=== PATIENT | female | born 1950 | race Caucasian/White ===

== ENCOUNTER 2018-10-27 05:45 | Inpatient (IN) | payer MEDICARE, MEDICAID ==
[~2018-10-27 05:45] MED LIST: Buffered Lidocaine 1% SYRIN* 1 ML/SYRINGE INTRADERM ONE
[2018-10-27] MEDS ORDERED: Lactated Ringers 1000 ML Bag* 1,000 ML IV SCH ×2 (06:00→19:00)
[2018-10-27] MEDS ORDERED: Famotidine IV* 10 MG/ML 2 ML (20 mg) IV ONE (06:00)
[2018-10-27] MEDS ORDERED: Famotidine IV* 10 MG/ML 2 ML (20 mg) ONE (06:31)
[2018-10-27] MEDS ORDERED: ceFAZolin 2 GM PREMIX in ORs 2 GM/50 ML BAG IVPB ONE ×2 (06:32→12:26)
[2018-10-27] MEDS ORDERED: Lidocain 1% EPI 1:100,000 * 30 ML MDV ONE (06:45)
[2018-10-27] MEDS ORDERED: Bacitracin IV* 50,000 UNITS INJ ONE ×2 (06:45→13:31)
[2018-10-27] MEDS ORDERED: Thrombin 5,000 UNITS* 1 APPLIC KIT - topical use - TOPICAL ONE (06:45)
[2018-10-27] MEDS ORDERED: fentaNYL* 50 MCG/ML 2 ML VIAL (100 MCG VIAL) ONE ×5 (07:32→18:15)
[2018-10-27] MEDS ORDERED: Midazolam* 1 MG/ML 5 ML VIAL (5 MG) ONE (07:32)
[2018-10-27] MEDS ORDERED: Rocuronium* 10 MG/ML VIAL ONE ×3 (07:35→14:10)
[2018-10-27] MEDS ORDERED: DiMENhydriNATE IV* 50 MG/ML VIAL ONE ×2 (09:11→20:45)
[2018-10-27] MEDS ORDERED: Propofol* 500 MG/50 ML BTL ONE (09:11)
[2018-10-27] MEDS ORDERED: Phenylephrine INJ* 10 MG/ML 1 ML VIAL (10 MG) ONE (09:11)
[2018-10-27] MEDS ORDERED: Succinylcholine* 20 MG/ML 10 ML VIAL ONE (09:11)
[2018-10-27] MEDS ORDERED: Lidocaine 2% PF * 5 ML VIAL ONE (09:11)
[2018-10-27] MEDS ORDERED: Ondansetron INJ* 2 MG/ML VIAL ONE ×2 (09:11→18:16)
[2018-10-27] MEDS ORDERED: Dexamethasone IV* 4 MG/ML 1 ML (4 MG) ONE (09:11)
[2018-10-27] MEDS ORDERED: EPHEDrine (Pressors)* 50 MG/ML VIAL ONE ×2 (10:33→15:18)
[2018-10-27] MEDS ORDERED: KETAMINE HCL* 50 MG/ML 10 ML VIAL ONE (13:48)
[2018-10-27 14:58] LABS: Hematocrit 35 % (35-47)
[2018-10-27 15:00] LABS: Hemoglobin 11.2 g/dl (12.0-16.0)
[2018-10-27] MEDS ORDERED: Dexmedetomidine* 200 MCG/2 ML 2 ML VIAL ONE (15:00)
[2018-10-27] MEDS ORDERED: Insulin REGULAR(*) 1 UNITS UNIT ONE ×2 (16:40→16:45)
[2018-10-27] MEDS ORDERED: Naloxone* 0.4 MG/ML 1 ML VIAL IV PRN (17:37)
[2018-10-27] MEDS ORDERED: Acetaminophen IV 1GM/100ML * 1,000 MG/100 ML VIAL IVPB ONE (17:37)
[2018-10-27] MEDS ORDERED: DiMENhydriNATE IV* 50 MG/ML VIAL IV PUSH PRN (17:37)
[2018-10-27] MEDS ORDERED: Zolpidem TAB* 10 MG PO PRN (18:43)
[2018-10-27] MEDS ORDERED: Morphine VIAL* 10 MG/ML 1 ML VIAL IV PRN (18:51)
[2018-10-27] MEDS ORDERED: HYDROmorphone INJ1* 1 MG/ML SYRINGE ONE (19:16)
[2018-10-27] MEDS ORDERED: Acetaminophen IV 1GM/100ML * 100 ML ONE (19:16)
[2018-10-27] MEDS: HYDROmorphone INJ1* 1 MG/ML SYRINGE IV PRN ×4 (19:24→19:56)
[2018-10-27 20:50] LABS: ABS Basophils 0 10^3/ul (0-0.2); ABS Eosinophils 0 10^3/ul (0-0.6); ABS Lymphocytes 0.6 10^3/ul (1.0-4.8); ABS Monocytes 1.1 10^3/ul (0-0.8); ABS Nucleated RBC 0 10^3/ul; Eosinophil % 0 %; Hematocrit 27 % (35-47); Hemoglobin 8.9 g/dl (12.0-16.0); Lymphocyte % 3.3 %; Mean Corpuscular HGB Conc 33 g/dl (31-36); Mean Corpuscular Hemoglobin 27 pg (27-31); Mean Corpuscular Volume 84 fL (80-97); Mean Platelet Volume 8.4 fL (7.4-10.4); Nucleated Red Blood Cells % 0; Platelet Count 187 10^3/ul (150-450); Red Blood Count 3.26 10^6/ul (4.00-5.40); Red Cell Distribution Width 14 % (10.5-15); White Blood Count 17.7 10^3/ul (3.5-10.8)
[2018-10-27 21:04] LABS: BUN/Creatinine Ratio 22.4 (8-20); Calcium 7.7 mg/dL (8.6-10.3); EGFR African American 91.8 (>60); EGFR Non-African American 75.9 (>60); Potassium 4.6 mmol/L (3.5-5.0)
[2018-10-27] MEDS ORDERED: Simethicone TAB* 80 MG TAB.CHEW PO PRN (21:29)
[2018-10-27] MEDS ORDERED: Dextrose 50% Syringe 50 ML* 25 GM/50 ML SYRINGE IV PUSH PRN (21:36)
[2018-10-27] MEDS ORDERED: Insulin GLARGINE(*) 1 UNITS UNIT SUBCUT ONE (21:37)
--- NOTE | 2018-10-27 21:38 | CONSULT ---
Subjective Date of Service: 10/27/18 Interval History: This is a 68 year old Female with history of diabetes, hypertension, back issues , who was admitted to the hospital after having back surgery- lumbar decompression. Medical consultation was requested for medical management. Nurse was also concerned because the patient developed hypotension and felt as if the abdomen was distended. Patient does not have any fever, no chills. Does not have any abdominal pain, no nausea, no vomiting, no chest pain, no burning with urination, no shortness of breath, no cough. Family History: Findings - Mother: Coronary artery disease, diabetes, Father: lung cancer, siblings with diabetes Social History: Findings - Lives at home, does not smoke, no alcohol use Past Medical History: Findings - Diabetes, Hypertension, Back issues. surgeries include tubal ligation, and back surgeries. Review of Systems - Measurements Intake and Output: Intake and Output Last 24 Hours 10/25/18 10/26/18 10/27/18 10/28/18 06:59 06:59 06:59 06:59 Intake Total 5900 Output Total 1400 Balance 4500 Weight 171 lb 9.6 oz Intake: IV Fluids 5900 LR 5800 NS 50ML, Cefazolin 2G 100 Output: Parnell 1000 Estimated Blood Loss 400 - Review of Systems Constitutional Symptoms: Negative: Weight Loss, Weakness, Fever Dermatology: Positive: Normal HEENT: Negative: Change in Hearing, Sinus Problem Eyes: Negative: Change in Vision, Double Vision Thyroid: Negative: Constipation, Palpitations, Change in Skin/Hair Pulmonary: Negative: Cough, Shortness of Breath, Home Oxygen Cardiology: Negative: Chest Pain, Shortness of Breath, Palpitations Gastroenterology: Negative: Abdominal Pain, Nausea, Vomiting Genital - Urinary: Negative: Dysuria, Hematuria Musculoskeletal: Positive: Low Back Pain Endocrinology: Positive: Diabetes Mellitus Neurology: Negative: Headache, Migraines, Change in Vision, Diplopia Psychiatry: Negative: Depression, Anxiety Objective Active Medications: Acetaminophen (Tylenol Tab*) 650 mg PO Q4H PRN PRN Reason: PAIN Dimenhydrinate (Dramamine Iv*) 12.5 mg IV PUSH ONCE PRN PRN Reason: NAUSEA/VOMITING Last Admin: 10/27/18 20:48 Dose: 12.5 mg Famotidine (Pepcid Iv*) 20 mg IV ONCE ONE Stop: 10/27/18 06:01 Last Admin: 10/27/18 06:48 Dose: 20 mg Hydromorphone HCl (Dilaudid Inj1s*) 0.2 mg IV Q5M PRN PRN Reason: PAIN - SEVERE Last Admin: 10/27/18 19:56 Dose: 0.2 mg Acetaminophen (Ofirmev*) 1,000 mg in 100 mls @ 400 mls/hr IVPB ONCE ONE Stop: 10/27/18 17:51 Last Admin: 10/27/18 19:21 Dose: 400 mls/hr Sodium Chloride (Ns 0.9% 1000 Ml*) 1,000 mls @ 75 mls/hr IV PER RATE STALIN Lidocaine/Sodium Bicarbonate (Buffered Lidocaine 1% Syrin*) 0.2 ml INTRADERM ONCE ONE Stop: 10/26/18 15:16 Last Admin: 10/27/18 06:48 Dose: Not Given Liraglutide (Victoza (Nf)) 1.6 mg SUBCUT QPM [facility] Magnesium Hydroxide (Milk Of Magnesia Liq*) 30 ml PO DAILY PRN PRN Reason: CONSTIPATION Morphine Sulfate (Morphine Inj (Syringe)*) 5 mg IV Q6H PRN PRN Reason: PAIN - BREAKTHROUGH Naloxone HCl (Narcan*) 0.08 mg IV Q2M PRN PRN Reason: severe induced resp depression Non-Formulary Medication (Atorvastatin*) 10 mg PO QPM [facility] Non-Formulary Medication (Calcium Carbonate/Vitamin D3 [Calcium 600-Vit D3 800 Tablet]) 1 tab PO DAILY [facility] Non-Formulary Medication (Levemir Flextouch) 38 units SUBCUT QPM [facility] Non-Formulary Medication (Multivitamin) 1 tab PO QAM [facility] Non-Formulary Medication (Vitamin B12) 1,000 mg PO QAM [facility] Non-Formulary Medication (Vitamin D3) 2,000 units PO DAILY [facility] Ondansetron HCl (Zofran Inj*) 4 mg IV Q6H PRN PRN Reason: NAUSEA/VOMITING Oxycodone HCl (Roxycodone Tab*) 10 mg PO Q4H PRN PRN Reason: marked pain Simethicone (Mylicon Tab*) 80 mg PO Q12H PRN PRN Reason: bloating Zolpidem Tartrate (Ambien Tab*) 10 mg PO BEDTIME PRN PRN Reason: INSOMNIA Vital Signs - 8 hr 10/27/18 10/27/18 10/27/18 19:06 19:07 19:12 Temperature 97.7 F Pulse Rate 86 86 Respiratory 12 17 Rate Blood Pressure 93/55 (mmHg) O2 Sat by Pulse 100 99 Oximetry 10/27/18 10/27/18 10/27/18 19:15 19:20 19:24 Temperature Pulse Rate 80 83 Respiratory 20 14 13 Rate Blood Pressure 94/61 111/70 (mmHg) O2 Sat by Pulse 98 99 Oximetry 10/27/18 10/27/18 10/27/18 19:25 19:30 19:32 Temperature Pulse Rate 84 81 Respiratory 15 20 12 Rate Blood Pressure 120/73 110/61 (mmHg) O2 Sat by Pulse 100 97 Oximetry 10/27/18 10/27/18 10/27/18 19:42 19:46 19:56 Temperature Pulse Rate Respiratory 18 18 15 Rate Blood Pressure 111/62 (mmHg) O2 Sat by Pulse Oximetry 10/27/18 10/27/18 10/27/18 20:00 20:15 20:30 Temperature Pulse Rate 84 84 82 Respiratory 18 18 16 Rate Blood Pressure 94/60 97/60 94/62 (mmHg) O2 Sat by Pulse 95 98 93 Oximetry 10/27/18 10/27/18 10/27/18 20:45 20:49 21:05 Temperature Pulse Rate 79 81 82 Respiratory 14 16 16 Rate Blood Pressure 89/58 93/57 91/57 (mmHg) O2 Sat by Pulse 94 99 96 Oximetry 10/27/18 21:11 Temperature Pulse Rate 80 Respiratory 14 Rate Blood Pressure 91/54 (mmHg) O2 Sat by Pulse 95 Oximetry Oxygen Devices in Use Now: Nasal Cannula Appearance: Elderly female lying in bed in the PACU, not in distress. Non-toxic appearing. Eyes: PERRLA, - - no nystagmus Ears/Nose/Mouth/Throat: - - oral mucosa is dry. Neck: Trachea Midline, No Thyroid Enlargement, Masses Respiratory: Symmetrical Chest Expansion and Respiratory Effort, Clear to Auscultation, - - No tachypnea. no wheezing/rales/rhonchi Cardiovascular: NL Sounds; No Murmurs; No JVD, RRR, No Edema Abdominal: No Hepatosplenomegaly, - - Bowel sounds are normoactive all four quadrants, soft, mildly distended, non-tender, no rigidity or guarding. Extremities: No Edema Skin: No Rash or Ulcers Neurological: Alert and Oriented x 3, NL Muscle Strength and Tone Result Diagrams: 10/27/18 20:38 10/27/18 20:38 Assessment/Plan - Billing Plan By Medical Problem: 68 year old Female with history of diabetes, hypertension here in the hospital for back surgery- lumbar decompression. 1. Hypotension: likley due to anesthesia, will monitor in ICU overnight. Gentle IV hydration, hold home dose lisinopril 2. Leukocytosis: could be post reactive from surgery, however due to low blood pressure, obtain blood culture, urinalysis, chest xray. She did receive antibiotics intra-op. Currenlty is non-toxic appearing, no fever, so will monitor off antibiotics. 3. Type II Diabetes: resume home regimen from tomorrow (10/28/18) Insulin sliding scale will be ordered as well. One dose of 10 units of lantus to carry through the night. 4. Additional care (including pain control DVT PPX) per the primary team: neurosurgery. Thank you for involving us in the care of Ms. Nora Ta. Medications/Allergies Medications: Home Medications Medication Instructions Recorded Confirmed Type Lisinopril TAB* 10 mg PO QAM 11/03/14 10/27/18 History Calcium Carbonate/Vitamin D3 1 tab PO DAILY 01/10/15 10/27/18 History [Calcium 600-Vit D3 800 Tablet] Magnesium 1 tab PO QAM 01/10/15 10/27/18 History Multivitamin 1 tab PO QAM 01/10/15 10/27/18 History Niacin 1 tab PO QAM 01/10/15 10/27/18 History Potassium 1 tab PO DAILY 01/10/15 10/27/18 History Hemeopathy Meds 1 PO SEE INSTRUCTIONS 12/14/15 History Herbal Tinctures 1 tab PO QAM 12/14/15 10/27/18 History Co Q-10 1 tab PO QAM 10/21/18 10/27/18 History Levemir Flextouch 38 INJ QPM 10/21/18 History Liraglutide (NF) [Victoza (NF)] 1.6 mg SUBCUT QPM 10/21/18 10/27/18 History Vitamin B12 1 tab PO QAM 10/21/18 10/27/18 History metFORMIN* [Glucophage 500 MG TAB 1,000 mg PO BID 10/21/18 10/27/18 History *] Atorvastatin* 1 tab PO QPM 10/27/18 10/27/18 History Digestive Aids Mixture 3 cap PO DAILY 10/27/18 10/27/18 History Vitamin D3 2,000 units PO DAILY 10/27/18 10/27/18 History Allergies/Adverse Reactions: Allergies Allergy/AdvReac Type Severity Reaction Status Date / Time No Known Allergies Allergy Verified 10/27/18 06:36
[2018-10-27] MEDS: Ondansetron INJ* 2 MG/ML VIAL IV PRN (23:00)
[2018-10-27] MEDS: Insulin LISPRO* 1 UNITS UNIT SUBCUT SCH (23:00)
[2018-10-28] MEDS ORDERED: NS 0.9% 500 ML* 500 ML IV ONE (03:37)
[2018-10-28 03:42] LABS: Urine Appearance Cloudy; Urine Bacteria Absent (Absent); Urine Bilirubin Negative (Negative); Urine Blood Negative (Negative); Urine Color Yellow; Urine Glucose 2+(150 mg/dL) (Negative); Urine Ketones Negative (Negative); Urine Nitrite Negative (Negative); Urine Protein Negative (Negative); Urine Red Blood Cell Absent (Absent); Urine Specific Gravity 1.024 (1.010-1.030); Urine Squamous Epithelial Cell Present (Absent); Urine Urobilinogen Negative (Negative); Urine White Blood Cell 2+(11-20/hpf) (Absent)
[2018-10-28] MEDS: Acetaminophen TAB* 325 MG PO PRN (03:44)
[2018-10-28] MEDS: oxyCODONE TAB* 5 MG TAB PO PRN ×3 (06:21→18:31)
[2018-10-28] MEDS: Ondansetron INJ* 2 MG/ML VIAL IV PRN (06:53)
[2018-10-28] MEDS: NS 0.9% 1000 ML** 1,000 ML IV SCH ×2 (07:30→23:07)
[2018-10-28 07:47] LABS: ABS Basophils 0.1 10^3/ul (0-0.2); ABS Eosinophils 0 10^3/ul (0-0.6); ABS Lymphocytes 1.3 10^3/ul (1.0-4.8); ABS Monocytes 1.2 10^3/ul (0-0.8); ABS Neutrophils 13.1 10^3/ul (1.5-7.7); ABS Nucleated RBC 0 10^3/ul; Eosinophil % 0 %; Hematocrit 24 % (35-47); Lymphocyte % 8.6 %; Mean Corpuscular HGB Conc 33 g/dl (31-36); Mean Corpuscular Hemoglobin 27 pg (27-31); Mean Corpuscular Volume 83 fL (80-97); Mean Platelet Volume 8.5 fL (7.4-10.4); Nucleated Red Blood Cells % 0; Platelet Count 165 10^3/ul (150-450); Red Blood Count 2.93 10^6/ul (4.00-5.40); Red Cell Distribution Width 14 % (10.5-15); White Blood Count 15.7 10^3/ul (3.5-10.8)
[2018-10-28 07:57] LABS: BUN/Creatinine Ratio 20.7 (8-20); Calcium 7.9 mg/dL (8.6-10.3); EGFR African American 59.3 (>60); Potassium 4.4 mmol/L (3.5-5.0)
[2018-10-28] MEDS: Calcium/Vitamin D TAB 250/125* TAB PO SCH (08:26)
[2018-10-28] MEDS: Insulin LISPRO* 1 UNITS UNIT SUBCUT SCH ×4 (08:26→22:45)
[2018-10-28] MEDS: Cyanocobalamin TAB* 500 MCG PO SCH (08:27)
[2018-10-28] MEDS: Cholecalciferol TAB* 1000 UNITS PO SCH (08:27)
[2018-10-28] MEDS: Multivitamins/Minerals TAB PO SCH (08:27)
[2018-10-28] MEDS ORDERED: Albumin Human 5%* 12.5 GM/250 ML BTL IV ONE (09:03)
[2018-10-28] MEDS ORDERED: Morphine VIAL* 10 MG/ML 1 ML VIAL ONE (13:42)
[2018-10-28] MEDS: Morphine VIAL* 10 MG/ML 1 ML VIAL IV PRN ×2 (13:47→22:45)
[2018-10-28 15:39] LABS: Hematocrit 25 % (35-47); Hemoglobin 8.1 g/dl (12.0-16.0)
--- NOTE | 2018-10-28 16:14 | PN ---
Progress Note - Progress Note Date of Service: 10/28/18 SOAP: Subjective: []POD # 1 Patient c/o severe incisional pain Feels she can hardly move secondary to pain Went to ICU secondary to length of case,hypotension and low urine output Denies any numbness or tingling in legs Catheter in place Objective: []Moderate drain output HCT 24 this AM Moves ext well with some pain Assessment: []Satis post op course Plan: []Would transfuse given her BP,urine output Discussed transfusion with Dr. Langley
--- NOTE | 2018-10-28 17:41 | PN ---
Date of Service: 10/28/18 Critical Care Services: Seems comfortable - somnolent but easily arousable - Hemoglobin at 8 this AM - after one unit PRBC. repeat Hb was 8.1 - currently receiving the second unit PRBC - no obvious active bleeding. Vital Signs: Temp Pulse Resp BP SpO2 FiO2 97.5 F 109 21 120/51 93 Physical Exam: Gen:Comfortable and easily arousable HEENT: Swelling right side of face Lungs: Clear Cardiac: Reg rhythm Abdomen: Not disended Extremities:No cyanosis or edema. Fluid Balance (Past 24 Hours): 10/28/18 06:59 Intake Total 7827 Output Total 1860 Balance 5967 Weight 184 lb Intake: IV Fluids 6867 Albumin 5% LR 5800 NS (0.9%) 967 NS 50ML, Cefazolin 2G 100 Oral 960 Packed Cells Output: ROSITA #1 90 Urine Parnell 1370 Estimated Blood Loss 400 Labs: Laboratory Results - last 24 hr 10/27/18 10/27/18 10/28/18 20:38 22:45 03:00 WBC 17.7 H RBC 3.26 L Hgb 8.9 L Hct 27 L MCV 84 MCH 27 MCHC 33 RDW 14 Plt Count 187 MPV 8.4 Neut % (Auto) 90.1 Lymph % (Auto) 3.3 Brooks % (Auto) 6.5 Eos % (Auto) 0 Baso % (Auto) 0.1 Absolute Neuts (auto) 16.0 H Absolute Lymphs (auto) 0.6 L Absolute Monos (auto) 1.1 H Absolute Eos (auto) 0 Absolute Basos (auto) 0 Absolute Nucleated RBC 0 Nucleated RBC % 0 Sodium Potassium Chloride Carbon Dioxide Anion Gap BUN Creatinine Est GFR ( Amer) Est GFR (Non-Af Amer) BUN/Creatinine Ratio Glucose POC Glucose (mg/dL) 330 H Calcium Urine Color Yellow Urine Appearance Cloudy Urine pH 5.0 Ur Specific [place] 1.024 Urine Protein Negative Urine Ketones Negative Urine Blood Negative Urine Nitrate Negative Urine Bilirubin Negative Urine Urobilinogen Negative Ur Leukocyte Esterase Trace A Urine WBC (Auto) 2+(11-20/hpf) A Urine RBC (Auto) Absent Ur Squamous Epith Cells Present A Urine Bacteria Absent Hyaline Casts Present A Urine Glucose 2+(150 mg/dl) A Blood Type Antibody Screen Crossmatch 10/28/18 10/28/18 10/28/18 07:32 07:32 08:18 WBC 15.7 H RBC 2.93 L Hgb 8.0 L Hct 24 L MCV 83 MCH 27 MCHC 33 RDW 14 Plt Count 165 MPV 8.5 Neut % (Auto) 83.7 Lymph % (Auto) 8.6 Brooks % (Auto) 7.4 Eos % (Auto) 0 Baso % (Auto) 0.3 Absolute Neuts (auto) 13.1 H Absolute Lymphs (auto) 1.3 Absolute Monos (auto) 1.2 H Absolute Eos (auto) 0 Absolute Basos (auto) 0.1 Absolute Nucleated RBC 0 Nucleated RBC % 0 Sodium 132 L Potassium 4.4 Chloride 100 L Carbon Dioxide 27 Anion Gap 5 BUN 23 Creatinine 1.11 H Glucose 247 H POC Glucose (mg/dL) 240 H Calcium 7.9 L Urine Color Urine Appearance Urine pH Ur Specific [place] Urine Protein Urine Ketones Urine Blood Urine Nitrate Urine Bilirubin Urine Urobilinogen Ur Leukocyte Esterase Urine WBC (Auto) Urine RBC (Auto) Ur Squamous Epith Cells Urine Bacteria Hyaline Casts Urine Glucose Blood Type Antibody Screen Crossmatch 10/28/18 10/28/18 13:26 15:25 WBC RBC Hgb 8.1 L Hct 25 L MCV MCH MCHC RDW Plt Count MPV Neut % (Auto) Lymph % (Auto) Brooks % (Auto) Eos % (Auto) Baso % (Auto) Absolute Neuts (auto) Absolute Lymphs (auto) Absolute Monos (auto) Absolute Eos (auto) Absolute Basos (auto) Absolute Nucleated RBC Nucleated RBC % Sodium Potassium Chloride Carbon Dioxide Anion Gap BUN Creatinine Est GFR ( Amer) Est GFR (Non-Af Amer) BUN/Creatinine Ratio Glucose POC Glucose (mg/dL) 220 H Calcium Urine Color Urine Appearance Urine pH Ur Specific [place] Urine Protein Urine Ketones Urine Blood Urine Nitrate Urine Bilirubin Urine Urobilinogen Ur Leukocyte Esterase Urine WBC (Auto) Urine RBC (Auto) Ur Squamous Epith Cells Urine Bacteria Hyaline Casts Urine Glucose Blood Type Antibody Screen Crossmatch Studies: None today Nutrition: Clear liquids - intake poor Impression: Doing resonably well - there has been a low urine output this afternoon, but it is not concerning at this point, as we are replacing blood and fluid losses. Hyperglycemia not a problem. Plan: Erythrocyte transfusions and fluids as needed. Will keep blood sugar around 200 mg/dL. Critical Care Time: 45 minutes
[2018-10-28] MEDS ORDERED: INSULIN DETEMIR SUBCUT SCH (18:00)
[2018-10-28] MEDS: Atorvastatin* 10 MG TAB PO SCH (18:15)
[2018-10-28] MEDS: LIRAGLUTIDE 18 MG/3 ML SUBCUT SCH (19:01)
[2018-10-28 19:20] LABS: EGFR African American 58.7 (>60); EGFR Non-African American 48.5 (>60)
[2018-10-28] MEDS: Insulin GLARGINE(*) 1 UNITS UNIT SUBCUT SCH (22:46)
[2018-10-29 00:25] LABS: Hematocrit 31 % (35-47); Hemoglobin 10.1 g/dl (12.0-16.0)
[2018-10-29] MEDS: oxyCODONE TAB* 5 MG TAB PO PRN ×4 (01:08→20:15)
[2018-10-29] MEDS: Morphine VIAL* 10 MG/ML 1 ML VIAL IV PRN ×2 (03:04→08:42)
[2018-10-29 06:51] LABS: Hematocrit 30 % (35-47); Hemoglobin 9.9 g/dl (12.0-16.0); Mean Corpuscular HGB Conc 33 g/dl (31-36); Mean Corpuscular Hemoglobin 28 pg (27-31); Mean Corpuscular Volume 83 fL (80-97); Mean Platelet Volume 8.5 fL (7.4-10.4); Platelet Count 133 10^3/ul (150-450); Red Blood Count 3.59 10^6/ul (4.00-5.40); Red Cell Distribution Width 14 % (10.5-15); White Blood Count 15.5 10^3/ul (3.5-10.8)
[2018-10-29 07:09] LABS: BUN/Creatinine Ratio 23.1 (8-20); Calcium 8.3 mg/dL (8.6-10.3); EGFR African American 89.1 (>60); EGFR Non-African American 73.7 (>60); Potassium 4.2 mmol/L (3.5-5.0)
[2018-10-29] MEDS: Multivitamins/Minerals TAB PO SCH (08:40)
[2018-10-29] MEDS: Calcium/Vitamin D TAB 250/125* TAB PO SCH (08:40)
[2018-10-29] MEDS: Cyanocobalamin TAB* 500 MCG PO SCH (08:40)
[2018-10-29] MEDS: Cholecalciferol TAB* 1000 UNITS PO SCH (08:40)
--- NOTE | 2018-10-29 09:12 | PN ---
Progress Note - Progress Note Date of Service: 10/29/18 SOAP: Subjective: [S/p T11-S1 fusion, POD #2. States that she feels terrible today, complains of incisional pain Drinking well although states she feels parched Urine output increased, BP improved 3 units PRBC transfused yesterday Has not been up out of bed yet. Tingling in lower extremities distally from knees. Parnell in place ] Objective: [ Vital Signs: Temp Pulse Resp BP Pulse Ox 97.0 F 98 30 134/76 94 10/29/18 04:00 10/29/18 07:00 10/29/18 08:42 10/29/18 07:00 10/29/18 07:00 General: Laying in bed, NAD Neuro: Motor and sensory intact Incision: Intact, dressing in place. Drain functioning well. Wound drain output 10/27/18 10/28/18 10/28/18 23:00 02:00 04:00 Output, ROSITA #1 30 30 30 10/28/18 10/28/18 10/28/18 08:00 11:00 16:00 Output, ROSITA #1 50 50 35 10/28/18 10/29/18 10/29/18 19:50 00:00 04:00 Output, ROSITA #1 30 70 60 10/29/18 08:54 Output, ROSITA #1 30 Laboratory Tests 10/29/18 06:35 Hgb 9.9 L Hct 30 L ] Assessment: [Stable post-op.] Plan: [1. Add cyclobenzaprine and fentanyl patch 2. PT, OT 3. Transfer to short stay today]
[2018-10-29] MEDS: Insulin LISPRO* 1 UNITS UNIT SUBCUT SCH ×4 (09:29→20:31)
--- NOTE | 2018-10-29 09:30 | PN ---
Date of Service: 10/29/18 Critical Care Services: Less confused today, but complaining of increasing back pain. Received 3 units packed RBCs yesterday, with hemoglobin up to 9.9. Vital Signs: Temp Pulse Resp BP SpO2 FiO2 97.0 F 98 30 134/76 94 10/29/18 04:00 10/29/18 07:00 10/29/18 08:42 10/29/18 07:00 10/29/18 07:00 Physical Exam: Gen:Awake and oriented to person and place Lungs:Clear Cardiac: Reg rhythm Abdomen:Not distended Extremities:No cyanosis or edema Fluid Balance (Past 24 Hours): 10/28/18 10/29/18 06:59 06:59 Intake Total 7827 3411 Output Total 1860 1350 Balance 5967 2061 Weight 184 lb 189 lb Intake: IV Fluids 6867 1931 Albumin 5% 250 LR 5800 NS (0.9%) 967 1681 NS 50ML, Cefazolin 2G 100 Oral 960 640 Packed Cells 840 Output: ROSITA #1 90 295 Urine 40 Parnell 1370 1015 Estimated Blood Loss 400 Labs: 10/28/18 10/28/18 10/28/18 15:25 18:14 18:22 WBC RBC Hgb 8.1 L Hct 25 L MCV MCH MCHC RDW Plt Count MPV Sodium Potassium Chloride Carbon Dioxide Anion Gap BUN 25 H Creatinine 1.12 H Est GFR ( Amer) 58.7 Est GFR (Non-Af Amer) 48.5 BUN/Creatinine Ratio Glucose POC Glucose (mg/dL) 229 H Calcium Blood Type Antibody Screen Crossmatch 10/28/18 10/29/18 10/29/18 22:24 00:10 06:35 WBC RBC Hgb 10.1 L Hct 31 L MCV MCH MCHC RDW Plt Count MPV Sodium 134 L Potassium 4.2 Chloride 104 Carbon Dioxide 26 Anion Gap 4 BUN 18 Creatinine 0.78 Est GFR ( Amer) 89.1 Est GFR (Non-Af Amer) 73.7 BUN/Creatinine Ratio 23.1 H Glucose 199 H POC Glucose (mg/dL) 221 H Calcium 8.3 L Blood Type Antibody Screen Crossmatch 10/29/18 10/29/18 06:35 08:59 WBC 15.5 H RBC 3.59 L Hgb 9.9 L Hct 30 L MCV 83 MCH 28 MCHC 33 RDW 14 Plt Count 133 L MPV 8.5 Sodium Potassium Chloride Carbon Dioxide Anion Gap BUN Creatinine Est GFR ( Amer) Est GFR (Non-Af Amer) BUN/Creatinine Ratio Glucose POC Glucose (mg/dL) 213 H Calcium Blood Type Antibody Screen Crossmatch Studies: All cultures negative Nutrition: Oral diet Impression: Satisfactory postop course. Plan: 1. Start fentanyl patches for pain control 2. Start physical therapy 3. Transfer out of ICU today
[2018-10-29] MEDS: fentaNYL PATCH 25 MCG/HR TRANSDERM SCH (10:22)
[2018-10-29] MEDS: Cyclobenzaprine TAB* 10 MG PO PRN (12:57)
[2018-10-29] MEDS: fentaNYL Patch Check Q Shift 1 NOTE SCH ×2 (15:29→19:06)
[2018-10-29] MEDS: LIRAGLUTIDE 18 MG/3 ML SUBCUT SCH (18:34)
[2018-10-29] MEDS: Acetaminophen TAB* 325 MG PO PRN (18:46)
[2018-10-29] MEDS: Atorvastatin* 10 MG TAB PO SCH (18:46)
[2018-10-29] MEDS: Insulin GLARGINE(*) 1 UNITS UNIT SUBCUT SCH (20:31)
[2018-10-30] MEDS: oxyCODONE TAB* 5 MG TAB PO PRN ×5 (00:07→20:39)
[2018-10-30] MEDS: NS 0.9% 1000 ML** 1,000 ML IV SCH ×2 (04:02→16:38)
[2018-10-30] MEDS: fentaNYL Patch Check Q Shift 1 NOTE SCH ×2 (07:01→19:13)
--- NOTE | 2018-10-30 07:54 | PN ---
Progress Note - Progress Note Date of Service: 10/30/18 SOAP: Subjective: [Pt continues to complain of severe back pain. Numbness in lower extremities is improving. Has not been up out of bed Pain increases with movement in bed. Parnell in place. PO pain meds and patch. ] Objective: [ Vital Signs: Temp Pulse Resp BP Pulse Ox 98.6 F 85 18 148/61 96 10/30/18 07:39 10/30/18 07:39 10/30/18 07:39 10/30/18 07:39 10/30/18 07:50 Neuro: Motor and sensory intact Incision: Intact, drain in place and functioning ] Assessment: [Slow progress post-op. Will likely require rehab] Plan: [1. PT today 2. Encourage out of bed 3. Continue pain management]
[2018-10-30] MEDS: Multivitamins/Minerals TAB PO SCH (08:02)
[2018-10-30] MEDS: Cholecalciferol TAB* 1000 UNITS PO SCH (08:02)
[2018-10-30] MEDS: Cyanocobalamin TAB* 500 MCG PO SCH (08:02)
[2018-10-30] MEDS: Calcium/Vitamin D TAB 250/125* TAB PO SCH (08:02)
[2018-10-30] MEDS: Magnesium Hydroxide LIQ* 30 ML UDC PO PRN (08:12)
[2018-10-30] MEDS: Insulin LISPRO* 1 UNITS UNIT SUBCUT SCH ×4 (09:01→20:54)
[2018-10-30] MEDS: Cyclobenzaprine TAB* 10 MG PO PRN (11:37)
[2018-10-30] MEDS: Morphine INJ* 2 MG/ML 1 ML SYRINGE (TWO MG - NEW SYRINGE VERSION) IV PRN (12:23)
[2018-10-30] MEDS: Atorvastatin* 10 MG TAB PO SCH (17:48)
[2018-10-30] MEDS: LIRAGLUTIDE 18 MG/3 ML SUBCUT SCH (17:49)
--- NOTE | 2018-10-30 18:36 | PN ---
Subjective Date of Service: 10/30/18 Interval History: Patient seen and examined. Per RN, patient had some confusion earlier in the day. Appears alert and appropriate now. States her surgical pain is better controlled now, tolerating PO. Denies fevers or chills, no SOB, no chest pain, no further complaints. Family History: Findings - Mother: Coronary artery disease, diabetes, Father: lung cancer, siblings with diabetes Social History: Findings - Lives at home, does not smoke, no alcohol use Past Medical History: Findings - Diabetes, Hypertension, Back issues. surgeries include tubal ligation, and back surgeries. Objective Active Medications: Acetaminophen (Tylenol Tab*) 650 mg PO Q4H PRN PRN Reason: PAIN Last Admin: 10/29/18 18:46 Dose: 650 mg Atorvastatin Calcium (Lipitor*) 10 mg PO QPM [facility] Last Admin: 10/30/18 17:48 Dose: 10 mg Calcium/Vitamin D (Oscal D Tab 250/125*) 1 tab PO DAILY [facility] Last Admin: 10/30/18 08:02 Dose: 1 tab Cholecalciferol (Vitamin D Tab*) 2,000 units PO DAILY [facility] Last Admin: 10/30/18 08:02 Dose: 2,000 units Cyanocobalamin (Vitamin B12 Tab*) 1,000 mcg PO QAM [facility] Last Admin: 10/30/18 08:02 Dose: 1,000 mcg Cyclobenzaprine HCl (Flexeril Tab*) 10 mg PO TID PRN PRN Reason: muscle spasm Last Admin: 10/30/18 11:37 Dose: 10 mg Dextrose (D50w Syringe 50 Ml*) 12.5 gm IV PUSH .FOR FS < 60 - SS PRN PRN Reason: FS < 60 Fentanyl (Duragesic Patch 25 Mcg/Hr*) 25 mcg TRANSDERM Q72H [facility] Last Admin: 10/29/18 10:22 Dose: 25 mcg Sodium Chloride (Ns 0.9% 1000 Ml*) 1,000 mls @ 75 mls/hr IV PER RATE [facility] Last Admin: 10/30/18 16:38 Dose: 75 mls/hr Insulin Glargine (Lantus(*)) 38 units SUBCUT BEDTIME [facility] Last Admin: 10/29/18 20:31 Dose: 38 units Insulin Human Lispro (Humalog*) 0 units SUBCUT ACHS [facility]; Protocol Last Admin: 10/30/18 17:48 Dose: 4 units Liraglutide (Victoza (Nf)) 1.8 mg SUBCUT QPM [facility] Last Admin: 10/30/18 17:49 Dose: Not Given Magnesium Hydroxide (Milk Of Magnesia Liq*) 30 ml PO DAILY PRN PRN Reason: CONSTIPATION Last Admin: 10/30/18 08:12 Dose: 30 ml Morphine Sulfate (Morphine Vial*) 5 mg IV Q4H PRN PRN Reason: PAIN - BREAKTHROUGH Last Admin: 10/29/18 08:42 Dose: 5 mg Morphine Sulfate (Morphine Inj ((Syringe))*) 1 mg IV Q2H PRN PRN Reason: PAIN Last Admin: 10/30/18 12:23 Dose: 1 mg Multivitamins/Minerals (Theragran/Minerals Tab*) 1 tab PO QAM [facility] Last Admin: 10/30/18 08:02 Dose: 1 tab Ondansetron HCl (Zofran Inj*) 4 mg IV Q6H PRN PRN Reason: NAUSEA/VOMITING Last Admin: 10/28/18 06:53 Dose: 4 mg Oxycodone HCl (Roxycodone Tab*) 10 mg PO Q4H PRN PRN Reason: marked pain Last Admin: 10/30/18 16:25 Dose: 10 mg Pharmacy Profile Note (Fentanyl Patch Check Q Shift) 1 note N/A 0700,1900 [facility] Last Admin: 10/30/18 07:01 Dose: 1 note Simethicone (Mylicon Tab*) 80 mg PO Q12H PRN PRN Reason: bloating Zolpidem Tartrate (Ambien Tab*) 10 mg PO BEDTIME PRN PRN Reason: INSOMNIA Last Admin: 10/30/18 00:16 Dose: 10 mg Vital Signs - 8 hr 10/30/18 10/30/18 10/30/18 11:37 12:23 12:51 Temperature 97.8 F Pulse Rate 90 Respiratory 18 18 16 Rate Blood Pressure 163/77 (mmHg) O2 Sat by Pulse 97 Oximetry 10/30/18 10/30/18 16:17 16:25 Temperature 98.3 F Pulse Rate 89 Respiratory 20 18 Rate Blood Pressure 154/64 (mmHg) O2 Sat by Pulse 97 Oximetry Oxygen Devices in Use Now: None Appearance: alert, NAD Eyes: No Scleral Icterus, PERRLA Ears/Nose/Mouth/Throat: NL Teeth, Lips, Gums Neck: NL Appearance and Movements; NL JVP, Trachea Midline Respiratory: Symmetrical Chest Expansion and Respiratory Effort, Clear to Auscultation Cardiovascular: NL Sounds; No Murmurs; No JVD, RRR, No Edema Abdominal: NL Sounds; No Tenderness; No Distention Skin: No Rash or Ulcers, - - ROSITA drain with serosanguinous drainage, dressing CDI Neurological: Alert and Oriented x 3, NL Muscle Strength and Tone, - Nutrition: Taking PO's Result Diagrams: 10/29/18 06:35 10/29/18 06:35 Microbiology and Other Data: Microbiology 10/28/18 00:00 Aerobic Blood Culture - Preliminary Blood Venous No Growth Day 2 Anaerobic Blood Culture - Preliminary No Growth Day 2 10/28/18 00:00 Aerobic Blood Culture - Preliminary Blood Venous No Growth Day 2 Anaerobic Blood Culture - Preliminary No Growth Day 2 10/28/18 03:00 Urine Culture - Final Urine No Growth (<1,000 CFU/mL) 10/27/18 22:30 Nasal Screen MRSA (PCR) - Final Nasal Mrsa Not Detected Assess/Plan/Problems-Billing Plan By Medical Problem: 68 year old Female with history of diabetes, hypertension presented to [facility] for T11-S1 lumbar decompression and fusion. - Patient Problems (1) Lumbar spinal stenosis Code(s): M48.06 - SPINAL STENOSIS, LUMBAR REGION * DO NOT USE * SNOMED Code(s) : 36699191 Comment: - s/p T11-S1 fusion - POC as per neurosurgery - PT/OT - Pain control with fentanyl patch and oxycodone - DVT prophy with SCDs (2) Hypertension Code(s): I10 - ESSENTIAL (PRIMARY) HYPERTENSION SNOMED Code(s): 64458549 Comment: - With post-op hypotension and anemia, and reactive leukocytosis improving - S/p 3 units PRBCs transfused - renal function returned to baseline - Downgraded from ICU 10/29 (3) Diabetes Code(s): E11.9 - TYPE 2 DIABETES MELLITUS WITHOUT COMPLICATIONS SNOMED Code(s) : 69967545 Comment: - Accuchecks ACHS with lispro SS, 38 units lantus QHS and victoza Status and Disposition: Inpatient, dispo per neurosurgery.
[2018-10-30] MEDS: Acetaminophen TAB* 325 MG PO PRN (20:39)
[2018-10-30] MEDS: Insulin GLARGINE(*) 1 UNITS UNIT SUBCUT SCH (20:53)
--- NOTE | 2018-10-30 21:37 | PN ---
Progress Note - Progress Note Date of Service: 10/30/18 SOAP: Subjective: [] No events ON. On regular floor. Not OOB yet. Tolerates Po well. 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 Appreciate IM care. Mauricio Blanco MD
[2018-10-31] MEDS: Acetaminophen TAB* 325 MG PO PRN (02:13)
[2018-10-31] MEDS: oxyCODONE TAB* 5 MG TAB PO PRN ×3 (04:21→12:48)
[2018-10-31] MEDS: NS 0.9% 1000 ML** 1,000 ML IV SCH (05:55)
[2018-10-31] MEDS: fentaNYL Patch Check Q Shift 1 NOTE SCH ×2 (06:32→19:17)
[2018-10-31] MEDS: Insulin LISPRO* 1 UNITS UNIT SUBCUT SCH ×4 (07:55→21:00)
[2018-10-31] MEDS: Magnesium Hydroxide LIQ* 30 ML UDC PO PRN (08:06)
[2018-10-31] MEDS: Cyanocobalamin TAB* 500 MCG PO SCH (08:07)
[2018-10-31] MEDS: Cholecalciferol TAB* 1000 UNITS PO SCH (08:07)
[2018-10-31] MEDS: Multivitamins/Minerals TAB PO SCH (08:07)
[2018-10-31] MEDS: Calcium/Vitamin D TAB 250/125* TAB PO SCH (08:07)
[2018-10-31] MEDS: Polyethylene Glycol 3350* 17 GM PACKET PO SCH (12:48)
--- NOTE | 2018-10-31 14:49 | PN ---
Subjective Date of Service: 10/31/18 Interval History: Patient seen and examined. PT and RN getting patient OOB to chair for first time. Patient is mildly tachypneic during transfer 2/2 pain. Ultimately tolerated the move ok. Denies acute SOB, no chest pain, surgical pain 5/10. Family History: Findings - Mother: Coronary artery disease, diabetes, Father: lung cancer, siblings with diabetes Social History: Findings - Lives at home, does not smoke, no alcohol use Past Medical History: Findings - Diabetes, Hypertension, Back issues. surgeries include tubal ligation, and back surgeries. Objective Active Medications: Acetaminophen (Tylenol Tab*) 650 mg PO Q4H PRN PRN Reason: PAIN Last Admin: 10/31/18 02:13 Dose: 650 mg Atorvastatin Calcium (Lipitor*) 10 mg PO QPM [facility] Last Admin: 10/30/18 17:48 Dose: 10 mg Calcium/Vitamin D (Oscal D Tab 250/125*) 1 tab PO DAILY [facility] Last Admin: 10/31/18 08:07 Dose: 1 tab Cholecalciferol (Vitamin D Tab*) 2,000 units PO DAILY [facility] Last Admin: 10/31/18 08:07 Dose: 2,000 units Cyanocobalamin (Vitamin B12 Tab*) 1,000 mcg PO QAM [facility] Last Admin: 10/31/18 08:07 Dose: 1,000 mcg Cyclobenzaprine HCl (Flexeril Tab*) 10 mg PO TID PRN PRN Reason: muscle spasm Last Admin: 10/30/18 11:37 Dose: 10 mg Dextrose (D50w Syringe 50 Ml*) 12.5 gm IV PUSH .FOR FS < 60 - SS PRN PRN Reason: FS < 60 Fentanyl (Duragesic Patch 25 Mcg/Hr*) 25 mcg TRANSDERM Q72H [facility] Last Admin: 10/29/18 10:22 Dose: 25 mcg Sodium Chloride (Ns 0.9% 1000 Ml*) 1,000 mls @ 75 mls/hr IV PER RATE [facility] Last Admin: 10/31/18 05:55 Dose: 75 mls/hr Insulin Glargine (Lantus(*)) 38 units SUBCUT BEDTIME [facility] Last Admin: 10/30/18 20:53 Dose: 38 units Insulin Human Lispro (Humalog*) 0 units SUBCUT ACHS [facility]; Protocol Last Admin: 10/31/18 12:46 Dose: 1 units Lactulose (Lactulose*) 30 ml PO BID PRN PRN Reason: CONSTIPATION Liraglutide (Victoza (Nf)) 1.8 mg SUBCUT QPM [facility] Last Admin: 10/30/18 17:49 Dose: Not Given Magnesium Hydroxide (Milk Of Magnesia Liq*) 30 ml PO DAILY PRN PRN Reason: CONSTIPATION Last Admin: 10/31/18 08:06 Dose: 30 ml Morphine Sulfate (Morphine Vial*) 5 mg IV Q4H PRN PRN Reason: PAIN - BREAKTHROUGH Last Admin: 10/29/18 08:42 Dose: 5 mg Morphine Sulfate (Morphine Inj ((Syringe))*) 1 mg IV Q2H PRN PRN Reason: PAIN Last Admin: 10/30/18 12:23 Dose: 1 mg Multivitamins/Minerals (Theragran/Minerals Tab*) 1 tab PO QAM [facility] Last Admin: 10/31/18 08:07 Dose: 1 tab Ondansetron HCl (Zofran Inj*) 4 mg IV Q6H PRN PRN Reason: NAUSEA/VOMITING Last Admin: 10/28/18 06:53 Dose: 4 mg Oxycodone HCl (Roxycodone Tab*) 10 mg PO Q4H PRN PRN Reason: marked pain Last Admin: 10/31/18 12:48 Dose: 10 mg Pharmacy Profile Note (Fentanyl Patch Check Q Shift) 1 note N/A 0700,1900 [facility] Last Admin: 10/31/18 06:32 Dose: 1 note Polyethylene Glycol/Electrolytes (Miralax*) 17 gm PO DAILY [facility] Last Admin: 10/31/18 12:48 Dose: 17 gm Simethicone (Mylicon Tab*) 80 mg PO Q12H PRN PRN Reason: bloating Zolpidem Tartrate (Ambien Tab*) 10 mg PO BEDTIME PRN PRN Reason: INSOMNIA Last Admin: 10/30/18 00:16 Dose: 10 mg Vital Signs - 8 hr 10/31/18 10/31/18 10/31/18 07:23 08:07 10:00 Temperature 98.4 F Pulse Rate 71 Respiratory 16 20 20 Rate Blood Pressure 131/66 (mmHg) O2 Sat by Pulse 98 Oximetry 10/31/18 12:48 Temperature Pulse Rate Respiratory 18 Rate Blood Pressure (mmHg) O2 Sat by Pulse Oximetry Oxygen Devices in Use Now: Nasal Cannula Appearance: alert, mild distress Eyes: No Scleral Icterus, PERRLA Ears/Nose/Mouth/Throat: NL Teeth, Lips, Gums, Mucous Membranes Moist Neck: NL Appearance and Movements; NL JVP, Trachea Midline Respiratory: Clear to Auscultation, - - mild tachypnea Cardiovascular: NL Sounds; No Murmurs; No JVD, RRR, No Edema Abdominal: NL Sounds; No Tenderness; No Distention Extremities: No Edema, No Clubbing, Cyanosis Skin: No Rash or Ulcers Neurological: Alert and Oriented x 3, - - weak lower extremities Nutrition: Taking PO's Result Diagrams: 10/29/18 06:35 10/29/18 06:35 Microbiology and Other Data: Microbiology 10/28/18 00:00 Aerobic Blood Culture - Preliminary Blood Venous No Growth Day 2 Anaerobic Blood Culture - Preliminary No Growth Day 2 10/28/18 00:00 Aerobic Blood Culture - Preliminary Blood Venous No Growth Day 2 Anaerobic Blood Culture - Preliminary No Growth Day 2 10/28/18 03:00 Urine Culture - Final Urine No Growth (<1,000 CFU/mL) 10/27/18 22:30 Nasal Screen MRSA (PCR) - Final Nasal Mrsa Not Detected Assess/Plan/Problems-Billing Plan By Medical Problem: 68 year old Female with history of diabetes, hypertension presented to [facility] [place] for T11-S1 lumbar decompression and fusion. - Patient Problems (1) Lumbar spinal stenosis Code(s): M48.06 - SPINAL STENOSIS, LUMBAR REGION * DO NOT USE * SNOMED Code(s) : 20029341 Comment: - s/p T11-S1 fusion - POC as per neurosurgery - PT/OT - Pain control with fentanyl patch and oxycodone - DVT prophy with SCDs - Add bowel regimen today (2) Hypertension Code(s): I10 - ESSENTIAL (PRIMARY) HYPERTENSION SNOMED Code(s): 83368272 Comment: - With post-op hypotension and anemia, and reactive leukocytosis improving - S/p 3 units PRBCs transfused - renal function returned to baseline - Downgraded from ICU 10/29 (3) Diabetes Code(s): E11.9 - TYPE 2 DIABETES MELLITUS WITHOUT COMPLICATIONS SNOMED Code(s) : 79576981 Comment: - Accuchecks ACHS with lispro SS, 38 units lantus QHS and kenn Status and Disposition: Inpatient, dispo per neurosurgery.
[2018-10-31] MEDS: Atorvastatin* 10 MG TAB PO SCH (17:42)
[2018-10-31] MEDS: LIRAGLUTIDE 18 MG/3 ML SUBCUT SCH (17:44)
[2018-10-31] MEDS: Insulin GLARGINE(*) 1 UNITS UNIT SUBCUT SCH (20:59)
--- NOTE | 2018-10-31 23:13 | PN ---
Progress Note - Progress Note Date of Service: 10/31/18 SOAP: Subjective: [] No events ON. On regular floor. Not OOB yet. Tolerates PO well. Parnell. Flatus present. Limited motivation to participate to PT. Objective: []VSS Drain output noted Wound s,c,d AAOx3 ROSA CN II-XII grossly intact Motor 5/5 all extremities Sensory grossly intact to light touch Assessment: []68 yof POD#4 T11- pelvis PL arthrodesis Left L3-4 TLIF and multilevel osteotomies for adult deformity Plan: [] Monitor VS, neurochecks Monitor Drain output PT/OT Encourage ambulation Pain control DC planning, Discussed with sales promotion manager, awaiting for rehab bed. Consider nutrition consult. Appreciate IM care. Mauricio Blanco MD
[2018-11-01] MEDS: oxyCODONE TAB* 5 MG TAB PO PRN ×5 (02:04→18:01)
[2018-11-01] MEDS: Morphine INJ* 2 MG/ML 1 ML SYRINGE (TWO MG - NEW SYRINGE VERSION) IV PRN (04:14)
[2018-11-01] MEDS: fentaNYL Patch Check Q Shift 1 NOTE SCH (07:14)
[2018-11-01] MEDS: Insulin LISPRO* 1 UNITS UNIT SUBCUT SCH ×4 (07:44→21:41)
[2018-11-01 09:20] LABS: ABS Basophils 0 10^3/ul (0-0.2); ABS Eosinophils 0.1 10^3/ul (0-0.6); ABS Monocytes 0.8 10^3/ul (0-0.8); ABS Neutrophils 6.9 10^3/ul (1.5-7.7); ABS Nucleated RBC 0 10^3/ul; Eosinophil % 1.6 %; Hematocrit 30 % (35-47); Hemoglobin 10.1 g/dl (12.0-16.0); Lymphocyte % 11.2 %; Mean Corpuscular HGB Conc 33 g/dl (31-36); Mean Corpuscular Hemoglobin 28 pg (27-31); Mean Corpuscular Volume 85 fL (80-97); Mean Platelet Volume 7.7 fL (7.4-10.4); Nucleated Red Blood Cells % 0; Platelet Count 223 10^3/ul (150-450); Red Cell Distribution Width 14 % (10.5-15); White Blood Count 8.9 10^3/ul (3.5-10.8)
[2018-11-01 09:37] LABS: Albumin 2.8 g/dL (3.2-5.2); Albumin/Globulin Ratio 0.9 (1-3); BUN/Creatinine Ratio 11.5 (8-20); Calcium 8.7 mg/dL (8.6-10.3); EGFR African American 142.3 (>60); EGFR Non-African American 117.6 (>60); Potassium 3.5 mmol/L (3.5-5.0); Total Bilirubin 0.4 mg/dL (0.2-1.0); Total Protein 5.8 g/dL (6.4-8.9)
--- NOTE | 2018-11-01 09:41 | PN ---
Subjective Date of Service: 11/01/18 Interval History: Patient seen and examined. States she has been feeling lower abdominal pain since last evening, concerning her for UTI-like symptoms. States she feels her preston output has been copious. Denies SOB, no chest pain, no fever or chills. Still having difficulty with ambulation and lower extremities "giving out" on her when working with PT. Family History: Findings - Mother: Coronary artery disease, diabetes, Father: lung cancer, siblings with diabetes Social History: Findings - Lives at home, does not smoke, no alcohol use Past Medical History: Findings - Diabetes, Hypertension, Back issues. surgeries include tubal ligation, and back surgeries. Objective Active Medications: Acetaminophen (Tylenol Tab*) 650 mg PO Q4H PRN PRN Reason: PAIN Last Admin: 10/31/18 02:13 Dose: 650 mg Atorvastatin Calcium (Lipitor*) 10 mg PO QPM [facility] Last Admin: 10/31/18 17:42 Dose: 10 mg Calcium/Vitamin D (Oscal D Tab 250/125*) 1 tab PO DAILY [facility] Last Admin: 10/31/18 08:07 Dose: 1 tab Cholecalciferol (Vitamin D Tab*) 2,000 units PO DAILY [facility] Last Admin: 10/31/18 08:07 Dose: 2,000 units Cyanocobalamin (Vitamin B12 Tab*) 1,000 mcg PO QAM [facility] Last Admin: 10/31/18 08:07 Dose: 1,000 mcg Cyclobenzaprine HCl (Flexeril Tab*) 10 mg PO TID PRN PRN Reason: muscle spasm Last Admin: 10/30/18 11:37 Dose: 10 mg Dextrose (D50w Syringe 50 Ml*) 12.5 gm IV PUSH .FOR FS < 60 - SS PRN PRN Reason: FS < 60 Fentanyl (Duragesic Patch 25 Mcg/Hr*) 25 mcg TRANSDERM Q72H [facility] Last Admin: 10/29/18 10:22 Dose: 25 mcg Sodium Chloride (Ns 0.9% 1000 Ml*) 1,000 mls @ 75 mls/hr IV PER RATE [facility] Last Admin: 10/31/18 05:55 Dose: 75 mls/hr Insulin Glargine (Lantus(*)) 38 units SUBCUT BEDTIME [facility] Last Admin: 10/31/18 20:59 Dose: 38 units Insulin Human Lispro (Humalog*) 0 units SUBCUT ACHS [facility]; Protocol Last Admin: 11/01/18 07:44 Dose: Not Given Lactulose (Lactulose*) 30 ml PO BID PRN PRN Reason: CONSTIPATION Liraglutide (Victoza (Nf)) 1.8 mg SUBCUT QPM [facility] Last Admin: 10/31/18 17:44 Dose: Not Given Magnesium Hydroxide (Milk Of Magnesia Liq*) 30 ml PO DAILY PRN PRN Reason: CONSTIPATION Last Admin: 10/31/18 08:06 Dose: 30 ml Morphine Sulfate (Morphine Vial*) 5 mg IV Q4H PRN PRN Reason: PAIN - BREAKTHROUGH Last Admin: 10/29/18 08:42 Dose: 5 mg Morphine Sulfate (Morphine Inj ((Syringe))*) 1 mg IV Q2H PRN PRN Reason: PAIN Last Admin: 11/01/18 04:14 Dose: 1 mg Multivitamins/Minerals (Theragran/Minerals Tab*) 1 tab PO QAM [facility] Last Admin: 10/31/18 08:07 Dose: 1 tab Ondansetron HCl (Zofran Inj*) 4 mg IV Q6H PRN PRN Reason: NAUSEA/VOMITING Last Admin: 10/28/18 06:53 Dose: 4 mg Oxycodone HCl (Roxycodone Tab*) 10 mg PO Q4H PRN PRN Reason: marked pain Last Admin: 11/01/18 07:39 Dose: 10 mg Pharmacy Profile Note (Fentanyl Patch Check Q Shift) 1 note N/A 0700,1900 [facility] Last Admin: 11/01/18 07:14 Dose: 1 note Polyethylene Glycol/Electrolytes (Miralax*) 17 gm PO DAILY [facility] Last Admin: 10/31/18 12:48 Dose: 17 gm Simethicone (Mylicon Tab*) 80 mg PO Q12H PRN PRN Reason: bloating Zolpidem Tartrate (Ambien Tab*) 10 mg PO BEDTIME PRN PRN Reason: INSOMNIA Last Admin: 10/30/18 00:16 Dose: 10 mg Vital Signs - 8 hr 11/01/18 11/01/18 11/01/18 02:04 04:11 04:14 Temperature 98.8 F Pulse Rate 82 Respiratory 18 18 18 Rate Blood Pressure 158/74 (mmHg) O2 Sat by Pulse 93 Oximetry 11/01/18 11/01/18 11/01/18 07:39 07:45 07:47 Temperature 98.0 F Pulse Rate 84 Respiratory 18 17 17 Rate Blood Pressure 168/90 (mmHg) O2 Sat by Pulse 96 Oximetry Oxygen Devices in Use Now: None Appearance: alert, NAD Eyes: No Scleral Icterus, PERRLA Ears/Nose/Mouth/Throat: NL Teeth, Lips, Gums, Mucous Membranes Moist Neck: NL Appearance and Movements; NL JVP, Trachea Midline Respiratory: Symmetrical Chest Expansion and Respiratory Effort, Clear to Auscultation Cardiovascular: NL Sounds; No Murmurs; No JVD, RRR, No Edema Abdominal: NL Sounds; No Tenderness; No Distention Extremities: - - bilateral LE weakness Skin: - - posterior spine dressing CDI, ROSITA drain with serous drainage Neurological: Alert and Oriented x 3 Nutrition: Taking PO's Result Diagrams: 11/01/18 09:13 10/29/18 06:35 Microbiology and Other Data: Microbiology 10/28/18 00:00 Aerobic Blood Culture - Preliminary Blood Venous No Growth Day 2 Anaerobic Blood Culture - Preliminary No Growth Day 2 10/28/18 00:00 Aerobic Blood Culture - Preliminary Blood Venous No Growth Day 2 Anaerobic Blood Culture - Preliminary No Growth Day 2 10/28/18 03:00 Urine Culture - Final Urine No Growth (<1,000 CFU/mL) 10/27/18 22:30 Nasal Screen MRSA (PCR) - Final Nasal Mrsa Not Detected Assess/Plan/Problems-Billing Plan By Medical Problem: 68 year old Female with history of diabetes, hypertension presented to [facility] [place] for T11-S1 lumbar decompression and fusion. - Patient Problems (1) Lumbar spinal stenosis Code(s): M48.06 - SPINAL STENOSIS, LUMBAR REGION * DO NOT USE * SNOMED Code(s) : 58727867 Comment: - s/p T11-S1 fusion - POC as per neurosurgery - PT/OT - Pain control with fentanyl patch and oxycodone - DVT prophy with SCDs, will start heaprin subq after drain removed today - Continue bowel regimen - DC preston catheter - Encourage ambulation and IS 10x/hr while awake (2) Hypertension Code(s): I10 - ESSENTIAL (PRIMARY) HYPERTENSION SNOMED Code(s): 85428610 Comment: - With post-op hypotension and anemia, and reactive leukocytosis improving - S/p 3 units PRBCs transfused - renal function returned to baseline - Downgraded from ICU 10/29 (3) Diabetes Code(s): E11.9 - TYPE 2 DIABETES MELLITUS WITHOUT COMPLICATIONS SNOMED Code(s) : 22964084 Comment: - Accuchecks ACHS with lispro SS, 38 units lantus QHS and victoza, BG stable (4) Bilateral lower abdominal discomfort Code(s): R10.31 - RIGHT LOWER QUADRANT PAIN; R10.32 - LEFT LOWER QUADRANT PAIN SNOMED Code(s): 63386123 Comment: - DC preston, send urine for UA, continue bowel regimen Status and Disposition: Inpatient, dispo per neurosurgery. Encourage ambulation and pulmonary toilet.
[2018-11-01] MEDS: fentaNYL PATCH 25 MCG/HR TRANSDERM SCH (09:44)
[2018-11-01] MEDS: Polyethylene Glycol 3350* 17 GM PACKET PO SCH (09:47)
[2018-11-01] MEDS: Cyanocobalamin TAB* 500 MCG PO SCH (09:47)
[2018-11-01] MEDS: Calcium/Vitamin D TAB 250/125* TAB PO SCH (09:47)
[2018-11-01] MEDS: Cholecalciferol TAB* 1000 UNITS PO SCH (09:47)
[2018-11-01] MEDS: Multivitamins/Minerals TAB PO SCH (09:48)
[2018-11-01 10:31] LABS: Urine Appearance Clear; Urine Bacteria Absent (Absent); Urine Bilirubin Negative (Negative); Urine Blood 1+ (Negative); Urine Color Straw; Urine Glucose 1+(50 mg/dL) (Negative); Urine Ketones Negative (Negative); Urine Nitrite Negative (Negative); Urine Protein Negative (Negative); Urine Red Blood Cell Trace(0-2/hpf) (Absent); Urine Specific Gravity 1.004 (1.010-1.030); Urine Squamous Epithelial Cell Present (Absent); Urine Urobilinogen Negative (Negative); Urine White Blood Cell Trace(0-5/hpf) (Absent)
--- NOTE | 2018-11-01 11:44 | PN ---
Progress Note - Progress Note Date of Service: 11/01/18 SOAP: Subjective: [] No events ON. On regular floor. Feels better today. Was able to take a few steps yesterday with walker. Tolerates PO well. Parnell. Flatus present. Feels that fentanyl sedates her and would like to have it discontinued. Objective: []VSS Drain output noted Drain was removed. Catheter appeared to be intact. Patient tolerated procedure well. Wound s,c,d AAOx3 ROSA CN II-XII grossly intact Motor 5/5 all extremities Sensory grossly intact to light touch Assessment: []68 yof POD#5 T11- pelvis PL arthrodesis Left L3-4 TLIF and multilevel osteotomies for adult deformity Plan: [] Monitor VS, neurochecks PT/OT Encourage ambulation Pain control. DC fentanyl. DVT prophylaxis, will start SQ heparin. IS. DC planning, awaiting for rehab bed. Consider nutrition consult. Appreciate IM care. Mauricio Blanco MD
[2018-11-01] MEDS: Heparin VIAL(*) 5000 UNITS/ML VIAL (FIVE THOUSAND) SUBCUT SCH ×2 (13:41→21:42)
[2018-11-01] MEDS: Atorvastatin* 10 MG TAB PO SCH (17:29)
[2018-11-01] MEDS: LIRAGLUTIDE 18 MG/3 ML SUBCUT SCH (17:32)
[2018-11-01] MEDS: Insulin GLARGINE(*) 1 UNITS UNIT SUBCUT SCH (21:42)
[2018-11-02] MEDS: oxyCODONE TAB* 5 MG TAB PO PRN ×6 (01:39→23:08)
[2018-11-02] MEDS: Heparin VIAL(*) 5000 UNITS/ML VIAL (FIVE THOUSAND) SUBCUT SCH ×3 (05:41→21:40)
--- NOTE | 2018-11-02 07:41 | PN ---
Progress Note - Progress Note Date of Service: 11/02/18 SOAP: Subjective: []POD # 6 Progressing very slowly C/O significant back pain when trying to ambulate Hct 30 Dressing dry Objective: []Able to ambulate slowly Motor intact Assessment: []Satis but slow post op course Plan: []Will likely need SNF before rehab
[2018-11-02] MEDS: Multivitamins/Minerals TAB PO SCH (08:45)
[2018-11-02] MEDS: Calcium/Vitamin D TAB 250/125* TAB PO SCH (08:45)
[2018-11-02] MEDS: Cholecalciferol TAB* 1000 UNITS PO SCH (08:46)
[2018-11-02] MEDS: Cyanocobalamin TAB* 500 MCG PO SCH (08:46)
[2018-11-02] MEDS: Insulin LISPRO* 1 UNITS UNIT SUBCUT SCH ×4 (08:48→21:38)
[2018-11-02] MEDS: Polyethylene Glycol 3350* 17 GM PACKET PO SCH (08:49)
[2018-11-02] MEDS: Lisinopril TAB* 10 MG PO SCH (08:50)
[2018-11-02] MEDS: Magnesium Hydroxide LIQ* 30 ML UDC PO PRN (10:24)
--- NOTE | 2018-11-02 11:36 | PN ---
Subjective Date of Service: 11/02/18 Interval History: Patient seen and examined, OOB to chair and tolerating better. States pain is well controlled, still feels weak, had incontinence of urine after preston removal. No further events or complaints noted. Family History: Findings - Mother: Coronary artery disease, diabetes, Father: lung cancer, siblings with diabetes Social History: Findings - Lives at home, does not smoke, no alcohol use Past Medical History: Findings - Diabetes, Hypertension, Back issues. surgeries include tubal ligation, and back surgeries. Objective Active Medications: Acetaminophen (Tylenol Tab*) 650 mg PO Q4H PRN PRN Reason: PAIN Last Admin: 10/31/18 02:13 Dose: 650 mg Atorvastatin Calcium (Lipitor*) 10 mg PO QPM [facility] Last Admin: 11/01/18 17:29 Dose: 10 mg Calcium/Vitamin D (Oscal D Tab 250/125*) 1 tab PO DAILY [facility] Last Admin: 11/02/18 08:45 Dose: 1 tab Cholecalciferol (Vitamin D Tab*) 2,000 units PO DAILY [facility] Last Admin: 11/02/18 08:46 Dose: 2,000 units Cyanocobalamin (Vitamin B12 Tab*) 1,000 mcg PO QAM [facility] Last Admin: 11/02/18 08:46 Dose: 1,000 mcg Cyclobenzaprine HCl (Flexeril Tab*) 10 mg PO TID PRN PRN Reason: muscle spasm Last Admin: 10/30/18 11:37 Dose: 10 mg Dextrose (D50w Syringe 50 Ml*) 12.5 gm IV PUSH .FOR FS < 60 - SS PRN PRN Reason: FS < 60 Heparin Sodium (Porcine) (Heparin Vial(*)) 5,000 units SUBCUT Q8HR [facility] Last Admin: 11/02/18 05:41 Dose: 5,000 units Sodium Chloride (Ns 0.9% 1000 Ml*) 1,000 mls @ 75 mls/hr IV PER RATE [facility] Last Admin: 10/31/18 05:55 Dose: 75 mls/hr Insulin Glargine (Lantus(*)) 38 units SUBCUT BEDTIME [facility] Last Admin: 11/01/18 21:42 Dose: 38 units Insulin Human Lispro (Humalog*) 0 units SUBCUT ACHS [facility]; Protocol Last Admin: 11/02/18 08:48 Dose: Not Given Lactulose (Lactulose*) 30 ml PO BID PRN PRN Reason: CONSTIPATION Liraglutide (Victoza (Nf)) 1.8 mg SUBCUT QPM [facility] Last Admin: 11/01/18 17:32 Dose: Not Given Lisinopril (Prinivil Tab*) 10 mg PO DAILY [facility] Last Admin: 11/02/18 08:50 Dose: 10 mg Magnesium Hydroxide (Milk Of Magnesia Liq*) 30 ml PO DAILY PRN PRN Reason: CONSTIPATION Last Admin: 11/02/18 10:24 Dose: 30 ml Morphine Sulfate (Morphine Vial*) 5 mg IV Q4H PRN PRN Reason: PAIN - BREAKTHROUGH Last Admin: 10/29/18 08:42 Dose: 5 mg Morphine Sulfate (Morphine Inj ((Syringe))*) 1 mg IV Q2H PRN PRN Reason: PAIN Last Admin: 11/01/18 04:14 Dose: 1 mg Multivitamins/Minerals (Theragran/Minerals Tab*) 1 tab PO QAM [facility] Last Admin: 11/02/18 08:45 Dose: 1 tab Ondansetron HCl (Zofran Inj*) 4 mg IV Q6H PRN PRN Reason: NAUSEA/VOMITING Last Admin: 10/28/18 06:53 Dose: 4 mg Oxycodone HCl (Roxycodone Tab*) 10 mg PO Q4H PRN PRN Reason: marked pain Last Admin: 11/02/18 10:20 Dose: 10 mg Polyethylene Glycol/Electrolytes (Miralax*) 17 gm PO DAILY [facility] Last Admin: 11/02/18 08:49 Dose: 17 gm Simethicone (Mylicon Tab*) 80 mg PO Q12H PRN PRN Reason: bloating Zolpidem Tartrate (Ambien Tab*) 10 mg PO BEDTIME PRN PRN Reason: INSOMNIA Last Admin: 10/30/18 00:16 Dose: 10 mg Vital Signs - 8 hr 11/02/18 11/02/18 11/02/18 03:51 04:29 05:44 Temperature 98.5 F Pulse Rate Respiratory 17 18 18 Rate Blood Pressure 147/92 (mmHg) O2 Sat by Pulse 97 Oximetry 11/02/18 11/02/18 11/02/18 07:43 08:00 08:46 Temperature 98.3 F Pulse Rate 100 Respiratory 16 16 16 Rate Blood Pressure 176/90 (mmHg) O2 Sat by Pulse 93 Oximetry 11/02/18 10:20 Temperature Pulse Rate Respiratory 16 Rate Blood Pressure (mmHg) O2 Sat by Pulse Oximetry Oxygen Devices in Use Now: None Appearance: alert, NAD Eyes: No Scleral Icterus, PERRLA Ears/Nose/Mouth/Throat: NL Teeth, Lips, Gums, Mucous Membranes Moist Neck: NL Appearance and Movements; NL JVP, Trachea Midline Respiratory: Symmetrical Chest Expansion and Respiratory Effort Cardiovascular: NL Sounds; No Murmurs; No JVD, RRR, No Edema Abdominal: NL Sounds; No Tenderness; No Distention Extremities: No Edema, No Clubbing, Cyanosis Skin: - - large dressing to spine, CDI Neurological: Alert and Oriented x 3, - - general lower ext weakness Nutrition: Taking PO's Result Diagrams: 11/01/18 09:13 11/01/18 09:13 Microbiology and Other Data: Microbiology 10/28/18 00:00 Aerobic Blood Culture - Preliminary Blood Venous No Growth Day 2 Anaerobic Blood Culture - Preliminary No Growth Day 2 10/28/18 00:00 Aerobic Blood Culture - Preliminary Blood Venous No Growth Day 2 Anaerobic Blood Culture - Preliminary No Growth Day 2 10/28/18 03:00 Urine Culture - Final Urine No Growth (<1,000 CFU/mL) 10/27/18 22:30 Nasal Screen MRSA (PCR) - Final Nasal Mrsa Not Detected Assess/Plan/Problems-Billing Plan By Medical Problem: 68 year old Female with history of diabetes, hypertension presented to [facility] [place] for T11-S1 lumbar decompression and fusion. - Patient Problems (1) Lumbar spinal stenosis Code(s): M48.06 - SPINAL STENOSIS, LUMBAR REGION * DO NOT USE * SNOMED Code(s) : 77335392 Comment: - s/p T11-S1 fusion - POC as per neurosurgery - PT/OT - Pain control with fentanyl patch and oxycodone - DVT prophy with SCDs, will start heaprin subq after drain removed today - Continue bowel regimen - Encourage ambulation and IS 10x/hr while awake (2) Hypertension Code(s): I10 - ESSENTIAL (PRIMARY) HYPERTENSION SNOMED Code(s): 99813228 Comment: - With post-op hypotension and anemia, and reactive leukocytosis resolved - Restart lisinopril today, BP stable (3) Diabetes Code(s): E11.9 - TYPE 2 DIABETES MELLITUS WITHOUT COMPLICATIONS SNOMED Code(s) : 13221539 Comment: - Accuchecks ACHS with lispro SS, 38 units lantus QHS and victoza, BG stable (4) Bilateral lower abdominal discomfort Code(s): R10.31 - RIGHT LOWER QUADRANT PAIN; R10.32 - LEFT LOWER QUADRANT PAIN SNOMED Code(s): 57436826 Comment: - Resolved after preston removal - UA looks clean - Voiding freely, passing flatus Status and Disposition: Inpatient, dispo per neurosurgery. Medically optimized, will sign off. Please reconsult as needed.
[2018-11-02] MEDS: Atorvastatin* 10 MG TAB PO SCH (18:29)
[2018-11-02] MEDS: LIRAGLUTIDE 18 MG/3 ML SUBCUT SCH (18:29)
[2018-11-02] MEDS: Morphine INJ* 2 MG/ML 1 ML SYRINGE (TWO MG - NEW SYRINGE VERSION) IV PRN (20:49)
[2018-11-02] MEDS: Acetaminophen TAB* 325 MG PO PRN (20:54)
[2018-11-02] MEDS: Insulin GLARGINE(*) 1 UNITS UNIT SUBCUT SCH (21:39)
[2018-11-03] MEDS: Morphine INJ* 2 MG/ML 1 ML SYRINGE (TWO MG - NEW SYRINGE VERSION) IV PRN ×2 (00:24→10:45)
[2018-11-03] MEDS: oxyCODONE TAB* 5 MG TAB PO PRN ×3 (03:23→11:57)
[2018-11-03] MEDS: Acetaminophen TAB* 325 MG PO PRN ×3 (03:24→11:58)
[2018-11-03] MEDS: Heparin VIAL(*) 5000 UNITS/ML VIAL (FIVE THOUSAND) SUBCUT SCH ×2 (05:57→13:48)
[2018-11-03] MEDS: Insulin LISPRO* 1 UNITS UNIT SUBCUT SCH ×2 (07:55→13:48)
--- NOTE | 2018-11-03 08:45 | PN ---
Hospitalist Progress Note Date of Service: 11/03/18 Patient chart evaluated. Patient is medically optimized. Will signoff. Please reconsult if needed. Thank you.
[2018-11-03] MEDS: Polyethylene Glycol 3350* 17 GM PACKET PO SCH (09:18)
[2018-11-03] MEDS: Lisinopril TAB* 10 MG PO SCH (09:20)
[2018-11-03] MEDS: Multivitamins/Minerals TAB PO SCH (09:21)
[2018-11-03] MEDS: Cyanocobalamin TAB* 500 MCG PO SCH (09:21)
[2018-11-03] MEDS: Calcium/Vitamin D TAB 250/125* TAB PO SCH (09:22)
[2018-11-03] MEDS: Cholecalciferol TAB* 1000 UNITS PO SCH (09:22)
[2018-11-03 11:52] VITALS: BP 145/56
--- NOTE | 2018-11-03 13:05 | DS ---
DISCHARGE SUMMARY: DATE OF ADMISSION: 10/27/18 DATE OF DISCHARGE: 11/03/18 ATTENDING PHYSICIAN: Dr. Marie * (dictated by JIMENA Moreno). DISCHARGE DIAGNOSES: 1. Lumbar stenosis. 2. Spondylolisthesis. 3. Hypertension. 4. Diabetes. 5. Degenerative disk disease, lumbar. SPECIAL PROCEDURES: T11 to sacrum fusion and left L3-4 TLIF. HOSPITAL COURSE: This 68-year-old female was seen in the office with symptomatic lumbar stenosis resulting from worsening of spondylolisthesis after previous lumbar fusion and decompression. She decided to proceed with proposed surgical intervention of extending the fusion. On the day of admission, she was taken to surgery where under general anesthesia, a T11 to sacrum fusion and left L3-4 TLIF operation was carried out. Postoperatively, she was admitted to the short-stay surgical unit. She was then noted to have hypotension and low urine output, which prompted transfer to the ICU. Hospitalist and water control supervisor were consulted for medical co-management of the hypotension and her diabetes. On postop day 1, hemoglobin 8.0, hematocrit 24. She was transfused 3 units of packed red blood cells. Parnell remained in place and she did not ambulate or get out of bed on that day. She was eating without difficulty. She did complain of severe low back pain and numbness and tingling in the lower extremities. On postop day 2, hemoglobin was 10.1, hematocrit 31. She continued to complain of severe low back pain, though the numbness and tingling had improved. She was transferred to short-stay surgical unit. Physical therapy and occupational therapy were ordered and a fentanyl patch was prescribed for better pain management. On postop day 3, the pain had slightly improved, although she felt very tired. She was seen by Physical Therapy and Occupational Therapy. On postop day 5, the Parnell and wound drain were discontinued as well as the fentanyl patch. She felt that the patch made her even more tired and less motivated to participate in physical therapy or get out of bed. On postop day 6, she was making progress with ambulation, working with physical therapy, and using a walker. She eating, drinking, and voiding without difficulty. Pain was better controlled with oral pain medications. She is discharged on postop day 6 to [facility] for subacute rehab. DISCHARGE INSTRUCTIONS: Discussed with the patient. DISCHARGE MEDICATIONS: Recommend continuing home medications. 1. Recommend cyclobenzaprine 10 mg p.o. t.i.d. as needed for muscle spasms. 2. Recommend oxycodone 10 mg p.o. q.4 hours as needed for pain. DISCHARGE FOLLOWUP: She will be seen in office with Dr. Marie in approximately 10 to 14 days for followup. JIMENA MCCANN [id number]/[facility] #: [id number] KYLEE
--- NOTE | 2018-11-04 00:20 | OP ---
DATE OF OPERATION: 10/27/18 - ROOM #334 DATE OF : 52 SURGEON: Cristobal Marie MD [employer] MERCHANDISER: Manisha Blanco MD ANESTHESIA: General. PRE-OP DIAGNOSIS: Lumbar spondylolisthesis L3-4, L4-5 with spinal instability. POST-OP DIAGNOSIS: Lumbar spondylolisthesis L3-4, L4-5 with spinal instability. OPERATIVE PROCEDURE: Revision of lumbar fusion L4-5, posterior lumbar interbody fusion L3-4, posterior thoraco-lumbar pelvic fusion T11 to the pelvis , placement of bilateral iliac screws, posterior lateral fusion T11 to the pelvis, use of stereotactic navigation. DESCRIPTION OF PROCEDURE: This patient had previously undergone an instrumented L4- 5 fusion for a lumbar spondylolisthesis with spinal stenosis. She had done well for approximately a year and a half before development of recurrent pain. 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 The preoperative plan was to attempt to get her in better alignment, which necessitated a long fusion construct. After satisfactory general anesthesia was obtained, the patient was placed on the Marcos table in the prone position. The thoracolumbar region was clipped, prepped, and draped. A skin incision was outlined from T11 down to the sacrum. This incision was infiltrated with 1% Xylocaine with epinephrine, after which it was turned down sharply to the level of the thoracolumbar fascia. The fascia was divided along the spinous processes from T11 down to the sacrum and the paraspinal musculature stripped away from these posterior elements utilizing the periosteal elevator and monopolar cautery. The previous constructed L4-5 was identified and skeletonized. Additional lateral exposure was obtained on both sides until the transverse processes of L1, L2, L3, L4, and L5 were identified. The sacral ala was also dissected free as was the posterior superior iliac spine. After soft tissue dissection was complete, the O-arm intraoperative CT scan was brought into the field. The reference frame for the O-arm was attached to the sacrum. Two spans were obtained, the initial span being of the mid lumbar to sacral and the iliac region with the second span being higher up to enable stereotactic placement of pedicle screws. After obtaining the spans, pedicle screws were placed from T11 down to S1. The T11 screws were 5.5 mm in diameter and 40 mm in length. The T12 screws were 5.5 mm in diameter and 40 mm in length. The L1 screws were 5.5 mm in diameter and 45 mm in length. The L2 screws were 5.5 mm in diameter and 45 mm in length. The L3 screws were 6.5 mm in diameter and 50 mm in length. The L4 screws were not changed from her prior fusion. The left L5 screw was replaced with a 6.5 x 50 mm screw. The right L5 screw was unchanged from her previous surgery. S1 screws were placed utilizing 7.5 mm in diameter about 40 mm long screws. After these screws were placed, screws were placed into the iliac crest utilizing stereotactic guidance and these screws were 8.5 mm in diameter and 70 mm in length. Following screw placement, an O-arm span was obtained verifying good placement of all hardware. Attention was then directed to the L3-4 level where a decompression was carried out to enable a posterior lumbar interbody graft to be placed at this level. The disk space was entered and cleared of disk material using pituitary forceps and curettes. A RaftOut elevate cage was selected to fit into this defect and was filled with both allograft and autograft. This cage was 9 x 28 mm in dimension. The facet complexes at each level beginning from L1 to down to the sacrum were then drilled down to enable placement of bone putty as well as autograft and allograft later in the procedure for fusion. Rods were then fashioned to run from T11 down to include the iliac screws via a small jt with a lateral connector to the primary jt. Bending the jt took several attempts but ultimately this was successful. After the jt was locked into position, lateral fusion was performed from T11 down to the sacrum utilizing allograft, harvested autograft as well as DBX bone putty. This was laid at along the decorticated transverse processes as well as into the drilled facets at each level. Compression was applied at each level as the jt was being tightened. A post construct x-ray showed that a significant degree of lordosis had been returned with an approximate 10 degree increase and a more favorable sagittal balance. The patient had somewhat diffuse bleeding throughout the case and the blood loss was 500 cc. Following satisfactory hemostasis, a Clay drain was placed in the incision and tunneled toward the left side. The fascia was then reapproximated with 0 Vicryl suture. The subcutaneous tissues closed with 3-0 Vicryl suture and the skin closed with interrupted Prolene suture. As noted above the estimated blood loss was 500 cc and the final sponge, padding, and needle counts were correct. The patient was taken to the recovery room, extubated, and in stable condition. [id number]/[facility] #: [id number] [facility]
== END 2018-11-03 14:25 | DRG 454 ==
LOC: OR 05:45 → ICU 22:07 → SSU 10-29 19:59
PROVIDERS: ADMIT Neurological Surgery; ATTEND Neurological Surgery
PROC: 0RGA071 Fusion of Thoracolumbar Vertebral Joint with Autologous Tissue Substitute, Posterior Approach, Posterior Column, Open Approach (ICD-10-PCS; 2018-10-27)
PROC: 0SG1071 Fusion of 2 or more Lumbar Vertebral Joints with Autologous Tissue Substitute, Posterior Approach, Posterior Column, Open Approach (ICD-10-PCS; 2018-10-27)
PROC: 0SG3071 Fusion of Lumbosacral Joint with Autologous Tissue Substitute, Posterior Approach, Posterior Column, Open Approach (ICD-10-PCS; 2018-10-27)
PROC: 0SB20ZZ Excision of Lumbar Vertebral Disc, Open Approach (ICD-10-PCS; 2018-10-27)
PROC: 0QH304Z Insertion of Internal Fixation Device into Left Pelvic Bone, Open Approach (ICD-10-PCS; 2018-10-27)
PROC: 0QH204Z Insertion of Internal Fixation Device into Right Pelvic Bone, Open Approach (ICD-10-PCS; 2018-10-27)
PROC: 0SG00AJ Fusion of Lumbar Vertebral Joint with Interbody Fusion Device, Posterior Approach, Anterior Column, Open Approach (ICD-10-PCS; principal; 2018-10-27 07:30)
PROC: 0RG6071 Fusion of Thoracic Vertebral Joint with Autologous Tissue Substitute, Posterior Approach, Posterior Column, Open Approach (ICD-10-PCS; 2018-10-27 07:30)
DX: M48.062 Spinal stenosis, lumbar region with neurogenic claudication (principal); D62 Acute posthemorrhagic anemia; M43.16 Spondylolisthesis, lumbar region; M51.36 Other intervertebral disc degeneration, lumbar region; I10 Essential (primary) hypertension; E11.9 Type 2 diabetes mellitus without complications; I95.81 Postprocedural hypotension; R10.31 Right lower quadrant pain; D72.829 Elevated white blood cell count, unspecified; Z82.49 Family history of ischemic heart disease and other diseases of the circulatory system; Z83.3 Family history of diabetes mellitus; Z80.1 Family history of malignant neoplasm of trachea, bronchus and lung; Z79.84 Long term (current) use of oral hypoglycemic drugs; Z79.899 Other long term (current) drug therapy; Z79.1 Long term (current) use of non-steroidal anti-inflammatories (NSAID); Z79.891 Long term (current) use of opiate analgesic
CPT/HCPCS: 36415; 71045; 72081; 72100; 76000; 80048; 80053; 81003; 81015; 82565; 84520; 85014; 85018; 85025; 85027; 86850; 86900; 86901; 86922; 87040; 87086; 87641; 88300; A9270-GY; C1713; C1776; C9359; G8978-GP-CM; G8979-GP-CK; G8987-GO-CN; G8988-GO-CI; J0330; J0690; J1100; J1170; J1240; J1644; J2250; J2270; J2405; J2704; J3010; P9040; P9045

== ENCOUNTER 2018-11-30 15:15 | Inpatient (IN) | payer MEDICARE, MEDICAID ==
[2018-11-30] MEDS ORDERED: Vancomycin(*) 1,250 MG in NS 0.9% 250 ML* 250 ML IVPB ONE (15:37)
[2018-11-30] MEDS ORDERED: ED Piperacillin/Tazobac 3.375 3.375 GM/100 ML PREMIX.SET IVPB ONE (15:37)
[2018-11-30] MEDS ORDERED: Piperacillin/Tazobac (*) 3.375 GM BAG ONE (15:58)
[2018-11-30 16:13] LABS: ABS Basophils 0.1 10^3/ul (0-0.2); ABS Eosinophils 0.1 10^3/ul (0-0.6); ABS Lymphocytes 1.8 10^3/ul (1.0-4.8); ABS Neutrophils 10.6 10^3/ul (1.5-7.7); ABS Nucleated RBC 0 10^3/ul; Eosinophil % 0.8 %; Hematocrit 30 % (35-47); Hemoglobin 9.6 g/dl (12.0-16.0); Lymphocyte % 13.1 %; Mean Corpuscular HGB Conc 32 g/dl (31-36); Mean Corpuscular Hemoglobin 26 pg (27-31); Mean Corpuscular Volume 80 fL (80-97); Mean Platelet Volume 7.1 fL (7.4-10.4); Nucleated Red Blood Cells % 0; Platelet Count 562 10^3/ul (150-450); Red Blood Count 3.77 10^6/ul (4.00-5.40); Red Cell Distribution Width 16 % (10.5-15); White Blood Count 13.5 10^3/ul (3.5-10.8)
[2018-11-30 16:21] LABS: Activated Partial Thrombo Time 27.5 seconds (26.0-36.3); INR 1.12 (0.77-1.02)
[2018-11-30 16:29] LABS: ALT < 3 U/L (7-52); AST 14 U/L (13-39); Albumin 2.8 g/dL (3.2-5.2); Albumin/Globulin Ratio 0.8 (1-3); Alkaline Phosphatase 151 U/L (34-104); Anion Gap 6 mmol/L (2-11); BUN/Creatinine Ratio 17.2 (8-20); Blood Urea Nitrogen 10 mg/dL (6-24); CO2 Carbon Dioxide 32 mmol/L (22-32); Calcium 8.1 mg/dL (8.6-10.3); Chloride 98 mmol/L (101-111); EGFR African American 125.5 (>60); EGFR Non-African American 103.7 (>60); Globulin 3.5 g/dL (2-4); Glucose 127 mg/dL (70-100); Potassium 3.5 mmol/L (3.5-5.0); Sodium 136 mmol/L (135-145); Total Protein 6.3 g/dL (6.4-8.9)
[2018-11-30 16:34] LABS: Troponin I 0.09 ng/mL (<0.04)
[2018-11-30] MEDS ORDERED: Ondansetron INJ* 2 MG/ML VIAL ONE (16:45)
[2018-11-30] MEDS ORDERED: Ondansetron INJ* 2 MG/ML VIAL IV ONE (16:47)
[2018-11-30 17:25] LABS: Urine Appearance Turbid; Urine Bacteria Absent (Absent); Urine Bilirubin Negative (Negative); Urine Blood 2+ (Negative); Urine Color Yellow; Urine Glucose Negative (Negative); Urine Ketones Negative (Negative); Urine Nitrite Positive (Negative); Urine Protein 2+(100 mg/dL) (Negative); Urine Red Blood Cell 3+(>10/hpf) (Absent); Urine Specific Gravity 1.012 (1.010-1.030); Urine Urobilinogen Negative (Negative); Urine White Blood Cell 3+(>20/hpf) (Absent)
--- NOTE | 2018-11-30 17:33 | ED ---
Back Pain - HPI Summary HPI Summary: Patient is a 68 y/o F presenting to ED with complaints of back pain, fever, drainage from post op site. Patient had a T11 to sacrum fusion and Left L3-L4 Lumbar interbody fusion on 10/27. Patient came to ED on 11/13, was admitted with epidural abscess and septic shock. She was discharged from ICU to [facility] where she has been receiving ABX TID for spinal infection. Patient states that she has been experiencing 3 days of back pain, 2 days of fever, and purulent discharge from incision site today. Chills, erythema of eyes, sore throat, chest pain, SOB, cough, abdominal pain, vomiting, nausea, dysuria, hematuria, myalgia, edema, rash and dizziness are not reported. On triage, pain is rated 7/10, nothing is noted to aggravate/ alleviate Sx. Home medications and allergies are reviewed. - History of Current Complaint Chief Complaint: EDGeneral Stated Complaint: WOUND CARE Time Seen by Provider: 11/30/18 15:24 Hx Obtained From: Patient Onset/Duration: Lasting Days - 3 days of back pain, 2 days of fever, and purulent discharge from incision site today., Still Present Onset/Duration: Started Days Ago - 3 days of back pain, 2 days of fever, and purulent discharge from incision site today., Still Present Timing: Constant, Lasting Days - 3 days of back pain, 2 days of fever, and purulent discharge from incision site today. Back Pain Location: Is Discrete @ - back Severity Currently: Severe - 7/10 Pain Intensity: 7 Pain Scale Used: 0-10 Numeric - 7/10 Aggravating Symptom(s): Nothing Alleviating Symptom(s): Nothing Associated Signs And Symptoms: Positive: Fever, Other - drainage is endorsed, Chills, erythema of eyes, sore throat, chest pain, SOB, cough, abdominal pain, vomiting, nausea, dysuria, hematuria, myalgia, edema, rash and dizziness are not reported. Negative: Abdominal Pain - Allergies/Home Medications Allergies/Adverse Reactions: Allergies Allergy/AdvReac Type Severity Reaction Status Date / Time No Known Allergies Allergy Verified 11/30/18 15:32 PMH/Surg Hx/FS Hx/Imm Hx Endocrine/Hematology History: Reports: Hx Diabetes - TYPE II Cardiovascular History: Reports: Hx Hypertension Denies: Hx Pacemaker/ICD, Other Cardiovascular Problems/Disorders Respiratory History: Denies: Other Respiratory Problems/Disorders GI History: Denies: Other GI Disorders History: Denies: Hx Renal Disease Musculoskeletal History: Reports: Hx Arthritis - RIHT KNEE Denies: Other Musculoskeletal History Sensory History: Reports: Hx Cataracts Denies: Hx Contacts or Glasses, Hx Hearing Aid Opthamlomology History: Reports: Hx Cataracts Denies: Hx Contacts or Glasses Neurological History: Reports: 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 PRINCESS CATARACTS, 2014, [facility] [place]. LSP FUSION 2016 [facility] [place]. SPINAL STENOSIS-FUSION 2019 Hx Anesthesia Reactions: No Infectious Disease History: No Infectious Disease History: Denies: Hx Clostridium Difficile, Hx Hepatitis, Hx Human Immunodeficiency Virus (HIV), Hx of Known/Suspected MRSA, Hx Shingles, Hx Tuberculosis, Hx Known/ Suspected VRE, Hx Known/Suspected VRSA, History Other Infectious Disease, Traveled Outside the [place] in Last 30 Days - Family History Known Family History: Negative: Seizure Disorder - Social History Alcohol Use: None Alcohol Amount: 2 PER WEEK Substance Use Type: Reports: None Substance Use Comment - Amount & Last Used: rare Smoking Status (MU): Never Smoked Tobacco Have You Smoked in the Last Year: No Review of Systems Positive: Fever - reported, on vitals, temp is 97.1 F . Negative: Chills Negative: Erythema Negative: Sore Throat Negative: Chest Pain Negative: Shortness Of Breath, Cough Negative: Abdominal Pain, Vomiting, Nausea Negative: dysuria, hematuria Musculoskeletal: Other - POSITIVE - BACK PAIN Negative: Edema Skin: Other - POSITIVE - DRAINAGE FROM SPINAL POST OP SITE Neurological: Other - NEGATIVE - DIZZINESS All Other Systems Reviewed And Are Negative: Yes Physical Exam - Summary Physical Exam Summary: Constitutional: Well-developed, Well-nourished, Alert. (-) Distressed Skin: Warm, Dry; Around post-op sutures there is a small amount of dehiscence, copious amounts of drainage, purulent and serous fluid. HENT: Normocephalic; Atraumatic Eyes: Conjunctiva normal Neck: Musculoskeletal ROM normal neck. (-) JVD, (-) Stridor, (-) Tracheal deviation Cardio: Rhythm regular, rate normal, Heart sounds normal; Intact distal pulses; The pedal pulses are 2+ and symmetric. Radial pulses are 2+ and symmetric. (-) Murmur Pulmonary/Chest wall: Effort normal. (-) Respiratory distress, (-) Wheezes, (-) Rales Abd: Soft, (-) epigastric tenderness, (-) Distension, (-) Guarding, (-) Rebound Musculoskeletal: (-) Edema Lymph: (-) Cervical adenopathy Neuro: Alert, Oriented x3 Psych: Mood and affect Normal Triage Information Reviewed: Yes Vital Signs On Initial Exam: Initial Vitals Temp Pulse Resp BP Pulse Ox 97.1 F 96 16 160/100 93 11/30/18 15:20 11/30/18 15:20 11/30/18 15:20 11/30/18 15:20 11/30/18 15:20 Vital Signs Reviewed: Yes Diagnostics - Vital Signs Vital Signs Temp Pulse Resp BP Pulse Ox 11/30/18 17:00 95 25 98 11/30/18 16:54 90 24 182/91 97 11/30/18 16:24 84 20 161/89 92 11/30/18 16:00 19 11/30/18 15:54 19 168/91 11/30/18 15:42 92 26 183/109 92 11/30/18 15:33 98 21 92 11/30/18 15:24 93 22 160/110 93 11/30/18 15:20 97.1 F 96 16 160/100 93 - Laboratory Lab Results: Lab Results 11/30/18 11/30/18 11/30/18 Range/Units 16:03 16:03 16:03 WBC 13.5 H (3.5-10.8) 10^3/ul RBC 3.77 L (4.00-5.40) 10^6/ul Hgb 9.6 L (12.0-16.0) g/dl Hct 30 L (35-47) % MCV 80 (80-97) fL MCH 26 L (27-31) pg MCHC 32 (31-36) g/dl RDW 16 H (10.5-15) % Plt Count 562 H D (150-450) 10^3/ul MPV 7.1 L (7.4-10.4) fL Neut % (Auto) 78.1 % Lymph % (Auto) 13.1 % Kleberg % (Auto) 7.1 % Eos % (Auto) 0.8 % Baso % (Auto) 0.9 % Absolute Neuts (auto) 10.6 H (1.5-7.7) 10^3/ul Absolute Lymphs (auto) 1.8 (1.0-4.8) 10^3/ul Absolute Monos (auto) 1.0 H (0-0.8) 10^3/ul Absolute Eos (auto) 0.1 (0-0.6) 10^3/ul Absolute Basos (auto) 0.1 (0-0.2) 10^3/ul Absolute Nucleated RBC 0 10^3/ul Nucleated RBC % 0 INR (Anticoag Therapy) 1.12 H (0.77-1.02) APTT 27.5 (26.0-36.3) seconds Sodium 136 (135-145) mmol/L Potassium 3.5 (3.5-5.0) mmol/L Chloride 98 L (101-111) mmol/L Carbon Dioxide 32 (22-32) mmol/L Anion Gap 6 (2-11) mmol/L BUN 10 (6-24) mg/dL Creatinine 0.58 (0.51-0.95) mg/dL Est GFR ( Amer) 125.5 (>60) Est GFR (Non-Af Amer) 103.7 (>60) BUN/Creatinine Ratio 17.2 (8-20) Glucose 127 H (70-100) mg/dL Lactic Acid (0.5-2.0) mmol/L Calcium 8.1 L (8.6-10.3) mg/dL Total Bilirubin 0.40 (0.2-1.0) mg/dL AST 14 (13-39) U/L ALT < 3 L (7-52) U/L Alkaline Phosphatase 151 H (34-104) U/L Troponin I 0.09 H* (<0.04) ng/mL Total Protein 6.3 L (6.4-8.9) g/dL Albumin 2.8 L (3.2-5.2) g/dL Globulin 3.5 (2-4) g/dL Albumin/Globulin Ratio 0.8 L (1-3) Urine Color Urine Appearance Urine pH (5-9) Ur Specific Phoenix (1.010-1.030) Urine Protein (Negative) Urine Ketones (Negative) Urine Blood (Negative) Urine Nitrate (Negative) Urine Bilirubin (Negative) Urine Urobilinogen (Negative) Ur Leukocyte Esterase (Negative) Urine WBC (Auto) (Absent) Urine RBC (Auto) (Absent) Urine Bacteria (Absent) Urine Glucose (Negative) 11/30/18 11/30/18 Range/Units 16:03 17:04 WBC (3.5-10.8) 10^3/ul RBC (4.00-5.40) 10^6/ul Hgb (12.0-16.0) g/dl Hct (35-47) % MCV (80-97) fL MCH (27-31) pg MCHC (31-36) g/dl RDW (10.5-15) % Plt Count (150-450) 10^3/ul MPV (7.4-10.4) fL Neut % (Auto) % Lymph % (Auto) % Kleberg % (Auto) % Eos % (Auto) % Baso % (Auto) % Absolute Neuts (auto) (1.5-7.7) 10^3/ul Absolute Lymphs (auto) (1.0-4.8) 10^3/ul Absolute Monos (auto) (0-0.8) 10^3/ul Absolute Eos (auto) (0-0.6) 10^3/ul Absolute Basos (auto) (0-0.2) 10^3/ul Absolute Nucleated RBC 10^3/ul Nucleated RBC % INR (Anticoag Therapy) (0.77-1.02) APTT (26.0-36.3) seconds Sodium (135-145) mmol/L Potassium (3.5-5.0) mmol/L Chloride (101-111) mmol/L Carbon Dioxide (22-32) mmol/L Anion Gap (2-11) mmol/L BUN (6-24) mg/dL Creatinine (0.51-0.95) mg/dL Est GFR ( Amer) (>60) Est GFR (Non-Af Amer) (>60) BUN/Creatinine Ratio (8-20) Glucose (70-100) mg/dL Lactic Acid 0.7 (0.5-2.0) mmol/L Calcium (8.6-10.3) mg/dL Total Bilirubin (0.2-1.0) mg/dL AST (13-39) U/L ALT (7-52) U/L Alkaline Phosphatase (34-104) U/L Troponin I (<0.04) ng/mL Total Protein (6.4-8.9) g/dL Albumin (3.2-5.2) g/dL Globulin (2-4) g/dL Albumin/Globulin Ratio (1-3) Urine Color Yellow Urine Appearance Turbid Urine pH 7.0 (5-9) Ur Specific [place] 1.012 (1.010-1.030) Urine Protein 2+(100 mg/dl) A (Negative) Urine Ketones Negative (Negative) Urine Blood 2+ A (Negative) Urine Nitrate Positive A (Negative) Urine Bilirubin Negative (Negative) Urine Urobilinogen Negative (Negative) Ur Leukocyte Esterase 3+ A (Negative) Urine WBC (Auto) 3+(>20/hpf) A (Absent) Urine RBC (Auto) 3+(>10/hpf) A (Absent) Urine Bacteria Absent (Absent) Urine Glucose Negative (Negative) Result Diagrams: 11/30/18 16:03 11/30/18 16:03 Lab Statement: Any lab studies that have been ordered have been reviewed, and results considered in the medical decision making process. Back Pain Course/Dx - Course Course Of Treatment: Patient is a 68 y/o F presenting to ED with complaints of back pain, fever, drainage from post op site. Patient had a T11 to sacrum fusion and Left L3-L4 Lumbar interbody fusion on 10/27. Patient came to ED on , was admitted with epidural abscess and septic shock. She was discharged from ICU to [facility] 11/23 where she has been receiving ABX TID for spinal infection. Patient states that she has been experiencing 3 days of back pain, 2 days of fever, and purulent discharge from incision site today. On physical exam, Around post-op sutures there is a small amount of dehiscence, copious amounts of drainage, purulent and serous fluid. Labs showed WBC 13.5, RBC 3.77 , Hgb 9.6, Hct 30, MCH 26, RDW 16, Plt count 562, MPV 7.1, Absolute neuts 10.6, absolute monos 1, INR 1.12, chloride 98, glucose 127, lactic acid 0.7, ALT < 3, alk phos 151, trop 0.09, total protein 6.3, albumin 2.8, albumin/globulin ratio 0.8. UA showed 2+ protein, 2+ blood, positive nitrate, 3+ leukocyte esterase, 3 + WBC, 3+ RBC. Skin and Soft Tissue was positive for S.aureus. 1708 - Patient' s case was discussed with Dr. Cervantes, Dr. Cervantes accepts for admission. - Diagnoses Provider Diagnoses: Postoperative abscess - Provider Notifications Discussed Care Of Patient With: Katia Cervantes Time Discussed With Above Provider: 17:09 Instructed by Provider To: Other - 1708 - Patient's case was discussed with Dr. Cervantes, Dr. Cervantes accepts for admission. Discharge - Sign-Out/Discharge Documenting (check all that apply): Patient Departure - admit - Discharge Plan Condition: Good Disposition: ADMITTED TO [facility] Referrals: Renay Mcallister MD [Primary Care Provider] - - Attestation Statements Document Initiated by Scribe: Yes Documenting Scribe: DAI MICHELE Provider For Whom Scribe is Documenting (Include Credential): JUAN LEGGETT MD Scribe Attestation: DAI Greco , scribed for JUAN LEGGETT MD on 11/30/18 at 1808. Status of Scribe Document: Ready
[2018-11-30] MEDS ORDERED: ceFAZolin 1 GM ADVAN(*) 1 GM in NS 0.9% 50 ML* 50 ML IVPB SCH (18:00)
[2018-11-30] MEDS ORDERED: Dextrose 50% Syringe 50 ML* 25 GM/50 ML SYRINGE IV PUSH PRN (18:57)
[2018-11-30] MEDS ORDERED: HYDROmorphone INJ1* 1 MG/ML SYRINGE IV SLOW PU PRN (19:07)
[2018-11-30] MEDS ORDERED: Insulin GLARGINE(*) 1 UNITS UNIT SUBCUT SCH (20:00)
[2018-11-30] MEDS: cefTRIAXone(*) 1 GM in NS 0.9% 50 ML* 50 ML IVPB SCH (20:55)
[2018-11-30] MEDS: Lactated Ringers 1000 ML Bag* 1,000 ML IV SCH (20:59)
--- NOTE | 2018-11-30 21:23 | CONS ---
CONSULTATION NOTE: DATE OF CONSULT: 11/30/18 REASON FOR CONSULTATION: Multiple medical problems in the setting of serosanguineous fluid from patient's postoperative back. HISTORY OF PRESENT ILLNESS: The patient is a 68-year-old lady with a history of hypertension, hyperlipidemia, who was recently discharged from our facility on 11/23/18, with a diagnosis of septic shock due to MSSA bacteremia and paraspinal abscess. Briefly, the patient had a T11 to sacrum fusion and left L3-L4 lumbar interbody fusion on 10/27, and the patient came to the ED on 11/13, and was admitted with epidural abscess and septic shock. She was then discharged from ICU to [facility] on 11/23/18, where she has been receiving antibiotics t.i.d. for spinal infection, and she was getting Ancef t.i.d. per Dr. Kessler's recommendations. She mentioned that Friday night she felt some chills and had some undocumented fever. The following day, she was observed by her daughter in [facility] to have sero-sanguinous fluid dripping from her back and was evaluated by Mica at [facility] and was sent to the ED for further evaluation where she was seen and admitted by Dr. Marie. Other than this, she denied any headache, dizziness, nausea, vomiting, abdominal pain, diarrhea, constipation, pain and/or increased frequency on urination, myalgias, arthralgias, throat pain or new skin lesions other than what was described above in her back. PAST MEDICAL AND SURGICAL HISTORY: Diabetes; hyperlipidemia; hypertension; lumbar stenoses, status post lumbar fusion; lumbar revision with T11 to sacrum fusion and left L3-L4 lumbar interbody fusion on 10/27 with a history of tubal ligation. MEDICATIONS: Her home medications at [facility] are as follows: 1. Ancef t.i.d. 2. Multivitamins 1 tab. 3. Victoza. 4. Metformin. 5. Levemir. 6. Atorvastatin. 7. Vitamin D3. 8. Calcium carbonate. 9. Magnesium supplementations. 10. Oxycodone. 11. Senna. 12. Lisinopril. 13. Docusate. 14. Carvedilol. 15. Calcium carbonate. 16. Tylenol p.r.n. ALLERGIES: NKDA. FAMILY HISTORY: Her mother in the 60s due to heart problems and her father supposedly had cancer of unknown primary. SOCIAL HISTORY: She denies any history of alcohol abuse, smoking as well as illicit drug use. REVIEW OF SYSTEMS: The rest of the 14-point review of systems are otherwise unremarkable. PHYSICAL EXAMINATION: Reveals most recent vital signs of records with blood pressure of 162/99, 112 per minute heart rate, 24 per minute respiratory rate, saturating at 95% on 2L nasal cannula, temperature of 98.4 degrees Fahrenheit. General Appearance: The patient is awake, alert, and oriented x3, not in acute distress, but mentions that she has significant back pain, but it improves with movement. HEENT: Normocephalic, atraumatic. PERRLA. Extraocular muscles intact. Negative for icterus. Moist oral mucosa. Negative throat erythema. Neck is soft, supple, with no cervical lymphadenopathy, no JVD. Heart: S1, S2 , slightly tachycardic. No murmurs, rubs, and gallops. Chest: Clear to auscultation anterolaterally. No wheezes, rales, or rhonchi appreciated. Abdomen is soft, nondistended, nontender. Normoactive bowel sounds x4 quadrants. Extremities: No cyanosis, clubbing or edema. Psychiatric: No active psychosis, depression, suicidal or homicidal ideation. Skin is warm to touch. DIAGNOSTIC STUDIES/LAB DATA: Most recent and pertinent laboratories drawn show CBC with a WBC of 13.5, H and H of 9.6 and 30 respectively, and platelets of 562. INR of 1.12. Sodium and potassium are found to be normal. BUN and creatinine were normal. GFR was 103.7. Lactic acid is 0.7, glucose of 127, calcium of 8.1, alkaline phosphatase of 151, troponin of 0.09. Urinalysis reveals pyuria with wbc of 3+ and an otherwise clean catch urine. Leukocyte esterase is 3+, negative for bacteria. ASSESSMENT AND PLAN: The patient is a 68-year-old lady with a history of hyperlipidemia and hypertension, and recent diagnosis of spinal abscess, status post recent T11 to sacrum fusion and left L3-4 transforaminal lumbar interbody fusion on 10/27/18, being admitted for serosanguineous fluid of the postoperative back just described. 1. Serosanguineous fluid. I agree with Zosyn and vancomycin that was given in the ED; however, currently she was placed back on cefazolin and I have consulted Dr. Kessler to review any further changes in her antibiotic regimen; certainly, although she does have leukocytosis at this time, it is mild at 13.5 , I believe that she probably is on early sepsis despite her lactic acid being normal possibly due to UTI. She does meet SIRS criteria with possible focus of infection being her back. At this point, she had been covered with Zosyn and vancomycin overnight, and I will defer with Dr. Kessler to further broaden coverage. We will await culture data and we will defer with Dr. Marie for further input as far as Neurosurgery perspective is concerned. 2. Pain. We will place the patient is on Dilaudid p.r.n. with appropriate holding orders. 3. History of coronary artery disease with recent non-ST elevation myocardial infarction. On review of her previous discharge, she was not placed on aspirin likely secondary to recent back surgery as described above and paraspinal abscess and now with some serosanguineous fluid. I will hold off on further aspirin at this time, and we will however continue on atorvastatin, carvedilol, and lisinopril. 4. Urinary tract infection. The patient is currently on cefazolin and has received Zosyn and vancomycin. At this point, I will most likely discontinue the cefazolin and place her at least on Rocephin to cover for urinary tract infection as well as a possible infection brewing in her back even serosanguineous fluid. 5. Sepsis: Likely due to UTI and possibly due to surgical wound infection described above. D/W Dr. Kessler to further review antibiotic regimen in AM and will await further guidance. She is covered by broad-spectrum for tonight and will defer any further changes. 6. Hyperlipidemia. Continue atorvastatin. 7. Diabetes mellitus. We will place the patient on heart healthy diet, and we will discontinue regular diet along with consistent carb diet, and we will place the patient on Lantus and insulin sliding scale as ordered. We will check fingersticks a.c. and at bedtime as ordered. 7. DVT prophylaxis. I agree with continuing heparin subcu q.12. 8. Disposition. We will defer with Dr. Marie. We will await further input from Dr. Kessler. [id number]/[facility] #: [id number] [facility]
[2018-11-30] MEDS: Melatonin 3 MG TAB PO SCH (22:45)
[2018-11-30] MEDS: Atorvastatin* 40 MG TAB PO SCH (22:45)
[2018-11-30] MEDS: Heparin VIAL(*) 5000 UNITS/ML VIAL (FIVE THOUSAND) SUBCUT SCH (22:46)
[2018-11-30] MEDS: Insulin LISPRO* 1 UNITS UNIT SUBCUT SCH (22:46)
[2018-11-30] MEDS: oxyCODONE/Acetamin 5/325 MG* TAB PO PRN (23:50)
[2018-12-01] MEDS: oxyCODONE/Acetamin 5/325 MG* TAB PO PRN ×4 (04:55→22:52)
[2018-12-01] MEDS: Magnesium Oxide TAB* 400 MG PO SCH (09:55)
[2018-12-01] MEDS: Carvedilol TAB* 6.25 MG PO SCH (09:55)
[2018-12-01] MEDS: Lisinopril TAB* 10 MG PO SCH (09:55)
[2018-12-01] MEDS: Heparin VIAL(*) 5000 UNITS/ML VIAL (FIVE THOUSAND) SUBCUT SCH ×2 (09:56→20:38)
[2018-12-01] MEDS: Insulin LISPRO* 1 UNITS UNIT SUBCUT SCH ×5 (09:56→20:51)
[2018-12-01 10:19] LABS: ABS Basophils 0.3 10^3/ul (0-0.2); ABS Eosinophils 0.2 10^3/ul (0-0.6); ABS Lymphocytes 1.5 10^3/ul (1.0-4.8); ABS Monocytes 0.5 10^3/ul (0-0.8); ABS Neutrophils 8.9 10^3/ul (1.5-7.7); ABS Nucleated RBC 0 10^3/ul; Eosinophil % 1.5 %; Hematocrit 29 % (35-47); Hemoglobin 9.1 g/dl (12.0-16.0); Lymphocyte % 13.5 %; Mean Corpuscular HGB Conc 31 g/dl (31-36); Mean Corpuscular Hemoglobin 25 pg (27-31); Mean Corpuscular Volume 81 fL (80-97); Mean Platelet Volume 6.7 fL (7.4-10.4); Nucleated Red Blood Cells % 0.2; Platelet Count 421 10^3/ul (150-450); Red Blood Count 3.61 10^6/ul (4.00-5.40); Red Cell Distribution Width 16 % (10.5-15); White Blood Count 11.3 10^3/ul (3.5-10.8)
[2018-12-01 10:52] LABS: ALT < 3 U/L (7-52); AST 12 U/L (13-39); Albumin 2.5 g/dL (3.2-5.2); Albumin/Globulin Ratio 0.7 (1-3); Alkaline Phosphatase 144 U/L (34-104); Anion Gap 5 mmol/L (2-11); BUN/Creatinine Ratio 18.2 (8-20); Blood Urea Nitrogen 10 mg/dL (6-24); CO2 Carbon Dioxide 32 mmol/L (22-32); Calcium 8.2 mg/dL (8.6-10.3); Chloride 98 mmol/L (101-111); EGFR African American 133.4 (>60); EGFR Non-African American 110.2 (>60); Globulin 3.4 g/dL (2-4); Glucose 260 mg/dL (70-100); Magnesium 1.4 mg/dL (1.9-2.7); Potassium 3.9 mmol/L (3.5-5.0); Sodium 135 mmol/L (135-145); Total Protein 5.9 g/dL (6.4-8.9)
[2018-12-01] MEDS: Lactated Ringers 1000 ML Bag* 1,000 ML IV SCH (10:52)
[2018-12-01] MEDS: Docusate CAP* 100 MG PO SCH (13:19)
[2018-12-01] MEDS: Senna TAB PO SCH (13:20)
[2018-12-01] MEDS ORDERED: Fluconazole 150 MG TAB PO ONE (13:55)
[2018-12-01] MEDS ORDERED: Magnesium Sulf 4 GM/100 ML IV* 4,000 MG/100 ML BAG IVPB ONE (15:05)
[2018-12-01] MEDS ORDERED: Dextrose 50% Syringe 50 ML* 25 GM/50 ML SYRINGE IV PUSH PRN (15:13)
--- NOTE | 2018-12-01 15:20 | PN ---
Subjective Date of Service: 12/01/18 Interval History: Pt seen and examined. Meds and labs reviewed. CC: N/A ROS: Denied STEARNS/dizziness, F/C, N/V, CP, SOB, increased cough, sputum production , abd pain, diarrhea, constipation, dysuria, myalgias, arthralgias, throat pain , and new skin lesions. The rest of the 14 point ROS are unremarkable. PHYSICAL EXAM: GEN APPEARANCE: Awake, not in acute distress HEENT: NC/AT, PERRLA, moist oral mucosa, (-) throat erythema NECK: Soft, supple, (-) cervical LAD, (-)JVD HEART: S1S2 WNL, RRR, No MRG CHEST: CTA, BL, GAE, No W/R/R ABD: Soft, ND/NT, NABS 4x Q EXT: No C/C/E SKIN: Warm to touch PSYCH: No active psychosis, hallucinations, depression, SI/HI Objective Active Medications: Atorvastatin Calcium (Lipitor*) 40 mg PO 2100 [facility] Last Admin: 11/30/18 22:45 Dose: 40 mg Carvedilol (Coreg Tab*) 6.25 mg PO DAILY [facility] Last Admin: 12/01/18 09:55 Dose: 6.25 mg Dextrose (D50w Syringe 50 Ml*) 12.5 gm IV PUSH .FOR FS < 60 - SS PRN PRN Reason: FS < 60 Dextrose (D50w Syringe 50 Ml*) 12.5 gm IV PUSH .FOR FS < 60 - SS PRN PRN Reason: FS < 60 Docusate Sodium (Colace Cap*) 100 mg PO DAILY [facility] Last Admin: 12/01/18 13:19 Dose: Not Given Heparin Sodium (Porcine) (Heparin Vial(*)) 5,000 units SUBCUT Q12HR [facility] Last Admin: 12/01/18 09:56 Dose: 5,000 units Hydralazine HCl (Apresoline Iv*) 5 mg IV SLOW PU Q6H PRN PRN Reason: Hypertension Hydromorphone HCl (Dilaudid Inj1s*) 0.5 mg IV SLOW PU Q6H PRN PRN Reason: PAIN Lactated Ringer's (Lactated Ringers 1000 Ml Bag*) 1,000 mls @ 75 mls/hr IV PER RATE [facility] Last Admin: 12/01/18 10:52 Dose: 75 mls/hr Ceftriaxone Sodium 1 gm/ (Sodium Chloride) 50 mls @ 200 mls/hr IVPB Q24H [facility] Last Admin: 11/30/18 20:55 Dose: 200 mls/hr Magnesium Sulfate (Magnesium Sulf 4 Gm/100 Ml Iv*) 4,000 mg in 100 mls @ 33.333 mls/hr IVPB ONCE ONE Stop: 12/01/18 18:04 Insulin Glargine (Lantus(*)) 22 units SUBCUT Q24H [facility] Insulin Human Lispro (Humalog*) 0 units SUBCUT ACHS [facility]; Protocol Last Admin: 12/01/18 13:22 Dose: 6 unit Insulin Human Lispro (Humalog*) 4 units SUBCUT AC [facility] Lisinopril (Prinivil Tab*) 20 mg PO DAILY [facility] Last Admin: 12/01/18 09:55 Dose: 20 mg Magnesium Oxide (Magox 400 Tab*) 400 mg PO DAILY [facility] Last Admin: 12/01/18 09:55 Dose: 400 mg Melatonin (Melatonin) 3 mg PO BEDTIME [facility] Last Admin: 11/30/18 22:45 Dose: 3 mg Oxycodone/Acetaminophen (Percocet 5/325 Tab*) 1 tab PO Q4H PRN PRN Reason: PAIN Last Admin: 12/01/18 11:39 Dose: 1 tab Senna (Senokot Tab*) 2 tab PO DAILY [facility] Last Admin: 12/01/18 13:20 Dose: Not Given Vital Signs - 8 hr 12/01/18 12/01/18 12/01/18 07:36 07:53 08:00 Temperature 98.4 F Pulse Rate 72 Respiratory 14 16 16 Rate Blood Pressure 150/79 (mmHg) O2 Sat by Pulse 99 99 Oximetry 12/01/18 12/01/18 12/01/18 11:32 11:39 14:19 Temperature 98.5 F Pulse Rate 84 Respiratory 14 16 16 Rate Blood Pressure 154/88 (mmHg) O2 Sat by Pulse 93 Oximetry Oxygen Devices in Use Now: Nasal Cannula Result Diagrams: 12/01/18 10:13 12/01/18 10:13 Additional Lab and Data: Lab Results 11/30/18 11/30/18 11/30/18 Range/Units 16:03 16:03 16:03 WBC 13.5 H (3.5-10.8) 10^3/ul RBC 3.77 L (4.00-5.40) 10^6/ul Hgb 9.6 L (12.0-16.0) g/dl Hct 30 L (35-47) % MCV 80 (80-97) fL MCH 26 L (27-31) pg MCHC 32 (31-36) g/dl RDW 16 H (10.5-15) % Plt Count 562 H D (150-450) 10^3/ul MPV 7.1 L (7.4-10.4) fL Neut % (Auto) 78.1 % Lymph % (Auto) 13.1 % [place] % (Auto) 7.1 % Eos % (Auto) 0.8 % Baso % (Auto) 0.9 % Absolute Neuts (auto) 10.6 H (1.5-7.7) 10^3/ul Absolute Lymphs (auto) 1.8 (1.0-4.8) 10^3/ul Absolute Monos (auto) 1.0 H (0-0.8) 10^3/ul Absolute Eos (auto) 0.1 (0-0.6) 10^3/ul Absolute Basos (auto) 0.1 (0-0.2) 10^3/ul Absolute Nucleated RBC 0 10^3/ul Nucleated RBC % 0 INR (Anticoag Therapy) 1.12 H (0.77-1.02) APTT 27.5 (26.0-36.3) seconds Sodium 136 (135-145) mmol/L Potassium 3.5 (3.5-5.0) mmol/L Chloride 98 L (101-111) mmol/L Carbon Dioxide 32 (22-32) mmol/L Anion Gap 6 (2-11) mmol/L BUN 10 (6-24) mg/dL Creatinine 0.58 (0.51-0.95) mg/dL Est GFR ( Amer) 125.5 (>60) Est GFR (Non-Af Amer) 103.7 (>60) BUN/Creatinine Ratio 17.2 (8-20) Glucose 127 H (70-100) mg/dL Lactic Acid (0.5-2.0) mmol/L Calcium 8.1 L (8.6-10.3) mg/dL Total Bilirubin 0.40 (0.2-1.0) mg/dL AST 14 (13-39) U/L ALT < 3 L (7-52) U/L Alkaline Phosphatase 151 H (34-104) U/L Troponin I 0.09 H* (<0.04) ng/mL Total Protein 6.3 L (6.4-8.9) g/dL Albumin 2.8 L (3.2-5.2) g/dL Globulin 3.5 (2-4) g/dL Albumin/Globulin Ratio 0.8 L (1-3) Urine Color Urine Appearance Urine pH (5-9) Ur Specific [place] (1.010-1.030) Urine Protein (Negative) Urine Ketones (Negative) Urine Blood (Negative) Urine Nitrate (Negative) Urine Bilirubin (Negative) Urine Urobilinogen (Negative) Ur Leukocyte Esterase (Negative) Urine WBC (Auto) (Absent) Urine RBC (Auto) (Absent) Urine Bacteria (Absent) Urine Glucose (Negative) 11/30/18 11/30/18 Range/Units 16:03 17:04 WBC (3.5-10.8) 10^3/ul RBC (4.00-5.40) 10^6/ul Hgb (12.0-16.0) g/dl Hct (35-47) % MCV (80-97) fL MCH (27-31) pg MCHC (31-36) g/dl RDW (10.5-15) % Plt Count (150-450) 10^3/ul MPV (7.4-10.4) fL Neut % (Auto) % Lymph % (Auto) % [place] % (Auto) % Eos % (Auto) % Baso % (Auto) % Absolute Neuts (auto) (1.5-7.7) 10^3/ul Absolute Lymphs (auto) (1.0-4.8) 10^3/ul Absolute Monos (auto) (0-0.8) 10^3/ul Absolute Eos (auto) (0-0.6) 10^3/ul Absolute Basos (auto) (0-0.2) 10^3/ul Absolute Nucleated RBC 10^3/ul Nucleated RBC % INR (Anticoag Therapy) (0.77-1.02) APTT (26.0-36.3) seconds Sodium (135-145) mmol/L Potassium (3.5-5.0) mmol/L Chloride (101-111) mmol/L Carbon Dioxide (22-32) mmol/L Anion Gap (2-11) mmol/L BUN (6-24) mg/dL Creatinine (0.51-0.95) mg/dL Est GFR ( Amer) (>60) Est GFR (Non-Af Amer) (>60) BUN/Creatinine Ratio (8-20) Glucose (70-100) mg/dL Lactic Acid 0.7 (0.5-2.0) mmol/L Calcium (8.6-10.3) mg/dL Total Bilirubin (0.2-1.0) mg/dL AST (13-39) U/L ALT (7-52) U/L Alkaline Phosphatase (34-104) U/L Troponin I (<0.04) ng/mL Total Protein (6.4-8.9) g/dL Albumin (3.2-5.2) g/dL Globulin (2-4) g/dL Albumin/Globulin Ratio (1-3) Urine Color Yellow Urine Appearance Turbid Urine pH 7.0 (5-9) Ur Specific [place] 1.012 (1.010-1.030) Urine Protein 2+(100 mg/dl) A (Negative) Urine Ketones Negative (Negative) Urine Blood 2+ A (Negative) Urine Nitrate Positive A (Negative) Urine Bilirubin Negative (Negative) Urine Urobilinogen Negative (Negative) Ur Leukocyte Esterase 3+ A (Negative) Urine WBC (Auto) 3+(>20/hpf) A (Absent) Urine RBC (Auto) 3+(>10/hpf) A (Absent) Urine Bacteria Absent (Absent) Urine Glucose Negative (Negative) Microbiology and Other Data: Microbiology 11/30/18 17:04 Urine Culture - Preliminary Urine Pseudomonas Aeruginosa 11/30/18 15:48 Skin and Soft Tissue MRSA/MSSA (PCR - Final Wound Mrsa Negative S.aureus Positive Gram Stain - Final Assess/Plan/Problems-Billing Assessment: - Patient Problems (1) Abnormal surgical wound Current Visit: Yes Status: Acute Code(s): T81.9XXA - UNSPECIFIED COMPLICATION OF PROCEDURE, INITIAL ENCOUNTER SNOMED Code(s): 838702069 Comment: #Serosanguinous fluid from her back: -MSSA (+) wound culture; sensitivity data pending -Urine Cx (+) for P. aeruginosa; since leukocytosis improving, will continue Rocephin for now despite the fact that most P. euruginsa is usually resistant to 3rd Gen except for Ceftazidime; either this particular strain is sensitive to it or this may not be the cause of sepsis but her back which was the cause of sepsis from her previous admission; will await sensitivity data -D/W Dr. Kessler earlier in AM and will await any further input (2) Pain Current Visit: Yes Status: Acute Code(s): R52 - PAIN, UNSPECIFIED SNOMED Code(s): 53017088 Comment: -Well-controlled -Continue current regimen (3) CAD (coronary artery disease) Current Visit: Yes Status: Acute Code(s): I25.10 - ATHSCL HEART DISEASE OF [place] CORONARY ARTERY W/O ANG PCTRS SNOMED Code(s): 41257283 Comment: -Continue Atorvastatin, Carvedilol, and Lisinopril (4) UTI (urinary tract infection) Current Visit: Yes Status: Acute Comment: -Please see discussion above -Continue Rocephin for now and continue to follow C&S (5) Sepsis Current Visit: Yes Status: Acute Comment: -Mild -Resolved -Either due to recurrence of paraspinal abscess due to MSSA or P. aeuriginosa UTI or both (6) Hyperlipidemia Current Visit: Yes Status: Acute Code(s): E78.5 - HYPERLIPIDEMIA, UNSPECIFIED SNOMED Code(s): 96371469 Comment: -Continue Atorvastatin (7) Diabetes 1.5, managed as type 2 Current Visit: Yes Status: Acute Code(s): E13.9 - OTHER SPECIFIED DIABETES MELLITUS WITHOUT COMPLICATIONS SNOMED Code(s): 398433087 Comment: -Uncontrolled -Adjusted Lantus and added Insulin lispro 4 units qAC -Will continue watchful waiting (8) DVT prophylaxis Current Visit: Yes Status: Acute Code(s): SFV6235 - SNOMED Code(s): 013908617 Comment: -Continue Heparin SQ Status and Disposition: -Will await further input from Drs. Marie and Checo
[2018-12-01] MEDS: cefTRIAXone(*) 1 GM in NS 0.9% 50 ML* 50 ML IVPB SCH (19:24)
[2018-12-01] MEDS: Atorvastatin* 40 MG TAB PO SCH (19:27)
[2018-12-01] MEDS: Melatonin 3 MG TAB PO SCH (20:37)
[2018-12-01] MEDS ORDERED: Insulin GLARGINE(*) 1 UNITS UNIT SUBCUT SCH (22:00)
[2018-12-02] MEDS: Lactated Ringers 1000 ML Bag* 1,000 ML IV SCH ×2 (00:40→14:24)
[2018-12-02] MEDS: hydrALAZINE IV* 20 MG/ML VIAL IV SLOW PU PRN ×4 (03:23→22:17)
[2018-12-02] MEDS: oxyCODONE/Acetamin 5/325 MG* TAB PO PRN ×4 (05:26→19:52)
[2018-12-02 05:49] LABS: ABS Basophils 0.1 10^3/ul (0-0.2); ABS Eosinophils 0.2 10^3/ul (0-0.6); ABS Lymphocytes 1.9 10^3/ul (1.0-4.8); ABS Monocytes 0.6 10^3/ul (0-0.8); ABS Neutrophils 7.1 10^3/ul (1.5-7.7); ABS Nucleated RBC 0 10^3/ul; Eosinophil % 2.3 %; Hematocrit 26 % (35-47); Hemoglobin 8.2 g/dl (12.0-16.0); Mean Corpuscular HGB Conc 32 g/dl (31-36); Mean Corpuscular Hemoglobin 26 pg (27-31); Mean Corpuscular Volume 81 fL (80-97); Mean Platelet Volume 6.9 fL (7.4-10.4); Nucleated Red Blood Cells % 0; Platelet Count 425 10^3/ul (150-450); Red Blood Count 3.17 10^6/ul (4.00-5.40); Red Cell Distribution Width 16 % (10.5-15)
[2018-12-02 06:11] LABS: ALT < 3 U/L (7-52); AST 11 U/L (13-39); Albumin 2.5 g/dL (3.2-5.2); Albumin/Globulin Ratio 0.8 (1-3); Alkaline Phosphatase 132 U/L (34-104); Anion Gap 4 mmol/L (2-11); BUN/Creatinine Ratio 21.7 (8-20); Blood Urea Nitrogen 10 mg/dL (6-24); CO2 Carbon Dioxide 32 mmol/L (22-32); Calcium 8.1 mg/dL (8.6-10.3); Chloride 101 mmol/L (101-111); EGFR Non-African American 135.5 (>60); Globulin 3.1 g/dL (2-4); Glucose 194 mg/dL (70-100); Potassium 4.1 mmol/L (3.5-5.0); Sodium 137 mmol/L (135-145); Total Protein 5.6 g/dL (6.4-8.9)
[2018-12-02] MEDS: Magnesium Oxide TAB* 400 MG PO SCH (09:21)
[2018-12-02] MEDS: Lisinopril TAB* 10 MG PO SCH (09:21)
[2018-12-02] MEDS: Senna TAB PO SCH (09:21)
[2018-12-02] MEDS: Docusate CAP* 100 MG PO SCH (09:21)
[2018-12-02] MEDS: Insulin LISPRO* 1 UNITS UNIT SUBCUT SCH ×7 (09:22→20:38)
[2018-12-02] MEDS: Heparin VIAL(*) 5000 UNITS/ML VIAL (FIVE THOUSAND) SUBCUT SCH ×2 (09:22→20:39)
[2018-12-02] MEDS: Carvedilol TAB* 6.25 MG PO SCH ×2 (09:22→22:18)
[2018-12-02] MEDS: ceFAZolin 2 GM PREMIX 2 GM/50 ML BAG IVPB SCH ×2 (15:32→22:18)
[2018-12-02] MEDS: Atorvastatin* 40 MG TAB PO SCH (20:37)
[2018-12-02] MEDS: Melatonin 3 MG TAB PO SCH (20:37)
--- NOTE | 2018-12-02 21:42 | PN ---
Subjective Date of Service: 12/02/18 Interval History: Patient seen today, still complaining of increase back pain. BG elevated .BP elevated Past Medical History: Unchanged from Admission Objective Active Medications: Atorvastatin Calcium (Lipitor*) 40 mg PO 2100 [facility] Last Admin: 12/02/18 20:37 Dose: 40 mg Carvedilol (Coreg Tab*) 6.25 mg PO BID [facility] Dextrose (D50w Syringe 50 Ml*) 12.5 gm IV PUSH .FOR FS < 60 - SS PRN PRN Reason: FS < 60 Docusate Sodium (Colace Cap*) 100 mg PO DAILY [facility] Last Admin: 12/02/18 09:21 Dose: 100 mg Heparin Sodium (Porcine) (Heparin Vial(*)) 5,000 units SUBCUT Q12HR [facility] Last Admin: 12/02/18 20:39 Dose: 5,000 units Hydralazine HCl (Apresoline Iv*) 5 mg IV SLOW PU Q6H PRN PRN Reason: Hypertension Last Admin: 12/02/18 15:33 Dose: 5 mg Hydromorphone HCl (Dilaudid Inj1s*) 0.5 mg IV SLOW PU Q6H PRN PRN Reason: PAIN Cefazolin Sodium/Dextrose (Kefzol 2 Gm Premix In Ors(*)) 2 gm in 50 mls @ 100 mls/hr IVPB Q8H [facility] Last Admin: 12/02/18 15:32 Dose: 100 mls/hr Insulin Glargine (Lantus(*)) 28 units SUBCUT Q24H [facility] Insulin Human Lispro (Humalog*) 0 units SUBCUT ACHS [facility]; Protocol Last Admin: 12/02/18 20:38 Dose: 8 unit Insulin Human Lispro (Humalog*) 4 units SUBCUT AC [facility] Last Admin: 12/02/18 17:45 Dose: 4 unit Lisinopril (Prinivil Tab*) 20 mg PO DAILY [facility] Last Admin: 12/02/18 09:21 Dose: 20 mg Magnesium Oxide (Magox 400 Tab*) 400 mg PO DAILY [facility] Last Admin: 12/02/18 09:21 Dose: 400 mg Melatonin (Melatonin) 3 mg PO BEDTIME [facility] Last Admin: 12/02/18 20:37 Dose: 3 mg Oxycodone/Acetaminophen (Percocet 5/325 Tab*) 1 tab PO Q4H PRN PRN Reason: PAIN Last Admin: 12/02/18 19:52 Dose: 1 tab Senna (Senokot Tab*) 2 tab PO DAILY [facility] Last Admin: 12/02/18 09:21 Dose: 2 tab Vital Signs - 8 hr 12/02/18 12/02/18 12/02/18 15:13 15:32 17:47 Temperature 98.0 F Pulse Rate 88 Respiratory 20 18 18 Rate Blood Pressure 191/95 (mmHg) O2 Sat by Pulse 93 Oximetry 12/02/18 12/02/18 12/02/18 19:52 20:00 20:27 Temperature 98.0 F Pulse Rate 99 Respiratory 18 18 18 Rate Blood Pressure 184/86 (mmHg) O2 Sat by Pulse 91 Oximetry Oxygen Devices in Use Now: None Appearance: awake, in no distress. laying on her right side. Eyes: No Scleral Icterus Neck: NL Appearance and Movements; NL JVP, Trachea Midline Respiratory: Symmetrical Chest Expansion and Respiratory Effort, Clear to Auscultation Cardiovascular: NL Sounds; No Murmurs; No JVD Abdominal: NL Sounds; No Tenderness; No Distention Skin: - Neurological: Alert and Oriented x 3 Result Diagrams: 12/02/18 05:32 12/02/18 05:32 Additional Lab and Data: Lab Results 11/30/18 11/30/18 11/30/18 Range/Units 16:03 16:03 16:03 WBC 13.5 H (3.5-10.8) 10^3/ul RBC 3.77 L (4.00-5.40) 10^6/ul Hgb 9.6 L (12.0-16.0) g/dl Hct 30 L (35-47) % MCV 80 (80-97) fL MCH 26 L (27-31) pg MCHC 32 (31-36) g/dl RDW 16 H (10.5-15) % Plt Count 562 H D (150-450) 10^3/ul MPV 7.1 L (7.4-10.4) fL Neut % (Auto) 78.1 % Lymph % (Auto) 13.1 % [place] % (Auto) 7.1 % Eos % (Auto) 0.8 % Baso % (Auto) 0.9 % Absolute Neuts (auto) 10.6 H (1.5-7.7) 10^3/ul Absolute Lymphs (auto) 1.8 (1.0-4.8) 10^3/ul Absolute Monos (auto) 1.0 H (0-0.8) 10^3/ul Absolute Eos (auto) 0.1 (0-0.6) 10^3/ul Absolute Basos (auto) 0.1 (0-0.2) 10^3/ul Absolute Nucleated RBC 0 10^3/ul Nucleated RBC % 0 INR (Anticoag Therapy) 1.12 H (0.77-1.02) APTT 27.5 (26.0-36.3) seconds Sodium 136 (135-145) mmol/L Potassium 3.5 (3.5-5.0) mmol/L Chloride 98 L (101-111) mmol/L Carbon Dioxide 32 (22-32) mmol/L Anion Gap 6 (2-11) mmol/L BUN 10 (6-24) mg/dL Creatinine 0.58 (0.51-0.95) mg/dL Est GFR ( Amer) 125.5 (>60) Est GFR (Non-Af Amer) 103.7 (>60) BUN/Creatinine Ratio 17.2 (8-20) Glucose 127 H (70-100) mg/dL Lactic Acid (0.5-2.0) mmol/L Calcium 8.1 L (8.6-10.3) mg/dL Total Bilirubin 0.40 (0.2-1.0) mg/dL AST 14 (13-39) U/L ALT < 3 L (7-52) U/L Alkaline Phosphatase 151 H (34-104) U/L Troponin I 0.09 H* (<0.04) ng/mL Total Protein 6.3 L (6.4-8.9) g/dL Albumin 2.8 L (3.2-5.2) g/dL Globulin 3.5 (2-4) g/dL Albumin/Globulin Ratio 0.8 L (1-3) Urine Color Urine Appearance Urine pH (5-9) Ur Specific [place] (1.010-1.030) Urine Protein (Negative) Urine Ketones (Negative) Urine Blood (Negative) Urine Nitrate (Negative) Urine Bilirubin (Negative) Urine Urobilinogen (Negative) Ur Leukocyte Esterase (Negative) Urine WBC (Auto) (Absent) Urine RBC (Auto) (Absent) Urine Bacteria (Absent) Urine Glucose (Negative) 11/30/18 11/30/18 Range/Units 16:03 17:04 WBC (3.5-10.8) 10^3/ul RBC (4.00-5.40) 10^6/ul Hgb (12.0-16.0) g/dl Hct (35-47) % MCV (80-97) fL MCH (27-31) pg MCHC (31-36) g/dl RDW (10.5-15) % Plt Count (150-450) 10^3/ul MPV (7.4-10.4) fL Neut % (Auto) % Lymph % (Auto) % [place] % (Auto) % Eos % (Auto) % Baso % (Auto) % Absolute Neuts (auto) (1.5-7.7) 10^3/ul Absolute Lymphs (auto) (1.0-4.8) 10^3/ul Absolute Monos (auto) (0-0.8) 10^3/ul Absolute Eos (auto) (0-0.6) 10^3/ul Absolute Basos (auto) (0-0.2) 10^3/ul Absolute Nucleated RBC 10^3/ul Nucleated RBC % INR (Anticoag Therapy) (0.77-1.02) APTT (26.0-36.3) seconds Sodium (135-145) mmol/L Potassium (3.5-5.0) mmol/L Chloride (101-111) mmol/L Carbon Dioxide (22-32) mmol/L Anion Gap (2-11) mmol/L BUN (6-24) mg/dL Creatinine (0.51-0.95) mg/dL Est GFR ( Amer) (>60) Est GFR (Non-Af Amer) (>60) BUN/Creatinine Ratio (8-20) Glucose (70-100) mg/dL Lactic Acid 0.7 (0.5-2.0) mmol/L Calcium (8.6-10.3) mg/dL Total Bilirubin (0.2-1.0) mg/dL AST (13-39) U/L ALT (7-52) U/L Alkaline Phosphatase (34-104) U/L Troponin I (<0.04) ng/mL Total Protein (6.4-8.9) g/dL Albumin (3.2-5.2) g/dL Globulin (2-4) g/dL Albumin/Globulin Ratio (1-3) Urine Color Yellow Urine Appearance Turbid Urine pH 7.0 (5-9) Ur Specific [place] 1.012 (1.010-1.030) Urine Protein 2+(100 mg/dl) A (Negative) Urine Ketones Negative (Negative) Urine Blood 2+ A (Negative) Urine Nitrate Positive A (Negative) Urine Bilirubin Negative (Negative) Urine Urobilinogen Negative (Negative) Ur Leukocyte Esterase 3+ A (Negative) Urine WBC (Auto) 3+(>20/hpf) A (Absent) Urine RBC (Auto) 3+(>10/hpf) A (Absent) Urine Bacteria Absent (Absent) Urine Glucose Negative (Negative) Microbiology and Other Data: Microbiology 11/30/18 17:04 Urine Culture - Preliminary Urine Pseudomonas Aeruginosa 11/30/18 15:48 Skin and Soft Tissue MRSA/MSSA (PCR - Final Wound Mrsa Negative S.aureus Positive Gram Stain - Final Assess/Plan/Problems-Billing Assessment: 68 y/o female admitted for back pain and surgical wound drainage. Medicine was asked to co-manage patient given her multiple co-morbid conditions - Patient Problems (1) Diabetes Current Visit: No Status: Acute Code(s): E11.9 - TYPE 2 DIABETES MELLITUS WITHOUT COMPLICATIONS SNOMED Code(s): 34725357 Comment: - Sugars remain elevated intermittently - Will increase Lantus to 28 units and continue lispro sliding scale plus 4 units before meals (2) Hypertension Current Visit: No Status: Acute Code(s): I10 - ESSENTIAL (PRIMARY) HYPERTENSION SNOMED Code(s): 62617921 Comment: - BP elevated. continue Lisinopril 20 mg daily, Increase coreg to 6.25 mg bid from daily. - continue PRN hydralazine. - control pain as per neurosurgery (3) Abnormal surgical wound Current Visit: Yes Status: Acute Code(s): T81.9XXA - UNSPECIFIED COMPLICATION OF PROCEDURE, INITIAL ENCOUNTER SNOMED Code(s): 639270167 Comment: - Serosanguinous fluid from her back: - MSSA (+) wound culture; sensitivity data pending. MRSA negative Staph positive. for now on ceftriaxone will continue. - Dr. Kessler aware pending formal consultations. (4) CAD (coronary artery disease) Current Visit: Yes Status: Acute Code(s): I25.10 - ATHSCL HEART DISEASE OF [place] CORONARY ARTERY W/O ANG PCTRS SNOMED Code(s): 53610629 Comment: -Continue Atorvastatin, Carvedilol, and Lisinopril (5) UTI (urinary tract infection) Current Visit: Yes Status: Acute Comment: - Urine Cx (+) for P. aeruginosa; since leukocytosis improving, will continue Rocephin for now despite the fact that most P. aeruginosa is usually resistant to 3rd Gen except for Ceftazidime; (6) DVT prophylaxis Current Visit: Yes Status: Acute Code(s): OTS3190 - SNOMED Code(s): 978807001 Comment: -Continue Heparin SQ Status and Disposition: -Will await further input from Drs. Marie and Checo
[2018-12-02] MEDS: Insulin GLARGINE(*) 1 UNITS UNIT SUBCUT SCH (22:18)
[2018-12-03] MEDS: oxyCODONE/Acetamin 5/325 MG* TAB PO PRN ×3 (05:02→15:49)
[2018-12-03 05:13] LABS: ABS Basophils 0.1 10^3/ul (0-0.2); ABS Eosinophils 0.2 10^3/ul (0-0.6); ABS Lymphocytes 2.2 10^3/ul (1.0-4.8); ABS Monocytes 0.8 10^3/ul (0-0.8); ABS Neutrophils 8.5 10^3/ul (1.5-7.7); ABS Nucleated RBC 0 10^3/ul; Eosinophil % 1.4 %; Hematocrit 27 % (35-47); Hemoglobin 8.6 g/dl (12.0-16.0); Lymphocyte % 18.4 %; Mean Corpuscular HGB Conc 32 g/dl (31-36); Mean Corpuscular Hemoglobin 26 pg (27-31); Mean Corpuscular Volume 81 fL (80-97); Mean Platelet Volume 6.8 fL (7.4-10.4); Nucleated Red Blood Cells % 0; Platelet Count 445 10^3/ul (150-450); Red Blood Count 3.34 10^6/ul (4.00-5.40); Red Cell Distribution Width 16 % (10.5-15); White Blood Count 11.8 10^3/ul (3.5-10.8)
[2018-12-03 05:27] LABS: Calcium 8.1 mg/dL (8.6-10.3); EGFR African American 159.9 (>60); EGFR Non-African American 132.2 (>60); Magnesium 1.6 mg/dL (1.9-2.7); Potassium 3.6 mmol/L (3.5-5.0)
[2018-12-03] MEDS: ceFAZolin 2 GM PREMIX 2 GM/50 ML BAG IVPB SCH ×3 (05:34→22:37)
[2018-12-03] MEDS: Insulin LISPRO* 1 UNITS UNIT SUBCUT SCH ×7 (08:13→20:35)
[2018-12-03] MEDS ORDERED: Magnesium Sulfate 1 GM IV* 1 GM/100 ML BAG IV ONE (09:08)
[2018-12-03] MEDS: Lisinopril TAB* 10 MG PO SCH (09:14)
[2018-12-03] MEDS: Docusate CAP* 100 MG PO SCH (09:14)
[2018-12-03] MEDS: Heparin VIAL(*) 5000 UNITS/ML VIAL (FIVE THOUSAND) SUBCUT SCH ×2 (09:14→20:24)
[2018-12-03] MEDS: Carvedilol TAB* 6.25 MG PO SCH ×2 (09:14→20:24)
[2018-12-03] MEDS: Magnesium Oxide TAB* 400 MG PO SCH (09:14)
[2018-12-03] MEDS: Senna TAB PO SCH (09:14)
[2018-12-03] MEDS: Levofloxacin TAB* 500 MG PO SCH (10:31)
[2018-12-03] MEDS: hydrALAZINE IV* 20 MG/ML VIAL IV SLOW PU PRN (13:06)
--- NOTE | 2018-12-03 15:54 | PN ---
Progress Note - Progress Note Date of Service: 12/03/18 SOAP: Subjective: [Pt admitted for wound dehiscence and drainage, s/p T11-S1 fusion Complains of low back pain today although improved since date of admission States she requires PO pain medication still Reports poor participation with PT secondary to weakness in LEs Denies pain, numbness, tingling in lower extremities. Denies headache, nausea ] Objective: [ Vital Signs: Temp Pulse Resp BP Pulse Ox 98.1 F 89 20 179/95 94 12/03/18 12:05 12/03/18 12:05 12/03/18 14:26 12/03/18 12:05 12/03/18 12:05 General: Alert, laying comfortably in bed Neuro: Motor and sensory intact. Incision: 3 small, < 1cm, areas of dehiscence continuing to drain ] Assessment: [68 yo female with wound dehiscence and drainage s/p T11-S1 fusion. Will return to [facility] for rehab.] Plan: [1. Possible d/c to [facility] tomorrow if able to accept pt 2. Continue PT, encourage OOB 3. Dressing change as needed 4. Continue pain management]
[2018-12-03] MEDS ORDERED: Polyethylene Glycol 3350* 17 GM PACKET PO PRN (16:03)
--- NOTE | 2018-12-03 19:23 | PN ---
Subjective Date of Service: 12/03/18 Interval History: Patient seen today, Still complaining about her pain. complaining about returning [facility]. No acute issue. Discussed with Neurosurgery and she will be cleared by am from neurosurgery point of view pending bed availability Past Medical History: Unchanged from Admission Objective Active Medications: Acetaminophen (Tylenol Tab*) 650 mg PO Q4H PRN PRN Reason: PAIN Atorvastatin Calcium (Lipitor*) 40 mg PO 2100 [facility] Last Admin: 12/02/18 20:37 Dose: 40 mg Carvedilol (Coreg Tab*) 6.25 mg PO BID [facility] Last Admin: 12/03/18 09:14 Dose: 6.25 mg Dextrose (D50w Syringe 50 Ml*) 12.5 gm IV PUSH .FOR FS < 60 - SS PRN PRN Reason: FS < 60 Docusate Sodium (Colace Cap*) 100 mg PO DAILY [facility] Last Admin: 12/03/18 09:14 Dose: 100 mg Heparin Sodium (Porcine) (Heparin Vial(*)) 5,000 units SUBCUT Q12HR [facility] Last Admin: 12/03/18 09:14 Dose: 5,000 units Heparin Sodium (Porcine) (Heparin Flush Picc/Ml/Cvc(*)) 1 ml FLUSH 0600,1800 [facility]; Protocol Last Admin: 12/03/18 17:39 Dose: Not Given Hydralazine HCl (Apresoline Iv*) 5 mg IV SLOW PU Q6H PRN PRN Reason: Hypertension Last Admin: 12/03/18 13:06 Dose: 5 mg Hydromorphone HCl (Dilaudid Inj1s*) 0.5 mg IV SLOW PU Q6H PRN PRN Reason: PAIN Last Admin: 12/02/18 23:13 Dose: 0.5 mg Cefazolin Sodium/Dextrose (Kefzol 2 Gm Premix In Ors(*)) 2 gm in 50 mls @ 100 mls/hr IVPB Q8H [facility] Last Admin: 12/03/18 14:30 Dose: 100 mls/hr Insulin Glargine (Lantus(*)) 28 units SUBCUT Q24H [facility] Last Admin: 12/02/18 22:18 Dose: 28 units Insulin Human Lispro (Humalog*) 0 units SUBCUT ACHS [facility]; Protocol Last Admin: 12/03/18 18:06 Dose: 2 unit Insulin Human Lispro (Humalog*) 4 units SUBCUT AC [facility] Last Admin: 12/03/18 18:07 Dose: 4 unit Levofloxacin (Levaquin Tab*) 500 mg PO Q24H [facility] Stop: 12/08/18 09:59 Last Admin: 12/03/18 10:31 Dose: 500 mg Lisinopril (Prinivil Tab*) 20 mg PO DAILY [facility] Last Admin: 12/03/18 09:14 Dose: 20 mg Magnesium Oxide (Magox 400 Tab*) 400 mg PO DAILY [facility] Last Admin: 12/03/18 09:14 Dose: 400 mg Melatonin (Melatonin) 3 mg PO BEDTIME [facility] Last Admin: 12/02/18 20:37 Dose: 3 mg Oxycodone HCl (Roxycodone Tab*) 2.5 mg PO Q4H PRN PRN Reason: PAIN Polyethylene Glycol/Electrolytes (Miralax*) 17 gm PO DAILY PRN PRN Reason: CONSTIPATION Senna (Senokot Tab*) 2 tab PO DAILY [facility] Last Admin: 12/03/18 09:14 Dose: 2 tab Vital Signs - 8 hr 12/03/18 12/03/18 12/03/18 12:05 14:26 15:42 Temperature 98.1 F 98.5 F Pulse Rate 89 83 Respiratory 14 20 18 Rate Blood Pressure 179/95 168/91 (mmHg) O2 Sat by Pulse 94 93 Oximetry 12/03/18 12/03/18 15:49 18:19 Temperature Pulse Rate Respiratory 18 20 Rate Blood Pressure (mmHg) O2 Sat by Pulse Oximetry Oxygen Devices in Use Now: None Appearance: Awake, alert. no distress Eyes: No Scleral Icterus, - Ears/Nose/Mouth/Throat: NL Teeth, Lips, Gums, Mucous Membranes Moist Neck: NL Appearance and Movements; NL JVP, Trachea Midline Result Diagrams: 12/03/18 04:45 12/03/18 04:45 Additional Lab and Data: Lab Results 11/30/18 11/30/18 11/30/18 Range/Units 16:03 16:03 16:03 WBC 13.5 H (3.5-10.8) 10^3/ul RBC 3.77 L (4.00-5.40) 10^6/ul Hgb 9.6 L (12.0-16.0) g/dl Hct 30 L (35-47) % MCV 80 (80-97) fL MCH 26 L (27-31) pg MCHC 32 (31-36) g/dl RDW 16 H (10.5-15) % Plt Count 562 H D (150-450) 10^3/ul MPV 7.1 L (7.4-10.4) fL Neut % (Auto) 78.1 % Lymph % (Auto) 13.1 % [place] % (Auto) 7.1 % Eos % (Auto) 0.8 % Baso % (Auto) 0.9 % Absolute Neuts (auto) 10.6 H (1.5-7.7) 10^3/ul Absolute Lymphs (auto) 1.8 (1.0-4.8) 10^3/ul Absolute Monos (auto) 1.0 H (0-0.8) 10^3/ul Absolute Eos (auto) 0.1 (0-0.6) 10^3/ul Absolute Basos (auto) 0.1 (0-0.2) 10^3/ul Absolute Nucleated RBC 0 10^3/ul Nucleated RBC % 0 INR (Anticoag Therapy) 1.12 H (0.77-1.02) APTT 27.5 (26.0-36.3) seconds Sodium 136 (135-145) mmol/L Potassium 3.5 (3.5-5.0) mmol/L Chloride 98 L (101-111) mmol/L Carbon Dioxide 32 (22-32) mmol/L Anion Gap 6 (2-11) mmol/L BUN 10 (6-24) mg/dL Creatinine 0.58 (0.51-0.95) mg/dL Est GFR ( Amer) 125.5 (>60) Est GFR (Non-Af Amer) 103.7 (>60) BUN/Creatinine Ratio 17.2 (8-20) Glucose 127 H (70-100) mg/dL Lactic Acid (0.5-2.0) mmol/L Calcium 8.1 L (8.6-10.3) mg/dL Total Bilirubin 0.40 (0.2-1.0) mg/dL AST 14 (13-39) U/L ALT < 3 L (7-52) U/L Alkaline Phosphatase 151 H (34-104) U/L Troponin I 0.09 H* (<0.04) ng/mL Total Protein 6.3 L (6.4-8.9) g/dL Albumin 2.8 L (3.2-5.2) g/dL Globulin 3.5 (2-4) g/dL Albumin/Globulin Ratio 0.8 L (1-3) Urine Color Urine Appearance Urine pH (5-9) Ur Specific [place] (1.010-1.030) Urine Protein (Negative) Urine Ketones (Negative) Urine Blood (Negative) Urine Nitrate (Negative) Urine Bilirubin (Negative) Urine Urobilinogen (Negative) Ur Leukocyte Esterase (Negative) Urine WBC (Auto) (Absent) Urine RBC (Auto) (Absent) Urine Bacteria (Absent) Urine Glucose (Negative) 11/30/18 11/30/18 Range/Units 16:03 17:04 WBC (3.5-10.8) 10^3/ul RBC (4.00-5.40) 10^6/ul Hgb (12.0-16.0) g/dl Hct (35-47) % MCV (80-97) fL MCH (27-31) pg MCHC (31-36) g/dl RDW (10.5-15) % Plt Count (150-450) 10^3/ul MPV (7.4-10.4) fL Neut % (Auto) % Lymph % (Auto) % [place] % (Auto) % Eos % (Auto) % Baso % (Auto) % Absolute Neuts (auto) (1.5-7.7) 10^3/ul Absolute Lymphs (auto) (1.0-4.8) 10^3/ul Absolute Monos (auto) (0-0.8) 10^3/ul Absolute Eos (auto) (0-0.6) 10^3/ul Absolute Basos (auto) (0-0.2) 10^3/ul Absolute Nucleated RBC 10^3/ul Nucleated RBC % INR (Anticoag Therapy) (0.77-1.02) APTT (26.0-36.3) seconds Sodium (135-145) mmol/L Potassium (3.5-5.0) mmol/L Chloride (101-111) mmol/L Carbon Dioxide (22-32) mmol/L Anion Gap (2-11) mmol/L BUN (6-24) mg/dL Creatinine (0.51-0.95) mg/dL Est GFR ( Amer) (>60) Est GFR (Non-Af Amer) (>60) BUN/Creatinine Ratio (8-20) Glucose (70-100) mg/dL Lactic Acid 0.7 (0.5-2.0) mmol/L Calcium (8.6-10.3) mg/dL Total Bilirubin (0.2-1.0) mg/dL AST (13-39) U/L ALT (7-52) U/L Alkaline Phosphatase (34-104) U/L Troponin I (<0.04) ng/mL Total Protein (6.4-8.9) g/dL Albumin (3.2-5.2) g/dL Globulin (2-4) g/dL Albumin/Globulin Ratio (1-3) Urine Color Yellow Urine Appearance Turbid Urine pH 7.0 (5-9) Ur Specific [place] 1.012 (1.010-1.030) Urine Protein 2+(100 mg/dl) A (Negative) Urine Ketones Negative (Negative) Urine Blood 2+ A (Negative) Urine Nitrate Positive A (Negative) Urine Bilirubin Negative (Negative) Urine Urobilinogen Negative (Negative) Ur Leukocyte Esterase 3+ A (Negative) Urine WBC (Auto) 3+(>20/hpf) A (Absent) Urine RBC (Auto) 3+(>10/hpf) A (Absent) Urine Bacteria Absent (Absent) Urine Glucose Negative (Negative) Microbiology and Other Data: Microbiology 11/30/18 17:04 Urine Culture - Preliminary Urine Pseudomonas Aeruginosa 11/30/18 15:48 Skin and Soft Tissue MRSA/MSSA (PCR - Final Wound Mrsa Negative S.aureus Positive Gram Stain - Final Assess/Plan/Problems-Billing Assessment: 68 y/o female admitted for back pain and surgical wound drainage. Medicine was asked to co-manage patient given her multiple co-morbid conditions - Patient Problems (1) Diabetes Current Visit: No Status: Acute Code(s): E11.9 - TYPE 2 DIABETES MELLITUS WITHOUT COMPLICATIONS SNOMED Code(s): 57756004 Comment: - Sugars remain elevated intermittently - I increased Lantus to 28 units and continue lispro sliding scale plus 4 units before meals. BG improved. (2) Hypertension Current Visit: No Status: Acute Code(s): I10 - ESSENTIAL (PRIMARY) HYPERTENSION SNOMED Code(s): 87436528 Comment: - BP improved on coreg 6.25 mg bid but remain elevated. I will continue Lisinopril 20 mg daily, I will increase coreg to 12.5 mg bid. Need to monitor as her BP may improve as her pain improves. continue PRN hydralazine. - control pain as per neurosurgery (3) Abnormal surgical wound Current Visit: Yes Status: Acute Code(s): T81.9XXA - UNSPECIFIED COMPLICATION OF PROCEDURE, INITIAL ENCOUNTER SNOMED Code(s): 137527393 Comment: - Serosanguinous fluid from her back: - MSSA (+) wound culture; sensitivity data pending. MRSA negative Staph positive. for now on cefazolin 2 gm IV Q8hrs will continue. Discussed with neurosurgery and will continue current regimen as recommended on her previous discharge total day based on her last discharge from 12/03/18 (4) CAD (coronary artery disease) Current Visit: Yes Status: Acute Code(s): I25.10 - ATHSCL HEART DISEASE OF [place] CORONARY ARTERY W/O ANG PCTRS SNOMED Code(s): 95655465 Comment: -Continue Atorvastatin, Carvedilol, and Lisinopril (5) UTI (urinary tract infection) Current Visit: Yes Status: Acute Comment: - Urine Cx (+) for P. aeruginosa; not responding to cefazolin. Given her Sensitivity I did change to oral levaquin day # 1/5 po. (6) DVT prophylaxis Current Visit: Yes Status: Acute Code(s): TVD8471 - SNOMED Code(s): 926639607 Comment: -Continue Heparin SQ Status and Disposition: -Will await further input from Drs. Marie and [place]
[2018-12-03] MEDS: oxyCODONE TAB* 5 MG TAB PO PRN (20:23)
[2018-12-03] MEDS: Melatonin 3 MG TAB PO SCH (20:24)
[2018-12-03] MEDS: Atorvastatin* 40 MG TAB PO SCH (20:24)
[2018-12-03] MEDS: Insulin GLARGINE(*) 1 UNITS UNIT SUBCUT SCH (20:35)
[2018-12-03] MEDS: Acetaminophen TAB* 325 MG PO PRN (22:43)
[2018-12-04] MEDS: oxyCODONE TAB* 5 MG TAB PO PRN ×4 (00:20→13:09)
[2018-12-04] MEDS: Acetaminophen TAB* 325 MG PO PRN ×3 (02:37→13:08)
[2018-12-04] MEDS: hydrALAZINE IV* 20 MG/ML VIAL IV SLOW PU PRN ×2 (02:43→08:37)
[2018-12-04] MEDS: ceFAZolin 2 GM PREMIX 2 GM/50 ML BAG IVPB SCH (05:25)
--- NOTE | 2018-12-04 08:12 | PN ---
Progress Note - Progress Note Date of Service: 12/04/18 SOAP: Subjective: [Complains of back pain, concerned with pain management Back pain improved since admission Denies nausea, headache Has been able to participate with PT Discussed with pt going to [facility] to continue with rehab Objective: [ Vital Signs: Temp Pulse Resp BP Pulse Ox 97.7 F 85 19 149/93 94 12/04/18 04:26 12/04/18 04:26 12/04/18 04:27 12/04/18 04:26 12/04/18 04:26 General: Alert, able to answer questions appropriately Neuro: Motor and sensory intact, generalized lower extremity weakness Incision: Continues to drain fluid. Swelling, erythema improved. Mild tenderness ] Assessment: [S/p T11-S1 fusion complicated by wound infection, readmitted for wound drainage. Stable] Plan: [1. Discharge to [facility] Rehab today 2 Continue antibiotics, cefazolin]
[2018-12-04] MEDS: Senna TAB PO SCH (08:37)
[2018-12-04] MEDS: Carvedilol TAB* 6.25 MG PO SCH (08:37)
[2018-12-04] MEDS: Docusate CAP* 100 MG PO SCH (08:37)
[2018-12-04] MEDS: Lisinopril TAB* 10 MG PO SCH (08:37)
[2018-12-04] MEDS: Magnesium Oxide TAB* 400 MG PO SCH (08:37)
[2018-12-04] MEDS: Heparin VIAL(*) 5000 UNITS/ML VIAL (FIVE THOUSAND) SUBCUT SCH (08:41)
[2018-12-04] MEDS: Levofloxacin TAB* 500 MG PO SCH (09:28)
[2018-12-04] MEDS: Insulin LISPRO* 1 UNITS UNIT SUBCUT SCH ×4 (09:30→13:18)
[2018-12-04 12:10] VITALS: BP 138/67
--- NOTE | 2018-12-04 14:54 | DS ---
DISCHARGE SUMMARY: DATE OF ADMISSION: 11/30/18 DATE OF DISCHARGE: 12/04/18 ATTENDING SURGEON: Dr. Marie * (DICTATED BY JIMENA MCCANN) DISCHARGE DIAGNOSES: 1. Lumbar surgical wound infection. 2. Status post T11 through sacrum fusion. 3. Diabetes. 4. Hypertension. 5. Hyperlipidemia. HOSPITAL COURSE: This 68-year-old female underwent a T11 through sacrum fusion and a left L3-4 TLIF on 10/27/18. She was discharged on 11/03/18 to [facility] for rehab. She returned on 11/13/18 in septic shock with a lumbar wound infection. She was treated with antibiotics and supportive care. She was eventually discharged on 11/23/18 to [facility] for rehab. On 11/30/18, she returned to the [facility] ED with complaint of severe back pain and wound drainage. The patient was admitted for further evaluation and treatment of this. The wound was noted to have 3 small areas of dehiscence, which allowed for purulent drainage to be evacuated. Dr. Marie admitted the patient and the wound was explored at bedside, expressive a large volume of purulent fluid. The suture was also removed at this time. Again, the next day , a similar procedure at bedside took place and the patient tolerated this well both times. By the second day of admission, the back pain had significantly improved. She was being seen by physical therapy, although she remained very weak in general. The hospitalist medicine team was consulted for management of her other medical conditions. On 12/03/18, she was complaining of low back pain , but had been improved since admission. She requested that Tylenol be increased and the oxycodone be decreased, and her medications were adjusted as requested. She confirmed poor participation in physical therapy and believes that she is very weak; however, today she states that she was participating well and able to do some exercises with her lower extremities. She denies headache, nausea, and fever. The wound has continued to drain, although the dressings have been less saturated than on the day of admission. She is cleared at this point for discharge from neurosurgical and from medicine standpoints. She will return to [facility] to continue rehab and her treatments there. Recommend oxycodone 2.5 mg p.o. q.4 hours as needed for pain in addition to 650 mg acetaminophen p.o. q.4 hours as needed for pain. She will continue all her other medications. Levaquin 500 mg p.o. q.24 hours x5 days was also added for treatment of urinary tract infection. FOLLOWUP: She will be seen by Dr. Marie in office in 2 weeks. She should follow up with her primary care doctor for evaluation. She will also follow up with Dr. Kessler and continue with the treatment with the [facility]. JIMENA MCCANN [id number]/[facility] #: [id number] MTDD
--- NOTE | 2018-12-23 11:33 | HP ---
HISTORY AND PHYSICAL: DATE OF ADMISSION: 11/30/18 CHIEF COMPLAINT: Wound drainage. HISTORY OF PRESENT ILLNESS: This 68-year-old lady underwent a complicated thoraco-pelvic fusion back on 10/27/18. She initially did well but returned with fever and sepsis and was hospitalized for treatment of septic shock from 11/13/18 to 11/23/18. She was discharged to [facility] for rehab, doing fairly well after being treated for an MSSA bacteremia under the direction of Dr. Kessler. Apparently, 2 days prior to this presentation, she developed significant increase in her back pain and wound drainage. She was seen at [facility] by the hospitalist service and the wound drainage reported and the patient referred to the emergency center for further evaluation. On arrival there, she was noted to be complaining of back pain with copious amounts of wound drainage. She was seen in the emergency room by me with plans made to admit her for further evaluation. PAST MEDICAL HISTORY: Significant for: 1. Diabetes. 2. Hyperlipidemia. 3. Hypertension. MEDICATIONS: At the time of admission included: 1. Ancef 1 g 3 times daily. 2. Multivitamins. 3. Victoza. 4. Metformin. 5. Levemir. 6. Atorvastatin. 7. Vitamin D3. 8. Calcium carbonate. 9. Magnesium supplementation. 10. Oxycodone for pain. 11. Senna. 12. Lisinopril. 13. Docusate. 14. Carvedilol. 15. Calcium carbonate. ALLERGIES: She has no medication allergies. FAMILY HISTORY: Family history was taken and noncontributory to this illness. SOCIAL HISTORY: Revealed her to not smoke or drink and she has a supportive family structure. REVIEW OF SYSTEMS: Her system review was significant in the general review for fever and chills as well as wound drainage. The remainder of her system review was taken and was noncontributory. PHYSICAL EXAMINATION VITAL SIGNS: Blood pressure is 162/99 with a pulse of 72, temperature of 98.4 and respirations of 14. HEENT: HEENT exam was normal. NECK: Supple. LUNGS: Clear to auscultation. CARDIOVASCULAR: Exam revealed a regular rate and rhythm. ABDOMEN: Soft with normal bowel sounds. No tenderness. EXTREMITIES: Revealed full range of active motion. BACK EXAM: Revealed copious drainage from multiple areas of her wound. There were some retained sutures from her original surgery. IMPRESSION: She is being admitted for further treatment of her wound drainage and infection. She likely has urinary tract infection as well. She has been seen by the hospitalist who will assist in her care. [id number]/[facility] #: [id number] MTDD
== END 2018-12-04 13:45 | DRG 920 ==
LOC: ED 15:15 → SSU 17:51
PROVIDERS: ADMIT Neurological Surgery; ATTEND Neurological Surgery
DX: T81.32XA Disruption of internal operation (surgical) wound, not elsewhere classified, initial encounter (principal); T81.40XA Infection following a procedure, unspecified, initial encounter; N39.0 Urinary tract infection, site not specified; I10 Essential (primary) hypertension; M17.11 Unilateral primary osteoarthritis, right knee; E78.5 Hyperlipidemia, unspecified; Y79.2 Prosthetic and other implants, materials and accessory orthopedic devices associated with adverse incidents; B95.61 Methicillin susceptible Staphylococcus aureus infection as the cause of diseases classified elsewhere; I25.10 Atherosclerotic heart disease of native coronary artery without angina pectoris; B96.5 Pseudomonas (aeruginosa) (mallei) (pseudomallei) as the cause of diseases classified elsewhere; E11.42 Type 2 diabetes mellitus with diabetic polyneuropathy; Z98.42 Cataract extraction status, left eye; Z98.41 Cataract extraction status, right eye; Z98.51 Tubal ligation status; I25.2 Old myocardial infarction; Y92.9 Unspecified place or not applicable
CPT/HCPCS: 36415; 80048; 80053; 81003; 81015; 83605; 83735; 84100; 84484; 85025; 85610; 85730; 86140; 87040; 87070; 87077; 87086; 87186; 87205; 87640; 87641; 99285; A9270-GY; G8978-GP-CM; G8979-GP-CK; J0360; J0690; J0696; J1170; J1644; J2405; J2543; J3370; J3475

== ENCOUNTER 2019-02-07 09:50 | Inpatient (IN) | payer MEDICARE, MEDICAID ==
--- OUTSIDE RECORDS SUMMARY | 2019-02-07 10:03 | XMS REPORT | Continuity of Care Document ---
:1950 External Reference #:[id number] Author Name Johanny Betancourt Care Team Providers Name Role Phone Renay Valdovinos MD Primary Care Physician Unavailable Payers Date Identification Numbers Payment Provider Subscriber Policy Number: [id number] Medicare Gill Chapa PayID: [id number] [address] [place] [address] Expires: 2018 Policy Number: [id number] Medicare Gill Chpaa PayID: [id number] [address] [place] [address] Policy Number: [id number] Medicaid Gill h[employer]a Group Name: 1 1 [address] PayID: [id number] [place] [address] Advance Directives Description No Information Available Problems Date Description Provider Status Onset: 10/20/2015 Spinal stenosis of lumbar region Mayur Brooke M.D. Active Onset: 10/20/2015 Type 2 diabetes mellitus with Mayur Brooke M.D. Active diabetic neuropathy, unspecified Onset: 12/04/2015 Lumbar spondylolisthesis Cristobal Marie M.D. Active Onset: 01/01/2016 Convalescence after surgery Cristobal Marie M.D. Active Onset: 06/10/2018 Localized, primary osteoarthritis Sri Williamson M.D. Active Onset: 06/10/2018 Localized, primary osteoarthritis of Sri Williamson M.D. Active the pelvic region and thigh Onset: 06/10/2018 Sciatica Sri Williamson M.D. Active Onset: 08/05/2018 Lumbar radiculopathy Cristobal Marie M.D. Active Onset: 08/24/2018 Lumbar spondylolisthesis Cristobal Marie M.D. Active Onset: 09/25/2018 Neurogenic claudication Cristobal Marie M.D. Active Family History Date Family Member(s) Observation Comments General Heart Disease General Diabetes General Cancer Father due to Gastric Cancer () Mother due to Heart Disease () Mother due to GA () Social History Type Date Description Comments Sex Unknown Lives With Alone Occupation Retired ETOH Use Occasionally consumes alcohol Tobacco Use Start: Unknown Patient has never smoked Recreational Drug Use Denies Drug Use Smoking Status Reviewed: 01/08/19 Patient has never smoked Exercise Type/Frequency Exercises regularly bike 4 times per week, yoga 5 times weekly, garden 4 times per week Allergies, Adverse Reactions, Alerts Description No Known Drug Allergies Medications Medication Date Status Form Strength Qnty SIG Indications Ordering Provider Summer 09/24 Active Solution 100-3.6Un 15ml start 32 E11.40 Lawson Pen-Inject it-mg/ML units once MD Nohemi daily in the morning. increase by 2 units every 4 days until morning BG is less than 140 Oxycodone-Acetami 06/10 Active Tablets 5-325mg 60tab 1-2 tabs M25.561 Sri nop s by mouth Clay, every day M.D. as needed for pain Metformin HCL Active Tablets 1000mg 1 tablet Unknown /0000 by mouth Am, and 1.5 tablets by mouth PM Lisinopril-Hydroc Active Tablets 20-12.5mg 1 by mouth Unknown hlorothiazide /0000 every day Ferrous Gluconate Active Tablets 239(27Fe) 30tab 1 by mouth Unknown /0000 mg s every day Magnesium Oxide Active Capsules 400mg 30cap 1 by mouth Unknown /0000 s every day Vitamin D Active Capsules 2000Unit 1 by mouth Unknown (Ergocalciferol) /0000 every day Freestyle Lite Active Device test blood Unknown Blood Glucose /0000 sugar 3 Monitoring System times daily and as needed Freestyle Lite Active Strips test up to Unknown Test /0000 1-2 times a day dx code: e11.9 Vitamin B12 Active Tablets ER 1000mcg 1 by mouth Unknown /0000 every day Calcium Citrate Active Tablets 250-100mg Unknown Malate/Vitamin D /0000 -Unit Niacin Active Tablets 500mg 1 tabs by Unknown /0000 mouth every day Multivitamin Active Tablets 1 by mouth Unknown Adult / every day Coenzyme Q-10 Active Capsules 100mg 1 by mouth Unknown /0000 once daily Lisinopril Active Tablets 10mg 1 by mouth Unknown / every day Atorvastatin Active Tablets 40mg 1 by mouth Unknown Calcium / every day Bisacodyl Active Suppository 10mg insert 1 suppositor y rectally every 24 hours as needed for constipati on, insert ideally after breakfast Carvedilol Active Tablets 6.25mg 1 by mouth Unknown / once a day Cefazolin Sodium Active Solution 1gm 1 gm IV Rec tid Levemir Flextouch 09/24 Hx Solution 100Unit/M 30ml 38 units Pen-Inject L once daily MD Nohemi - pm 09/24 Victoza 06/18 Hx Solution 18mg/3ML 6ml 1.2 mg E11.40 Lawson Pen-Inject dose MD Nohemi - 09/24 Oxycodone HCL 12/31 Hx Tablets 10mg 90tab 1 by mouth Z48.89 Cristobal /2015 s every 6 [place], - hours as M.D. 06/09 needed pain Cyclobenzaprine 12/31 Hx Tablets 10mg 60tab 1 by mouth Z48.89 Cristobal HCL /2015 s twice a [place], - day as .D. 06/09 spasm Gabapentin 10/20 Hx Capsules 100mg 90cap 1 po qhs E11.40 Mayur Quiñones. /2015 s to start [place], - and february.D. 06/09 increase as tolerated to 2 po qhs then 1 po qam and 2 po hs, gradually up to 3 tid prn pain Glipizide Hx Tablets 10mg 1 by mouth Unknown twice a - day 06/09 Hydrochlorothiazi Hx Tablets 25mg 1 by mouth Unknown de every day - as needed 09/21 swelling Estrace Hx Cream 0.1mg/GM 0.5grams per vagina - 2x/week 09/21 Pravastatin 0000 Hx Tablets 10mg take one Unknown Sodium /0000 tablet by - mouth at 06/15 bedtime /2017 CK,P 00 Hx Solution 100Unit/M 38 units Unknown /0000 Pen-Inject L daily - 09/21 Glucosamine 1500 00/00 Hx Capsules 1500Com 1 by mouth Unknown Complex /0000 every day - 06/15 Medications Administered in Office Medication Date Status Form Strength Qnty SIG Indications Ordering Provider Depomedrol Administered Injection Sri 40MG 018 Lester Williamson Depomedrol Administered Injection Dirk Niya, 80MG 015 MAmitaDAmita Immunizations Description No Information Available Vital Signs Date Vital Result Comment 01/08/2019 9:39am Height 63 inches 5'3" Weight 146.00 lb Heart Rate 88 /min BP Systolic Sitting 146 mmHg BP Diastolic Sitting 78 mmHg Respiratory Rate 14 /min Body Temperature 98.6 F Pain Level 9 back BMI (Body Mass Index) 25.9 kg/m2 12/23/2018 1:59pm Height 63 inches 5'3" Weight 174.00 lb wheelchair BP Systolic Sitting 104 mmHg BP Diastolic Sitting 70 mmHg Body Temperature 98.0 F Pain Level 10 BMI (Body Mass Index) 30.8 kg/m2 09/25/2018 10:26am Height 63 inches 5'3" Weight 174.00 lb BP Systolic Sitting 150 mmHg BP Diastolic Sitting 70 mmHg Pain Level 6 BMI (Body Mass Index) 30.8 kg/m2 09/24/2018 12:59pm Height 63 inches 5'3" Weight 174.00 lb w/ shoes Heart Rate 81 /min BP Systolic Sitting 169 mmHg BP Diastolic Sitting 90 mmHg Pain Level 8 BMI (Body Mass Index) 30.8 kg/m2 08/24/2018 10:01am Height 63 inches 5'3" Weight 179.00 lb BP Systolic Sitting 140 mmHg BP Diastolic Sitting 80 mmHg Pain Level 6 BMI (Body Mass Index) 31.7 kg/m2 08/21/2018 9:28am Height 63 inches 5'3" Heart Rate 78 /min BP Systolic 128 mmHg BP Diastolic 88 mmHg Respiratory Rate 18 /min Body Temperature 98.0 F Pain Level 6 08/05/2018 1:55pm Height 63 inches 5'3" Heart Rate 72 /min BP Systolic Sitting 128 mmHg BP Diastolic Sitting 82 mmHg Respiratory Rate 20 /min Body Temperature 97.5 F 06/18/2018 10:29am Height 63 inches 5'3" Weight 179.00 lb w/ shoes Heart Rate 64 /min BP Systolic Sitting 159 mmHg BP Diastolic Sitting 83 mmHg BMI (Body Mass Index) 31.7 kg/m2 06/10/2018 11:02am Height 63 inches 5'3" Weight 177.50 lb Heart Rate 88 /min BP Systolic Sitting 158 mmHg BP Diastolic Sitting 74 mmHg Respiratory Rate 20 /min Body Temperature 97.5 F Pain Level 6 BMI (Body Mass Index) 31.4 kg/m2 02/19/2016 9:07am Height 63 inches 5'3" Weight 181.00 lb Heart Rate 62 /min BP Systolic Sitting 136 mmHg BP Diastolic Sitting 80 mmHg Pain Level 0 BMI (Body Mass Index) 32.1 kg/m2 01/22/2016 8:51am Height 63 inches 5'3" Weight 181.00 lb Heart Rate 80 /min BP Systolic Sitting 160 mmHg BP Diastolic Sitting 80 mmHg Pain Level 3 BMI (Body Mass Index) 32.1 kg/m2 01/01/2016 9:26am Height 63 inches 5'3" Weight 181.00 lb BP Systolic Sitting 150 mmHg BP Diastolic Sitting 80 mmHg Body Temperature 98.0 F Pain Level 6 BMI (Body Mass Index) 32.1 kg/m2 12/04/2015 1:18pm Height 63 inches 5'3" Weight 181.00 lb Heart Rate 70 /min BP Systolic Sitting 118 mmHg BP Diastolic Sitting 78 mmHg Pain Level 3 BMI (Body Mass Index) 32.1 kg/m2 12/01/2015 9:31am Height 63 inches 5'3" Weight 181.00 lb Heart Rate 76 /min BP Systolic Sitting 130 mmHg BP Diastolic Sitting 78 mmHg Pain Level 2 BMI (Body Mass Index) 32.1 kg/m2 10/20/2015 9:40am Height 63 inches 5'3" Weight 182.00 lb Heart Rate 66 /min BP Systolic Sitting 140 mmHg BP Diastolic Sitting 80 mmHg Pain Level 5 BMI (Body Mass Index) 32.2 kg/m2 01/23/2015 2:15pm Height 63 inches 5'3" Weight 165.00 lb Pain Level 7 BMI (Body Mass Index) 29.2 kg/m2 01/02/2015 1:20pm Height 63 inches 5'3" Weight 165.00 lb Heart Rate 65 /min BP Systolic 140 mmHg BP Diastolic 90 mmHg Pain Level 7 BMI (Body Mass Index) 29.2 kg/m2 04/09/2011 1:54pm Height 66 inches 5'6" Weight 180.00 lb Heart Rate 92 /min BP Systolic 139 mmHg BP Diastolic 86 mmHg BMI (Body Mass Index) 29.0 kg/m2 Results Test Date Facility Test Result H/L Range Note Comp Metabolic Panel 01/06/2019 [facility] Sodium 137 mmol/L N 135-[address] [place] [address] [phone] Potassium 3.9 mmol/L N 3.5-5.0 Chloride 100 mmol/L Low 101-111 Co2 Carbon Dioxide 29 mmol/L N 22-32 Anion Gap 8 mmol/L N 2-11 Glucose 219 mg/dL High 70-100 Blood Urea Nitrogen 17 mg/dL N 6-24 Creatinine 0.66 mg/dL N 0.51-0.95 BUN/Creatinine Ratio 25.8 High 8-20 Calcium 8.9 mg/dL N 8.6-10.3 Total Protein 5.7 g/dL Low 6.4-8.9 Albumin 2.9 g/dL Low 3.2-5.2 Globulin 2.8 g/dL N 2-4 Albumin/Globulin Ratio 1.0 N 1-3 Total Bilirubin 0.20 mg/dL N 0.2-1.0 Alkaline Phosphatase 94 U/L N 34-104 Alt < 3 U/L Low 7-52 Ast 9 U/L Low 13-39 Egfr Non- 89.3 >60 Egfr 108.1 >60 1 Laboratory test 01/06/2019 [facility] C Reactive 17.50 mg/L High <8.[address] [place] [address] [phone] CBC Auto Diff 01/06/2019 [facility] White Blood 11.4 High 3.5- 10.[address] Count 10^3/[place] [address] [phone] Red Blood Count 4.26 10^6/uL N 3.70-4.87 Hemoglobin 9.9 g/dL Low 12.0-16.0 Hematocrit 33 % N 33-41 Mean Corpuscular Volume 78 fL Low 80-97 Mean Corpuscular Hemoglobin 23 pg Low 27-31 Mean Corpuscular HGB Conc 30 g/dL Low 31-36 Red Cell Distribution Width 17 % High 10.5-15 Platelet Count 330 10^3/uL N 150-450 Mean Platelet Volume 8.1 fL N 7.4-10.4 Abs Neutrophils 8.9 10^3/uL High 1.5-7.7 Abs Lymphocytes 1.6 10^3/uL N 1.0-4.8 Abs Monocytes 0.7 10^3/uL N 0-0.8 Abs Eosinophils 0.1 10^3/uL N 0-0.6 Abs Basophils 0.1 10^3/uL N 0-0.2 Abs Nucleated RBC 0.1 10^3/uL Granulocyte % 78.1 % Lymphocyte % 13.7 % Monocyte % 6.6 % Eosinophil % 0.9 % Basophil % 0.7 % Nucleated Red Blood Cells % 0.4 Laboratory test 01/05/2019 [facility] C Difficile PCR SEE RESULT 2, [address] [place] [address] [phone] Urinalysis 01/02/2019 [facility] Urine Color Yellow Profile [address] [place] [address] [phone] Urine Appearance Cloudy Urine Specific [place] 1.018 N 1.010-1.030 Urine pH 6.0 N 5-9 Urine Urobilinogen Negative Negative Urine Ketones Negative Negative Urine Protein 1+(30 mg/dL) Abnormal Negative Urine Leukocytes 3+ Abnormal Negative Urine Blood 1+ Abnormal Negative Urine Nitrite Negative Negative Urine Bilirubin Negative Negative Urine Glucose Negative Negative Urine White Blood Cell 3+(>20/hpf) Abnormal Absent Urine Red Blood Cell 1+(3-5/hpf) Abnormal Absent Urine Bacteria Absent Absent Urine Yeast Present Abnormal Absent Urine Culture And 01/02/2019 [facility] Urine SEE RESULT [address] [place] [address] [phone] Laboratory test 10/27/2018 [facility] Point of 127 mg/dL High 70-1 [address] [place] [address] Glucose [phone] Laboratory test 10/27/2018 [facility] Packed SEE RESULTS 6 , [address] Cells [place]O <[place] [address] NOTE> [phone] Type & Screen 10/27/2018 [facility] Patient B Positive [address] [place] [address] [phone] Antibody Screen NEGATIVE Type & Screen 10/27/2018 [facility] Patient Blood Type B Positive [address] [place], [place] [id number] [phone] Antibody Screen NEGATIVE Laboratory 10/27/2018 [facility] Point of Care 157 mg/dL High 70-100 8 test finding [address] Glucose [place], [place] [address] [phone] Laboratory 10/27/2018 [facility] Point of Care 213 mg/dL High 70-100 9 test finding [address] [place] [address] [phone] Hemoglobin/Hem 10/27/2018 [facility] Hemoglobin 11.2 g/dL Low 12.0-16.0 10, atocrit [address] [place] [address] [phone] Hematocrit 35 % N 35-47 Laboratory test 10/27/2018 [facility] Point of 339 mg/dL High 70-100 [address] [place] [place] [address] [phone] Basic Metabolic 10/27/2018 [facility] Sodium 134 mmol/L Low 135-[address] [place] [address] [phone] Potassium 4.6 mmol/L N 3.5-5.0 Chloride 102 mmol/L N 101-111 Co2 Carbon Dioxide 24 mmol/L N 22-32 Anion Gap 8 mmol/L N 2-11 Glucose 328 mg/dL High 70-100 Blood Urea Nitrogen 17 mg/dL N 6-24 Creatinine 0.76 mg/dL N 0.51-0.95 BUN/Creatinine Ratio 22.4 High 8-20 Calcium 7.7 mg/dL Low 8.6-10.3 Egfr Non- 75.9 >60 Egfr 91.8 >60 13 CBC Auto 10/27/2018 [facility] White Blood 17.7 10^3/uL High 3.5-10.[address] [place] [address] [phone] Red Blood Count 3.26 10^6/uL Low 4.00-5.40 Hemoglobin 8.9 g/dL Low 12.0-16.0 Hematocrit 27 % Low 35-47 Mean Corpuscular Volume 84 fL N 80-97 Mean Corpuscular Hemoglobin 27 pg N 27-31 Mean Corpuscular HGB Conc 33 g/dL N 31-36 Red Cell Distribution Width 14 % N 10.5-15 Platelet Count 187 10^3/uL N 150-450 Mean Platelet Volume 8.4 fL N 7.4-10.4 Abs Neutrophils 16.0 10^3/uL High 1.5-7.7 Abs Lymphocytes 0.6 10^3/uL Low 1.0-4.8 Abs Monocytes 1.1 10^3/uL High 0-0.8 Abs Eosinophils 0 10^3/uL N 0-0.6 Abs Basophils 0 10^3/uL N 0-0.2 Abs Nucleated RBC 0 10^3/uL Granulocyte % 90.1 % Lymphocyte % 3.3 % Monocyte % 6.5 % Eosinophil % 0 % Basophil % 0.1 % Nucleated Red Blood Cells % 0 Type & Screen 10/21/2018 [facility] Patient Blood Type B Positive [address] [place] [address] [phone] Antibody Screen NEGATIVE Basic Metabolic Panel 10/21/2018 [facility] Sodium 137 mmol/L N 135-145 [address] [place] [address] [phone] Potassium 3.9 mmol/L N 3.5-5.0 Chloride 95 mmol/L Low 101-111 Co2 Carbon Dioxide 32 mmol/L N 22-32 Anion Gap 10 mmol/L N 2-11 Glucose 236 mg/dL High 70-100 Blood Urea Nitrogen 22 mg/dL N 6-24 Creatinine 0.81 mg/dL N 0.51-0.95 BUN/Creatinine Ratio 27.2 High 8-20 Calcium 9.9 mg/dL N 8.6-10.3 Egfr Non- 70.5 >60 Egfr 85.3 >60 14 CBC No Diff 10/21/2018 [facility] White Blood 13.0 10^3/uL High 3.5-10.[address] [place] [address] [phone] Red Blood Count 5.13 10^6/uL N 4.00-5.40 Hemoglobin 13.9 g/dL N 12.0-16.0 Hematocrit 43 % N 35-47 Mean Corpuscular Volume 84 fL N 80-97 Mean Corpuscular Hemoglobin 27 pg N 27-31 Mean Corpuscular HGB Conc 32 g/dL N 31-36 Red Cell Distribution Width 14 % N 10.5-15 Platelet Count 271 10^3/uL N 150-450 Mean Platelet Volume 8.9 fL N 7.4-10.4 Laboratory test 09/24/2018 [facility] Glucose Random 157 finding Laboratory test 09/21/2018 [facility] Hemoglobin A1c 8.0 % High 4.0-5.[address] (Glyco HGB) [place] [address] [phone] Comp Metabolic 09/21/2018 [facility] Sodium 138 mmol/L N 135- [address] [place] [address] [phone] Potassium 4.0 mmol/L N 3.5-5.0 Chloride 101 mmol/L N 101-111 Co2 Carbon Dioxide 28 mmol/L N 22-32 Anion Gap 9 mmol/L N 2-11 Glucose 89 mg/dL N 70-100 Blood Urea Nitrogen 19 mg/dL N 6-24 Creatinine 0.75 mg/dL N 0.51-0.95 BUN/Creatinine Ratio 25.3 High 8-20 Calcium 9.6 mg/dL N 8.6-10.3 Total Protein 6.1 g/dL Low 6.4-8.9 Albumin 4.0 g/dL N 3.2-5.2 Globulin 2.1 g/dL N 2-4 Albumin/Globulin Ratio 1.9 N 1-3 Total Bilirubin 0.60 mg/dL N 0.2-1.0 Alkaline Phosphatase 51 U/L N 34-104 Alt 23 U/L N 7-52 Ast 19 U/L N 13-39 Egfr Non- 77.1 >60 Egfr 93.3 >60 16 Lipid Profile 09/21/2018 [facility] Triglycerides 152 mg/dL 17 (Trig/Chol/HDL) [address] [place] [address] [phone] Cholesterol 157 mg/dL 18 HDL Cholesterol 46.9 mg/dL 19 LDL Cholesterol 80 mg/dL 20 Laboratory test 06/18/2018 [facility] Glucose Random 176 finding CBC No Diff 12/13/2015 [facility] White Blood 13.1 High 3.5- 10.[address] Count 10^3/[place] [address] [phone] Red Blood Count 5.14 10^6/uL N 4.0-5.4 Hemoglobin 13.6 g/dL N 12.0-16.0 Hematocrit 44 % N 35-47 Mean Corpuscular Volume 86 fL N 80-97 Mean Corpuscular Hemoglobin 27 pg N 27-31 Mean Corpuscular HGB Conc 31 g/dL N 31-36 Red Cell Distribution Width 14 % N 10.5-15 Platelet Count 268 10^3/uL N 150-450 Mean Platelet Volume 9 um3 N 7.4-10.4 Basic Metabolic Panel 12/13/2015 [facility] Sodium 137 mmol/L N 133-[address] [place] [address] [phone] Potassium 4.0 mmol/L N 3.5-5.0 Chloride 102 mmol/L N 101-111 Co2 Carbon Dioxide 26 mmol/L N 22-32 Anion Gap 9 mmol/L N 2-11 Glucose 98 mg/dL N 70-100 Blood Urea Nitrogen 18 mg/dL N 6-24 Creatinine 0.84 mg/dL N 0.51-0.95 BUN/Creatinine Ratio 21.4 High 8-20 Calcium 9.6 mg/dL N 8.6-10.3 Egfr Non- 68.3 N >60 Egfr 87.8 N >60 21 Type & Screen 12/13/2015 [facility] Patient Blood Type B Positive N [address] [place] [address] [phone] Antibody Screen NEGATIVE N 1 Because ethnic data is not always readily available, this report includes an eGFR for both -Americans and non- Americans. The National Kidney Disease Education Program (NKDEP) does not endorse the use of the MDRD equation for patients that are not between the ages of 18 and 70, are , have extremes of body size, muscle mass, or nutritional status, or are non- or non-. According to the National Kidney Foundation, irrespective of diagnosis, the stage of the disease is based on the level of kidney function: Stage Description GFR(mL/min/1.73 m(2)) 1 Kidney damage with normal or decreased GFR 90 2 Kidney damage with mild decrease in GFR 60-89 3 Moderate decrease in GFR 30-59 4 Severe decrease in GFR 15-29 5 Kidney failure <15 (or dialysis) 2 [id number] 3 SEE RESULT BELOW Name: GILL CHAPA : [address]: Hilda Lopes DO Acct: [id number] Unit: [id number] AGE: 68 Location: [facility] Re01/05/19 SEX: F Status: REG REF SPEC: [id number] CLAIR: 01/05/19-[address] [facility] [address]: Hilda Lopes DO REQ: [id number] RECD: 01/05/19 STATUS: COMP _ SOURCE: STOOL SPDESC: ORDERED: C. diff PCR, Stool Culture COMMENTS: [id number] Procedure Result Reported Site Stool Culture Final 01/07/19- 1149 ML Organism 1 VRE ENTEROCOCCUS FAECIUM Result No enteric pathogens isolated VRE-Reported for epidemiological purpose only. Testing for Salmonella, Shigella, Aeromonas, Plesiomonas, Yersinia and Campylobacter are included in a Stool Culture. Vibrio spp not routinely tested for in a stool culture. If testing is desired, please request specifically when placing test order. Sensitivities not routinely performed on stool isolates, as antibiotics may prolong the carriage rate of bacteria. Please contact the microbiology lab if sensitivities are required. 1. VRE ENTEROCOCCUS FAECIUM M.I.C. RX --------- ------ Ampicillin >=32 R Penicillin >=64 R Ciprofloxacin >=8 R Erythromycin >=8 R Gentamicin High Level S Levofloxacin >=8 R Linezolid 2 S * Quinupristin/Dalfopristin 0.5 S CONTINUED ON NEXT PAGE DEPARTMENT OF PATHOLOGY, [address] [place] [address] Teodoro Montalvo M.D. Director SHWET[facility] # [id number] Patient: GILL CHAPA [id number] (Continued) Specimen: [id number] Collected: 01/05/19-1199 Received: 01/05/19 (Continued) Procedure Result Reported Site Stool Culture Final (continued) 01/07/19- 114 1. VRE ENTEROCOCCUS FAECIUM (continued) M.I.C. RX --------- ------ * Streptomycin High Level S Tetracycline >=16 R Tigecycline <=0.12 S Vancomycin >=32 R * Ampicillin/Sulbactam-Deduced R * These antibiotics are not available in the [facility] Formulary Contact the Microbiology Department for any additional antibiotic reporting. Stool Specimen Description Final 01/05/19- 1457 ML Stool Color Brown Stool Form Semi-formed Stool Consistency Soft Shiga Toxin 1 2 Final 01/06/19- 1140 ML Organism 1 Negative Shiga Toxin 1 2 Immunochromatographic Assay C. difficile PCR Final 01/05/19- 1544 ML Organism 1 027 Presumptive NEGATIVE Organism 2 Toxigenic C.diff NEGATIVE * - [facility] . END OF REPORT DEPARTMENT OF PATHOLOGY, [address] [place] [address] Teodoro Montalvo M.D. Director SHWETA # [id number] 4 SEE RESULT BELOW Name: GILL CHAPA : [address]: Hilda Lopes DO Acct: [id number] Unit: [id number] AGE: 68 Location: [facility] Re01/02/19 SEX: F Status: REG REF SPEC: [id number] CLAIR: 01/02/19-[address]: Hilda Lopes DO REQ: [id number] RECD: 01/02/19114 STATUS: COMP _ SOURCE: URINE SPDESC: ORDERED: Urine Culture Procedure Result Reported Site Urine Culture Final 01/03/19- 1228 ML No Growth (<1,000 CFU/mL) * ML - Main Lab . END OF REPORT DEPARTMENT OF PATHOLOGY, [address] [place] [address] Teodoro Montalvo M.D. Director [facility] # [id number] 5 [place]: [id number] SPINAL STENOSIS, LUMBAR REGION WITH NEUROGENIC CLA 7 SEE RESULTS BELOW [id number] ON PC TRANSFUSED 10/28/18 1108 8 [place]: [id number] [place]: [id number] 10 CALL RESULTS TO [id number] 11 Verbal to [id number] by [id number] at 1500 on 10/27/18. Results read back accurately. 12 [place]: [id number] 13 Because ethnic data is not always readily available, this report includes an eGFR for both -Americans and non- Americans. The National Kidney Disease Education Program (NKDEP) does not endorse the use of the MDRD equation for patients that are not between the ages of 18 and 70, are , have extremes of body size, muscle mass, or nutritional status, or are non- or non-. According to the National Kidney Foundation, irrespective of diagnosis, the stage of the disease is based on the level of kidney function: Stage Description GFR(mL/min/1.73 m(2)) 1 Kidney damage with normal or decreased GFR 90 2 Kidney damage with mild decrease in GFR 60-89 3 Moderate decrease in GFR 30-59 4 Severe decrease in GFR 15-29 5 Kidney failure <15 (or dialysis) 14 Because ethnic data is not always readily available, this report includes an eGFR for both -Americans and non- Americans. The National Kidney Disease Education Program (NKDEP) does not endorse the use of the MDRD equation for patients that are not between the ages of 18 and 70, are , have extremes of body size, muscle mass, or nutritional status, or are non- or non-. According to the National Kidney Foundation, irrespective of diagnosis, the stage of the disease is based on the level of kidney function: Stage Description GFR(mL/min/1.73 m(2)) 1 Kidney damage with normal or decreased GFR 90 2 Kidney damage with mild decrease in GFR 60-89 3 Moderate decrease in GFR 30-59 4 Severe decrease in GFR 15-29 5 Kidney failure <15 (or dialysis) 15 Therapeutic target for the treatment of diabetes mellitus patients is <7% HBA1C, and in selective patients <6.0%. Please refer to [place] [employer] diabetic care guidelines for further information. 16 Because ethnic data is not always readily available, this report includes an eGFR for both -Americans and non- Americans. The National Kidney Disease Education Program (NKDEP) does not endorse the use of the MDRD equation for patients that are not between the ages of 18 and 70, are , have extremes of body size, muscle mass, or nutritional status, or are non- or non-. According to the National Kidney Foundation, irrespective of diagnosis, the stage of the disease is based on the level of kidney function: Stage Description GFR(mL/min/1.73 m(2)) 1 Kidney damage with normal or decreased GFR 90 2 Kidney damage with mild decrease in GFR 60-89 3 Moderate decrease in GFR 30-59 4 Severe decrease in GFR 15-29 5 Kidney failure <15 (or dialysis) 17 Desirable: <150 Borderline High: 150-199 High: 200-499 Very High: >500 18 Desirable: <200 Borderline High: 200-239 High: >239 19 Low: <40 Desirable: 40-60 High: >60 20 Desirable: <100 Near Optimal: 100-129 Borderline High: 130-159 High: 160-189 Very High: >189 21 Because ethnic data is not always readily available, this report includes an eGFR for both -Americans and non- Americans. The National Kidney Disease Education Program (NKDEP) does not endorse the use of the MDRD equation for patients that are not between the ages of 18 and 70, are , have extremes of body size, muscle mass, or nutritional status, or are non- or non-. According to the National Kidney Foundation, irrespective of diagnosis, the stage of the disease is based on the level of kidney function: Stage Description GFR(mL/min/1.73 m(2)) 1 Kidney damage with normal or decreased GFR 90 2 Kidney damage with mild decrease in GFR 60-89 3 Moderate decrease in GFR 30-59 4 Severe decrease in GFR 15-29 5 Kidney failure <15 (or dialysis) Procedures Date Code Description Status 11/16/2018 62240 EKG, Interpretation Only Completed 11/15/2018 23852 EKG, Interpretation Only Completed 11/14/2018 02171 EKG, Interpretation Only Completed 11/13/2018 13371 ECHO Transthorasic Realtime 2D W Doppler & Color Flow Hosp Completed 11/13/2018 27751 Arterial Line Completed 11/13/2018 86272 Arterial Line Completed 11/13/2018 94140 Insert Non-Tunneled Venous Catether Completed 10/27/201854314 Allograft For Spine Surgery,Structural (Bone Bank) Completed 10/27/2018 Autograft For Spine Surgery (Incls Harvesting The Graft) Completed 10/27/201870800 Arthrodsis, Post, Addl Segment Completed 10/27/2018 88861 Arthrodsis, Post, Addl Segment Completed 10/27/2018 47366 Arthrodesis,Combined Posterior Or Posterolateral Tech Completed 10/27/2018 34396 Arthrodesis,Combined Posterior Or Posterolateral Tech Completed 10/27/2018 91983 Posterior Segmental Instrumentation 7 To 12 Vertebral Completed Segments 10/27/2018 47711 Posterior Segmental Instrumentation 7 To 12 Vertebral Completed Segments 10/27/2018 87968 Insertion Interbody Biomechanical Device; Each Interspace Completed 10/27/2018 30285 Insertion Interbody Biomechanical Device; Each Interspace Completed 10/27/2018 03809 Stereotactic Computer-Assisted, Spinal Completed 08/21/2018 35375 Inject/Drain Joint/Bursa Major W/O US Completed 04/24/2016 18943 ECHO Transthoracic, Real-Time 2D With Doppler And Color Completed Flow 12/19/2015 79028 Laminectomy W/REM Abn Facets &/Or Pars Inter-Articularis Completed W/Decomp 12/19/2015 75355 Stereotactic Computer-Assisted, Spinal Completed 12/19/2015 26616 Non-Segmental Instrumentation Posterior 1 Interspace Completed 12/19/2015 06786 Arhtrodesis Post Lateral W/Lami-Lumbar Completed 01/23/2015 06885 Inject/Drain Joint/Bursa Major W/O US Completed 05/01/2011 79378 Rad Exam; Forearm Completed 05/01/2011 86331 Short Arm Cast Application Completed 04/09/2011 56400 Closed Treatment Ulnar Shaft Fracture Completed Encounters Type Date Location Provider Dx Diagnosis Office Visit 01/07/2019 [facility] Thelma Stephens, R19.7 Diarrhea, 8:00a MAIL ROOM CLERK unspecified Office Visit 01/05/2019 [facility] Hilda Moses, R53.83 Other fatigue 8:15a D.O. R19.7 Diarrhea, unspecified Office Visit 01/01/2019 9:45a [facility] Jolene E11.9 Type 2 diabetes MD Darrion mellitus without complications I11.0 Hypertensive heart disease with heart failure I50.21 Acute systolic (congestive) heart failure N32.81 Overactive bladder M54.5 Low back pain E78.5 Hyperlipidemia, unspecified Z48.89 Encounter for other specified surgical aftercare T81.40xD Infection following a procedure, unspecified, subs Office Visit 12/14/2018 8:15a [facility] Jolene K59.00 Constipation, MD Darrion unspecified T81.40xD Infection following a procedure, unspecified, subs E11.9 Type 2 diabetes mellitus without complications I10 Essential (primary) hypertension Z48.89 Encounter for other specified surgical aftercare Office Visit 12/03/2018 [facility] Petar E11.9 Type 2 diabetes 9:45a yo Duarte M.D. mellitus without Hospitalists complications I10 Essential (primary) hypertension T81.40xD Infection following a procedure, unspecified, subs I25.10 Athscl heart disease of [place] coronary artery w/o ang pctrs N39.0 Urinary tract infection, site not specified [facility] Type 2 diabetes 9:45a yo Duarte M.D. mellitus without Hospitalists complications I10 Essential (primary) hypertension T81.40xD Infection following a procedure, unspecified, subs I25.10 Athscl heart disease of [place] coronary artery w/o ang pctrs N39.0 Urinary tract infection, site not specified Office Visit 12/01/2018 [facility] Kvng Ryan T81.40xD Infection 9:45a yo Duarte MD following a Hospitalists procedure, unspecified, subs R52 Pain, unspecified I25.10 Athscl heart disease of [place] coronary artery w/o ang pctrs N39.0 Urinary tract infection, site not specified E78.5 Hyperlipidemia, unspecified E13.9 Other specified diabetes mellitus without complications Office Visit 11/30/2018 8:00a [facility] Mica T81.40xD Infection YESSENIA Magallon following a procedure, unspecified, subs G06.1 Intraspinal abscess and granuloma R78.81 Bacteremia [facility]89[facility] Oth complications 9:44a yo Duarte MD of procedures, Hospitalists NEC, init R52 Pain, unspecified Z86.79 Personal history of other diseases of the circulatory system N39.0 Urinary tract infection, site not specified A41.9 Sepsis, unspecified organism E78.5 Hyperlipidemia, unspecified E11.40 Type 2 diabetes mellitus with diabetic neuropathy, unsp Office Visit 11/30/2018 Neurosurgery Cristobal T81.30xA Disruption of 3:56p Services Of Samantha Marie M.D. wound, unspecified, initial encounter Z48.89 Encounter for other specified surgical aftercare T81.40xA Infection following a procedure, unspecified, init Office Visit 11/27/2018 10:15a [facility] Jolene R41.0 Disorientation, MD Darrion unspecified T81.40xD Infection following a procedure, unspecified, subs I50.21 Acute systolic (congestive) heart failure E11.40 Type 2 diabetes mellitus with diabetic neuropathy, unsp Z79.891 [facility] (current) use of opiate analgesic Office Visit 11/25/2018 [facility] Annette Mckoy R41.0 Disorientation , 8:30a Mary, MAIL ROOM CLERK unspecified I42.9 Cardiomyopathy, unspecified R19.7 Diarrhea, unspecified Z78.9 Other specified health status Office Visit 11/23/2018 10:52a [facility] Altagracia Hayes, R65.21 Severe sepsis Assoc,pc N.P. with septic Hospitalists shock N17.9 Acute kidney failure, unspecified I50.21 Acute systolic (congestive) heart failure I21.4 Non-St elevation (Nstemi) myocardial infarction E11.9 Type 2 diabetes mellitus without complications Office Visit 11/22/2018 10:52a [facility] Tanya J96.91 Respiratory Assoc,pc [facility], DO failure, Hospitalists unspecified with hypoxia N17.9 Acute kidney failure, unspecified I21.4 Non-St elevation (Nstemi) myocardial infarction R78.81 Bacteremia E11.9 Type 2 diabetes mellitus without complications I10 Essential (primary) hypertension Office Visit 11/21/2018 [facility] J96.91 Respiratory 10:52a Assoc,pc Kalyani Doto, failure, Hospitalists MAIL ROOM CLERK unspecified with hypoxia I21.4 Non-St elevation (Nstemi) myocardial infarction N17.9 Acute kidney failure, unspecified R78.81 Bacteremia E11.9 Type 2 diabetes mellitus without complications Office Visit 11/20/2018 [facility] J96.91 Respiratory 10:51a Assoc,[facility] Doto, failure, Hospitalists MAIL ROOM CLERK unspecified with hypoxia I21.4 Non-St elevation (Nstemi) myocardial infarction N17.9 Acute kidney failure, unspecified R57.0 Cardiogenic shock R78.81 Bacteremia Office Visit 11/19/2018 [facility] J96.91 Respiratory 10:51a Assoc,pc [facility] Doto, failure, Hospitalists MAIL ROOM CLERK unspecified with hypoxia N17.9 Acute kidney failure, unspecified I21.4 Non-St elevation (Nstemi) myocardial infarction E11.9 Type 2 diabetes mellitus without complications R78.81 Bacteremia Office Visit 11/19/2018 [facility] Arpit Coronado T81.40xD Infection 7:01a For Jerry Rosales M.D. following a Diseases procedure, unspecified, subs G06.1 Intraspinal abscess and granuloma B95.61 Methicillin suscep staph infct causing dis classd elswhr Office Visit 11/18/2018 10:51a [facility] Abdiaziz R65.21 Severe sepsis Assoc,yo Ocasio M.D. with septic Hospitalists shock N17.9 Acute kidney failure, unspecified E11.9 Type 2 diabetes mellitus without complications Office Visit 11/17/2018 [facility] Arpit Coronado T81.43xA Infct fol a 6:45a For Infectious Lester Rosales procedure, organ Diseases and space surgical site, init G06.1 Intraspinal abscess and granuloma R78.81 Bacteremia B95.61 Methicillin suscep staph infct causing dis classd elswhr E11.9 Type 2 diabetes mellitus without complications I10 Essential (primary) hypertension Office Visit 11/17/2018 10:50a Intensivists Anna Haines, N17.9 Acute kidney MD failure, unspecified I50.41 Acute combined systolic and diastolic (congestive) hrt fail I21.4 Non-St elevation (Nstemi) myocardial infarction Office Visit 11/16/2018 10:50a Intensivists Anna Haines N17.9 Acute kidney MD failure, unspecified I50.41 Acute combined systolic and diastolic (congestive) hrt fail I21.4 Non-St elevation (Nstemi) myocardial infarction Office Visit 11/15/2018 10:50a Intensivists Evert Mccormick, A41.01 Sepsis due to Methicillin susceptible Staphylococcus aureus R65.21 Severe sepsis with septic shock N17.9 Acute kidney failure, unspecified J96.01 Acute respiratory failure with hypoxia G93.41 Metabolic encephalopathy I21.4 Non-St elevation (Nstemi) myocardial infarction R57.0 Cardiogenic shock K72.00 Acute and subacute hepatic failure without coma Office Visit 11/15/2018 11:48a Chencho Robbins I42.9 Cardiomyopathy, Cardiology Of Lester Muniz, unspecified [facility] FACC, FASNC A41.01 Sepsis due to Methicillin susceptible Staphylococcus aureus Office Visit 11/14/2018 10:50a Intensivists Evert Mccormick A41.01 Sepsis due to Methicillin susceptible Staphylococcus aureus G93.41 Metabolic encephalopathy J96.01 Acute respiratory failure with hypoxia N17.9 Acute kidney failure, unspecified R65.21 Severe sepsis with septic shock I42.9 Cardiomyopathy, unspecified K72.00 Acute and subacute hepatic failure without coma Office Visit 11/13/2018 10:49a Intensivists Evert Mccormick, A41.9 Sepsis, unspecified MD organism N17.9 Acute kidney failure, unspecified G93.41 Metabolic encephalopathy R65.21 Severe sepsis with septic shock E11.9 Type 2 diabetes mellitus without complications Office Visit 11/02/2018 9:40a [facility] Z48.89 Encounter for Assoc,pc Kalyani Doto, other specified Hospitalists MAIL ROOM CLERK surgical aftercare I10 Essential (primary) hypertension E11.9 Type 2 diabetes mellitus without complications R10.32 Left lower quadrant pain Office Visit 11/01/2018 9:39a [facility] Z48.89 Encounter for Assoc,pc Kalyani Doto, other specified Hospitalists MAIL ROOM CLERK surgical aftercare I10 Essential (primary) hypertension E11.9 Type 2 diabetes mellitus without complications R10.32 Left lower quadrant pain Office Visit 10/31/2018 9:39a [facility] Z48.89 Encounter for Assoc,pc Kalyani Doto, other specified Hospitalists MAIL ROOM CLERK surgical aftercare I10 Essential (primary) hypertension E11.9 Type 2 diabetes mellitus without complications Office Visit 10/30/2018 [facility] M48.062 Spinal stenosis, 9:38a Assoc,pc Kalyani Doto, lumbar region Hospitalists MAIL ROOM CLERK with neurogenic claudication I10 Essential (primary) hypertension E11.9 Type 2 diabetes mellitus without complications Office Visit 09/25/2018 Neurosurgery Cristobal Marie M48.062 Spinal stenosis, 10:50a Services Of Samantha Batista lumbar region with neurogenic claudication M43.16 Spondylolisthesis, lumbar region Office Visit 09/24/2018 1:20p [facility] Renny Song, Z79.4 [facility] Endocrinology of Samantha VICK (current) use of insulin E11.40 Type 2 diabetes mellitus with diabetic neuropathy, unsp E78.5 Hyperlipidemia, unspecified Office Visit 08/24/2018 Neurosurgery Cristobal Marie M48.062 Spinal stenosis, 10:10a Services Of Samantha Batista lumbar region with neurogenic claudication M43.16 Spondylolisthesis, lumbar region Office Visit 08/21/2018 Orthopedic Sri M17.11 Unilateral primary 8:45a Services Of Lester Williamson osteoarthritis, right C.M.A. knee M25.461 Effusion, right knee M25.561 Pain in right knee Office Visit 08/05/2018 Neurosurgery Cristobal M54.16 Radiculopathy, 1:40p Services Of Samantha Marie M.D. lumbar region Office Visit 06/18/2018 [facility] Lawson Coch, E11.40 Type 2 diabetes 11:20a and Endocrinology MD mellitus with of [facility] diabetic neuropathy, unsp E78.5 Hyperlipidemia, unspecified Office Visit 06/10/2018 10:30a Orthopedic Services Sri Williamson, M25.561 Pain in right Of C.M.A. 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 stenosis, lumbar region M47.816 Spondylosis w/o myelopathy or radiculopathy, lumbar region M54.40 Lumbago with sciatica, unspecified side Office Visit 10/20/2015 10:00a Neurosurgery Mayur Arauz M48.06 Spinal Services Of Samantha Brooke M.D. stenosis, lumbar region E11.40 Type 2 diabetes mellitus with diabetic neuropathy, unsp M47.816 Spondylosis w/o myelopathy or radiculopathy, lumbar region M54.41 Lumbago with sciatica, right side M54.42 Lumbago with sciatica, left side Office Visit 01/23/2015 2:15p Orthopedic Blake Núñez, 716.96 Arthropathy Unspec Services Of Lester Lower Leg C.M.A. 715.36 Osteoarthrosis Localzd Not Spec Prime Or 2Ndy Lower Leg Office Visit 01/02/2015 1:30p Orthopedic Blake Núñez, 716.96 Arthropathy Unspec Services Of Lester Lower Leg C.M.A. 844.1 Sprains & Strains Knee Medial Collateral Ligament 727.51 Cyst Synovial Popliteal Space Plan of Treatment Future Appointment(s):02/10/2019 1:00 pm - Annette Mary MAIL ROOM CLERK at [facility] For Infectious Lrbkthbe80/17/2019 1:10 pm - Cristobal Marie M.D. at [facility]01/08/2019 - Annette Mary, NPG06.1 Intraspinal abscess and hhpgjobpdG14.43xA Infct fol a procedure, organ and space surgical site, initB95.61 Methicillin suscep staph infct causing dis classd elswhr
--- NOTE | 2019-02-07 10:27 | ED ---
Lower Extremity - HPI Summary HPI Summary: The patient is a 68 y/o F presenting to [facility] arriving by ambulance from [facility] with a chief complaint of pain the right hip and low back pain starting this morning. She is concerned for sepsis infection due to hx of right septic joint arthritis. The aching pain is currently rated 4/10 in severity. She is able to ambulate on the right leg. She additionally c/o nausea without vomiting. She denies SOB, CP, abd pain, and hematuria. Hx of DM and HTN. No previous surgery on hip or hx of fall. - History of Current Complaint Chief Complaint: EDAltMentalStatus Stated Complaint: BACK PAIN PER EMS Time Seen by Provider: 02/07/19 09:55 Hx Obtained From: Patient Mechanism Of Injury: Unknown Onset of Pain: Hours Onset/Duration: Still Present Severity Initially: Moderate Severity Currently: Moderate Pain Intensity: 4 Pain Scale Used: 0-10 Numeric Timing: Lasting Hours Location: Is Discrete @ - right hip Associated Signs And Symptoms: Positive: Other - POSITIVE: nausea; NEGATIVE: vomiting, SOB, CP, abd pain, hematuria Aggravating Factor(s): Nothing Alleviating Factor(s): Nothing Able to Bear Weight: Yes - Allergies/Home Medications Allergies/Adverse Reactions: Allergies Allergy/AdvReac Type Severity Reaction Status Date / Time No Known Allergies Allergy Verified 11/30/18 15:32 Home Medications: Home Medications Acetaminophen TAB* [Tylenol TAB*] 650 mg PO Q6H PRN 02/07/19 [History Confirmed 02/07/19] Cephalexin CAP* [Keflex 500 CAP*] 500 mg PO TID 02/07/19 [History Confirmed 02/21] Cyclobenzaprine HCl 10 mg PO BID 02/07/19 [History Confirmed 02/07/19] Liraglutide (NF) [Victoza (NF)] 1.2 mg SUBCUT DAILY 02/07/19 [History Confirmed 02/07/19] Lisinopril TAB* [Prinivil TAB 10 MG*] 10 mg PO DAILY 02/07/19 [History Confirmed 02/07/19] Mirtazapine TAB* [Remeron TAB*] 15 mg PO BEDTIME 02/07/19 [History Confirmed 02/21] Ondansetron HCl [Zofran 4 MG TAB] 4 mg PO Q6H 02/07/19 [History Confirmed ] Polyethylene Glycol 3350* [Miralax*] 17 gm PO DAILY 02/07/19 [History Confirmed 02/07/19] RiFAMPin CAP* 300 mg PO BID 02/07/19 [History Confirmed 02/07/19] Tramadol HCl 50 mg PO BID 02/07/19 [History Confirmed 02/07/19] Tramadol HCl 50 mg PO Q6H 02/07/19 [History Confirmed 02/07/19] PMH/Surg Hx/FS Hx/Imm Hx Endocrine/Hematology History: Reports: Hx Diabetes - TYPE II Cardiovascular History: Reports: Hx Hypertension Denies: Hx Pacemaker/ICD, Other Cardiovascular Problems/Disorders Respiratory History: Denies: Other Respiratory Problems/Disorders GI History: Denies: Other GI Disorders History: Denies: Hx Renal Disease Musculoskeletal History: Reports: Hx Arthritis - RIHT KNEE Denies: Other Musculoskeletal History Sensory History: Reports: Hx Cataracts Denies: Hx Contacts or Glasses, Hx Hearing Aid Opthamlomology History: Reports: Hx Cataracts Denies: Hx Contacts or Glasses Neurological History: Reports: Hx Nerve Disease - NEUROPATHY IN FEET, Other Neuro Impairments/Disorders - lumbar stenosis Denies: Hx Dementia, Hx Headaches, Hx Migraine Psychiatric History: Denies: Hx Anxiety, Hx Depression, Hx Panic Disorder, Other Psychiatric Issues/Disorders - Cancer History Hx Chemotherapy: No Hx Radiation Therapy: No - Surgical History Surgery Procedure, Year, and Place: [place] 1985, [place] , [place] [facility] PRINCESS CATARACTS[place] [facility]SP F[place] [facility] SPINAL STENOSIS-FUSION 2019 Hx Anesthesia Reactions: No Infectious Disease History: No Infectious Disease History: Denies: Hx Clostridium Difficile, Hx Hepatitis, Hx Human Immunodeficiency Virus (HIV), Hx of Known/Suspected MRSA, Hx Shingles, Hx Tuberculosis, Hx Known/ Suspected VRE, Hx Known/Suspected VRSA, History Other Infectious Disease, Traveled Outside the [place] in Last 30 Days - Family History Known Family History: Positive: Diabetes Negative: Seizure Disorder - Social History Alcohol Use: Rare Alcohol Amount: 2 PER WEEK Substance Use Type: Reports: None Substance Use Comment - Amount & Last Used: rare Hx Tobacco Use: No Smoking Status (MU): Never Smoked Tobacco Do You Chew or Dip Tobacco: No Have You Smoked in the Last Year: No Review of Systems Negative: Chest Pain Negative: Shortness Of Breath Positive: Nausea. Negative: Abdominal Pain, Vomiting Negative: hematuria Positive: Other - pain in right hip, low back pain All Other Systems Reviewed And Are Negative: Yes Physical Exam - Summary Physical Exam Summary: GENERAL: Patient is a well-developed and nourished female who is lying comfortable in the stretcher. Patient is not in any acute respiratory distress. HEAD AND FACE: Normocephalic EYES: PERRLA, EOMI x 2. EARS: Hearing grossly intact. MOUTH: Mucous membranes are dry but oropharynx is otherwise within normal limits. NECK: Supple, trachea is midline, no adenopathy, no JVD, no carotid bruit. CHEST: Symmetric, no tenderness at palpation LUNGS: Clear to auscultation bilaterally. No wheezing or crackles. CVS: Regular rate and rhythm, S1 and S2 present, no murmurs or gallops appreciated. ABDOMEN: Soft, non-tender. Bowel sounds are normal. No abdominal abnormal pulsations. EXTREMITIES: Full ROM in all major joints, no edema, no cyanosis or clubbing. Pain over right hip. NEURO: Alert and oriented x 3. No acute neurological deficits. Speech is normal and follows commands. GCS: 14. SKIN: Dry and warm Triage Information Reviewed: Yes Vital Signs On Initial Exam: Initial Vitals Temp Pulse Resp BP Pulse Ox 97.0 F 90 16 130/91 99 02/07/19 09:54 02/07/19 09:54 02/07/19 09:54 02/07/19 09:54 02/07/19 09:54 Vital Signs Reviewed: Yes - Ayanna Coma Scale Best Eye Response: 4 - Spontaneous Best Motor Response: 6 - Obeys Commands Best Verbal Response: 4 - Confused Coma Scale Total: 14 Diagnostics - Vital Signs Vital Signs Temp Pulse Resp BP Pulse Ox 02/07/19 09:54 97.0 F 90 16 130/91 99 - Laboratory Result Diagrams: 02/08/19 06:31 02/08/19 06:31 Lab Statement: Any lab studies that have been ordered have been reviewed, and results considered in the medical decision making process. - Radiology CXR Radiology Interpretation Completed By: Radiologist Summary of Radiographic Findings: No radiographic evidence for acute cardiopulmonary abnormality on this. portable chest x-ray. ED physician has reviewed this report. Hip/Pelvis XR Radiology Interpretation Completed By: Radiologist Summary of Radiographic Findings: Degenerative and postsurgical changes as described above without radiographically apparent fracture or dislocation. If the patient's symptoms persist follow-up imaging is recommended. ED physician has reviewed this report. - CT Brain CT CT Interpretation Completed By: Radiologist Summary of CT Findings: Stable chronic findings described above are most consistent with chronic microvascular disease similar in appearance to the November 14, 2018 CT of the brain. ED physician has reviewed this report. Lower Extremity Course/Dx - Course Course Of Treatment: The patient is a 68 y/o F presenting to [facility] arriving by ambulance from [facility] with a chief complaint of pain the right hip and low back pain starting this morning with concern for sepsis infection due to hx of right septic joint arthritis. Upon physical exam, the patient exhibits pain over the right hip and dry mucous membranes; GCS: 14. In the ED course, the patient was administered Ns and Ceftriaxone. Patient refused IV initially. Blood work reveals WBC of 13, Hgb of 10.9, MCV of 73, MCH of 23, RDW of 17, abs neuts of 10, abs monos of 1, INR of 1.15, glucose of 190, AST of 11, CRP of 23.68, and BNP of 192. UA is positive for ketones, leukocyte esterase, WBCs, RBCs, squamous epithelial cells, yeast, and ascorbic acid. CXR reveals no acute process. Brain CT shows no new changes. Hip/Pelvis XR is negative for fracture or dislocation. At 1420, the patient is tachycardiac and having episodes of confusion. Case discussed with hospitalist Dr. Kowalski, at 1425 concerning possible admission of the patient; she will come see the patient in the ED since the patient may just need abx for UTI treatment. The patient is accepted for admission at 1500. I discussed results with patient. The patient agrees with this plan. She is diagnosed with UTI and AMS. - Diagnoses Provider Diagnoses: Altered mental status, UTI (urinary tract infection) - Physician Notifications Discussed Care Of Patient With: Meenakshi Kowalski - hospitalist Time Discussed With Above Provider: 14:25 Instructed by Provider To: Other - I consulted Dr. Kowalski who will come see the patient in the ED concerning possible admission. She states that the patient may just need abx for treatment. Discharge - Sign-Out/Discharge Documenting (check all that apply): Patient Departure - Patient will be admitted to [facility] [place]. Patient Received Moderate/Deep Sedation with Procedure: No - Discharge Plan Condition: Improved Disposition: ADMITTED TO [facility] - Billing Disposition and Condition Condition: IMPROVED Disposition: Admitted to [facility] - Attestation Statements Document Initiated by Beatrice: Yes Documenting Scribe: Shayna Kelly Provider For Whom Beatrice is Documenting (Include Credential): Dr. Jennifer Cohen MD Scribe Attestation: Shayna Greco scribed for Dr. Jennifer Cohen MD on 02/08/19 at 1250. Scribe Documentation Reviewed: Yes Provider Attestation: The documentation as recorded by the Shayna oliveira accurately reflects the service I personally performed and the decisions made by me, Dr. Jennifer Cohen MD Status of Scribe Document: Viewed
[2019-02-07] MEDS: NS 0.9% 1000 ML** 1,000 ML IV ONE ×2 (10:30→13:59)
[2019-02-07 11:48] LABS: ABS Basophils 0.1 10^3/ul (0-0.2); ABS Eosinophils 0.2 10^3/ul (0-0.6); ABS Lymphocytes 1.7 10^3/ul (1.0-4.8); Eosinophil % 1.5 %; Hematocrit 35 % (35-47); Hemoglobin 10.9 g/dL (12.0-16.0); Lymphocyte % 12.9 %; Mean Corpuscular HGB Conc 31 g/dL (31-36); Mean Corpuscular Hemoglobin 23 pg (27-31); Mean Corpuscular Volume 73 fL (80-97); Mean Platelet Volume 7.7 fL (7.4-10.4); Nucleated Red Blood Cells % 0.1; Platelet Count 417 10^3/uL (150-450); Red Blood Count 4.77 10^6 /uL (3.70-4.87); Red Cell Distribution Width 17 % (10.5-15)
[2019-02-07 11:55] LABS: Activated Partial Thrombo Time 30.7 seconds (26.0-36.3); INR 1.15 (0.82-1.09)
[2019-02-07 12:03] LABS: ALT 7 U/L (7-52); AST 11 U/L (13-39); Albumin 3.3 g/dL (3.2-5.2); Alkaline Phosphatase 92 U/L (34-104); Anion Gap 8 mmol/L (2-11); BUN/Creatinine Ratio 15.2 (8-20); Blood Urea Nitrogen 10 mg/dL (6-24); C Reactive Protein 23.68 mg/L (<8.01); CO2 Carbon Dioxide 29 mmol/L (22-32); Calcium 9.7 mg/dL (8.6-10.3); Chloride 103 mmol/L (101-111); EGFR African American 108.1 (>60); EGFR Non-African American 89.3 (>60); Globulin 3.4 g/dL (2-4); Glucose 190 mg/dL (70-100); Potassium 3.7 mmol/L (3.5-5.0); Sodium 140 mmol/L (135-145); Total Protein 6.7 g/dL (6.4-8.9)
[2019-02-07 12:05] LABS: Troponin I 0.01 ng/mL (<0.04)
[2019-02-07 12:09] LABS: BNP 192 pg/mL (<=100)
[2019-02-07 14:18] LABS: Urine Appearance Turbid; Urine Bacteria Absent (Absent); Urine Bilirubin Negative (Negative); Urine Blood Negative (Negative); Urine Color Yellow; Urine Glucose Negative (Negative); Urine Ketones Trace (Negative); Urine Nitrite Negative (Negative); Urine Protein Negative (Negative); Urine Red Blood Cell Absent (Absent); Urine Specific Gravity 1.011 (1.010-1.030); Urine Squamous Epithelial Cell Present (Absent); Urine Urobilinogen Negative (Negative); Urine White Blood Cell 3+(>20/hpf) (Absent)
[2019-02-07] MEDS ORDERED: cefTRIAXone(*) 1 GM in NS 0.9% 50 ML* 50 ML IVPB ONE (14:23)
[2019-02-07] MEDS ORDERED: Acetaminophen TAB* 325 MG PO PRN (15:56)
[2019-02-07] MEDS ORDERED: Ondansetron INJ* 2 MG/ML VIAL IV PRN (15:56)
[2019-02-07] MEDS ORDERED: Iodixanol* (CONTRAST) 320 MG/ML 100 ML SDV IV ONE (16:51)
[2019-02-07] MEDS ORDERED: Dextrose 50% Syringe 50 ML* 25 GM/50 ML SYRINGE IV PUSH PRN (16:52)
[2019-02-07 17:00] LABS: % Iron Saturation 7 % (15-55); Iron 20 ug/dL (50-212); Total Iron Binding Capacity 283 mcg/dL (250-450); Transferrin 202 mg/dL (203-362)
[2019-02-07] MEDS ORDERED: NS 0.9% 1000 ML** 1,000 ML IV ONE (17:10)
[2019-02-07 17:20] LABS: Ferritin 63.3 ng/mL (11-307)
[2019-02-07] MEDS: Enoxaparin(*) 40 MG/0.4 ML SYR SUBCUT SCH (17:55)
[2019-02-07] MEDS: FLUoxetine CAP* 20 MG PO SCH (17:55)
[2019-02-07] MEDS: NS 0.9% 1000 ML** 1,000 ML IV SCH (19:00)
[2019-02-07] MEDS: Ibuprofen TAB* 600 MG PO PRN (19:00)
[2019-02-07] MEDS ORDERED: Melatonin (NF) ** ENTER STRENGTH IN LABEL DIRECTIONS PO SCH (21:00)
[2019-02-07] MEDS ORDERED: Cephalexin CAP* 500 MG PO SCH (21:00)
[2019-02-07] MEDS: Atorvastatin* 40 MG TAB PO SCH (21:03)
[2019-02-07] MEDS: Mirtazapine TAB* 15 MG PO SCH (21:03)
[2019-02-07] MEDS: Melatonin 3 MG TAB PO SCH (21:03)
[2019-02-07] MEDS: RiFAMPin CAP* 300 MG CAP PO SCH (21:03)
[2019-02-07] MEDS: Insulin LISPRO* 1 UNITS UNIT SUBCUT SCH (21:05)
[2019-02-07] MEDS: Insulin GLARGINE(*) 1 UNITS UNIT SUBCUT SCH (21:06)
--- NOTE | 2019-02-07 21:24 | HP ---
CC: Dr. Renay Mcallister; Dr. Hilda Lopes, [facility] * ADMISSION HISTORY AND PHYSICAL: DATE OF ADMISSION: 02/07/19 PRIMARY CARE PROVIDER: Dr. Renay Mcallister. MY ATTENDING WHILE IN THE HOSPITAL: Dr. Meenakshi Kowalski.* (DICTATED BY JIMENA SIDDIQI) HISTORY OF PRESENT ILLNESS: Ms. Ta is a 68-year-old female with a past medical history significant for diabetes mellitus type 2, lumbar stenosis, status post lumbar and sacral fusion with subsequent lumbar wound infection x2, one with septic shock, currently on long-term antibiotics. The patient at [facility] has been doing poorly with numerous falls, altered mental status, poor participation in physical therapy, lack of motivation. Per family who sees her approximately everyday, she has been deteriorating slowly over the past several weeks, particularly with worsening in her mental state and lack of appetite, poor oral intake. The patient was recently started on mirtazapine for appetite stimulation and depression and the family notes no improvement with this. The patient was treated for urinary tract infection when she was admitted in November. The patient was tested for infection twice since then and has had no growth at that time, but the patient has been on chronic antibiotics. The patient denies any symptoms consistent with urinary tract infection including dysuria, urinary frequency. The patient denies fevers or chills. The patient does endorse abdominal pain in her right lower quadrant which she describes as aching and moderate in severity, not alleviated or exacerbated by anything she can identify, but she is a very poor historian. The patient has had no diarrhea, no blood in her stool, has had some issues with constipation while she was on chronic opioids. The patient is on tramadol both scheduled and p.r.n. as well as cyclobenzaprine for her pain. The patient' s family said she has not complained of significant amount of pain generally and does not know if she needs these medications. The patient in the emergency room was found to be tachycardic, having elevated white blood cell count. The patient, on exam, is very confused sometimes, does not know where she is, does not know what day it is, sometimes inserts the wrong word for a different word that she means, does not exhibit any slurring of speech. The patient has not noticed any focal weakness; however, her left side is weak compared to her right. The patient in the emergency department had an urinalysis consistent with urinary tract infection with 3+ leukocyte esterase. The patient had a negative brain CT, negative hip and pelvis x-ray, negative chest x-ray. Due to the concern for altered mental status and sepsis and possible UTI, we were asked to evaluate the patient for admission to the hospital. PAST MEDICAL HISTORY: 1. Diabetes mellitus type 2. 2. Hypertension. 3. Hyperlipidemia. 4. Lumbar stenosis. 5. Infected surgical wound with recurrence, on current antibiotics. PAST SURGICAL HISTORY: 1. Lumbar fusion. 2. Tubal ligation. 3. Sacral fusion. MEDICATIONS: Per records from [facility]: 1. Antifungal cream 1% one application topical daily. 2. Mirtazapine 50 mg p.o. at bedtime. 3. Levemir 15 units subcutaneous at bedtime. 4. Zofran 4 mg p.o. q.6 hours as needed for nausea. 5. Rifampin 300 mg p.o. q.12 hours. 6. Cephalexin 500 mg p.o. t.i.d. 7. MiraLAX 17 g p.o. daily as needed for constipation. 8. Tramadol 50 mg p.o. b.i.d. 9. Tramadol 50 mg p.o. q.6 hours as needed for pain. 10. Cyclobenzaprine 10 mg p.o. daily. 11. Bisacodyl 10 mg p.o. daily as needed for constipation. 12. Lisinopril 10 mg p.o. daily. 13. Melatonin 3 mg p.o. nightly. 14. Protonix 40 mg p.o. daily. 15. Hydrocortisone 1% for vulvar dermatitis. 16. Tylenol 1000 mg p.o. q.6 hours for pain. 17. Atorvastatin 40 mg p.o. daily. 18. Victoza 1.2 mg subcutaneous in the afternoon. 19. Carvedilol 6.25 mg p.o. daily. 20. Magnesium oxide 400 mg p.o. daily. 21. Calcium carbonate 1250 mg p.o. daily. 22. Multivitamins 1 tab p.o. daily. ALLERGIES: No known drug allergies. FAMILY HISTORY: The patient's father of cancer. The patient's mother in her sleep at age 50. The patient has a brother who has back pain and diabetes mellitus. SOCIAL HISTORY: The patient never smoked. Does not drink. Does not use illicit drugs. The patient worked in the [employer] industry. The patient is and has 1 child. The patient's surrogate decision maker is her daughter, Theresa Ohara. REVIEW OF SYSTEMS: A 14-point review of systems was reviewed as possible with the patient and is negative, except as noted in the HPI. PHYSICAL EXAMINATION GENERAL: The patient is a 68-year-old female who appears stated age, sitting comfortably in bed, in no acute distress. VITAL SIGNS: Temperature 97.0, pulse rate 109, respiratory rate 20, oxygen saturation 96% on room air, blood pressure 162/106. HEENT: Head normocephalic, atraumatic. Sclerae anicteric. No conjunctival injection. Nasal mucosa moist. Oral mucosa is dry. Lips are chapped. No pharyngeal erythema, discharge, or exudate. NECK: Supple. No lymphadenopathy. No carotid bruits auscultated. No JVD. RESPIRATORY: Clear to auscultation bilaterally. No wheezes, rales, or rhonchi. Good air exchange bilaterally. CARDIAC: Tachycardic. No clicks, murmurs, gallops, or rubs. Pulses are 2+ in the bilateral dorsalis pedis, posterior tibialis and radial areas. No bilateral lower extremity edema. ABDOMEN: Soft, nontender, nondistended. Bowel sounds present and normoactive in all 4 quadrants. No hepatosplenomegaly. No abdominal bruits auscultated. No hepatojugular reflux. GENITOURINARY: No suprapubic or CVA tenderness. NEUROLOGIC: Cranial nerves II through XII intact. 4/5 strength in the left upper extremity, 5/5 strength in the right upper extremity distally and proximally, 4-/5 strength in left lower extremity, 5/5 strength in the right lower extremity. Sensation intact throughout. Normal reflexes. PSYCHIATRIC: Pleasant, cooperative, and confused. SKIN: Clear and intact. No rashes. DIAGNOSTIC STUDIES/LAB DATA: Laboratory Data: White blood cell count 13.3, hemoglobin 10.9, MCV 73, platelet count 417. INR 1.15, aPTT 38.7. Sodium 140, potassium 3.7, chloride 103, carbon dioxide 29, anion gap 8, BUN 10, creatinine 0.66, glucose 190, lactic acid 1.4, calcium 9.7. Bilirubin 0.2, AST 11, ALT 7, alkaline phosphatase 92. Ammonia 50, troponin 0.01, CRP 23.68, BNP 192. Total protein 6.7, albumin 3.3, globulin 3.4. Urine: Yellow, turbid, trace ketones, 3+ white blood cells, absent red blood cells, positive squamous epithelial cells , absent bacteria, positive yeast, negative glucose, positive ascorbic acid. Studies: Chest x-ray read as no radiographic evidence for acute cardiopulmonary disease. Hip x-ray read as degenerative and postsurgical changes with lumbosacral and iliac fixation visualized, bones well corticated and properly aligned, mild degenerative changes, marginal osteophyte formation. No evidence for acute fracture or dislocation. Brain CT read as stable chronic findings as described above, most consistent with chronic small vessel ischemic disease similar in appearance to 11/14/18 CT of the brain. ASSESSMENT AND PLAN: Impression: Ms. Ta is a 68-year-old female with past medical history significant for diabetes mellitus, hypertension, hyperlipidemia, and recent lumbar surgery with wound infection requiring 2 hospitalizations, who currently presented to the emergency department with tachycardia and worsening altered mental status, nausea, vomiting, abdominal pain, and concern for urinary tract infection. The patient has had a significant history of failure to thrive at the correction with lack of motivation and appetite. The patient admitted to the hospital due to sepsis, concern for acute infection and evaluation for causes of the patient's failure to thrive. 1. Sepsis. The cause of the patient's sepsis is unclear. The patient does have leukocyte esterase in her urine. The patient will be treated initially with ceftriaxone. The patient will be continued on cephalexin and rifampin for her back. The patient will have blood cultures. The patient will have a CT of her abdomen and pelvis. If this shows any acute intraabdominal pathology, antibiotics should be broadened to include coverage for anaerobes and pseudomonas. The patient does not have any rash. The patient's back incision looks non-infected, has no drainage, and was recently evaluated by Infectious Disease without concern. 2. Altered mental status. The patient's altered mental status is of unclear origin as well. This may be related to her urinary tract infection and sepsis. We will assess the patient on an ongoing basis as this is treated. The patient has significant left-side weakness. There are reports of previous weakness in her left lower extremity which is marked and to lesser so in her left upper extremity. The patient will have an MRI of her brain when available. The patient is not in any tPA window. The patient will have risk stratification with hemoglobin A1c and lipid profile. The patient will also have her tramadol discontinued at this time and replaced with Tylenol and ibuprofen. Opiates can be reintroduced as indicated for pain. It is possible the patient's altered mental status is also due to pseudodementia from depression as the patient is exhibiting significant vegetative symptoms. The patient has been on mirtazapine for 5 weeks, and per family, he has not had any change. We will continue this and add on fluoxetine. The patient has no signs of other metabolic abnormality associated with her altered mental status. The patient had negative CT of brain. The patient had negative ammonia level. 3. Diabetes mellitus type 2. We will check an hemoglobin A1c, continue the patient on her Lantus, hold her Victoza due to being non-formulary and treat with sliding scale insulin while in the hospital. 4. Hyperlipidemia. Continue the patient's statin. 5. Hypertension. Continue the patient's carvedilol and lisinopril. 6. Spinal infection. Continue the patient's rifampin and cephalexin. 7. DVT prophylaxis. Lovenox subcutaneous. 8. FEN. The patient will have a regular unrestricted diet and will be given 1 L in the emergency department, have fluids ongoing 100 mL/h as she still appears to be hypovolemic. 9. Disposition. The patient will be admitted to observation in the hospital. TIME SPENT: Approximately 75 minutes was spent on the admission of this patient , 30 of which were spent [id number] with the patient obtaining history and physical and discussing treatment plan. The plan has been discussed with my attending, Dr. Meenakshi Kowalski, and she is in agreement. JIMENA SIDDIQI [id number]/CPS #: [id number]
[2019-02-07] MEDS: Carvedilol TAB* 6.25 MG PO SCH (22:17)
[2019-02-07] MEDS ORDERED: Piperacillin/Tazobac ADVAN(*) 3.375 GM in NS 0.9% 100 ML* 100 ML IVPB ONE (23:29)
--- NOTE | 2019-02-07 23:31 | PN ---
Hospitalist Progress Note Date of Service: 02/07/19 HOSPITALIST ADDENDUM Called by RN due to abnormal CT result. Mrs Ta is a 68yo F with PMH of type 2 DM, HTN, HLD, s/p thoraco-lumbar fusion c/b wound infection, who presented to ED with progressive decline at [facility] with altered MS, frequent falls. CT abd/pelvis revealed "extensive erosive changes around the pedicle screws for T11 and T12 multiple areas of bone loss in the vertebral bodies and infiltrative change in the surrounding anterior paraspinous tissues suggesting osteomyelitis and probable surrounding abscess possibly related to discitis. Detail is not sufficient here to determine if there is any epidural extension." Evaluated at bedside. Sleeping but easily arousable. C/o back, but better than before. Denies LE weakness, urinary/bowel incontinence, LE sensory loss. Strength is 4/5 LLE and 5/5 RLE, unchanged from admission. Case was d/w Neurosurgery (Dr Marie) who will see her in consultation. Blood cultures already sent from the ED. Check MRI thoracic/lumbar spine with contrast. Neuro checks. Will broaden antibiotic coverage to Vanco/Zosyn for now.
[2019-02-07] MEDS ORDERED: Vancomycin(*) 1,000 MG in NS 0.9% 250 ML* 250 ML IVPB ONE (23:45)
[2019-02-07] MEDS ORDERED: Vancomycin per Pharmacy* NOTE FOLLOW UP SCH (23:45)
[2019-02-07] MEDS ORDERED: Zosyn per Pharmacy* NOTE FOLLOW UP SCH (23:45)
[2019-02-08] MEDS: Ibuprofen TAB* 600 MG PO PRN ×2 (01:01→10:24)
[2019-02-08] MEDS: ZOSYN 3.375 GM Q8H per EXTENDED INFUSION IVPB SCH ×6 (03:50→20:39)
[2019-02-08 07:32] LABS: ABS Basophils 0.1 10^3/ul (0-0.2); ABS Eosinophils 0.2 10^3/ul (0-0.6); ABS Lymphocytes 1.7 10^3/ul (1.0-4.8); ABS Monocytes 0.8 10^3/ul (0-0.8); ABS Neutrophils 6.3 10^3/ul (1.5-7.7); Eosinophil % 2.5 %; Hematocrit 29 % (35-47); Hemoglobin 8.9 g/dL (12.0-16.0); Lymphocyte % 18.6 %; Mean Corpuscular HGB Conc 31 g/dL (31-36); Mean Corpuscular Hemoglobin 23 pg (27-31); Mean Corpuscular Volume 74 fL (80-97); Mean Platelet Volume 8.2 fL (7.4-10.4); Nucleated Red Blood Cells % 0.1; Platelet Count 292 10^3/uL (150-450); Red Blood Count 3.87 10^6 /uL (3.70-4.87); Red Cell Distribution Width 17 % (10.5-15); White Blood Count 9.1 10^3/uL (3.5-10.8)
[2019-02-08 07:43] LABS: BUN/Creatinine Ratio 16.7 (8-20); C Reactive Protein 26.67 mg/L (<8.01); Calcium 8.7 mg/dL (8.6-10.3); EGFR African American 97.8 (>60); EGFR Non-African American 80.8 (>60); HDL Cholesterol 26.4 mg/dL; Magnesium 1.6 mg/dL (1.9-2.7); Potassium 3.5 mmol/L (3.5-5.0)
[2019-02-08] MEDS ORDERED: Magnesium Sulfate 2 GM IV* 2 GM/50 ML BAG IVPB ONE (09:10)
[2019-02-08] MEDS: Insulin LISPRO* 1 UNITS UNIT SUBCUT SCH ×4 (10:21→20:30)
[2019-02-08] MEDS: Polyethylene Glycol 3350* 17 GM PACKET PO SCH (10:23)
[2019-02-08] MEDS: Carvedilol TAB* 6.25 MG PO SCH ×2 (10:24→21:43)
[2019-02-08] MEDS: Magnesium Oxide TAB* 400 MG PO SCH (10:24)
[2019-02-08] MEDS: Calcium Carbonate TAB* 1250 MG (CALCIUM 500 MG) PO SCH (10:24)
[2019-02-08] MEDS: Multivitamins/Minerals TAB PO SCH (10:24)
[2019-02-08] MEDS: FLUoxetine CAP* 20 MG PO SCH (10:24)
[2019-02-08] MEDS: Aspirin EC TAB* 81 MG TAB.EC PO SCH (10:24)
[2019-02-08] MEDS: Lisinopril TAB* 10 MG PO SCH (10:24)
[2019-02-08] MEDS: RiFAMPin CAP* 300 MG CAP PO SCH ×2 (10:30→21:43)
[2019-02-08] MEDS: Acetaminophen TAB* 325 MG PO PRN (12:31)
[2019-02-08] MEDS: NS 0.9% 1000 ML** 1,000 ML IV SCH (12:32)
[2019-02-08] MEDS: Vancomycin(*) 1,000 MG in NS 0.9% 250 ML* 250 ML IVPB SCH (13:33)
[2019-02-08] MEDS ORDERED: cefTRIAXone(*) 1 GM in NS 0.9% 50 ML* 50 ML IVPB SCH (15:00)
--- NOTE | 2019-02-08 15:01 | PN ---
Progress Note - Progress Note Date of Service: 02/08/19 SOAP: Subjective: []Patient well known to me from prior surgeries and admissions. Has been essentially failing to thrive at [facility]. Admitted yesterday with fever, sepsis, altered mental status.Patient has minimal back pain. Has not been participating in therapy secondary to severe depression. Objective: []Awake,alert EOMs full Neck supple Motor-diffuse weakness both legs Wound OK Assessment: []Possible discitis/osteo at T11-T12 Plan: []Awaiting MRI of T spine, L/S spine Suspect prolonged antibiotic therapy as before Will follow with you
[2019-02-08] MEDS ORDERED: Gadoteridol* (CONTRAST) 279.3 MG/ML 10 ML IV ONE (15:25)
[2019-02-08] MEDS ORDERED: Atorvastatin* 40 MG TAB PO SCH (15:56)
[2019-02-08] MEDS: Enoxaparin(*) 40 MG/0.4 ML SYR SUBCUT SCH (16:01)
--- NOTE | 2019-02-08 17:20 | PN ---
Subjective Date of Service: 02/08/19 Interval History: Discussed patient with ROLAND Fernández who reports patient has improved today as she is more lucid. Patient assessed in bed. She is alert. She is oriented to self and place. Patient has difficulty recalling events leading up to admission and why she is here. Denies cp, sob, nausea, vomiting, fever, chills, weakness Objective Active Medications: Acetaminophen (Tylenol Tab*) 650 mg PO Q6H PRN PRN Reason: PAIN Last Admin: 02/08/19 12:31 Dose: 650 mg Aspirin (Aspirin Ec Tab*) 81 mg PO DAILY [facility] Last Admin: 02/08/19 10:24 Dose: 81 mg Atorvastatin Calcium (Lipitor*) 40 mg PO 2100 [facility] Last Admin: 02/07/19 21:03 Dose: 40 mg Calcium Carbonate (Calcium Carbonate Tab*) 1,250 mg PO DAILY [facility] Last Admin: 02/08/19 10:24 Dose: 1,250 mg Carvedilol (Coreg Tab*) 6.25 mg PO BID [facility] Last Admin: 02/08/19 10:24 Dose: 6.25 mg Dextrose (D50w Syringe 50 Ml*) 12.5 gm IV PUSH .FOR FS < 60 - SS PRN PRN Reason: FS < 60 Enoxaparin Sodium (Lovenox(*)) 40 mg SUBCUT Q24H [facility] Last Admin: 02/08/19 16:01 Dose: 40 mg Fluoxetine HCl (Prozac Cap*) 20 mg PO DAILY [facility] Last Admin: 02/08/19 10:24 Dose: 20 mg Sodium Chloride (Ns 0.9% 1000 Ml) 1,000 mls @ 100 mls/hr IV PER RATE [facility] Last Admin: 02/08/19 12:32 Dose: 100 mls/hr Piperacillin Sod/Tazobactam (Sod 3.375 gm/ Sodium Chloride) 100 mls @ 25 mls/ hr IVPB Q8H [facility] Last Admin: 02/08/19 12:31 Dose: 25 mls/hr Vancomycin HCl 1,000 mg/ (Sodium Chloride) 250 mls @ 166.667 mls/hr IVPB Q12H [facility] Last Admin: 02/08/19 13:33 Dose: 166.667 mls/hr Ibuprofen (Motrin Tab*) 600 mg PO Q6H PRN PRN Reason: PAIN Last Admin: 02/08/19 10:24 Dose: 600 mg Insulin Glargine (Lantus(*)) 12 units SUBCUT BEDTIME [facility] Last Admin: 02/07/19 21:06 Dose: 12 unit Insulin Human Lispro (Humalog*) 0 units SUBCUT ACHS [facility]; Protocol Last Admin: 02/08/19 12:32 Dose: 1 unit Lisinopril (Prinivil Tab*) 10 mg PO DAILY [facility] Last Admin: 02/08/19 10:24 Dose: 10 mg Magnesium Oxide (Magox 400 Tab*) 400 mg PO DAILY [facility] Last Admin: 02/08/19 10:24 Dose: 400 mg Melatonin (Melatonin) 3 mg PO BEDTIME [facility] Last Admin: 02/07/19 21:03 Dose: 3 mg Mirtazapine (Remeron Tab*) 15 mg PO BEDTIME [facility] Last Admin: 02/07/19 21:03 Dose: 15 mg Multivitamins/Minerals (Theragran/Minerals Tab*) 1 tab PO DAILY [facility] Last Admin: 02/08/19 10:24 Dose: 1 tab Ondansetron HCl (Zofran Inj*) 4 mg IV Q6H PRN PRN Reason: NAUSEA Pharmacy Consult (Vancomycin Per Pharmacy*) 1 note FOLLOW UP .VANC PER PHARMACY [facility] Pharmacy Consult (Zosyn Per Pharmacy*) 1 note FOLLOW UP .ZOSYN PER PHARMACY [facility] Pharmacy Profile Note (Vancomycin Trough Check) 1 note FOLLOW UP 1230 ONE Stop: 02/09/19 12:31 Polyethylene Glycol/Electrolytes (Miralax*) 17 gm PO DAILY [facility] Last Admin: 02/08/19 10:23 Dose: 17 gm Rifampin (Rifampin Cap*) 300 mg PO BID [facility] Last Admin: 02/08/19 10:30 Dose: 300 mg Vital Signs - 8 hr 02/08/19 02/08/19 11:27 15:06 Temperature 98.6 F 98.0 F Pulse Rate 67 69 Respiratory 18 16 Rate Blood Pressure 117/59 120/60 (mmHg) O2 Sat by Pulse 97 96 Oximetry Oxygen Devices in Use Now: None Appearance: Comfortable, NAD Eyes: No Scleral Icterus Ears/Nose/Mouth/Throat: Clear Oropharnyx, Mucous Membranes Moist Neck: NL Appearance and Movements; NL JVP Respiratory: Symmetrical Chest Expansion and Respiratory Effort, Clear to Auscultation Cardiovascular: NL Sounds; No Murmurs; No JVD, RRR, No Edema Abdominal: NL Sounds; No Tenderness; No Distention Lymphatic: No Cervical Adenopathy Extremities: No Edema Skin: No Rash or Ulcers Neurological: NL Muscle Strength and Tone, - - Alert. Oriented to self and place. Nutrition: Taking PO's Result Diagrams: 02/08/19 06:31 02/08/19 06:31 Additional Lab and Data: Laboratory Results - last 24 hr 02/07/19 02/07/19 02/08/19 11:03 20:23 06:31 WBC 9.1 RBC 3.87 Hgb 8.9 L Hct 29 L MCV 74 L MCH 23 L MCHC 31 RDW 17 H Plt Count 292 MPV 8.2 Neut % (Auto) 69.4 Lymph % (Auto) 18.6 Jones % (Auto) 8.4 Eos % (Auto) 2.5 Baso % (Auto) 1.1 Absolute Neuts (auto) 6.3 Absolute Lymphs (auto) 1.7 Absolute Monos (auto) 0.8 Absolute Eos (auto) 0.2 Absolute Basos (auto) 0.1 Absolute Nucleated RBC 0.0 Nucleated RBC % 0.1 Sodium Potassium Chloride Carbon Dioxide Anion Gap BUN Creatinine Est GFR ( Amer) Est GFR (Non-Af Amer) BUN/Creatinine Ratio Glucose POC Glucose (mg/dL) 161 H Hemoglobin A1c Calcium Magnesium Ferritin 63.3 C-Reactive Protein Triglycerides Cholesterol LDL Cholesterol HDL Cholesterol Vitamin B12 332 02/08/19 02/08/19 02/08/19 06:31 06:31 08:01 WBC RBC Hgb Hct MCV MCH MCHC RDW Plt Count MPV Neut % (Auto) Lymph % (Auto) Jones % (Auto) Eos % (Auto) Baso % (Auto) Absolute Neuts (auto) Absolute Lymphs (auto) Absolute Monos (auto) Absolute Eos (auto) Absolute Basos (auto) Absolute Nucleated RBC Nucleated RBC % Sodium 141 Potassium 3.5 Chloride 108 Carbon Dioxide 26 Anion Gap 7 BUN 12 Creatinine 0.72 Est GFR ( Amer) 97.8 Est GFR (Non-Af Amer) 80.8 BUN/Creatinine Ratio 16.7 Glucose 88 POC Glucose (mg/dL) 88 Hemoglobin A1c 7.2 H Calcium 8.7 Magnesium 1.6 L Ferritin C-Reactive Protein 26.67 H Triglycerides 138 Cholesterol 102 LDL Cholesterol 48 HDL Cholesterol 26.4 Vitamin B12 02/08/19 11:21 WBC RBC Hgb Hct MCV MCH MCHC RDW Plt Count MPV Neut % (Auto) Lymph % (Auto) Jones % (Auto) Eos % (Auto) Baso % (Auto) Absolute Neuts (auto) Absolute Lymphs (auto) Absolute Monos (auto) Absolute Eos (auto) Absolute Basos (auto) Absolute Nucleated RBC Nucleated RBC % Sodium Potassium Chloride Carbon Dioxide Anion Gap BUN Creatinine Est GFR ( Amer) Est GFR (Non-Af Amer) BUN/Creatinine Ratio Glucose POC Glucose (mg/dL) 163 H Hemoglobin A1c Calcium Magnesium Ferritin C-Reactive Protein Triglycerides Cholesterol LDL Cholesterol HDL Cholesterol Vitamin B12 Microbiology and Other Data: Microbiology 02/07/19 13:57 Blood Venous Aerobic Blood Culture - Preliminary No Growth Day 1 02/07/19 13:57 Blood Venous Anaerobic Blood Culture - Preliminary No Growth Day 1 02/07/19 13:40 Urine Urine Culture - Final Kathy Albicans 02/07/19 11:03 Blood Venous Aerobic Blood Culture - Preliminary No Growth Day 1 02/07/19 11:03 Blood Venous Anaerobic Blood Culture - Preliminary No Growth Day 1 02/07/19 17:50 Nasal Nasal Screen MRSA (PCR) - Final Mrsa Not Detected Assess/Plan/Problems-Billing Assessment: 68 yr old female with pmh dm2, htn, hld, lumbar stenosis, infected surgical wound; admitted due to failure to thrive and sepsis - Patient Problems (1) Sepsis Comment: - Tachycardiac and leukocytosis on admission; both have resolved - Suspected secondary to UTI and possible osteomyolitis - For osteo patient has been started on Vanco and Zosym which will be continued - For UTI, cutlure grew kathy >100,000, therefore, started on Diflucan 150 mg PO daily. - ID consult requested (2) UTI (urinary tract infection) Comment: - Urine culture revealed Kathy > 100,000; cont antifungal - ID consult requested (3) Osteomyelitis Comment: - CT concerning for osteomyolitis at T11 and T12, therefore, abx broadened on 02/07/19. - Awaiting MRI results. - Neurosurg consulting and we appreciate their assistance - Consult requested from ID (4) Diabetes Comment: - Hemoglobin A1c 7.5 - Cont Lantus and sliding scale while hospitalized - Hold Victoza (5) Hyperlipidemia Comment: -Continue Statin (6) Hypertension Comment: - Normotensive - Cont Coreg and Lisinopril (7) Weakness Comment: - Left sided weakness noted on admission. - No weakness noted today on assessment. - Awaiting MRI of brain (8) Pain Comment: - Cont to hold Tramadol - Pain controlled currently with Tylenol and Ibuprofen (9) Depression Comment: - Recently placed on Remoron for depression and to increase appetite. - Cont for now. (10) DVT prophylaxis Comment: - Continue Lovenox SQ (11) DNR (do not resuscitate) Comment: Attending: Maddy Santana
[2019-02-08] MEDS: Melatonin 3 MG TAB PO SCH (21:43)
[2019-02-08] MEDS: Insulin GLARGINE(*) 1 UNITS UNIT SUBCUT SCH (21:43)
[2019-02-08] MEDS: Atorvastatin* 40 MG TAB PO SCH (21:43)
[2019-02-08] MEDS: Mirtazapine TAB* 15 MG PO SCH (21:43)
[2019-02-09] MEDS: Vancomycin(*) 1,000 MG in NS 0.9% 250 ML* 250 ML IVPB SCH ×2 (00:28→15:11)
[2019-02-09] MEDS: Acetaminophen TAB* 325 MG PO PRN ×2 (00:28→08:54)
[2019-02-09] MEDS: NS 0.9% 1000 ML** 1,000 ML IV SCH ×2 (00:33→12:24)
[2019-02-09] MEDS: ZOSYN 3.375 GM Q8H per EXTENDED INFUSION IVPB SCH ×4 (03:39→12:23)
[2019-02-09 06:06] LABS: ABS Basophils 0.1 10^3/ul (0-0.2); ABS Eosinophils 0.2 10^3/ul (0-0.6); ABS Lymphocytes 1.3 10^3/ul (1.0-4.8); ABS Monocytes 0.5 10^3/ul (0-0.8); ABS Neutrophils 4.6 10^3/ul (1.5-7.7); Eosinophil % 3.7 %; Hematocrit 28 % (35-47); Hemoglobin 8.8 g/dL (12.0-16.0); Lymphocyte % 18.6 %; Mean Corpuscular HGB Conc 31 g/dL (31-36); Mean Corpuscular Hemoglobin 23 pg (27-31); Mean Corpuscular Volume 74 fL (80-97); Mean Platelet Volume 8.3 fL (7.4-10.4); Platelet Count 296 10^3/uL (150-450); Red Blood Count 3.85 10^6 /uL (3.70-4.87); Red Cell Distribution Width 17 % (10.5-15); White Blood Count 6.8 10^3/uL (3.5-10.8)
[2019-02-09 06:22] LABS: BUN/Creatinine Ratio 13.8 (8-20); Calcium 8.3 mg/dL (8.6-10.3); EGFR Non-African American 90.9 (>60); Magnesium 1.8 mg/dL (1.9-2.7); Potassium 3.3 mmol/L (3.5-5.0)
[2019-02-09] MEDS: Insulin LISPRO* 1 UNITS UNIT SUBCUT SCH ×4 (08:20→21:46)
[2019-02-09] MEDS ORDERED: Potassium Chlor TAB* 20 MEQ TAB.ER PO ONE (08:46)
[2019-02-09] MEDS ORDERED: Magnesium Sulfate 2 GM IV* 2 GM/50 ML BAG IVPB ONE (08:46)
[2019-02-09] MEDS: Polyethylene Glycol 3350* 17 GM PACKET PO SCH (08:53)
[2019-02-09] MEDS: Calcium Carbonate TAB* 1250 MG (CALCIUM 500 MG) PO SCH (08:54)
[2019-02-09] MEDS: Magnesium Oxide TAB* 400 MG PO SCH (08:54)
[2019-02-09] MEDS: Aspirin EC TAB* 81 MG TAB.EC PO SCH (08:54)
[2019-02-09] MEDS: FLUoxetine CAP* 20 MG PO SCH (08:54)
[2019-02-09] MEDS: Carvedilol TAB* 6.25 MG PO SCH ×2 (08:54→21:45)
[2019-02-09] MEDS: Multivitamins/Minerals TAB PO SCH (08:54)
[2019-02-09] MEDS: Lisinopril TAB* 10 MG PO SCH (08:54)
[2019-02-09] MEDS: RiFAMPin CAP* 300 MG CAP PO SCH ×2 (08:55→21:46)
[2019-02-09] MEDS ORDERED: Vancomycin Trough Check NOTE FOLLOW UP ONE (12:30)
--- NOTE | 2019-02-09 13:03 | PN ---
Progress Note - Progress Note Date of Service: 02/09/19 SOAP: Subjective: []Sitting up in chair this aft Minimal pain Had f/u MRI yest evening available for review Objective: []Diffuse weakness in legs with marginal effort Can move all muscle groups when isolated MRI shows circumferential infection but no drainable collection in epidural space Assessment: []Osteo/discitis T11-T12 Plan: [] Continue detention antibiotics No plan for surgical intervention at present.
[2019-02-09] MEDS: ceFAZolin 1 GM ADVAN(*) 1 GM in NS 0.9% 50 ML* 50 ML IVPB SCH ×2 (15:14→22:48)
[2019-02-09] MEDS: Enoxaparin(*) 40 MG/0.4 ML SYR SUBCUT SCH (15:22)
--- NOTE | 2019-02-09 18:27 | PN ---
Subjective Date of Service: 02/09/19 Interval History: Lying in bed on assessment. Daughter at baseline. Patient alert to self only. Daughter reports this is baseline for several months. Patient denies pain. She also denies cp, sob, palpitations, n/v/d, fever, chills, weakness, tingling. Objective Active Medications: Acetaminophen (Tylenol Tab*) 650 mg PO Q6H PRN PRN Reason: PAIN Last Admin: 02/09/19 08:54 Dose: 650 mg Aspirin (Aspirin Ec Tab*) 81 mg PO DAILY [facility] Last Admin: 02/09/19 08:54 Dose: 81 mg Atorvastatin Calcium (Lipitor*) 40 mg PO 2100 [facility] Last Admin: 02/08/19 21:43 Dose: 40 mg Calcium Carbonate (Calcium Carbonate Tab*) 1,250 mg PO DAILY [facility] Last Admin: 02/09/19 08:54 Dose: 1,250 mg Carvedilol (Coreg Tab*) 6.25 mg PO BID [facility] Last Admin: 02/09/19 08:54 Dose: 6.25 mg Dextrose (D50w Syringe 50 Ml*) 12.5 gm IV PUSH .FOR FS < 60 - SS PRN PRN Reason: FS < 60 Enoxaparin Sodium (Lovenox(*)) 40 mg SUBCUT Q24H [facility] Last Admin: 02/09/19 15:22 Dose: 40 mg Fluoxetine HCl (Prozac Cap*) 20 mg PO DAILY [facility] Last Admin: 02/09/19 08:54 Dose: 20 mg Cefazolin Sodium 1 gm/ Sodium (Chloride) 50 mls @ 200 mls/hr IVPB Q8H [facility] Last Admin: 02/09/19 15:14 Dose: 200 mls/hr Ibuprofen (Motrin Tab*) 600 mg PO Q6H PRN PRN Reason: PAIN Last Admin: 02/08/19 10:24 Dose: 600 mg Insulin Glargine (Lantus(*)) 12 units SUBCUT BEDTIME [facility] Last Admin: 02/08/19 21:43 Dose: 12 unit Insulin Human Lispro (Humalog*) 0 units SUBCUT ACHS [facility]; Protocol Last Admin: 02/09/19 18:02 Dose: Not Given Lisinopril (Prinivil Tab*) 10 mg PO DAILY [facility] Last Admin: 02/09/19 08:54 Dose: 10 mg Magnesium Oxide (Magox 400 Tab*) 400 mg PO DAILY [facility] Last Admin: 02/09/19 08:54 Dose: 400 mg Melatonin (Melatonin) 3 mg PO BEDTIME [facility] Last Admin: 02/08/19 21:43 Dose: 3 mg Mirtazapine (Remeron Tab*) 15 mg PO BEDTIME [facility] Last Admin: 02/08/19 21:43 Dose: 15 mg Multivitamins/Minerals (Theragran/Minerals Tab*) 1 tab PO DAILY [facility] Last Admin: 02/09/19 08:54 Dose: 1 tab Ondansetron HCl (Zofran Inj*) 4 mg IV Q6H PRN PRN Reason: NAUSEA Polyethylene Glycol/Electrolytes (Miralax*) 17 gm PO DAILY [facility] Last Admin: 02/09/19 08:53 Dose: 17 gm Rifampin (Rifampin Cap*) 300 mg PO BID [facility] Last Admin: 02/09/19 08:55 Dose: 300 mg Vital Signs - 8 hr 02/09/19 11:04 Temperature 98.1 F Pulse Rate 67 Respiratory 18 Rate Blood Pressure 180/74 (mmHg) O2 Sat by Pulse 95 Oximetry Oxygen Devices in Use Now: None Appearance: Comfortable, NAD Eyes: No Scleral Icterus Ears/Nose/Mouth/Throat: Clear Oropharnyx, Mucous Membranes Moist Neck: NL Appearance and Movements; NL JVP Respiratory: Symmetrical Chest Expansion and Respiratory Effort, Clear to Auscultation Cardiovascular: NL Sounds; No Murmurs; No JVD, RRR, No Edema Abdominal: NL Sounds; No Tenderness; No Distention Lymphatic: No Cervical Adenopathy Extremities: No Edema, No Clubbing, Cyanosis Skin: No Rash or Ulcers Neurological: NL Muscle Strength and Tone, - - Alert to self only. Nutrition: Taking PO's Result Diagrams: 02/09/19 05:16 02/09/19 05:16 Additional Lab and Data: Laboratory Results - last 24 hr 02/08/19 02/08/19 02/09/19 19:02 19:55 05:16 WBC 6.8 RBC 3.85 Hgb 8.8 L Hct 28 L MCV 74 L MCH 23 L MCHC 31 RDW 17 H Plt Count 296 MPV 8.3 Neut % (Auto) 68.5 Lymph % (Auto) 18.6 [place] % (Auto) 7.9 Eos % (Auto) 3.7 Baso % (Auto) 1.3 Absolute Neuts (auto) 4.6 Absolute Lymphs (auto) 1.3 Absolute Monos (auto) 0.5 Absolute Eos (auto) 0.2 Absolute Basos (auto) 0.1 Absolute Nucleated RBC 0.0 Nucleated RBC % 0.0 Sodium Potassium Chloride Carbon Dioxide Anion Gap BUN Creatinine Est GFR ( Amer) Est GFR (Non-Af Amer) BUN/Creatinine Ratio Glucose POC Glucose (mg/dL) 154 H 150 H Calcium Magnesium Vancomycin Trough 02/09/19 02/09/19 02/09/19 05:16 07:30 11:38 WBC RBC Hgb Hct MCV MCH MCHC RDW Plt Count MPV Neut % (Auto) Lymph % (Auto) [place] % (Auto) Eos % (Auto) Baso % (Auto) Absolute Neuts (auto) Absolute Lymphs (auto) Absolute Monos (auto) Absolute Eos (auto) Absolute Basos (auto) Absolute Nucleated RBC Nucleated RBC % Sodium 144 Potassium 3.3 L Chloride 112 H Carbon Dioxide 25 Anion Gap 7 BUN 9 Creatinine 0.65 Est GFR ( Amer) 110.0 Est GFR (Non-Af Amer) 90.9 BUN/Creatinine Ratio 13.8 Glucose 89 POC Glucose (mg/dL) 73 113 H Calcium 8.3 L Magnesium 1.8 L Vancomycin Trough 02/09/19 02/09/19 12:50 17:21 WBC RBC Hgb Hct MCV MCH MCHC RDW Plt Count MPV Neut % (Auto) Lymph % (Auto) [place] % (Auto) Eos % (Auto) Baso % (Auto) Absolute Neuts (auto) Absolute Lymphs (auto) Absolute Monos (auto) Absolute Eos (auto) Absolute Basos (auto) Absolute Nucleated RBC Nucleated RBC % Sodium Potassium Chloride Carbon Dioxide Anion Gap BUN Creatinine Est GFR ( Amer) Est GFR (Non-Af Amer) BUN/Creatinine Ratio Glucose POC Glucose (mg/dL) 99 Calcium Magnesium Vancomycin Trough 15.5 Microbiology and Other Data: Microbiology 02/07/19 13:57 Blood Venous Aerobic Blood Culture - Preliminary No Growth Day 2 02/07/19 13:57 Blood Venous Anaerobic Blood Culture - Preliminary No Growth Day 2 02/07/19 11:03 Blood Venous Aerobic Blood Culture - Preliminary No Growth Day 2 02/07/19 11:03 Blood Venous Anaerobic Blood Culture - Preliminary No Growth Day 2 02/07/19 13:40 Urine Urine Culture - Final Kathy Albicans 02/07/19 17:50 Nasal Nasal Screen MRSA (PCR) - Final Mrsa Not Detected Assess/Plan/Problems-Billing Assessment: 68 yr old female with pmh dm2, htn, hld, lumbar stenosis, infected surgical wound; admitted due to failure to thrive and sepsis - Patient Problems (1) Sepsis Comment: - Tachycardiac and leukocytosis on admission; both have resolved - Blood cultures negative so far - Urine culture revealed kathy (2) UTI (urinary tract infection) Comment: - Urine culture revealed Kathy > 100,000; cont antifungal for a few days as it does not require 2 weeks treatment per ID - ID consulting (3) Osteomyelitis Comment: - MRI consistent for osteomyolitis at T11 and T12 and possible epidural abscess - No surgerical intervention per Dr Marie - ID consulting and has stopped Vanco and Ancef started. Rifampin continued. (4) Diabetes Comment: - Hemoglobin A1c 7.5 - Cont Lantus and sliding scale while hospitalized - Hold Victoza (5) Hyperlipidemia Comment: -Continue Statin (6) Hypertension Comment: - Normotensive - Cont Coreg and Lisinopril (7) Weakness Comment: - Left sided weakness noted on admission. - No focal weakness noted today on assessment. - MRI revealed chronic small vessel disease (8) Pain Comment: - Cont to hold Tramadol - Pain controlled currently with Tylenol and Ibuprofen (9) Depression Comment: - Recently placed on Remoron for depression and to increase appetite. - Cont for now. (10) DVT prophylaxis Comment: - Continue Lovenox SQ (11) DNR (do not resuscitate) Comment: Attending: Maddy Santana
--- NOTE | 2019-02-09 21:04 | CONS ---
CONSULTATION REPORT: DATE OF ADMISSION: 02/07/19 DATE OF CONSULT: 02/09/19 PRIMARY CARE PROVIDER: Dr. Renay Mcallister, currently Dr. Hilda Lopes at [facility]. PROVIDER REQUESTING CONSULTATION: Rosa M Atkins NP CONSULTING SERVICE: Infectious Disease. PROVIDER: Dr. Arpit Kessler * (dictated by Annette Mary NP). REASON FOR CONSULTATION: Osteodiskitis with possible epidural abscess. IMPRESSION: 1. Osteodiskitis. The patient is currently being treated outpatient for a paraspinal infection. She completed a 56-day course of cefazolin on 01/07/19 and was placed on Keflex t.i.d. and rifampin b.i.d. with plans for an 8-week course, which she has been receiving. The abnormal findings on MRI are often seen for a while after treatment of osteomyelitis and the imaging often lags behind the infection. The MRI findings do not necessarily indicate worsening infection. When compared to her previous CRPs, her CRP is similar. Her leukocytosis has resolved. She has been afebrile. 2. Abnormal urine culture. The patient's urine culture with Kathy albicans. I suspect this represent kathy vaginal yeast infection as kathy is typically a contaminant. The patient does endorse some itching and dysuria. 3. Diabetes mellitus, type 2. 4. Hypertension. 5. Hyperlipidemia. 6. Depression. PLAN/RECOMMENDATIONS: Recommend discontinuing vancomycin and Zosyn. Will start cefazolin and continue her oral rifampin. She can receive fluconazole for a few days and then this should be discontinued, she does not require a 2- week course of treatment as I do not feel that this represents a urinary tract infection. HISTORY OF PRESENT ILLNESS: Ms. Ta is a 68-year-old female with a past medical history significant for diabetes mellitus type 2, hypertension, hyperlipidemia, lumbar stenosis, who underwent a T11 to sacral fusion and an L3- 4 lumbar interbody fusion on 11/03/18. Near the completion of her rehab at a local alf, she developed increased back pain and presented to [facility] on 11/13/18 with complaints of back pain. At that time, she was found to have MSSA bacteremia and found to have a paraspinal abscess. She received 56 days of cefazolin IV, she completed on 01/07/19. She was started on Keflex 500 mg 3 times daily, rifampin 300 mg twice daily with plans for 8- week treatment. She is followed by Infectious Disease outpatient for her spinal infection. According to the documentation, the patient has been doing poorly at [facility] with numerous falls, altered mental status, poor participation in physical therapy, and lack of motivation. Her daughter who sees her daily feels that she is slowly deteriorating over the last several weeks. She was recently started on Remeron for appetite stimulation and depression with no improvement. The patient is a poor historian, but reports that she is feeling depressed and has not been wanting to participate in her rehabilitation. She also reports periods of constipation and she was given laxatives and bowel medications and then developed diarrhea. She was brought to the emergency room for evaluation. While in the emergency room, she was noted to have an elevated white blood cell count. She was noted to be intermittently confused. She was not noted to have any focal weakness, but did have some left-sided weakness compared to her right. She had a urinalysis showing 3+ leukocyte esterase, trace ketones, white blood cell count 3+, squamous epithelial cells present, yeast present. She had a negative brain CT, negative hip and pelvis x-ray, negative chest x- ray. Due to her altered mental status and possible UTI, she was referred to the hospitalist service for admission. While in the hospital the urine culture revealed kathy. Blood cultures negative to date. She had an abdominal CT showing extensive erosion changes around her pedicle screws at T11 and T12. This prompted an MRI showing findings consistent with osteomyelitis at T11 and T12 and a possible circumferential epidural abscess at T9. She was placed on vancomycin, Zosyn, continued on her oral rifampin by the hospitalist. She has been seen in consultation by Dr. Cristobal Marie with Neurosurgery. Although the MRI shows a circumferential infection, there is no drainable collection in the epidural space. Neurosurgery's recommendation is to continue long-term antibiotics with no plan for surgical intervention. She denies any fevers, chills. She reports continued back pain that she believes is similar to what it has been, but may possibly be worse. She reports constipation, then is given bowel medications and develops diarrhea. She denies urinary symptoms of urgency, frequency. She does report some dysuria. She denies any recent travel. She denies numbness or tingling, although she reports neuropathy in her toes at baseline. Her initial leukocytosis on admission has resolved. CRP on admission was 23.69. PAST MEDICAL HISTORY: 1. Diabetes mellitus, type 2. 2. Hypertension. 3. Hyperlipidemia. 4. Spinal stenosis. 5. Osteodiskitis. PAST SURGICAL HISTORY: 1. Status post tubal ligation. 2. Status post T11 to sacral fusion and L3-4 lumbar interbody fusion on . HOME MEDICATIONS: 1. Magnesium oxide 400 mg by mouth daily. 2. Levemir insulin 15 units subcutaneous at bedtime. 3. Tramadol 50 mg by mouth every 6 hours. 4. Rifampin 300 mg by mouth twice daily. 5. MiraLAX 17 g by mouth daily. 6. Zofran 4 mg by mouth every 6 hours. 7. Multivitamin 1 tablet by mouth daily. 8. Melatonin 3 mg by mouth at bedtime. 9. Atorvastatin 40 mg by mouth daily. 10. Acetaminophen 650 mg by mouth every 6 hours as needed for fever or pain. 11. Cyclobenzaprine 10 mg by mouth twice daily. 12. Keflex 500 mg by mouth 3 times daily. 13. Carvedilol 6.25 mg by mouth twice daily. 14. Calcium carbonate 1250 mg by mouth daily. 15. Lisinopril 10 mg by mouth daily. 16. Remeron 15 mg by mouth daily. 17. Victoza 1.2 mg subcutaneous daily. 18. Tramadol 50 mg by mouth daily. Hospital medications: 1. Acetaminophen 650 mg by mouth every 6 hours as needed for fever or chills. 2. Aspirin 81 mg by mouth daily. 3. Atorvastatin 40 mg by mouth daily. 4. Calcium carbonate 1250 mg by mouth daily. 5. Carvedilol 6.25 mg by mouth twice daily. 6. Dextrose 12.5 g IV push for glucose less than 60. 7. Lovenox 40 mg subcutaneous every 24 hours. 8. Fluoxetine 20 mg by mouth daily. 9. Ibuprofen 600 mg by mouth every 6 hours as needed for pain. 10. Lantus insulin 12 units subcutaneous at bedtime. 11. Humalog insulin sliding scale subcutaneous with meals and at bedtime. 12. Lisinopril 10 mg by mouth daily. 13. Magnesium oxide 400 mg by mouth daily. 14. Melatonin 3 mg by mouth daily. 15. Remeron 15 mg by mouth daily at bedtime. 16. Multivitamin 1 tablet by mouth daily. 17. Zofran 4 mg IV every 6 hours as needed for nausea. 18. MiraLAX 17 g by mouth daily. 19. Rifampin 30 mg by mouth twice daily. 20. Vancomycin 1000 mg IV every 12 hours. 21. Zosyn 3.375 g IV every 8 hours. ALLERGIES: No known drug allergies. FAMILY HISTORY: Mother with a history of coronary artery disease. Brother and mother with a history of diabetes. Father with a history of lung cancer. Mother passed at age 50 in her sleep. SOCIAL HISTORY: Denies tobacco, alcohol, or recreational drug use. REVIEW OF SYSTEMS: I performed a 10-point review of systems. All the pertinent positives and negatives are mentioned in the history of present illness. The remaining review of systems is negative. PHYSICAL EXAM: Vital Signs: Temperature 98.1, heart rate 67, respiratory rate 18, O2 sat 95% on room air, blood pressure 180/74. General Appearance: No acute distress. Head: Normocephalic, atraumatic. ENT: Pupils are equal and reactive to light. Extraocular movements are intact. Mucous membranes are moist. No thrush. Neck: Supple. No lymphadenopathy. Neurological: Alert and oriented to person and place with confusion. Cranial nerves II through XII are grossly intact. Cardiovascular: Heart rate regular. No murmurs, rubs, or gallops heard. Respiratory: No accessory muscle use. Lung are clear to auscultation bilateral. Abdomen: Bowel sounds present. Abdomen: Soft, nontender, and nondistended. Extremities: No lower extremity edema. Musculoskeletal: No clubbing or cyanosis noted. The patient exhibits good strength in all extremities. She has strong dorsi and plantarflexion bilateral. She has negative log roll bilateral. She has no tenderness with palpation of her mid spine and back. Psychological: Calm. Skin: No rashes or abnormalities seen. There is no erythema or swelling to the back. DIAGNOSTIC STUDIES/LAB DATA: Sodium 144, potassium 3.3, chloride 112, CO2 is 25 , BUN 9, creatinine 0.65, glucose 89. White blood cell count 6.6, hemoglobin 8.8, hematocrit 28, platelet count 296. Urine culture with Kathy albicans. Blood cultures with no growth on day 2. See impression and recommendations as outlined above. Thank you for asking us to see Mrs. Ta in consultation. TIME SPENT: Time for this consultation was approximately 40 minutes, greater than half of that was spent with the patient discussing medications, past medical history, the events leading to her arrival at the hospital and performing a physical examination. The case has been reviewed with the attending, Dr. Kessler, who agrees with the plan. Reviewed by SHERLY STEELE 02/11/19 1629 [id number]/[facility] #: [id number] KYLEE
[2019-02-09] MEDS: Atorvastatin* 40 MG TAB PO SCH (21:45)
[2019-02-09] MEDS: Mirtazapine TAB* 15 MG PO SCH (21:45)
[2019-02-09] MEDS: Melatonin 3 MG TAB PO SCH (21:46)
[2019-02-09] MEDS: Insulin GLARGINE(*) 1 UNITS UNIT SUBCUT SCH (21:46)
[2019-02-09] MEDS ORDERED: hydrALAZINE IV* 20 MG/ML VIAL IV SLOW PU PRN (23:57)
[2019-02-10 05:45] LABS: ABS Basophils 0.1 10^3/ul (0-0.2); ABS Eosinophils 0.3 10^3/ul (0-0.6); ABS Lymphocytes 1.5 10^3/ul (1.0-4.8); ABS Monocytes 0.8 10^3/ul (0-0.8); ABS Neutrophils 6.8 10^3/ul (1.5-7.7); Eosinophil % 3.4 %; Hematocrit 33 % (35-47); Hemoglobin 10.5 g/dL (12.0-16.0); Lymphocyte % 15.6 %; Mean Corpuscular HGB Conc 31 g/dL (31-36); Mean Corpuscular Hemoglobin 23 pg (27-31); Mean Corpuscular Volume 72 fL (80-97); Mean Platelet Volume 7.9 fL (7.4-10.4); Platelet Count 372 10^3/uL (150-450); Red Blood Count 4.62 10^6 /uL (3.70-4.87); Red Cell Distribution Width 17 % (10.5-15); White Blood Count 9.5 10^3/uL (3.5-10.8)
[2019-02-10 06:12] LABS: BUN/Creatinine Ratio 5.9 (8-20); Calcium 9.1 mg/dL (8.6-10.3); EGFR African American 145.5 (>60); EGFR Non-African American 120.3 (>60); Potassium 3.1 mmol/L (3.5-5.0)
[2019-02-10] MEDS: Insulin LISPRO* 1 UNITS UNIT SUBCUT SCH ×4 (07:57→23:26)
[2019-02-10] MEDS: ceFAZolin 1 GM ADVAN(*) 1 GM in NS 0.9% 50 ML* 50 ML IVPB SCH ×3 (08:03→23:35)
--- NOTE | 2019-02-10 09:03 | PN ---
Progress Note - Progress Note Date of Service: 02/10/19 SOAP: Subjective: CC: Spine infection HPI: Ms. Ta is a 68-year-old female with a past medical history significant for diabetes mellitus type 2, hypertension, hyperlipidemia, lumbar stenosis, who underwent a T11 to sacral fusion and an L3-4 lumbar interbody fusion on and developed increased back pain and presented to [facility] on 11/13/18 and was found to have MSSA bacteremia and a paraspinal abscess. She received 56 days of cefazolin IV, she completed on 01/07/19. She has been taking Keflex 500 mg 3 times daily and rifampin 300 mg twice daily since completion of her IV cefazolin. Denies fever, chills, shortness of breath, chest discomfort, N/V/D. Reports that the vaginal itching has resolved. Objective: Vital Signs - 8 hr 02/10/19 02/10/19 01:07 01:48 Temperature 97.4 F Pulse Rate 93 Respiratory 16 Rate Blood Pressure 174/89 163/64 (mmHg) O2 Sat by Pulse 96 Oximetry Physical Exam: General: NAD, sitting up in bed Neurological: Alert and Oriented to person and place HEENT: No thrush, moist MM Cardiovascular: Heart rate regular Respiratory: Lung sounds clear Abdominal: Bowel sounds x4; ABD soft, non tender and non distended Musculoskeletal: No tenderness with palpation of the midline spine or back Skin: No rash Laboratory Results 02/09/19 02/10/19 02/10/19 20:44 05:22 05:22 WBC 9.5 RBC 4.62 Hgb 10.5 L Hct 33 L MCV 72 L MCH 23 L MCHC 31 RDW 17 H Plt Count 372 MPV 7.9 Neut % (Auto) 71.4 Lymph % (Auto) 15.6 [place] % (Auto) 8.6 Eos % (Auto) 3.4 Baso % (Auto) 1.0 Absolute Neuts (auto) 6.8 Absolute Lymphs (auto) 1.5 Absolute Monos (auto) 0.8 Absolute Eos (auto) 0.3 Absolute Basos (auto) 0.1 Absolute Nucleated RBC 0.0 Nucleated RBC % 0.0 Sodium 140 Potassium 3.1 L Chloride 103 Carbon Dioxide 28 Anion Gap 9 BUN 3 L Creatinine 0.51 Est GFR ( Amer) 145.5 Est GFR (Non-Af Amer) 120.3 BUN/Creatinine Ratio 5.9 L Glucose 101 H POC Glucose (mg/dL) 170 H Calcium 9.1 Vancomycin Trough Microbiology 02/07/19 13:57 Aerobic Blood Culture - Preliminary Blood Venous No Growth Day 2 Anaerobic Blood Culture - Preliminary No Growth Day 2 02/07/19 11:03 Aerobic Blood Culture - Preliminary Blood Venous No Growth Day 2 Anaerobic Blood Culture - Preliminary No Growth Day 2 02/07/19 13:40 Urine Culture - Final Urine Kathy Albicans 02/07/19 17:50 Nasal Screen MRSA (PCR) - Final Nasal Mrsa Not Detected Assessment: 1. Osteodiskitis. She completed a 56-day course of cefazolin on 01/07/19 and was placed on Keflex t.i.d. and rifampin b.i.d. for plans for an 8-week course. The abnormal findings on MRI are often seen for a while after treatment of osteomyelitis. This does not necessarily indicate worsening infection. When compared to her previous CRPs, her CRP is similar. Her leukocytosis has resolved and she has been afebrile. 2. Abnormal urine culture. The patient's urine culture with Kathy albicans. I suspect this represent kathy vaginal yeast infection as kathy is typically a contaminant. The patient does endorse some itching and dysuria. 3. Diabetes mellitus, type 2. 4. Hypertension. 5. Hyperlipidemia. 6. Depression. Plan: Continue cefazolin and oral rifampin. She can receive fluconazole for a few days and then this should be discontinued
[2019-02-10] MEDS: Carvedilol TAB* 6.25 MG PO SCH ×2 (09:30→20:19)
[2019-02-10] MEDS: FLUoxetine CAP* 20 MG PO SCH (09:30)
[2019-02-10] MEDS: Magnesium Oxide TAB* 400 MG PO SCH (09:30)
[2019-02-10] MEDS: Calcium Carbonate TAB* 1250 MG (CALCIUM 500 MG) PO SCH (09:30)
[2019-02-10] MEDS: RiFAMPin CAP* 300 MG CAP PO SCH ×2 (09:30→20:19)
[2019-02-10] MEDS: Multivitamins/Minerals TAB PO SCH (09:30)
[2019-02-10] MEDS: Aspirin EC TAB* 81 MG TAB.EC PO SCH (09:30)
[2019-02-10] MEDS: Lisinopril TAB* 10 MG PO SCH (09:30)
[2019-02-10] MEDS: Polyethylene Glycol 3350* 17 GM PACKET PO SCH ×2 (09:35→09:36)
[2019-02-10] MEDS: KCL 20 MEQ/100 ML IVPREMIX* 20 MEQ/100 ML BAG IV SCH ×2 (12:29→15:00)
[2019-02-10] MEDS: Enoxaparin(*) 40 MG/0.4 ML SYR SUBCUT SCH (15:00)
[2019-02-10] MEDS: Acetaminophen TAB* 325 MG PO PRN ×2 (15:32→23:28)
[2019-02-10] MEDS: Atorvastatin* 40 MG TAB PO SCH (20:17)
[2019-02-10] MEDS: Ibuprofen TAB* 600 MG PO PRN (20:17)
[2019-02-10] MEDS: Melatonin 3 MG TAB PO SCH (20:19)
[2019-02-10] MEDS: Mirtazapine TAB* 15 MG PO SCH (20:19)
--- NOTE | 2019-02-10 20:45 | PN ---
Subjective Date of Service: 02/10/19 Interval History: Resting in bed. Alert. Oriented x4 today which is a change from yesterday. Reports confusion "comes and goes". Reports pain in back that radiates "all over ". Reports pain is controlled with current regime, she is currently awaiting prn. Denies sob, cp, palpitations, fever, chills. Objective Active Medications: Acetaminophen (Tylenol Tab*) 650 mg PO Q6H PRN PRN Reason: PAIN Last Admin: 02/10/19 15:32 Dose: 650 mg Aspirin (Aspirin Ec Tab*) 81 mg PO DAILY [facility] Last Admin: 02/10/19 09:30 Dose: 81 mg Atorvastatin Calcium (Lipitor*) 40 mg PO 2100 [facility] Last Admin: 02/10/19 20:17 Dose: 40 mg Calcium Carbonate (Calcium Carbonate Tab*) 1,250 mg PO DAILY [facility] Last Admin: 02/10/19 09:30 Dose: 1,250 mg Carvedilol (Coreg Tab*) 6.25 mg PO BID [facility] Last Admin: 02/10/19 20:19 Dose: 6.25 mg Dextrose (D50w Syringe 50 Ml*) 12.5 gm IV PUSH .FOR FS < 60 - SS PRN PRN Reason: FS < 60 Enoxaparin Sodium (Lovenox(*)) 40 mg SUBCUT Q24H [facility] Last Admin: 02/10/19 15:00 Dose: 40 mg Fluoxetine HCl (Prozac Cap*) 20 mg PO DAILY [facility] Last Admin: 02/10/19 09:30 Dose: 20 mg Hydralazine HCl (Apresoline Iv*) 5 mg IV SLOW PU Q6H PRN PRN Reason: BLOOD PRESSURE Last Admin: 02/10/19 00:11 Dose: 5 mg Cefazolin Sodium 1 gm/ Sodium (Chloride) 50 mls @ 200 mls/hr IVPB Q8H [facility] Last Admin: 02/10/19 15:32 Dose: 200 mls/hr Ibuprofen (Motrin Tab*) 600 mg PO Q6H PRN PRN Reason: PAIN Last Admin: 02/10/19 20:17 Dose: 600 mg Insulin Glargine (Lantus(*)) 12 units SUBCUT BEDTIME [facility] Last Admin: 02/09/19 21:46 Dose: 12 unit Insulin Human Lispro (Humalog*) 0 units SUBCUT ACHS [facility]; Protocol Last Admin: 02/10/19 17:46 Dose: 1 unit Lisinopril (Prinivil Tab*) 10 mg PO DAILY [facility] Last Admin: 02/10/19 09:30 Dose: 10 mg Magnesium Oxide (Magox 400 Tab*) 400 mg PO DAILY [facility] Last Admin: 02/10/19 09:30 Dose: 400 mg Melatonin (Melatonin) 3 mg PO BEDTIME [facility] Last Admin: 02/10/19 20:19 Dose: 3 mg Mirtazapine (Remeron Tab*) 15 mg PO BEDTIME [facility] Last Admin: 02/10/19 20:19 Dose: 15 mg Multivitamins/Minerals (Theragran/Minerals Tab*) 1 tab PO DAILY [facility] Last Admin: 02/10/19 09:30 Dose: 1 tab Ondansetron HCl (Zofran Inj*) 4 mg IV Q6H PRN PRN Reason: NAUSEA Polyethylene Glycol/Electrolytes (Miralax*) 17 gm PO DAILY [facility] Last Admin: 02/10/19 09:36 Dose: Not Given Rifampin (Rifampin Cap*) 300 mg PO BID [facility] Last Admin: 02/10/19 20:19 Dose: 300 mg Vital Signs - 8 hr 02/10/19 15:14 Temperature 98.5 F Pulse Rate 92 Respiratory 16 Rate Blood Pressure 176/127 (mmHg) O2 Sat by Pulse 97 Oximetry Oxygen Devices in Use Now: None Appearance: Comfortable, NAD Eyes: No Scleral Icterus Ears/Nose/Mouth/Throat: Clear Oropharnyx, Mucous Membranes Moist Neck: NL Appearance and Movements; NL JVP Respiratory: Symmetrical Chest Expansion and Respiratory Effort, Clear to Auscultation Cardiovascular: NL Sounds; No Murmurs; No JVD, RRR, No Edema Abdominal: NL Sounds; No Tenderness; No Distention Lymphatic: No Cervical Adenopathy Extremities: No Edema Skin: No Rash or Ulcers Neurological: Alert and Oriented x 3, NL Muscle Strength and Tone Nutrition: Taking PO's Result Diagrams: 02/10/19 05:22 02/10/19 05:22 Additional Lab and Data: Laboratory Results - last 24 hr 02/09/19 02/10/19 02/10/19 20:44 05:22 05:22 WBC 9.5 RBC 4.62 Hgb 10.5 L Hct 33 L MCV 72 L MCH 23 L MCHC 31 RDW 17 H Plt Count 372 MPV 7.9 Neut % (Auto) 71.4 Lymph % (Auto) 15.6 [place] % (Auto) 8.6 Eos % (Auto) 3.4 Baso % (Auto) 1.0 Absolute Neuts (auto) 6.8 Absolute Lymphs (auto) 1.5 Absolute Monos (auto) 0.8 Absolute Eos (auto) 0.3 Absolute Basos (auto) 0.1 Absolute Nucleated RBC 0.0 Nucleated RBC % 0.0 Sodium 140 Potassium 3.1 L Chloride 103 Carbon Dioxide 28 Anion Gap 9 BUN 3 L Creatinine 0.51 Est GFR ( Amer) 145.5 Est GFR (Non-Af Amer) 120.3 BUN/Creatinine Ratio 5.9 L Glucose 101 H POC Glucose (mg/dL) 170 H Calcium 9.1 02/10/19 02/10/19 02/10/19 07:25 11:15 16:36 WBC RBC Hgb Hct MCV MCH MCHC RDW Plt Count MPV Neut % (Auto) Lymph % (Auto) [place] % (Auto) Eos % (Auto) Baso % (Auto) Absolute Neuts (auto) Absolute Lymphs (auto) Absolute Monos (auto) Absolute Eos (auto) Absolute Basos (auto) Absolute Nucleated RBC Nucleated RBC % Sodium Potassium Chloride Carbon Dioxide Anion Gap BUN Creatinine Est GFR ( Amer) Est GFR (Non-Af Amer) BUN/Creatinine Ratio Glucose POC Glucose (mg/dL) 108 H 165 H 167 H Calcium Microbiology and Other Data: Microbiology 02/07/19 13:57 Blood Venous Aerobic Blood Culture - Preliminary No Growth Day 3 02/07/19 13:57 Blood Venous Anaerobic Blood Culture - Preliminary No Growth Day 3 02/07/19 11:03 Blood Venous Aerobic Blood Culture - Preliminary No Growth Day 3 02/07/19 11:03 Blood Venous Anaerobic Blood Culture - Preliminary No Growth Day 3 02/07/19 13:40 Urine Urine Culture - Final Kathy Albicans 02/07/19 17:50 Nasal Nasal Screen MRSA (PCR) - Final Mrsa Not Detected Assess/Plan/Problems-Billing Assessment: 68 yr old female with pmh dm2, htn, hld, lumbar stenosis, infected surgical wound; admitted due to failure to thrive and sepsis - Patient Problems (1) Sepsis Comment: - Tachycardiac and leukocytosis on admission; both have resolved - Blood cultures negative - Urine culture revealed kathy (2) UTI (urinary tract infection) Comment: - Urine culture revealed Kathy > 100,000; cont antifungal for a few days as it does not require 2 weeks treatment per ID - ID consulting (3) Osteomyelitis Comment: - MRI consistent for osteomyolitis at T11 and T12 and possible epidural abscess - No surgerical intervention per Dr Marie - ID consulting and has stopped Vanco and Ancef started. Rifampin continued. - Discussed with ID today who do not recommend PICC at this time and report she will soon be transition to PO abx with Rifampin (4) Diabetes Comment: - Hemoglobin A1c 7.5 - Cont Lantus and sliding scale while hospitalized - Hold Victoza (5) Hyperlipidemia Comment: -Continue Statin (6) Hypertension Comment: - Normotensive - Cont Coreg and Lisinopril (7) Weakness Comment: - Left sided weakness noted on admission. - No focal weakness noted today on assessment. - MRI revealed chronic small vessel disease (8) Pain Comment: - Cont to hold Tramadol and Flexeril - Pain controlled currently with Tylenol and Ibuprofen (9) Depression Comment: - Recently placed on Remoron for depression and to increase appetite. - Cont for now. (10) DVT prophylaxis Comment: - Continue Lovenox SQ (11) DNR (do not resuscitate) Comment: Status and Disposition: Inpatient. Discharge to [facility] hopefully tomorrow or Friday? Attending: Petar Cotter
[2019-02-10] MEDS: Insulin GLARGINE(*) 1 UNITS UNIT SUBCUT SCH (23:23)
[2019-02-11] MEDS: ceFAZolin 1 GM ADVAN(*) 1 GM in NS 0.9% 50 ML* 50 ML IVPB SCH ×3 (06:12→22:47)
[2019-02-11 07:29] LABS: BUN/Creatinine Ratio 5.2 (8-20); Calcium 9.2 mg/dL (8.6-10.3); EGFR African American 125.5 (>60); EGFR Non-African American 103.7 (>60); Potassium 3.6 mmol/L (3.5-5.0)
[2019-02-11] MEDS: Insulin LISPRO* 1 UNITS UNIT SUBCUT SCH ×4 (08:07→21:05)
[2019-02-11] MEDS: Aspirin EC TAB* 81 MG TAB.EC PO SCH (09:31)
[2019-02-11] MEDS: RiFAMPin CAP* 300 MG CAP PO SCH ×2 (09:31→20:51)
[2019-02-11] MEDS: Lisinopril TAB* 10 MG PO SCH (09:31)
[2019-02-11] MEDS: Magnesium Oxide TAB* 400 MG PO SCH (09:31)
[2019-02-11] MEDS: FLUoxetine CAP* 20 MG PO SCH (09:31)
[2019-02-11] MEDS: Carvedilol TAB* 6.25 MG PO SCH ×2 (09:31→20:51)
[2019-02-11] MEDS: Calcium Carbonate TAB* 1250 MG (CALCIUM 500 MG) PO SCH (09:31)
[2019-02-11] MEDS: Multivitamins/Minerals TAB PO SCH (09:32)
[2019-02-11] MEDS: Polyethylene Glycol 3350* 17 GM PACKET PO SCH (09:32)
[2019-02-11] MEDS ORDERED: PROCHLORPERAZINE INJ 5 MG/ML 2 ML VIAL IV PRN (11:57)
[2019-02-11] MEDS: Enoxaparin(*) 40 MG/0.4 ML SYR SUBCUT SCH (15:26)
--- NOTE | 2019-02-11 15:27 | PN ---
Progress Note - Progress Note Date of Service: 02/11/19 SOAP: Subjective: [Pt with osteomyelitis/discitis T11-12, history of fusion Admitted for management of sepsis. Reports back pain today although denies lower extremity pain. States that her back feels better than she expected. Falls asleep during visit.] Objective: [ Vital Signs: Temp Pulse Resp BP Pulse Ox 97.6 F 89 19 95/52 94 02/11/19 11:55 02/11/19 11:55 02/11/19 11:55 02/11/19 11:55 02/11/19 11:55 General: Comfortable laying in bed. NAD. Drowsy Neuro: Answers most questions appropriately, mildly confused. Oriented to person , disoriented to place, time and situation. Moves all extremities, weakness throughout. Sensation intact. ] Assessment: [Osteomyelitis/discitis T11-12] Plan: [1. No plan for surgery 2. Can follow up in office as needed]
--- NOTE | 2019-02-11 17:18 | PN ---
Subjective Date of Service: 02/11/19 Interval History: Patient seen and examined. Emesis x1 earlier with nausea, denies fever or chills. No back pain. No SOB, no chest pain. No headaches or dizziness. Periods of confusion per record, but appropriate at this time. Objective Active Medications: Acetaminophen (Tylenol Tab*) 650 mg PO Q6H PRN PRN Reason: PAIN Last Admin: 02/10/19 23:28 Dose: 650 mg Aspirin (Aspirin Ec Tab*) 81 mg PO DAILY [facility] Last Admin: 02/11/19 09:31 Dose: 81 mg Atorvastatin Calcium (Lipitor*) 40 mg PO 2100 [facility] Last Admin: 02/10/19 20:17 Dose: 40 mg Calcium Carbonate (Calcium Carbonate Tab*) 1,250 mg PO DAILY [facility] Last Admin: 02/11/19 09:31 Dose: 1,250 mg Carvedilol (Coreg Tab*) 6.25 mg PO BID [facility] Last Admin: 02/11/19 09:31 Dose: 6.25 mg Dextrose (D50w Syringe 50 Ml*) 12.5 gm IV PUSH .FOR FS < 60 - SS PRN PRN Reason: FS < 60 Enoxaparin Sodium (Lovenox(*)) 40 mg SUBCUT Q24H [facility] Last Admin: 02/11/19 15:26 Dose: 40 mg Fluoxetine HCl (Prozac Cap*) 20 mg PO DAILY [facility] Last Admin: 02/11/19 09:31 Dose: 20 mg Hydralazine HCl (Apresoline Iv*) 5 mg IV SLOW PU Q6H PRN PRN Reason: BLOOD PRESSURE Last Admin: 02/10/19 00:11 Dose: 5 mg Cefazolin Sodium 1 gm/ Sodium (Chloride) 50 mls @ 200 mls/hr IVPB Q8H [facility] Last Admin: 02/11/19 15:26 Dose: 200 mls/hr Ibuprofen (Motrin Tab*) 600 mg PO Q6H PRN PRN Reason: PAIN Last Admin: 02/10/19 20:17 Dose: 600 mg Insulin Glargine (Lantus(*)) 12 units SUBCUT BEDTIME [facility] Last Admin: 02/10/19 23:23 Dose: 12 unit Insulin Human Lispro (Humalog*) 0 units SUBCUT ACHS [facility]; Protocol Last Admin: 02/11/19 16:56 Dose: Not Given Lisinopril (Prinivil Tab*) 10 mg PO DAILY [facility] Last Admin: 02/11/19 09:31 Dose: 10 mg Magnesium Oxide (Magox 400 Tab*) 400 mg PO DAILY [facility] Last Admin: 02/11/19 09:31 Dose: 400 mg Melatonin (Melatonin) 3 mg PO BEDTIME [facility] Last Admin: 02/10/19 20:19 Dose: 3 mg Mirtazapine (Remeron Tab*) 15 mg PO BEDTIME [facility] Last Admin: 02/10/19 20:19 Dose: 15 mg Multivitamins/Minerals (Theragran/Minerals Tab*) 1 tab PO DAILY [facility] Last Admin: 02/11/19 09:32 Dose: 1 tab Ondansetron HCl (Zofran Inj*) 4 mg IV Q6H PRN PRN Reason: NAUSEA Last Admin: 02/11/19 10:49 Dose: 4 mg Polyethylene Glycol/Electrolytes (Miralax*) 17 gm PO DAILY [facility] Last Admin: 02/11/19 09:32 Dose: 17 gm Prochlorperazine Edisylate (Compazine Inj*) 5 mg IV Q6H PRN PRN Reason: NAUSEA/VOMITING Last Admin: 02/11/19 12:25 Dose: 5 mg Rifampin (Rifampin Cap*) 300 mg PO BID [facility] Last Admin: 02/11/19 09:31 Dose: 300 mg Vital Signs - 8 hr 02/11/19 11:55 Temperature 97.6 F Pulse Rate 89 Respiratory 19 Rate Blood Pressure 95/52 (mmHg) O2 Sat by Pulse 94 Oximetry Oxygen Devices in Use Now: None Appearance: alert, NAD Eyes: No Scleral Icterus, PERRLA Ears/Nose/Mouth/Throat: NL Teeth, Lips, Gums Neck: NL Appearance and Movements; NL JVP, Trachea Midline Respiratory: Symmetrical Chest Expansion and Respiratory Effort, Clear to Auscultation Cardiovascular: RRR, No Edema Abdominal: NL Sounds; No Tenderness; No Distention Extremities: No Edema, No Clubbing, Cyanosis Skin: No Rash or Ulcers Neurological: - - A&Ox2 Nutrition: Taking PO's Result Diagrams: 02/10/19 05:22 02/11/19 07:01 Additional Lab and Data: Laboratory Results - last 24 hr 02/09/19 02/10/19 02/10/19 20:44 05:22 05:22 WBC 9.5 RBC 4.62 Hgb 10.5 L Hct 33 L MCV 72 L MCH 23 L MCHC 31 RDW 17 H Plt Count 372 MPV 7.9 Neut % (Auto) 71.4 Lymph % (Auto) 15.6 Eddy % (Auto) 8.6 Eos % (Auto) 3.4 Baso % (Auto) 1.0 Absolute Neuts (auto) 6.8 Absolute Lymphs (auto) 1.5 Absolute Monos (auto) 0.8 Absolute Eos (auto) 0.3 Absolute Basos (auto) 0.1 Absolute Nucleated RBC 0.0 Nucleated RBC % 0.0 Sodium 140 Potassium 3.1 L Chloride 103 Carbon Dioxide 28 Anion Gap 9 BUN 3 L Creatinine 0.51 Est GFR ( Amer) 145.5 Est GFR (Non-Af Amer) 120.3 BUN/Creatinine Ratio 5.9 L Glucose 101 H POC Glucose (mg/dL) 170 H Calcium 9.1 02/10/19 02/10/19 02/10/19 07:25 11:15 16:36 WBC RBC Hgb Hct MCV MCH MCHC RDW Plt Count MPV Neut % (Auto) Lymph % (Auto) Eddy % (Auto) Eos % (Auto) Baso % (Auto) Absolute Neuts (auto) Absolute Lymphs (auto) Absolute Monos (auto) Absolute Eos (auto) Absolute Basos (auto) Absolute Nucleated RBC Nucleated RBC % Sodium Potassium Chloride Carbon Dioxide Anion Gap BUN Creatinine Est GFR ( Amer) Est GFR (Non-Af Amer) BUN/Creatinine Ratio Glucose POC Glucose (mg/dL) 108 H 165 H 167 H Calcium Microbiology and Other Data: Microbiology 02/07/19 13:57 Blood Venous Aerobic Blood Culture - Preliminary No Growth Day 3 02/07/19 13:57 Blood Venous Anaerobic Blood Culture - Preliminary No Growth Day 3 02/07/19 11:03 Blood Venous Aerobic Blood Culture - Preliminary No Growth Day 3 02/07/19 11:03 Blood Venous Anaerobic Blood Culture - Preliminary No Growth Day 3 02/07/19 13:40 Urine Urine Culture - Final Richard Albicans 02/07/19 17:50 Nasal Nasal Screen MRSA (PCR) - Final Mrsa Not Detected Diagnostic Imaging: Patient Name: GILL CHAPA Medical Record#: [id number] Ordering Physician: Alee Sifuentes MD Acct.#: [id number] : 1950 Age: 68 Sex: F Location: [address] [place] [address]/TELEMETRY Exam Date: 02/08/19516 ADM Status: ADM IN Order Information: MRI LUMBAR SPINE W/WO; MRI THORACIC SPINE W/WO Accession Number: [id number]; [id number] CPT: 62991; 94737 Edited for charges. Indication: Altered mental status. Frequent falls. Clinical concern for potential osteomyelitis discitis. Comparison: November 19, 2018 CT thorax. Technique: YooLotto Spray 1.5 [place] [id number]. Noncontrast and contrast-enhanced MRI thoracic and lumbar spine. 12 mL ProHance contrast administered IV. Report: Small bilateral dependent pleural effusions. Artifact from multilevel thoracolumbar posterior fusion from T11 through S1. The visualized thoracic spinal cord is normal in morphology and patterns of signal intensity. Corresponding with the regions of erosive change at the T11 and T12 vertebral bodies on CT there is increased T2 signal and corresponding enhancement consistent with osteomyelitis and discitis including surrounding the pedicle screws at both levels. Reference the sagittal T1 postcontrast series there is evidence for circumferential epidural abscess beginning at the level of T9 and extending caudal however metallic artifact from the level of the T11 pedicle screws precludes assessment below the mid T11 level. Resulting partial compression of the thecal sac at the mid T9, T10, and visualized proximal T11 levels. There is anterior and lateral para vertebral inflammatory change in the same cephalocaudal distribution. Diffuse thoracic degenerative spondylosis with small dorsal disc disc osteophyte complexes including at T3-T4, T4-T5, T6-T7, T7-T8 and T9-T10 without significant resulting spinal stenosis. Grade 1 L3-L4 and grade 2 L4-L5 anterolisthesis noted without change compared with the February 07, 2019 CT. Associated uncovering of the intervertebral discs and moderate impression on the ventral margin of the thecal sac at L3-L4 and mild impression on the ventral margin of the thecal sac at L4-L5. At L5 -- S1 a LEFT unilateral foraminal level disc protrusion results in severe foraminal stenosis. IMPRESSION: #. Corresponding with the regions of erosive change at the T11 and T12 vertebral bodies on CT there is increased T2 signal and corresponding enhancement consistent with osteomyelitis and discitis including surrounding the pedicle screws at both levels. #. While detail is limited there is evidence for circumferential epidural abscess beginning at the T9 level extending caudal however metallic artifact from the level of the T11 pedicle screws precludes assessment below the mid T11 level. Resulting partial compression of the thecal sac at the mid T9, T10, and visualized proximal T11 levels. Patient Name: GILL CHAPA Medical Record#: [id number] Ordering Physician: Alee Sifuentes MD Acct.#: [id number] : 1950 Age: 68 Sex: F Location: [address] [place] [address]/TELEMETRY Exam Date: 02/08/19516 ADM Status: ADM IN Order Information: MRI LUMBAR SPINE W/WO; MRI THORACIC SPINE W/WO Accession Number: [id number] CPT: 28774; 54083 Edited for charges. Indication: Altered mental status. Frequent falls. Clinical concern for potential osteomyelitis discitis. Comparison: November 19, 2018 CT thorax. Technique: YooLotto Spray 1.5 [place] [id number]. Noncontrast and contrast-enhanced MRI thoracic and lumbar spine. 12 mL ProHance contrast administered IV. Report: Small bilateral dependent pleural effusions. Artifact from multilevel thoracolumbar posterior fusion from T11 through S1. The visualized thoracic spinal cord is normal in morphology and patterns of signal intensity. Corresponding with the regions of erosive change at the T11 and T12 vertebral bodies on CT there is increased T2 signal and corresponding enhancement consistent with osteomyelitis and discitis including surrounding the pedicle screws at both levels. Reference the sagittal T1 postcontrast series there is evidence for circumferential epidural abscess beginning at the level of T9 and extending caudal however metallic artifact from the level of the T11 pedicle screws precludes assessment below the mid T11 level. Resulting partial compression of the thecal sac at the mid T9, T10, and visualized proximal T11 levels. There is anterior and lateral para vertebral inflammatory change in the same cephalocaudal distribution. Diffuse thoracic degenerative spondylosis with small dorsal disc disc osteophyte complexes including at T3-T4, T4-T5, T6-T7, T7-T8 and T9-T10 without significant resulting spinal stenosis. Grade 1 L3-L4 and grade 2 L4-L5 anterolisthesis noted without change compared with the February 07, 2019 CT. Associated uncovering of the intervertebral discs and moderate impression on the ventral margin of the thecal sac at L3-L4 and mild impression on the ventral margin of the thecal sac at L4-L5. At L5 -- S1 a LEFT unilateral foraminal level disc protrusion results in severe foraminal stenosis. IMPRESSION: #. Corresponding with the regions of erosive change at the T11 and T12 vertebral bodies on CT there is increased T2 signal and corresponding enhancement consistent with osteomyelitis and discitis including surrounding the pedicle screws at both levels. #. While detail is limited there is evidence for circumferential epidural abscess beginning at the T9 level extending caudal however metallic artifact from the level of the T11 pedicle screws precludes assessment below the mid T11 level. Resulting partial compression of the thecal sac at the mid T9, T10, and visualized proximal T11 levels. Patient Name: GILL CHAPA Medical Record#: [id number] Ordering Physician: Hugo HESS Acct.#: [id number] : 1950 Age: 68 Sex: F Location: [address] [place] [address] MEDICAL/TELEMETRY Exam Date: 02/08/19 111 ADM Status: ADM IN Order Information: MRI BRAIN W/O Accession Number: [id number] CPT: 87652 Indication: Altered mental status change. Osteomyelitis discitis at the thoracic lumbar junction. Comparison: February 07, 2019 CT. Technique: Oodrivea 1.5 [place] [id number]. MRI brain without contrast. Report: DIFFUSION ABNORMALITIES: No evidence for acute or subacute ischemia. 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 CEREBRAL SULCI, VENTRICLES, BASAL CISTERNS: Within normal limits for age. MENINGES: Unremarkable. CEREBRUM: Extensive periventricular and subcortical white matter T2 FLAIR hyperintensities most consistent with chronic small vessel ischemic disease. CEREBELLUM: Unremarkable. BRAINSTEM: T2 hyperintensity within the midbrain and eliane without mass effect likely reflects chronic small vessel ischemic disease. VESSELS: Preserved major intracranial flow-voids. ORBITS: Unremarkable. PARANASAL SINUSES / MASTOIDS: Grossly clear. CALVARIUM AND SKULL BASE: 1.1 cm T1 and T2 hyperintense calvarial lesion at the RIGHT occipital bone is consistent with a benign hemangioma. SCALP: Unremarkable. IMPRESSION: #. No acute intracranial process evident. #. Stigmata of extensive chronic small vessel schema disease. #. Probable sequela of previous punctate hemorrhages related to cavernous angiomas. Assess/Plan/Problems-Billing Assessment: 68 yr old female with pmh dm2, htn, hld, lumbar stenosis, infected surgical wound; admitted due to failure to thrive and sepsis. - Patient Problems (1) Osteomyelitis Code(s): M86.9 - OSTEOMYELITIS, UNSPECIFIED SNOMED Code(s): 68916543 Comment: - MRI consistent for osteomyolitis at T11 and T12 and possible epidural abscess - No surgerical intervention per Dr Marie - ID consulting and has stopped Vanco and Ancef started. Rifampin continued. - As per ID, no PICC at this time, as she will be transitioned to PO atbx with Rifampin only (2) Weakness Code(s): R53.1 - WEAKNESS SNOMED Code(s): 88869676 Comment: - Left sided weakness noted on admission - No focal weakness noted today on assessment - MRI reveals chronic changes - PT (3) Nausea & vomiting Code(s): R11.2 - NAUSEA WITH VOMITING, UNSPECIFIED SNOMED Code(s): 29212689 Comment: - some relief with zofran, compazine added (4) Sepsis Comment: - Tachycardiac and leukocytosis on admission, now resolved - Blood cultures negative - Urine culture revealed richard (5) Depression Code(s): F32.9 - MAJOR DEPRESSIVE DISORDER, SINGLE EPISODE, UNSPECIFIED SNOMED Code(s): 75258589 Comment: - Recently placed on Remeron for depression and to increase appetite, will continue (6) Diabetes Code(s): E11.9 - TYPE 2 DIABETES MELLITUS WITHOUT COMPLICATIONS SNOMED Code(s) : 07516744 Comment: - Hemoglobin A1c 7.5 - Cont Lantus and sliding scale while hospitalized - Hold Victoza (7) Pain Code(s): R52 - PAIN, UNSPECIFIED SNOMED Code(s): 68259431 Comment: - Cont to hold Tramadol and Flexeril - Pain controlled currently with Tylenol and Ibuprofen (8) UTI (urinary tract infection) Comment: - Urine culture revealed Richard > 100,000; cont antifungal for a few days as it does not require 2 weeks treatment per ID (9) DVT prophylaxis Code(s): GUY7825 - SNOMED Code(s): 626456475 Comment: - Continue Lovenox SQ Status and Disposition: Inpatient. Discharge to [facility] when transitioned to oral atbx.
[2019-02-11] MEDS: Ibuprofen TAB* 600 MG PO PRN (17:55)
[2019-02-11] MEDS: Mirtazapine TAB* 15 MG PO SCH (20:50)
[2019-02-11] MEDS: Melatonin 3 MG TAB PO SCH (20:50)
[2019-02-11] MEDS: Atorvastatin* 40 MG TAB PO SCH (20:50)
[2019-02-11] MEDS: Insulin GLARGINE(*) 1 UNITS UNIT SUBCUT SCH (21:09)
[2019-02-11] MEDS: Acetaminophen TAB* 325 MG PO PRN (22:51)
[2019-02-12] MEDS: ceFAZolin 1 GM ADVAN(*) 1 GM in NS 0.9% 50 ML* 50 ML IVPB SCH (06:21)
[2019-02-12] MEDS: Aspirin EC TAB* 81 MG TAB.EC PO SCH (08:10)
[2019-02-12] MEDS: Ibuprofen TAB* 600 MG PO PRN ×2 (08:10→21:19)
[2019-02-12] MEDS: Acetaminophen TAB* 325 MG PO PRN ×2 (08:10→22:05)
[2019-02-12] MEDS: Carvedilol TAB* 6.25 MG PO SCH ×2 (08:10→21:19)
[2019-02-12] MEDS: Magnesium Oxide TAB* 400 MG PO SCH (08:11)
[2019-02-12] MEDS: FLUoxetine CAP* 20 MG PO SCH ×2 (08:11→08:28)
[2019-02-12] MEDS: Insulin LISPRO* 1 UNITS UNIT SUBCUT SCH ×4 (08:11→21:24)
[2019-02-12] MEDS: Multivitamins/Minerals TAB PO SCH (08:11)
[2019-02-12] MEDS: Lisinopril TAB* 10 MG PO SCH (08:11)
[2019-02-12] MEDS: Calcium Carbonate TAB* 1250 MG (CALCIUM 500 MG) PO SCH (08:11)
[2019-02-12] MEDS: Polyethylene Glycol 3350* 17 GM PACKET PO SCH (08:17)
[2019-02-12] MEDS: RiFAMPin CAP* 300 MG CAP PO SCH ×2 (08:17→21:19)
--- NOTE | 2019-02-12 10:39 | PN ---
Progress Note - Progress Note Date of Service: 02/12/19 SOAP: Subjective: CC: Spine infection HPI: Ms. Ta is a 68-year-old female with a past medical history significant for DM2, HTN, HLD, lumbar stenosis, who underwent a T11 to sacral fusion and an L3- 4 lumbar interbody fusion on 11/03/18 and developed increased back pain and presented to [facility] on 11/13/18 and was found to have MSSA bacteremia and a paraspinal abscess. She received 56 days of cefazolin IV, she completed on 01/07/19. She has been taking Keflex 500 mg 3 times daily and rifampin 300 mg twice daily since completion of her IV cefazolin. Denies fever , chills, shortness of breath, chest discomfort, N/V/D. Reports that the vaginal itching has resolved. She reports occasional loose stools, she suspects is secondary to laxative use. Objective: Vital Signs - 8 hr 02/12/19 02/12/19 03:36 10:00 Temperature 98.3 F 98.1 F Pulse Rate 79 76 Respiratory 16 18 Rate Blood Pressure 110/65 136/70 (mmHg) O2 Sat by Pulse 94 97 Oximetry Physical Exam: General: NAD, laying in bed Neurological: Alert and Oriented to person and place HEENT: No thrush, moist MM Cardiovascular: Heart rate regular Respiratory: Lung sounds clear Abdominal: Bowel sounds present; ABD soft, non tender and non distended Musculoskeletal: GUTIERREZ, good dorsi and plantar flexion bilateral. No tenderness with palpation of the spine/back Skin: No rash Laboratory Last Values WBC 9.5 10^3/uL (3.5-10.8) 02/10/19 05:22 RBC 4.62 10^6 /uL (3.70-4.87) 02/10/19 05:22 Hgb 10.5 g/dL (12.0-16.0) L 02/10/19 05:22 Hct 33 % (35-47) L 02/10/19 05:22 MCV 72 fL (80-97) L 02/10/19 05:22 MCH 23 pg (27-31) L 02/10/19 05:22 MCHC 31 g/dL (31-36) 02/10/19 05:22 RDW 17 % (10.5-15) H 02/10/19 05:22 Plt Count 372 10^3/uL (150-450) 02/10/19 05:22 MPV 7.9 fL (7.4-10.4) 02/10/19 05:22 Neut % (Auto) 71.4 % 02/10/19 05:22 Lymph % (Auto) 15.6 % 02/10/19 05:22 [place] % (Auto) 8.6 % 02/10/19 05:22 Eos % (Auto) 3.4 % 02/10/19 05:22 Baso % (Auto) 1.0 % 02/10/19 05:22 Absolute Neuts (auto) 6.8 10^3/ul (1.5-7.7) 02/10/19 05:22 Absolute Lymphs (auto) 1.5 10^3/ul (1.0-4.8) 02/10/19 05:22 Absolute Monos (auto) 0.8 10^3/ul (0-0.8) 02/10/19 05:22 Absolute Eos (auto) 0.3 10^3/ul (0-0.6) 02/10/19 05:22 Absolute Basos (auto) 0.1 10^3/ul (0-0.2) 02/10/19 05:22 Absolute Nucleated RBC 0.0 10^3/ul 02/10/19 05:22 Nucleated RBC % 0.0 02/10/19 05:22 INR (Anticoag Therapy) 1.15 (0.82-1.09) H 02/07/19 11:03 APTT 30.7 seconds (26.0-36.3) 02/07/19 11:03 Sodium 141 mmol/L (135-145) 02/11/19 07:01 Potassium 3.6 mmol/L (3.5-5.0) 02/11/19 07:01 Chloride 107 mmol/L (101-111) 02/11/19 07:01 Carbon Dioxide 29 mmol/L (22-32) 02/11/19 07:01 Anion Gap 5 mmol/L (2-11) 02/11/19 07:01 BUN 3 mg/dL (6-24) L 02/11/19 07:01 Creatinine 0.58 mg/dL (0.51-0.95) 02/11/19 07:01 Est GFR ( Amer) 125.5 (>60) 02/11/19 07:01 Est GFR (Non-Af Amer) 103.7 (>60) 02/11/19 07:01 BUN/Creatinine Ratio 5.2 (8-20) L 02/11/19 07:01 Glucose 84 mg/dL (70-100) 02/11/19 07:01 POC Glucose (mg/dL) 72 mg/dL (70-100) 02/12/19 07:50 Hemoglobin A1c 7.2 % (4.0-5.6) H 02/08/19 06:31 Lactic Acid 1.0 mmol/L (0.5-2.0) 02/07/19 13:57 Calcium 9.2 mg/dL (8.6-10.3) 02/11/19 07:01 Magnesium 1.8 mg/dL (1.9-2.7) L 02/09/19 05:16 Iron 20 ug/dL (50-212) L 02/07/19 11:03 TIBC 283 mcg/dL (250-450) 02/07/19 11:03 % Saturation 7 % (15-55) L 02/07/19 11:03 Unsat Iron Binding < 268 ug/dL 02/07/19 11:03 Transferrin 202 mg/dL (203-362) L 02/07/19 11:03 Ferritin 63.3 ng/mL (11-307) 02/07/19 11:03 Total Bilirubin 0.20 mg/dL (0.2-1.0) 02/07/19 11:03 AST 11 U/L (13-39) L 02/07/19 11:03 ALT 7 U/L (7-52) 02/07/19 11:03 Alkaline Phosphatase 92 U/L (34-104) 02/07/19 11:03 Ammonia 50 mcmol/L (16-53) 02/07/19 11:03 Troponin I 0.01 ng/mL (<0.04) 02/07/19 11:03 C-Reactive Protein 26.67 mg/L (<8.01) H 02/08/19 06:31 B-Natriuretic Peptide 192 pg/mL (<=100) H 02/07/19 11:03 Total Protein 6.7 g/dL (6.4-8.9) 02/07/19 11:03 Albumin 3.3 g/dL (3.2-5.2) 02/07/19 11:03 Globulin 3.4 g/dL (2-4) 02/07/19 11:03 Albumin/Globulin Ratio 1.0 (1-3) 02/07/19 11:03 Triglycerides 138 mg/dL 02/08/19 06:31 Cholesterol 102 mg/dL 02/08/19 06:31 LDL Cholesterol 48 mg/dL 02/08/19 06:31 HDL Cholesterol 26.4 mg/dL 02/08/19 06:31 Vitamin B12 332 pg/mL (180-914) 02/07/19 11:03 Urine Color Yellow 02/07/19 13:40 Urine Appearance Turbid 02/07/19 13:40 Urine pH 7.0 (5-9) 02/07/19 13:40 Ur Specific [place] 1.011 (1.010-1.030) 02/07/19 13:40 Urine Protein Negative (Negative) 02/07/19 13:40 Urine Ketones Trace (Negative) A 02/07/19 13:40 Urine Blood Negative (Negative) 02/07/19 13:40 Urine Nitrate Negative (Negative) 02/07/19 13:40 Urine Bilirubin Negative (Negative) 02/07/19 13:40 Urine Urobilinogen Negative (Negative) 02/07/19 13:40 Ur Leukocyte Esterase 3+ (Negative) A 02/07/19 13:40 Urine WBC (Auto) 3+(>20/hpf) (Absent) A 02/07/19 13:40 Urine RBC (Auto) Absent (Absent) 02/07/19 13:40 Ur Squamous Epith Cells Present (Absent) A 02/07/19 13:40 Urine Bacteria Absent (Absent) 02/07/19 13:40 Urine Yeast Present (Absent) A 02/07/19 13:40 Urine Glucose Negative (Negative) 02/07/19 13:40 Urine Ascorbic Acid * (Negative) A 02/07/19 13:40 Vancomycin Trough 15.5 mcg/mL 02/09/19 12:50 Microbiology 02/07/19 13:57 Aerobic Blood Culture - Preliminary Blood Venous No Growth Day 4 Anaerobic Blood Culture - Preliminary No Growth Day 4 02/07/19 11:03 Aerobic Blood Culture - Preliminary Blood Venous No Growth Day 4 Anaerobic Blood Culture - Preliminary No Growth Day 4 02/07/19 13:40 Urine Culture - Final Urine Kathy Albicans 02/07/19 17:50 Nasal Screen MRSA (PCR) - Final Nasal Mrsa Not Detected Assessment: 1. Osteodiskitis. The patient was being treated outpatient for a paraspinal infection, T11 and T12 osteodiskitis. She completed a 56-day course of cefazolin on 01/07/19 and was placed on Keflex t.i.d. and rifampin b.i.d. for plans for an 8-week course. The abnormal findings on MRI are often seen for a while after treatment of osteomyelitis, suspect that the previous images obtained in November were lagging the infection and the osteodiskitis was present at that time and the current imaging does not necessarily indicate worsening infection. When compared to her previous CRPs, her CRP is similar. Blood cultures with no growth on day 4. Her leukocytosis has resolved and she has been afebrile. 2. Abnormal urine culture. The patient's urine culture with Kathy albicans. I suspect this represent kathy vaginal yeast infection as kathy is typically a contaminant. The patient does endorse some itching and dysuria. She was treated with fluconazole. 3. DM2. 4. Depression. Plan: Discontinue cefazolin. Continue oral rifampin and resume Keflex. Hold laxatives (i.e. Miralax) for loose stools. Will need to follow up with ID after discharge in 1-2 weeks.
[2019-02-12] MEDS: Cephalexin CAP* 500 MG PO SCH ×2 (13:29→21:19)
[2019-02-12] MEDS: Enoxaparin(*) 40 MG/0.4 ML SYR SUBCUT SCH (18:31)
[2019-02-12] MEDS ORDERED: Cyclobenzaprine TAB* 10 MG PO PRN (18:54)
--- NOTE | 2019-02-12 18:54 | PN ---
Subjective Date of Service: 02/12/19 Interval History: Patient seen and examined. No n/v today, some back pain, laying with heat packs. No further complaints, no acute overnight events noted. Objective Active Medications: Acetaminophen (Tylenol Tab*) 650 mg PO Q6H PRN PRN Reason: PAIN Last Admin: 02/12/19 08:10 Dose: 650 mg Aspirin (Aspirin Ec Tab*) 81 mg PO DAILY [facility] Last Admin: 02/12/19 08:10 Dose: 81 mg Atorvastatin Calcium (Lipitor*) 40 mg PO 2100 [facility] Last Admin: 02/11/19 20:50 Dose: 40 mg Calcium Carbonate (Calcium Carbonate Tab*) 1,250 mg PO DAILY [facility] Last Admin: 02/12/19 08:11 Dose: 1,250 mg Carvedilol (Coreg Tab*) 6.25 mg PO BID [facility] Last Admin: 02/12/19 08:10 Dose: 6.25 mg Cephalexin HCl (Keflex Cap*) 500 mg PO TID [facility] Last Admin: 02/12/19 13:29 Dose: 500 mg Dextrose (D50w Syringe 50 Ml*) 12.5 gm IV PUSH .FOR FS < 60 - SS PRN PRN Reason: FS < 60 Enoxaparin Sodium (Lovenox(*)) 40 mg SUBCUT Q24H [facility] Last Admin: 02/12/19 18:31 Dose: 40 mg Fluoxetine HCl (Prozac Cap*) 20 mg PO DAILY [facility] Last Admin: 02/12/19 08:28 Dose: Not Given Hydralazine HCl (Apresoline Iv*) 5 mg IV SLOW PU Q6H PRN PRN Reason: BLOOD PRESSURE Last Admin: 02/10/19 00:11 Dose: 5 mg Ibuprofen (Motrin Tab*) 600 mg PO Q6H PRN PRN Reason: PAIN Last Admin: 02/12/19 08:10 Dose: 600 mg Insulin Glargine (Lantus(*)) 12 units SUBCUT BEDTIME [facility] Last Admin: 02/11/19 21:09 Dose: 12 unit Insulin Human Lispro (Humalog*) 0 units SUBCUT ACHS [facility]; Protocol Last Admin: 02/12/19 18:31 Dose: 1 unit Lisinopril (Prinivil Tab*) 10 mg PO DAILY [facility] Last Admin: 02/12/19 08:11 Dose: 10 mg Magnesium Oxide (Magox 400 Tab*) 400 mg PO DAILY [facility] Last Admin: 02/12/19 08:11 Dose: 400 mg Melatonin (Melatonin) 3 mg PO BEDTIME [facility] Last Admin: 02/11/19 20:50 Dose: 3 mg Mirtazapine (Remeron Tab*) 15 mg PO BEDTIME [facility] Last Admin: 02/11/19 20:50 Dose: 15 mg Multivitamins/Minerals (Theragran/Minerals Tab*) 1 tab PO DAILY [facility] Last Admin: 02/12/19 08:11 Dose: 1 tab Ondansetron HCl (Zofran Inj*) 4 mg IV Q6H PRN PRN Reason: NAUSEA Last Admin: 02/11/19 10:49 Dose: 4 mg Prochlorperazine Edisylate (Compazine Inj*) 5 mg IV Q6H PRN PRN Reason: NAUSEA/VOMITING Last Admin: 02/11/19 12:25 Dose: 5 mg Rifampin (Rifampin Cap*) 300 mg PO BID [facility] Last Admin: 02/12/19 08:17 Dose: 300 mg Vital Signs - 8 hr 02/12/19 02/12/19 02/12/19 12:22 15:25 15:44 Temperature 97.9 F 98.2 F 98.2 F Pulse Rate 74 73 73 Respiratory 18 20 20 Rate Blood Pressure 121/63 119/64 119/64 (mmHg) O2 Sat by Pulse 94 94 94 Oximetry Oxygen Devices in Use Now: None Appearance: alert, NAD Eyes: No Scleral Icterus, PERRLA Ears/Nose/Mouth/Throat: NL Teeth, Lips, Gums, Mucous Membranes Moist Neck: NL Appearance and Movements; NL JVP, Trachea Midline Respiratory: Symmetrical Chest Expansion and Respiratory Effort, Clear to Auscultation Cardiovascular: NL Sounds; No Murmurs; No JVD, RRR, No Edema Abdominal: NL Sounds; No Tenderness; No Distention Skin: No Rash or Ulcers, No Nodules or Sclerosis Neurological: Alert and Oriented x 3, NL Sensation, NL Muscle Strength and Tone , - - general weakness at baseline Nutrition: Taking PO's Result Diagrams: 02/10/19 05:22 02/11/19 07:01 Additional Lab and Data: Laboratory Results - last 24 hr 02/09/19 02/10/19 02/10/19 20:44 05:22 05:22 WBC 9.5 RBC 4.62 Hgb 10.5 L Hct 33 L MCV 72 L MCH 23 L MCHC 31 RDW 17 H Plt Count 372 MPV 7.9 Neut % (Auto) 71.4 Lymph % (Auto) 15.6 Ford % (Auto) 8.6 Eos % (Auto) 3.4 Baso % (Auto) 1.0 Absolute Neuts (auto) 6.8 Absolute Lymphs (auto) 1.5 Absolute Monos (auto) 0.8 Absolute Eos (auto) 0.3 Absolute Basos (auto) 0.1 Absolute Nucleated RBC 0.0 Nucleated RBC % 0.0 Sodium 140 Potassium 3.1 L Chloride 103 Carbon Dioxide 28 Anion Gap 9 BUN 3 L Creatinine 0.51 Est GFR ( Amer) 145.5 Est GFR (Non-Af Amer) 120.3 BUN/Creatinine Ratio 5.9 L Glucose 101 H POC Glucose (mg/dL) 170 H Calcium 9.1 02/10/19 02/10/19 02/10/19 07:25 11:15 16:36 WBC RBC Hgb Hct MCV MCH MCHC RDW Plt Count MPV Neut % (Auto) Lymph % (Auto) Ford % (Auto) Eos % (Auto) Baso % (Auto) Absolute Neuts (auto) Absolute Lymphs (auto) Absolute Monos (auto) Absolute Eos (auto) Absolute Basos (auto) Absolute Nucleated RBC Nucleated RBC % Sodium Potassium Chloride Carbon Dioxide Anion Gap BUN Creatinine Est GFR ( Amer) Est GFR (Non-Af Amer) BUN/Creatinine Ratio Glucose POC Glucose (mg/dL) 108 H 165 H 167 H Calcium Microbiology and Other Data: Microbiology 02/07/19 13:57 Blood Venous Aerobic Blood Culture - Preliminary No Growth Day 3 02/07/19 13:57 Blood Venous Anaerobic Blood Culture - Preliminary No Growth Day 3 02/07/19 11:03 Blood Venous Aerobic Blood Culture - Preliminary No Growth Day 3 02/07/19 11:03 Blood Venous Anaerobic Blood Culture - Preliminary No Growth Day 3 02/07/19 13:40 Urine Urine Culture - Final Richard Albicans 02/07/19 17:50 Nasal Nasal Screen MRSA (PCR) - Final Mrsa Not Detected Diagnostic Imaging: Patient Name: GILL CHAPA Medical Record#: [id number] Ordering Physician: Alee Sifuentes MD Acct.#: [id number] : 1950 Age: 68 Sex: F Location: [address] [place] [address]/TELEMETRY Exam Date: 02/08/19516 ADM Status: ADM IN Order Information: MRI LUMBAR SPINE W/WO; MRI THORACIC SPINE W/WO Accession Number: [id number]; [id number] CPT: 82225; 12205 Edited for charges. Indication: Altered mental status. Frequent falls. Clinical concern for potential osteomyelitis discitis. Comparison: November 19, 2018 CT thorax. Technique: tritrue [place] 1.5 [place] [id number]. Noncontrast and contrast-enhanced MRI thoracic and lumbar spine. 12 mL ProHance contrast administered IV. Report: Small bilateral dependent pleural effusions. Artifact from multilevel thoracolumbar posterior fusion from T11 through S1. The visualized thoracic spinal cord is normal in morphology and patterns of signal intensity. Corresponding with the regions of erosive change at the T11 and T12 vertebral bodies on CT there is increased T2 signal and corresponding enhancement consistent with osteomyelitis and discitis including surrounding the pedicle screws at both levels. Reference the sagittal T1 postcontrast series there is evidence for circumferential epidural abscess beginning at the level of T9 and extending caudal however metallic artifact from the level of the T11 pedicle screws precludes assessment below the mid T11 level. Resulting partial compression of the thecal sac at the mid T9, T10, and visualized proximal T11 levels. There is anterior and lateral para vertebral inflammatory change in the same cephalocaudal distribution. Diffuse thoracic degenerative spondylosis with small dorsal disc disc osteophyte complexes including at T3-T4, T4-T5, T6-T7, T7-T8 and T9-T10 without significant resulting spinal stenosis. Grade 1 L3-L4 and grade 2 L4-L5 anterolisthesis noted without change compared with the February 07, 2019 CT. Associated uncovering of the intervertebral discs and moderate impression on the ventral margin of the thecal sac at L3-L4 and mild impression on the ventral margin of the thecal sac at L4-L5. At L5 -- S1 a LEFT unilateral foraminal level disc protrusion results in severe foraminal stenosis. IMPRESSION: #. Corresponding with the regions of erosive change at the T11 and T12 vertebral bodies on CT there is increased T2 signal and corresponding enhancement consistent with osteomyelitis and discitis including surrounding the pedicle screws at both levels. #. While detail is limited there is evidence for circumferential epidural abscess beginning at the T9 level extending caudal however metallic artifact from the level of the T11 pedicle screws precludes assessment below the mid T11 level. Resulting partial compression of the thecal sac at the mid T9, T10, and visualized proximal T11 levels. Patient Name: GILL CHAPA Medical Record#: [id number] Ordering Physician: Alee Sifuentes MD Acct.#: [id number] : 1950 Age: 68 Sex: F Location: [address] [place] [address]/TELEMETRY Exam Date: 02/08/19516 ADM Status: ADM IN Order Information: MRI LUMBAR SPINE W/WO; MRI THORACIC SPINE W/WO Accession Number: [id number]; [id number] CPT: 40344; 29245 Edited for charges. Indication: Altered mental status. Frequent falls. Clinical concern for potential osteomyelitis discitis. Comparison: November 19, 2018 CT thorax. Technique: tritrue [place] 1.5 [place] [id number]. Noncontrast and contrast-enhanced MRI thoracic and lumbar spine. 12 mL ProHance contrast administered IV. Report: Small bilateral dependent pleural effusions. Artifact from multilevel thoracolumbar posterior fusion from T11 through S1. The visualized thoracic spinal cord is normal in morphology and patterns of signal intensity. Corresponding with the regions of erosive change at the T11 and T12 vertebral bodies on CT there is increased T2 signal and corresponding enhancement consistent with osteomyelitis and discitis including surrounding the pedicle screws at both levels. Reference the sagittal T1 postcontrast series there is evidence for circumferential epidural abscess beginning at the level of T9 and extending caudal however metallic artifact from the level of the T11 pedicle screws precludes assessment below the mid T11 level. Resulting partial compression of the thecal sac at the mid T9, T10, and visualized proximal T11 levels. There is anterior and lateral para vertebral inflammatory change in the same cephalocaudal distribution. Diffuse thoracic degenerative spondylosis with small dorsal disc disc osteophyte complexes including at T3-T4, T4-T5, T6-T7, T7-T8 and T9-T10 without significant resulting spinal stenosis. Grade 1 L3-L4 and grade 2 L4-L5 anterolisthesis noted without change compared with the February 07, 2019 CT. Associated uncovering of the intervertebral discs and moderate impression on the ventral margin of the thecal sac at L3-L4 and mild impression on the ventral margin of the thecal sac at L4-L5. At L5 -- S1 a LEFT unilateral foraminal level disc protrusion results in severe foraminal stenosis. IMPRESSION: #. Corresponding with the regions of erosive change at the T11 and T12 vertebral bodies on CT there is increased T2 signal and corresponding enhancement consistent with osteomyelitis and discitis including surrounding the pedicle screws at both levels. #. While detail is limited there is evidence for circumferential epidural abscess beginning at the T9 level extending caudal however metallic artifact from the level of the T11 pedicle screws precludes assessment below the mid T11 level. Resulting partial compression of the thecal sac at the mid T9, T10, and visualized proximal T11 levels. Patient Name: GILL CHAPA Medical Record#: [id number] Ordering Physician: Hugo HESS Acct.#: [id number] : 1950 Age: 68 Sex: F Location: [address] [place] [address] MEDICAL/TELEMETRY Exam Date: 02/08/19 111 ADM Status: ADM IN Order Information: MRI BRAIN W/O Accession Number: [id number] CPT: 89008 Indication: Altered mental status change. Osteomyelitis discitis at the thoracic lumbar junction. Comparison: February 07, 2019 CT. Technique: [place] 1.5 [place] [id number]. MRI brain without contrast. Report: DIFFUSION ABNORMALITIES: No evidence for acute or subacute ischemia. 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 CEREBRAL SULCI, VENTRICLES, BASAL CISTERNS: Within normal limits for age. MENINGES: Unremarkable. CEREBRUM: Extensive periventricular and subcortical white matter T2 FLAIR hyperintensities most consistent with chronic small vessel ischemic disease. CEREBELLUM: Unremarkable. BRAINSTEM: T2 hyperintensity within the midbrain and eliane without mass effect likely reflects chronic small vessel ischemic disease. VESSELS: Preserved major intracranial flow-voids. ORBITS: Unremarkable. PARANASAL SINUSES / MASTOIDS: Grossly clear. CALVARIUM AND SKULL BASE: 1.1 cm T1 and T2 hyperintense calvarial lesion at the RIGHT occipital bone is consistent with a benign hemangioma. SCALP: Unremarkable. IMPRESSION: #. No acute intracranial process evident. #. Stigmata of extensive chronic small vessel schema disease. #. Probable sequela of previous punctate hemorrhages related to cavernous angiomas. Assess/Plan/Problems-Billing Assessment: 68 yr old female with pmh dm2, htn, hld, lumbar stenosis, infected surgical wound; admitted due to failure to thrive and sepsis. - Patient Problems (1) Osteomyelitis Code(s): M86.9 - OSTEOMYELITIS, UNSPECIFIED SNOMED Code(s): 80434273 Comment: - MRI consistent for osteomyolitis at T11 and T12 and possible epidural abscess - No surgerical intervention per Dr Marie - ID consulting and has stopped Vanco and Ancef started. Rifampin continued. - As per ID, no PICC at this time, as she will be transitioned to PO atbx with Rifampin only (2) Weakness Code(s): R53.1 - WEAKNESS SNOMED Code(s): 73708938 Comment: - Left sided weakness noted on admission - No focal weakness noted today on assessment - MRI reveals chronic changes - Continue PT (3) Nausea & vomiting Code(s): R11.2 - NAUSEA WITH VOMITING, UNSPECIFIED SNOMED Code(s): 16320900 Comment: - Cotinue PRN zofran, compazine (4) Sepsis Comment: - Tachycardiac and leukocytosis on admission, now resolved - Blood cultures negative - Urine culture revealed richard, treated with short course diflucan (5) Depression Code(s): F32.9 - MAJOR DEPRESSIVE DISORDER, SINGLE EPISODE, UNSPECIFIED SNOMED Code(s): 17580628 Comment: - Recently placed on Remeron for depression and to increase appetite, will continue (6) Diabetes Code(s): E11.9 - TYPE 2 DIABETES MELLITUS WITHOUT COMPLICATIONS SNOMED Code(s) : 89293349 Comment: - Hemoglobin A1c 7.5 - Cont Lantus and sliding scale while hospitalized - Hold Victoza (7) Pain Code(s): R52 - PAIN, UNSPECIFIED SNOMED Code(s): 67715142 Comment: - Cont to hold Tramadol, will restart flexeril for spasms, monitor mental status - Continue Tylenol and Ibuprofen (8) UTI (urinary tract infection) Comment: - More likely contaminant than infection, short course diflucan completed (9) DVT prophylaxis Code(s): UGT5384 - SNOMED Code(s): 906458181 Comment: - Continue Lovenox SQ Status and Disposition: Inpatient. Discharge to [facility] when transitioned to oral atbx, likely tomorrow.
[2019-02-12] MEDS: Melatonin 3 MG TAB PO SCH (21:19)
[2019-02-12] MEDS: Atorvastatin* 40 MG TAB PO SCH (21:19)
[2019-02-12] MEDS: Mirtazapine TAB* 15 MG PO SCH (21:19)
[2019-02-12] MEDS: Insulin GLARGINE(*) 1 UNITS UNIT SUBCUT SCH (21:45)
[2019-02-13] MEDS: Insulin LISPRO* 1 UNITS UNIT SUBCUT SCH ×2 (09:59→12:49)
[2019-02-13] MEDS: Cephalexin CAP* 500 MG PO SCH ×2 (10:29→14:16)
[2019-02-13] MEDS: Lisinopril TAB* 10 MG PO SCH (10:29)
[2019-02-13] MEDS: Acetaminophen TAB* 325 MG PO PRN (10:29)
[2019-02-13] MEDS: FLUoxetine CAP* 20 MG PO SCH (10:30)
[2019-02-13] MEDS: Magnesium Oxide TAB* 400 MG PO SCH (10:30)
[2019-02-13] MEDS: RiFAMPin CAP* 300 MG CAP PO SCH (10:30)
[2019-02-13] MEDS: Carvedilol TAB* 6.25 MG PO SCH (10:30)
[2019-02-13] MEDS: Calcium Carbonate TAB* 1250 MG (CALCIUM 500 MG) PO SCH (10:30)
[2019-02-13] MEDS: Multivitamins/Minerals TAB PO SCH (10:30)
[2019-02-13] MEDS: Aspirin EC TAB* 81 MG TAB.EC PO SCH (10:30)
[2019-02-13] MEDS: Enoxaparin(*) 40 MG/0.4 ML SYR SUBCUT SCH (16:03)
[2019-02-13 16:19] VITALS: BP 160/76
--- NOTE | 2019-02-13 16:31 | DS ---
AMENDED REPORT NOW INCLUDES DESIGNATED COSIGNER - ESIGNED BEFORE ADJUSTMENTS CC: Dr. Lopes, [facility]; Dr. Arpit Kessler, Infectious Disease; Dr. Blanco of Neurosurgery * DISCHARGE SUMMARY: DATE OF ADMISSION: 02/08/19 DATE OF DISCHARGE: 02/13/19 PRIMARY CARE PROVIDER: Dr. Hilda Lopes at [facility]. MY ATTENDING FOR TODAY: Dr. Janae Frausto.* (DICTATED BY ELOISE HOLGUIN, YESSENIA) This Discharge Summary should also serve as the Admission History and Physical for return Admission to [facility] COURSE: Please refer to admitting H and P dated 02/08/19, but in short , Ms. Ta is a 68-year-old female with past medical history significant for scoliosis and lumbar spine stenosis, status post lumbar sacral fusion with subsequent surgical site infection x2 with septic shock, long-term IV antibiotic therapy, diabetes mellitus type 2, mild cognitive deficit, gait dysfunction, and frequent falls. The patient was at [facility], continuing her physical therapy course after her last admission and severe septic shock. When she had been having some increased weakness, she was sent to the emergency department for evaluation. At that time, she was noted to be tachycardic and has some leukocytosis. She was also having some increased confusion which was difficult to assess because she is confused at baseline; however, it seemed that she was word searching and seem more confused than baseline. She also had some left-sided weakness. She was essentially meeting SIRS criteria and then was admitted for further workup. She received fluid boluses. She was still on long-term antibiotics. At that point, it was unclear what the source was. She was initially given ceftriaxone and was continued on rifampin and cephalexin fro her continued spinal infection. Blood cultures were negative. She received CT of the abdomen and pelvis, looking for intraabdominal or GI pathology. Incision over her lumbar spine with fusion did not appear to have any exudate, did not dehisce and there was no drainage. Again, Infectious Disease has been following the patient very closely, so at that time there was not any concern that this was related to her previous spinal infection. In terms of her altered mental status, she does have some waxing and waning, cognitive impairment and she did appear to be at baseline. The CT of the abdomen and pelvis did not show any acute intraabdominal pathology; however, it was noted that she had extensive erosive changes around the pedicle screws around T11-T12 with also multiple areas of bone loss and vertebral bodies with some infiltrative changes in the surrounding anterior paraspinal tissues suggesting osteomyelitis and probable surrounding abscess, possibly related to diskitis. At this point, Dr. Marie from Neurosurgery was called to evaluate the patient also in consultation. She had additional MRIs of the thoracic and lumbar spine on 02/08/19. Lumbar spine MRI showed corresponding with regions of erosive changes at T11 and T12 vertebral bodies on CT. There is increased T2 signal corresponding enhancement consistent with osteomyelitis and diskitis including the surrounding pedicle screws at both levels. Also while the detail is limited, there was evidence for circumferential epidural abscess beginning at the T9 level extending caudal; however, metallic artifacts in the level of the T11 pedicle screws precludes assessment below the mid T11 level, resulting partial compression of the thecal sac of mid T9-T10 and visualized proximal T11 levels. The thoracic spine MRI also concurs with these findings, but did not show any additional changes. The MRI of the brain, which was also performed on 02/08/19 did not show any acute infarct. 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 The patient was seen by Infectious Disease and was followed by neurosurgical service. At that time, it was not felt that the patient required any urgent surgical intervention. It was noted by Neurosurgery that the MRI did show a circumferential infection, but there was no acute drainable collection in the epidural space. She did not have any acute focal neurologic deficits in the form of weakness or loss of gross motor function or sensation. At that time, conservative management with continued antibiotic treatment was selected and recommended. Infectious Disease consultation was also obtained, again noting that this patient has been very closely followed by ID for several months now. She had completed a 56-day course of cefazolin on 01/07/19 and was subsequently placed on Keflex and rifampin for an 8-week-old course which she has been receiving at that half-way. However, the abnormal findings on the MRI are sometimes seen after being treated for osteomyelitis. Evaluation states that this does not necessarily indicate that there is worsening infection, and also CRPs look similar and her leukocytosis had resolved. Primarily, she had been afebrile. There was also some question whether she had urinary tract infection. She was some richard in her urine which was likely contaminant. At this point , the patient responded to antibiotic treatment. She was continued on the Keflex and rifampin. She had a short course of Diflucan for the UTI, was continued on her regular home medications. She has remained afebrile with no alterations in her vital signs, no alterations in her hemodynamics and her laboratories have been within normal range. The patient was cleared by Infectious Disease on the evening of 02/12/19 and today on 02/13/19, she will be transferred back to [facility] for continued management of her physical limitations. She will be encouraged to continue to participate in physical therapy and continue rehabilitation. There will be no further changes in her antibiotic regimens at this time. REVIEW OF SYSTEMS: On day of discharge, the patient denies any fever, fatigue, or chills. No chest pain. No shortness of breath. No nausea or vomiting. She does have some baseline back pain and spasms, which are very well controlled at this time. No urinary complaints. No further arthralgias or myalgias and no further constitutional complaints. PHYSICAL EXAMINATION: Her physical exam today reveals an older female, in no acute distress. Vital Signs are blood pressure 149/69, heart rate 76, respiration rate 18, O2 saturation 96%, temperature of 98.0. HEENT: The patient is atraumatic, normocephalic. PERRLA and nonicteric sclerae. Oral mucosa is moist. Tongue is midline. Neck is supple, nontender. No JVD noted. No carotid bruit auscultated. Cardiovascular: S1, S2 present. No murmurs, gallops, or rubs noted. Rate and rhythm are regular. Lungs are clear bilaterally to auscultation with no wheezing, rhonchi, or rales. Abdomen: Soft , nontender, and nondistended. Positive bowel sounds in all 4 quadrants. : Deferred. Musculoskeletal: There is no clubbing, no cyanosis, no edema. She has +2 distal pulses palpable, full range of motion. Gross motor and sensation are intact. She has some general weakness and requires assistance with ambulation and has baseline gait dysfunction, but no acute changes are noted. Neurologic: She is confused at baseline, but is able to make any needs known, but no other neuro-focalities are noted. Psychiatric: She is cooperative and appropriate. DIAGNOSTIC STUDIES/LAB DATA: Laboratories: WBCs 9.5, RBCs 4.62, hemoglobin 10.5, hematocrit 33, platelets 372. Sodium 141, potassium 3.6, chloride 107, CO2 of 29, BUN 3, creatinine 0.58, GFR 103.7, glucose 84, calcium 9.2. Urinalysis on 02/07/19 showed yellow urine, pH 7.0, specific gravity 1.011, negative for protein, trace ketones, negative for blood, negative for nitrites, negative for bilirubin, 3+ leukocyte esterase, 3+ wbc's, absent rbc's, present squamous epithelial cells, negative bacteria, present yeast, urine glucose was negative. Imaging: MRIs and CAT scans as noted in HPI and hospital course above. DIET: Heart healthy, diabetic as tolerated. ACTIVITY: Progress activity as tolerated. FOLLOWUPS: The patient should follow up with Dr. Kessler of Infectious Disease in the next 1 to [address] Lopes, [employer] at [facility] within week of transfer back to her facility. MEDICATIONS FOR DISCHARGE: Include: 1. Mag-Ox 400 mg p.o. daily. 2. Levemir 15 units at bedtime. 3. Rifampin 300 mg p.o. b.i.d. 4. MiraLAX 17 g daily p.r.n. 5. Zofran 4 mg p.o. q.6 hours as needed. 6. Multivitamin 1 tab daily. 7. Melatonin 3 mg p.o. at bedtime. 8. Atorvastatin 40 mg p.o. at bedtime. 9. Tylenol 650 mg p.o. q.6 hours as needed. 10. Cyclobenzaprine 10 mg p.o. 2 times a day as needed. 11. Keflex 500 mg p.o. 3 times a day. 12. Carvedilol 6.25 mg p.o. 2 times a day. 13. Calcium carbonate 1250 mg p.o. daily. 14. Prinivil 10 mg p.o. daily. 15. Remeron 15 mg p.o. at bedtime. 16. Victoza 1.2 mg subcu daily. 17. Tramadol 50 mg p.o. b.i.d. as needed. 18. Ibuprofen 600 mg p.o. q.6 hours as needed. 19. Fluoxetine 20 mg p.o. daily. 20. Aspirin 81 mg daily. DISPOSITION: The patient was discharged in stable condition to [facility]. All questions were answered. The patient states her understanding within her capacity of her discharge plan. Her family has been informed by case management of discharge plan. TIME SPENT: Forty-five minutes developing discharge plan of care. ELOISE HOLGUIN, SUPERVISOR HEADING [id number]/CPS #: [id number] KYLEE
== END 2019-02-13 17:20 | DRG 559 ==
LOC: ED 09:50 → MEDTELE 15:56 → OBSVTOIN 02-08 15:58 → MED 02-10 07:19
PROVIDERS: ADMIT Internal Medicine; ATTEND Internal Medicine
DX: T84.59XA Infection and inflammatory reaction due to other internal joint prosthesis, initial encounter (principal); G06.2 Extradural and subdural abscess, unspecified; A41.9 Sepsis, unspecified organism; B37.49 Other urogenital candidiasis; M46.24 Osteomyelitis of vertebra, thoracic region; M46.34 Infection of intervertebral disc (pyogenic), thoracic region; I10 Essential (primary) hypertension; F32.9 Major depressive disorder, single episode, unspecified; E78.5 Hyperlipidemia, unspecified; Y79.2 Prosthetic and other implants, materials and accessory orthopedic devices associated with adverse incidents; E11.42 Type 2 diabetes mellitus with diabetic polyneuropathy; M46.47 Discitis, unspecified, lumbosacral region; M17.11 Unilateral primary osteoarthritis, right knee; R40.2362 Coma scale, best motor response, obeys commands, at arrival to emergency department; R40.2142 Coma scale, eyes open, spontaneous, at arrival to emergency department; M46.1 Sacroiliitis, not elsewhere classified; R62.7 Adult failure to thrive; Z66 Do not resuscitate; D18.00 Hemangioma unspecified site; R40.2242 Coma scale, best verbal response, confused conversation, at arrival to emergency department; Z98.1 Arthrodesis status; Y92.9 Unspecified place or not applicable; Z98.51 Tubal ligation status; Z98.42 Cataract extraction status, left eye; Z98.41 Cataract extraction status, right eye; Z83.3 Family history of diabetes mellitus; Z68.22 Body mass index [BMI] 22.0-22.9, adult; R11.2 Nausea with vomiting, unspecified
CPT/HCPCS: 36415; 70450; 70551; 71045; 72157; 72158; 74177; 80048; 80053; 80061; 80202; 81003; 81015; 82140; 82607; 82728; 83036; 83540; 83550; 83605; 83735; 83880; 84484; 85025; 85610; 85730; 86140; 87040; 87086; 87106; 87641; 93005; 99285; A9270-GY; A9579; G8978-GP-CL; G8979-GP-CJ; G8987-GO-CM; G8988-GO-CK; J0360; J0690; J0696; J0780; J1650; J2405; J2543; J3370; J3475; J3480; Q9967

== ENCOUNTER 2019-06-06 16:15 | Emergency (ER) | payer MEDICAID, MEDICARE ==
--- NOTE | 2019-06-06 16:52 | ED ---
Adult Trauma - HPI Summary HPI Summary: This patient is an 69 year old F presenting to [facility] with a chief complaint of fall at 1230. Pt had low blood sugar, felt dizzy and fell. Pt was able to get up , and her leg began to hurt afterwards. She noticed the leg pain at 15:30. Pt reports pain in toes and calf of left leg. She reports no LOC. Pt was recently discharged from hospital on April 15, 2019 and had been hospitalized for 6 months (sepsis and major spinal surgery). Per triage, the patient rates the pain 5/10 in severity. - History of Current Complaint Chief Complaint: EDFall Stated Complaint: FALL PER EMS Time Seen by Provider: 06/06/19 16:37 Hx Obtained From: Patient Mechanism of Injury: Fall Loss of Consciousness: no loss of consciousness Onset/Duration: Started Hours Ago, Still Present Onset of Pain: Hours, Prior to Arrival Onset Severity: Mild Current Severity: Moderate Pain Intensity: 5 Pain Scale Used: 0-10 Numeric Location: Extremities Aggravating Factor(s): Ambulation Alleviating Factor(s): Nothing Associated Signs & Symptoms: Positive: Other: - dizziness, L leg pain - Additional Pertinent History Primary Care Physician: MICHELET - Allergy/Home Medications Allergies/Adverse Reactions: Allergies Allergy/AdvReac Type Severity Reaction Status Date / Time No Known Allergies Allergy Verified 06/06/19 16:26 PMH/Surg Hx/FS Hx/Imm Hx Endocrine/Hematology History: Reports: Hx Diabetes Cardiovascular History: Reports: Hx Hypertension Denies: Hx Pacemaker/ICD, Other Cardiovascular Problems/Disorders Respiratory History: Denies: Other Respiratory Problems/Disorders GI History: Denies: Other GI Disorders History: Denies: Hx Renal Disease Musculoskeletal History: Reports: Hx Arthritis - RIHT KNEE Denies: Other Musculoskeletal History Sensory History: Reports: Hx Cataracts Denies: Hx Contacts or Glasses, Hx Hearing Aid Opthamlomology History: Reports: Hx Cataracts Denies: Hx Contacts or Glasses Neurological History: Reports: 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 [facility] [place] PRINCESS CATARACTS, [place], [facility] [place] LSP FUSION [place] [facility] [place] SPINAL STENOSIS- FUSION 2019 Hx Anesthesia Reactions: No Infectious Disease History: No Infectious Disease History: Denies: Hx Clostridium Difficile, Hx Hepatitis, Hx Human Immunodeficiency Virus (HIV), Hx of Known/Suspected MRSA, Hx Shingles, Hx Tuberculosis, Hx Known/ Suspected VRE, Hx Known/Suspected VRSA, History Other Infectious Disease, Traveled Outside the [place] in Last 30 Days - Family History Known Family History: Positive: Diabetes Negative: Seizure Disorder - Social History Alcohol Use: Rare Alcohol Amount: 2 PER WEEK Substance Use Type: Reports: None Substance Use Comment - Amount & Last Used: rare Hx Tobacco Use: No Smoking Status (MU): Never Smoked Tobacco Have You Smoked in the Last Year: No Review of Systems Positive: Other - L leg pain Neurological: Other - pos - dizziness All Other Systems Reviewed And Are Negative: Yes Physical Exam - Summary Physical Exam Summary: Appearance: The patient is well-nourished in no acute distress and in no acute pain. Skin: The skin is warm and dry, and skin color reflects adequate perfusion. HEENT: The head is normocephalic and atraumatic. The pupils are equal and reactive. The conjunctivae are clear and without drainage. Nares are patent and without drainage. Mouth reveals moist mucous membranes, and the throat is without erythema and exudate. The external ears are intact. The ear canals are patent and without drainage. The tympanic membranes are intact. Neck: The neck is supple with full range of motion and non-tender. There are no carotid bruits. There is no neck vein distension. Respiratory: Chest is non-tender. Lungs are clear to auscultation and breath sounds are symmetrical and equal. Cardiovascular: Heart is regular rate and rhythm. There is no murmur or rub auscultated. There is no peripheral edema and pulses are symmetrical and equal. Abdomen: The abdomen is soft and non-tender. There are normal bowel sounds heard in all four quadrants and there is no organomegaly palpated. Musculoskeletal: There is no back tenderness noted. There is good capillary refill. There is no peripheral edema. Tender to proximal fibular area, slight ecchymosis on lateral foot MPJ area. Neurological: Patient is alert and oriented to person, place and time. The patient has symmetrical motor strength in all four extremities. Cranial nerves are grossly intact. Deep tendon reflexes are symmetrical and equal in all four extremities. Psychiatric: The patient has an appropriate affect and does not exhibit any anxiety or depression. Triage Information Reviewed: Yes Vital Signs On Initial Exam: Initial Vitals Pulse Pulse Ox 82 97 06/06/19 16:21 06/06/19 16:21 Vital Signs Reviewed: Yes Diagnostics - Vital Signs Vital Signs Temp Pulse Resp BP Pulse Ox 06/06/19 16:22 98.3 F 83 16 163/88 98 06/06/19 16:21 82 97 - Laboratory Result Diagrams: 06/06/19 17:13 06/06/19 17:13 Lab Statement: Any lab studies that have been ordered have been reviewed, and results considered in the medical decision making process. - Radiology Lower Extremity X-Ray Radiology Interpretation Completed By: Radiologist Summary of Radiographic Findings: Lower Extremity X-Ray reveals, per radiologist , IMPRESSION: No fracture of the left lower leg is noted. ED physician has reviewed this radiology report. Foot X-Ray Radiology Interpretation Completed By: Radiologist Summary of Radiographic Findings: Foot X-Ray reveals, per radiologist, IMPRESSION: There appears to be fractures of the head of the fourth and fifth metatarsal. Diffuse osteopenia is noted. ED physician has reviewed this radiology report. - EKG 1733 Cardiac Rate: NL EKG Rhythm: Sinus Rhythm Summary of EKG Findings: An EKG at 17:33 reveals Normal sinus rhythm 77 BPM, normal ST, no ectopy, no STEMI Re-Evaluation - Re-Evaluation First Eval Re-Evaluation Time: 18:09 Comment: Discussed results with pt. Adult Trauma Course/Dx - Course Course Of Treatment: Ms. Ta presented minimizing the fact that she felt dizzy and fell today. Her major concern was that her foot and lower leg hurt. She did allow me to draw some blood and keep her on the monitor and these were unremarkable. She was found to have fractures in the proximal fourth and fifth metatarsals. I reviewed the findings with Dr. Williamson who recommended a cam boot and nonweightbearing. Patient is unable to use crutches but does use a walker at home and was able to ambulate without pain using the walker and the cam boot. She will follow-up this week with orthopedics. She attributes the fall to hypoglycemia. After the fall she got up and ambulated normally. She took a nap and then came into the hospital because her legs still hurt. - Diagnoses Provider Diagnoses: Foot fracture - Physician Notifications Discussed Care Of Patient With: Sri Williamson Time Discussed With Above Provider: 18:55 Instructed by Provider To: Other - Reccomends a boot and discharge. Discharge ED - Sign-Out/Discharge Documenting (check all that apply): Patient Departure - Discharge Patient Received Moderate/Deep Sedation with Procedure: No - Discharge Plan Condition: Stable Disposition: HOME Patient Education Materials: Foot Fracture in Adults (ED) Referrals: Jolene Maier MD [Medical Doctor] - 3 Days Sri Williamson MD [Medical Doctor] - 3 Days Additional Instructions: Follow up with Dr. Williamson within the week. RETURN TO THE ED FOR ANY NEW OR WORSENING SYMPTOMS. - Billing Disposition and Condition Condition: STABLE Disposition: Home - Attestation Statements Document Initiated by Xiibe: Yes Documenting Scribe: Janae Cruz Provider For Whom Scribe is Documenting (Include Credential): Jose Rosas MD Scribe Attestation: Janae Greco scribed for Jose Rosas MD on 06/07/19 at 0850. Scribe Documentation Reviewed: Yes Provider Attestation: The documentation as recorded by the Janae oliveira accurately reflects the service I personally performed and the decisions made by Jose dodge MD Status of Scribe Document: Viewed
[2019-06-06 17:19] LABS: ABS Basophils 0.1 10^3/ul (0-0.2); ABS Eosinophils 0.2 10^3/ul (0-0.6); ABS Lymphocytes 1.7 10^3/ul (1.0-4.8); ABS Monocytes 0.9 10^3/ul (0-0.8); ABS Neutrophils 8.8 10^3/ul (1.5-7.7); Eosinophil % 1.5 %; Hematocrit 35 % (35-47); Hemoglobin 11.2 g/dL (12.0-16.0); Lymphocyte % 14.9 %; Mean Corpuscular HGB Conc 32 g/dL (31-36); Mean Corpuscular Hemoglobin 24 pg (27-31); Mean Corpuscular Volume 75 fL (80-97); Mean Platelet Volume 7.5 fL (7.4-10.4); Platelet Count 286 10^3/uL (150-450); Red Cell Distribution Width 17 % (10-15); White Blood Count 11.7 10^3/uL (3.5-10.8)
[2019-06-06] MEDS ORDERED: Acetaminophen TAB* 325 MG PO ONE (17:33)
[2019-06-06 17:37] LABS: Albumin 3.7 g/dL (3.2-5.2); Albumin/Globulin Ratio 1.5 (1-3); BUN/Creatinine Ratio 34.7 (8-20); Calcium 9.6 mg/dL (8.6-10.3); EGFR Non-African American 76.8 (>60); Globulin 2.4 g/dL (2-4); Magnesium 1.9 mg/dL (1.9-2.7); Potassium 4.3 mmol/L (3.5-5.0); Total Bilirubin 0.2 mg/dL (0.2-1.0); Total Protein 6.1 g/dL (6.4-8.9)
[2019-06-06 17:38] LABS: Troponin I 0.01 ng/mL (<0.04)
[2019-06-06 18:34] LABS: TSH (Thyroid Stimulating Horm) 1.67 mcIU/mL (0.34-5.60)
[2019-06-06 22:12] VITALS: BP 120/76
== END 2019-06-06 22:11 | disposition home or self-care (01) ==
LOC: ED 16:15
DX: S92.345A Nondisplaced fracture of fourth metatarsal bone, left foot, initial encounter for closed fracture (principal); S92.355A Nondisplaced fracture of fifth metatarsal bone, left foot, initial encounter for closed fracture; W18.30XA Fall on same level, unspecified, initial encounter; Y92.9 Unspecified place or not applicable; M85.872 Other specified disorders of bone density and structure, left ankle and foot; R42 Dizziness and giddiness; E11.40 Type 2 diabetes mellitus with diabetic neuropathy, unspecified; I10 Essential (primary) hypertension; Z98.1 Arthrodesis status
CPT/HCPCS: 36415; 80053; 83605; 83735; 84443; 84484; 85025; 93005; 99284; A9270-GY

== ENCOUNTER 2021-02-28 10:55 | Observation (INO) ==
[~2021-02-28 10:55] MED LIST changes: +Buffered Lidocaine 1% SYRIN 1 ml INTRADERM ONE; -Buffered Lidocaine 1% SYRIN* 1 ML/SYRINGE INTRADERM ONE; +Famotidine IV 10 MG/ML 2 ml VIAL (20 mg) IV ONE; +Famotidine IV 10 MG/ML 2 ml VIAL (20 mg) ONE; +Lactated Ringers 1000 ml BAG 1,000 ML IV SCH; +Metoclopramide 5 MG/ML VIAL (10 mg) IV SLOW PU ONE; +Metoclopramide 5 MG/ML VIAL (10 mg) ONE; +ceFAZolin 2 GM PREMIX 2 GM/50 ML BAG ONE
[2021-02-28] MEDS ORDERED: Ropivacaine 5 MG/ML 20 ML VIAL 0.5% (100 MG) ONE (11:54)
[2021-02-28] MEDS ORDERED: Midazolam 2 mg/2 ml VIAL 1 mg/ml 2 ml VIAL (2 mg) ONE (12:01)
[2021-02-28] MEDS ORDERED: fentaNYL 100 mcg/2 ml 50 MCG/ML VIAL ONE (12:01)
[2021-02-28] MEDS ORDERED: Glycopyrrolate IV 0.2 MG/ML 1 ML VIAL ONE (12:01)
[2021-02-28] MEDS ORDERED: Lidocaine 1% MPF 5 ML VIAL ONE (12:08)
[2021-02-28] MEDS ORDERED: ROPIVACAINE 5 MG/ML 30 ML BTL (0.5%) ONE (12:08)
[2021-02-28] MEDS ORDERED: Propofol 10 MG/ML 20 ML BTL ONE (12:15)
[2021-02-28] MEDS ORDERED: Rocuronium 50 mg VIAL 10 mg/ml 5 ml VIAL (50 mg) ONE ×2 (12:15→12:16)
[2021-02-28] MEDS ORDERED: Phenylephrine 40 mcg/mL 10mL (400mcg) SYRINGE ONE (12:18)
[2021-02-28] MEDS ORDERED: Naloxone 0.4 mg VIAL 0.4 mg/ml 1 ml VIAL IV PRN (14:08)
[2021-02-28] MEDS ORDERED: HYDROmorphone 1 MG/1 ML SYRINGE IV PRN (14:14)
[2021-02-28] MEDS ORDERED: DiMENhydriNATE IV 50 mg/ml 1 ml VIAL IV PUSH PRN (14:14)
[2021-02-28] MEDS ORDERED: fentaNYL 100 mcg/2 ml 50 MCG/ML VIAL IV PRN (14:14)
[2021-02-28] MEDS ORDERED: Ondansetron 4 mg VIAL 2 MG/ML 2 ml VIAL ONE (14:15)
[2021-02-28] MEDS ORDERED: Acetaminophen IV 1 GM/100ML 100 ML ONE (14:15)
[2021-02-28] MEDS ORDERED: HYDROmorphone 1 MG/1 ML SYRINGE ONE ×2 (14:27→14:50)
[2021-02-28] MEDS ORDERED: Lidocaine 2% PF 5 ML VIAL ONE (14:43)
[2021-02-28] MEDS ORDERED: Morphine 2 MG/ML SYRINGE IV PRN (15:21)
[2021-02-28] MEDS ORDERED: diPHENhydraMINE 25 mg TAB PO PRN (15:21)
[2021-02-28] MEDS ORDERED: Magnesium Hydroxide LIQ 30 ML UDC PO PRN (15:21)
[2021-02-28] MEDS ORDERED: Ondansetron 4 mg VIAL 2 MG/ML 2 ml VIAL IV PRN (15:21)
[2021-02-28] MEDS ORDERED: diPHENhydraMINE IV 50 MG/ML 1 ml VIAL (BENADRYL) IV PRN (15:21)
[2021-02-28] MEDS ORDERED: oxyCODONE/Acetamin 5/325 mg TAB PO PRN (15:21)
[2021-02-28] MEDS ORDERED: Lactulose 30 ml UDC PO PRN (15:21)
[2021-02-28] MEDS ORDERED: Ondansetron ODT 4 mg TAB 4 MG TAB PO PRN (15:21)
[2021-02-28] MEDS ORDERED: Dextrose 50% Syringe 50 ml 25 GM/50 ML SYRINGE IV PUSH PRN (15:44)
[2021-02-28] MEDS ORDERED: Insulin ISOPH/REG 70/30 SUBCUT SCH (17:00)
[2021-02-28] MEDS: Lactated Ringers 1000 ml BAG 1,000 ML IV SCH (17:12)
[2021-02-28] MEDS: Insulin ISOPH/REG 70/30 SUBCUT SCH (17:50)
[2021-02-28] MEDS: Magnesium Hydroxide LIQ 30 ML UDC PO SCH (20:35)
[2021-02-28] MEDS: ceFAZolin 1 GM ADVAN 1 GM in NS 0.9% 50 ML 50 ML IVPB SCH (20:35)
[2021-03-01] MEDS: oxyCODONE/Acetamin 5/325 mg TAB PO PRN ×2 (05:01→08:45)
[2021-03-01] MEDS: Lactated Ringers 1000 ml BAG 1,000 ML IV SCH (05:01)
[2021-03-01] MEDS: ceFAZolin 1 GM ADVAN 1 GM in NS 0.9% 50 ML 50 ML IVPB SCH ×2 (05:01→12:50)
[2021-03-01 05:53] LABS: Hematocrit 34 % (35-47); Hemoglobin 10.8 g/dL (12.0-16.0); Platelet Count 202 10^3/uL (150-450)
[2021-03-01 06:08] LABS: EGFR African American 69.7 (>60); EGFR Non-African American 57.6 (>60); Potassium 4.1 mmol/L (3.5-5.0)
[2021-03-01] MEDS ORDERED: Insulin ISOPH/REG 70/30 SUBCUT SCH ×2 (08:00)
[2021-03-01] MEDS: Magnesium Hydroxide LIQ 30 ML UDC PO SCH (08:17)
[2021-03-01] MEDS ORDERED: Vitamin THERAPEUTIC TAB PO SCH (09:00)
[2021-03-01 16:02] VITALS: BP 144/67
[2021-03-01] MEDS: Insulin ISOPH/REG 70/30 SUBCUT SCH (16:45)
== END 2021-03-01 17:40 | disposition home or self-care (01) ==
LOC: INTOOBSV 10:55 → AA 10:55 → SSU 16:59 → UNDODISOB 03-01 14:45
PROVIDERS: ADMIT Orthopaedic Surgery Adult Reconstructive Orthopaedic Surgery; ATTEND Orthopaedic Surgery Adult Reconstructive Orthopaedic Surgery

== ENCOUNTER 2021-03-02 00:55 | Inpatient (IN) ==
[2021-03-02] MEDS ORDERED: Ondansetron 4 mg VIAL 2 MG/ML 2 ml VIAL IV ONE (01:21)
[2021-03-02] MEDS ORDERED: NS 0.9% 1000 ml BAG 1,000 ML IV ONE (01:21)
[2021-03-02] MEDS ORDERED: Morphine 4 MG/ML VIAL (1 ml) IV ONE (01:21)
[2021-03-02 01:43] LABS: ABS Basophils 0.1 10^3/ul (0-0.2); ABS Eosinophils 0.1 10^3/ul (0-0.6); ABS Lymphocytes 1.3 10^3/ul (1.0-4.8); ABS Monocytes 1.5 10^3/ul (0-0.8); ABS Neutrophils 13.4 10^3/ul (1.5-7.7); Eosinophil % 0.5 %; Hematocrit 36 % (35-47); Hemoglobin 11.7 g/dL (12.0-16.0); Lymphocyte % 7.9 %; Mean Corpuscular HGB Conc 32 g/dL (31-36); Mean Corpuscular Hemoglobin 27 pg (27-31); Mean Corpuscular Volume 84 fL (80-97); Mean Platelet Volume 8.9 fL (7.4-10.4); Platelet Count 230 10^3/uL (150-450); Red Blood Count 4.32 10^6 /uL (3.70-4.87); Red Cell Distribution Width 15 % (10-15); White Blood Count 16.4 10^3/uL (3.5-10.8)
[2021-03-02] MEDS ORDERED: ceFAZolin 1 GM ADVAN 1 GM in NS 0.9% 50 ML 50 ML IVPB ONE (02:07)
[2021-03-02] MEDS ORDERED: HYDROmorphone 0.5 MG/0.5 ML SYRINGE IV ONE (02:08)
[2021-03-02 02:09] LABS: C Reactive Protein 54.68 mg/L (<8.01); Calcium 8.8 mg/dL (8.6-10.3); EGFR African American 98.8 (>60); EGFR Non-African American 81.6 (>60); Potassium 3.9 mmol/L (3.5-5.0)
[2021-03-02] MEDS ORDERED: ceFAZolin 1 GM ADVAN 1 GM ADDV.VIAL IVPB ONE (02:57)
[2021-03-02 02:58] LABS: Erythrocyte Sed Rate 21 mm/Hr (0-29)
[2021-03-02] MEDS ORDERED: Morphine 10 MG/ML VIAL (1 ml) IV PRN (07:55)
[2021-03-02] MEDS ORDERED: ESTRADIOL TOPICAL SCH (08:15)
[2021-03-02] MEDS ORDERED: NON FORMULARY MED (Potassium 99 mg Tablet) PO SCH (09:00)
[2021-03-02] MEDS ORDERED: Dextrose 50% Syringe 50 ml 25 GM/50 ML SYRINGE IV PUSH PRN (10:29)
[2021-03-02] MEDS ORDERED: Ondansetron 4 mg VIAL 2 MG/ML 2 ml VIAL IV PRN (10:57)
[2021-03-02 11:08] LABS: Albumin 3.9 g/dL (3.2-5.2); Albumin/Globulin Ratio 1.6 (1-3); Globulin 2.4 g/dL (2-4); Indirect Bilirubin 0.3 mg/dL (0.3-1.0); Total Bilirubin 0.4 mg/dL (0.2-1.0); Total Protein 6.3 g/dL (6.4-8.9)
[2021-03-02 12:35] LABS: Urine Appearance Clear; Urine Bilirubin Negative (Negative); Urine Blood Negative (Negative); Urine Color Straw; Urine Glucose 2+(150 mg/dL) (Negative); Urine Ketones Negative (Negative); Urine Nitrite Negative (Negative); Urine Protein Negative (Negative); Urine Urobilinogen Negative (Negative)
[2021-03-02] MEDS: Insulin ISOPH/REG 70/30 SUBCUT SCH (17:04)
[2021-03-02] MEDS ORDERED: Coenzyme Q10 CAP (NF) ** ENTER STREGNTH IN LABEL DIRECTIONS PO SCH (18:00)
[2021-03-02] MEDS ORDERED: ALPHA LIPOIC ACID 200 MG PO SCH (18:00)
[2021-03-03 04:46] LABS: ABS Basophils 0.1 10^3/ul (0-0.2); ABS Eosinophils 0.1 10^3/ul (0-0.6); ABS Lymphocytes 1.1 10^3/ul (1.0-4.8); ABS Monocytes 1.3 10^3/ul (0-0.8); ABS Neutrophils 10.7 10^3/ul (1.5-7.7); Eosinophil % 0.5 %; Hematocrit 30 % (35-47); Hemoglobin 9.7 g/dL (12.0-16.0); Lymphocyte % 8.1 %; Mean Corpuscular HGB Conc 32 g/dL (31-36); Mean Corpuscular Hemoglobin 27 pg (27-31); Mean Corpuscular Volume 85 fL (80-97); Mean Platelet Volume 9.1 fL (7.4-10.4); Platelet Count 205 10^3/uL (150-450); Red Blood Count 3.59 10^6 /uL (3.70-4.87); Red Cell Distribution Width 15 % (10-15); White Blood Count 13.1 10^3/uL (3.5-10.8)
[2021-03-03 05:05] LABS: Calcium 8.4 mg/dL (8.6-10.3); EGFR African American 124.7 (>60); EGFR Non-African American 103.1 (>60)
[2021-03-03] MEDS: Insulin ISOPH/REG 70/30 SUBCUT SCH ×2 (10:18→17:40)
[2021-03-04 04:57] LABS: ABS Basophils 0.1 10^3/ul (0-0.2); ABS Eosinophils 0.1 10^3/ul (0-0.6); ABS Lymphocytes 1.1 10^3/ul (1.0-4.8); ABS Monocytes 0.9 10^3/ul (0-0.8); Eosinophil % 1.2 %; Hematocrit 32 % (35-47); Hemoglobin 10.1 g/dL (12.0-16.0); Mean Corpuscular HGB Conc 32 g/dL (31-36); Mean Corpuscular Hemoglobin 27 pg (27-31); Mean Corpuscular Volume 85 fL (80-97); Mean Platelet Volume 9.1 fL (7.4-10.4); Nucleated Red Blood Cells % 0.1; Platelet Count 221 10^3/uL (150-450); Red Blood Count 3.72 10^6 /uL (3.70-4.87); Red Cell Distribution Width 15 % (10-15); White Blood Count 12.1 10^3/uL (3.5-10.8)
[2021-03-04 05:16] LABS: Calcium 8.6 mg/dL (8.6-10.3); EGFR African American 88.6 (>60); EGFR Non-African American 73.2 (>60); Potassium 4.3 mmol/L (3.5-5.0)
[2021-03-04] MEDS: Insulin ISOPH/REG 70/30 SUBCUT SCH ×2 (08:53→18:27)
[2021-03-04] MEDS ORDERED: Magnesium Hydroxide LIQ 30 ML UDC PO PRN (17:15)
[2021-03-04] MEDS ORDERED: Senna TAB 8.6 mg TAB PO PRN (17:15)
[2021-03-04] MEDS ORDERED: Polyethylene Glycol 3350 17 GM PACKET PO PRN (17:15)
[2021-03-05] MEDS: Insulin ISOPH/REG 70/30 SUBCUT SCH ×2 (09:52→18:01)
[2021-03-06] MEDS: Insulin ISOPH/REG 70/30 SUBCUT SCH (08:43)
[2021-03-06 11:17] VITALS: BP 146/72
== END 2021-03-06 12:36 | DRG 948 ==
LOC: ED 00:55 → SSU 07:38
PROVIDERS: ADMIT Orthopaedic Surgery; ATTEND Orthopaedic Surgery Adult Reconstructive Orthopaedic Surgery

== ENCOUNTER 2021-07-05 07:30 | Inpatient (IN) ==
[~2021-07-05 07:30] MED LIST changes: +Bupivacaine 0.5% SDV PF 30ML VIAL ONE; +Dexamethasone IV 4 MG/ML VIAL 1 ml VIAL ONE; -Famotidine IV 10 MG/ML 2 ml VIAL (20 mg) IV ONE; -Famotidine IV 10 MG/ML 2 ml VIAL (20 mg) ONE; +Lidocaine 2% PF 5 ML VIAL ONE; -Metoclopramide 5 MG/ML VIAL (10 mg) IV SLOW PU ONE; -Metoclopramide 5 MG/ML VIAL (10 mg) ONE; +Midazolam 2 mg/2 ml VIAL 1 mg/ml 2 ml VIAL (2 mg) ONE; +Rocuronium 50 mg VIAL 10 mg/ml 5 ml VIAL (50 mg) ONE; -ceFAZolin 2 GM PREMIX 2 GM/50 ML BAG ONE; +fentaNYL 100 mcg/2 ml 50 MCG/ML VIAL ONE
[2021-07-25] MEDS ORDERED: Naloxone 0.4 mg VIAL 0.4 mg/ml 1 ml VIAL IV PRN (10:53)
[2021-07-25] MEDS ORDERED: Metoclopramide 5 MG/ML VIAL (10 mg) IV PRN (10:53)
[2021-07-25] MEDS ORDERED: Ondansetron 4 mg VIAL 2 MG/ML 2 ml VIAL IV PRN (10:53)
[2021-07-25] MEDS ORDERED: DiMENhydriNATE IV 50 mg/ml 1 ml VIAL IV PUSH ONE (10:53)
[2021-07-25] MEDS ORDERED: Buffered Lidocaine 1% SYRIN 1 ml INTRADERM ONE (10:53)
[2021-07-25] MEDS ORDERED: Lactated Ringers 1000 ml BAG 1,000 ML IV SCH (11:00)
[2021-07-26] MEDS ORDERED: Midazolam 2 mg/2 ml VIAL 1 mg/ml 2 ml VIAL (2 mg) ONE (11:14)
[2021-07-26] MEDS ORDERED: DiMENhydriNATE IV 50 mg/ml 1 ml VIAL ONE (12:19)
[2021-07-26] MEDS ORDERED: ceFAZolin 2 GM in NS PREMIX 2 GM/100 ML BAG IVPB ONE (12:19)
[2021-07-26] MEDS ORDERED: fentaNYL 100 mcg/2 ml 50 MCG/ML VIAL ONE ×3 (12:38→17:35)
[2021-07-26] MEDS ORDERED: Bupivacaine 0.5% SDV PF 30ML VIAL ONE (12:39)
[2021-07-26] MEDS ORDERED: Dexamethasone IV 4 MG/ML VIAL 1 ml VIAL ONE ×2 (12:39→13:28)
[2021-07-26] MEDS ORDERED: fentaNYL 250 mcg/5 ml 50 MCG/ML 5 ml VIAL (250 MCG) ONE (13:28)
[2021-07-26] MEDS ORDERED: Ondansetron 4 mg VIAL 2 MG/ML 2 ml VIAL ONE (13:28)
[2021-07-26] MEDS ORDERED: Propofol 10 MG/ML 20 ML BTL ONE (13:28)
[2021-07-26] MEDS ORDERED: Lidocaine 2% PF 5 ML VIAL ONE (13:28)
[2021-07-26] MEDS ORDERED: Ropivacaine 5 MG/ML 20 ML VIAL 0.5% (100 MG) ONE (13:36)
[2021-07-26] MEDS ORDERED: EPHEDrine (Pressors) 50 MG/ML VIAL ONE (14:36)
[2021-07-26] MEDS ORDERED: diPHENhydraMINE IV 50 MG/ML 1 ml VIAL (BENADRYL) IV PRN (15:27)
[2021-07-26] MEDS ORDERED: diPHENhydraMINE 25 mg TAB PO PRN (15:27)
[2021-07-26] MEDS ORDERED: Morphine 2 MG/ML SYRINGE IV PRN (15:27)
[2021-07-26] MEDS ORDERED: Magnesium Hydroxide LIQ 30 ML UDC PO PRN (15:27)
[2021-07-26] MEDS ORDERED: Ondansetron ODT 4 mg TAB 4 MG TAB PO PRN (15:27)
[2021-07-26] MEDS ORDERED: Ondansetron 4 mg VIAL 2 MG/ML 2 ml VIAL IV PRN (15:27)
[2021-07-26] MEDS ORDERED: Lactulose 30 ml UDC PO PRN (15:27)
[2021-07-26] MEDS ORDERED: NON FORMULARY MED (Semaglutide [Ozempic] 0.25 mg or 0.5 mg(2 mg/1.5 mL) Pen Injector) SUBCUT SCH (15:45)
[2021-07-26] MEDS ORDERED: HYDROmorphone 1 MG/1 ML SYRINGE ONE (16:17)
[2021-07-26] MEDS: fentaNYL 100 mcg/2 ml 50 MCG/ML VIAL IV PRN ×8 (17:08→17:45)
[2021-07-26] MEDS ORDERED: HYDROcodone/ACETAMIN 5/325 mg TAB ONE (17:19)
[2021-07-26] MEDS: HYDROcodone/ACETAMIN 5/325 mg TAB PO PRN ×2 (17:34→17:45)
[2021-07-26] MEDS ORDERED: INSULIN ASPART PROTAMINE SUBCUT SCH (18:00)
[2021-07-26] MEDS ORDERED: INSULIN ASPART SUBCUT SCH (18:00)
[2021-07-26] MEDS ORDERED: [UNRECOGNIZED DRUG - OTHER] SUBCUT SCH (18:00)
[2021-07-26] MEDS ORDERED: Dextrose 50% Syringe 50 ml 25 GM/50 ML SYRINGE IV PUSH PRN (18:10)
[2021-07-26] MEDS: Lactated Ringers 1000 ml BAG 1,000 ML IV SCH (18:32)
[2021-07-26] MEDS: Magnesium Hydroxide LIQ 30 ML UDC PO SCH (21:30)
[2021-07-26] MEDS: ceFAZolin 1 GM ADVAN 1 GM in NS 0.9% 50 ML 50 ML IVPB SCH (23:41)
[2021-07-27] MEDS: Lactated Ringers 1000 ml BAG 1,000 ML IV SCH (04:47)
[2021-07-27] MEDS: ceFAZolin 1 GM ADVAN 1 GM in NS 0.9% 50 ML 50 ML IVPB SCH ×2 (06:06→13:28)
[2021-07-27 06:21] LABS: Hematocrit 33 % (35-47); Hemoglobin 10.5 g/dL (12.0-16.0); Mean Platelet Volume 8.9 fL (7.4-10.4); Platelet Count 250 10^3/uL (150-450)
[2021-07-27 06:51] LABS: Calcium 8.9 mg/dL (8.6-10.3)
[2021-07-27 06:54] LABS: Potassium 5.2 mmol/L (3.5-5.0)
[2021-07-27] MEDS: Magnesium Hydroxide LIQ 30 ML UDC PO SCH (08:08)
[2021-07-27] MEDS ORDERED: INSULIN ASPART SUBCUT SCH (09:00)
[2021-07-27] MEDS ORDERED: INSULIN ASPART PROTAMINE SUBCUT SCH (09:00)
[2021-07-27] MEDS ORDERED: [UNRECOGNIZED DRUG - OTHER] SUBCUT SCH (09:00)
[2021-07-27] MEDS ORDERED: Vitamin THERAPEUTIC TAB PO SCH (09:00)
[2021-07-27 12:03] VITALS: BP 130/60
== END 2021-07-27 14:43 | disposition swing bed (61) | DRG 470 ==
LOC: AA 07-26 11:34 → SSU 07-26 18:24
PROVIDERS: ADMIT Orthopaedic Surgery Adult Reconstructive Orthopaedic Surgery; ATTEND Orthopaedic Surgery Adult Reconstructive Orthopaedic Surgery

== ENCOUNTER 2021-07-27 14:44 | Inpatient (IN) ==
[2021-07-27] MEDS ORDERED: Dextrose 50% Syringe 50 ml 25 GM/50 ML SYRINGE IV PUSH PRN ×2 (15:42→15:49)
[2021-07-27] MEDS ORDERED: diPHENhydraMINE 25 mg TAB PO PRN (15:47)
[2021-07-27] MEDS ORDERED: diPHENhydraMINE IV 50 MG/ML 1 ml VIAL (BENADRYL) SLOW PUSH PRN (15:48)
[2021-07-27] MEDS ORDERED: Morphine 2 MG/ML SYRINGE IV PRN (15:50)
[2021-07-27] MEDS ORDERED: Ondansetron 4 mg VIAL 2 MG/ML 2 ml VIAL IV PRN (15:50)
[2021-07-27] MEDS: Lactulose 30 ml UDC PO SCH (21:16)
[2021-07-27] MEDS: Magnesium Hydroxide LIQ 30 ML UDC PO SCH (21:16)
[2021-07-27 23:54] LABS: Urine Appearance Clear; Urine Bilirubin Negative (Negative); Urine Blood Negative (Negative); Urine Color Straw; Urine Glucose 2+(150 mg/dL) (Negative); Urine Ketones Negative (Negative); Urine Nitrite Negative (Negative); Urine Protein Negative (Negative); Urine Specific Gravity 1.006 (1.002-1.030); Urine Urobilinogen Negative (Negative)
[2021-07-28] MEDS: Vitamin THERAPEUTIC TAB PO SCH (08:59)
[2021-07-28] MEDS ORDERED: Pneumococcal Vac 23-Polyvalent IM ONE (09:00)
[2021-07-28] MEDS: Lactulose 30 ml UDC PO SCH ×2 (10:05→23:28)
[2021-07-28] MEDS: Magnesium Hydroxide LIQ 30 ML UDC PO SCH ×2 (10:06→23:28)
[2021-07-28 11:03] LABS: Hematocrit 33 % (35-47); Hemoglobin 10.5 g/dL (12.0-16.0); Mean Platelet Volume 8.5 fL (7.4-10.4); Platelet Count 245 10^3/uL (150-450)
[2021-07-28 11:13] LABS: Calcium 8.7 mg/dL (8.6-10.3); Potassium 3.7 mmol/L (3.5-5.0)
[2021-07-28] MEDS: Acetaminophen IV 1 GM/100ML 100 ML IV PRN (22:52)
[2021-07-29] MEDS: Vitamin THERAPEUTIC TAB PO SCH (10:45)
[2021-07-29] MEDS: Insulin GLARGINE 100 un/ml 10 ml VIAL SUBCUT SCH (10:47)
[2021-07-29 10:50] LABS: Hematocrit 29 % (35-47); Hemoglobin 9.4 g/dL (12.0-16.0); Mean Platelet Volume 9.1 fL (7.4-10.4); Platelet Count 210 10^3/uL (150-450)
[2021-07-29] MEDS: Lactulose 30 ml UDC PO SCH ×2 (11:05→21:02)
[2021-07-29] MEDS: Magnesium Hydroxide LIQ 30 ML UDC PO SCH ×2 (11:06→21:02)
[2021-07-29 15:28] LABS: Rapid COVID-19 Molecular Undetected (Undetected)
[2021-07-30] MEDS: Acetaminophen IV 1 GM/100ML 100 ML IV PRN (01:43)
[2021-07-30 06:07] LABS: Hematocrit 26 % (35-47); Hemoglobin 8.4 g/dL (12.0-16.0); Mean Platelet Volume 8.9 fL (7.4-10.4); Platelet Count 210 10^3/uL (150-450)
[2021-07-30] MEDS: Vitamin THERAPEUTIC TAB PO SCH (08:07)
[2021-07-30] MEDS: Insulin GLARGINE 100 un/ml 10 ml VIAL SUBCUT SCH (08:10)
[2021-07-30] MEDS: Lactulose 30 ml UDC PO SCH ×2 (08:11→21:04)
[2021-07-30] MEDS: Magnesium Hydroxide LIQ 30 ML UDC PO SCH ×2 (08:11→21:04)
[2021-07-31 07:26] LABS: Hematocrit 26 % (35-47); Hemoglobin 8.4 g/dL (12.0-16.0); Mean Platelet Volume 8.6 fL (7.4-10.4); Platelet Count 262 10^3/uL (150-450)
[2021-07-31 08:21] VITALS: BP 115/63
[2021-07-31] MEDS: Magnesium Hydroxide LIQ 30 ML UDC PO SCH (08:26)
[2021-07-31] MEDS: Insulin GLARGINE 100 un/ml 10 ml VIAL SUBCUT SCH (08:26)
[2021-07-31] MEDS: Lactulose 30 ml UDC PO SCH (08:26)
[2021-07-31] MEDS: Vitamin THERAPEUTIC TAB PO SCH (08:27)
== END 2021-07-31 14:10 | disposition home or self-care (01) | DRG 561 ==
LOC: SSU 14:44 → MCHPEDS 16:10
PROVIDERS: ADMIT Orthopaedic Surgery Adult Reconstructive Orthopaedic Surgery; ATTEND Orthopaedic Surgery Adult Reconstructive Orthopaedic Surgery

== ENCOUNTER 2022-06-18 02:10 | Observation (INO) ==
[2022-06-18 05:23] LABS: Urine Appearance Clear; Urine Bilirubin Negative (Negative); Urine Color Yellow; Urine Glucose Negative (Negative); Urine Ketones Negative (Negative); Urine Nitrite Negative (Negative); Urine Protein Negative (Negative); Urine Urobilinogen 0.2 (Negative) (Negative); Urine pH 5.5 (5.0-9.0)
[2022-06-18 05:36] LABS: Urine Bacteria Absent (Absent); Urine Red Blood Cell Trace(0-2/hpf) (Absent); Urine Squamous Epithelial Cell Present (Absent); Urine White Blood Cell 3+(>20/hpf) (Absent)
[2022-06-18 09:02] LABS: ABS Basophils 0.1 10^3/ul (0-0.2); ABS Eosinophils 0.2 10^3/ul (0-0.6); ABS Lymphocytes 1.6 10^3/ul (1.0-4.8); ABS Monocytes 0.7 10^3/ul (0-0.8); ABS Neutrophils 6.8 10^3/ul (1.5-7.7); Eosinophil % 2.2 %; Hematocrit 37 % (35-47); Hemoglobin 12.5 g/dL (12.0-16.0); Lymphocyte % 16.8 %; Mean Corpuscular HGB Conc 34 g/dL (31-36); Mean Corpuscular Hemoglobin 29 pg (27-31); Mean Corpuscular Volume 85 fL (80-97); Mean Platelet Volume 8.4 fL (7.4-10.4); Platelet Count 222 10^3/uL (150-450); Red Blood Count 4.35 10^6 /uL (3.70-4.87); Red Cell Distribution Width 15 % (10-15); White Blood Count 9.3 10^3/uL (3.5-10.8)
[2022-06-18] MEDS ORDERED: Ondansetron 4 mg VIAL 2 MG/ML 2 ml VIAL IV PRN (09:45)
[2022-06-18 09:48] LABS: Albumin 3.4 g/dL (3.2-5.2); Albumin/Globulin Ratio 1.8 (1-3); Calcium 8.8 mg/dL (8.6-10.3); Globulin 1.9 g/dL (2-4); Total Bilirubin 0.4 mg/dL (0.2-1.0); Total Protein 5.3 g/dL (6.4-8.9); eGFR CKD-EPI 93.4 (>60)
[2022-06-18] MEDS ORDERED: Dextrose 50% Syringe 50 ml 25 GM/50 ML SYRINGE IV PUSH PRN (10:27)
[2022-06-18] MEDS ORDERED: Propofol 10 MG/ML 20 ML BTL ONE (14:29)
[2022-06-18] MEDS ORDERED: Dexamethasone IV 4 MG/ML VIAL 1 ml VIAL ONE (14:29)
[2022-06-18] MEDS ORDERED: Lidocaine 2% PF 5 ML VIAL ONE (14:29)
[2022-06-18] MEDS ORDERED: fentaNYL 250 mcg/5 ml 50 MCG/ML 5 ml VIAL (250 MCG) ONE (14:30)
[2022-06-18] MEDS ORDERED: Midazolam 2 mg/2 ml VIAL 1 mg/ml 2 ml VIAL (2 mg) ONE (14:30)
[2022-06-18] MEDS ORDERED: cefTRIAXone 1 gm/50 mL D5W 1 GM/50 ML BAG IV ONE (15:53)
[2022-06-18] MEDS ORDERED: Ondansetron 4 mg VIAL 2 MG/ML 2 ml VIAL ONE (16:02)
[2022-06-18] MEDS ORDERED: Insulin GLARGINE 100 un/ml 10 ml VIAL SUBCUT SCH (21:00)
[2022-06-18] MEDS ORDERED: oxyCODONE/Acetamin 5/325 mg TAB PO PRN (22:13)
[2022-06-18] MEDS: NS 0.9% 1000 ml BAG 1,000 ML IV SCH (23:35)
[2022-06-19 05:49] LABS: ABS Lymphocytes 0.8 10^3/ul (1.0-4.8); ABS Monocytes 0.5 10^3/ul (0-0.8); ABS Neutrophils 10.5 10^3/ul (1.5-7.7); Eosinophil % 0.1 %; Hematocrit 37 % (35-47); Hemoglobin 11.7 g/dL (12.0-16.0); Lymphocyte % 7.1 %; Mean Corpuscular HGB Conc 32 g/dL (31-36); Mean Corpuscular Hemoglobin 27 pg (27-31); Mean Corpuscular Volume 85 fL (80-97); Mean Platelet Volume 8.5 fL (7.4-10.4); Platelet Count 220 10^3/uL (150-450); Red Blood Count 4.35 10^6 /uL (3.70-4.87); Red Cell Distribution Width 15 % (10-15); White Blood Count 11.9 10^3/uL (3.5-10.8)
[2022-06-19 06:12] LABS: Calcium 8.1 mg/dL (8.6-10.3); Magnesium 1.7 mg/dL (1.9-2.7); Potassium 4.1 mmol/L (3.5-5.0); eGFR CKD-EPI 95.1 (>60)
[2022-06-19] MEDS: NS 0.9% 1000 ml BAG 1,000 ML IV SCH (06:41)
[2022-06-19 08:19] VITALS: BP 152/66
[2022-06-19] MEDS ORDERED: POTASSIUM GLUCONATE PO SCH (09:00)
[2022-06-19] MEDS ORDERED: Insulin GLARGINE 100 un/ml 10 ml VIAL SUBCUT SCH ×2 (09:00)
[2022-06-19] MEDS ORDERED: Cholecalciferol (VIT D3) 1,000 unit TAB PO SCH (09:00)
[2022-06-19] MEDS ORDERED: Coenzyme Q10 CAP (NF) 100 MG PO SCH (09:00)
== END 2022-06-19 12:56 | disposition home or self-care (01) ==
LOC: EDHOLD 02:10 → ED 02:10 → EDHOLD 13:57 → SSU 19:28
PROVIDERS: ADMIT Internal Medicine; ATTEND Internal Medicine

== ENCOUNTER 2024-03-15 07:06 | Observation (INO) ==
[2024-03-15 11:31] LABS: ABS Basophils 0.1 10^3/uL (0.0-0.1); ABS Eosinophils 0.1 10^3/uL (0.0-0.5); ABS Lymphocytes 1.4 10^3/uL (1.0-4.8); ABS Monocytes 0.5 10^3/uL (0.0-0.9); ABS Neutrophils 5.9 10^3/uL (1.5-7.6); Eosinophil % 1.2 %; Hematocrit 49.3 % (35-45); Hemoglobin 15.8 g/dL (11.5-14.3); Lymphocyte % 17.1 %; Mean Corpuscular Hemoglobin 27.4 pg (27-33); Mean Corpuscular Hgb Conc 32.1 g/dL (31-36); Mean Corpuscular Volume 85.4 fL (80-97); Mean Platelet Volume 9.4 fL (7.5-11.2); Nucleated Red Blood Cells % 0.1 %/100WBC (0.0-0.8); Platelet Count 300 10^3/uL (150-450); Red Blood Count 5.77 10^6/uL (3.63-4.92); Red Cell Distribution Width 15.3 % (12-17)
[2024-03-15] MEDS ORDERED: Midazolam 5 mg/5 ml VIAL 1 mg/ml 5 ml VIAL (5 mg) ONE (11:52)
[2024-03-15] MEDS ORDERED: fentaNYL 250 mcg/5 ml 50 MCG/ML 5 ml VIAL (250 MCG) ONE (11:52)
[2024-03-15] MEDS ORDERED: Lidocaine 1% VIAL 10 MG/ML 30 ML VIAL ONE (11:52)
[2024-03-15 12:03] LABS: Albumin 4.3 g/dL (3.2-5.2); Albumin/Globulin Ratio 1.8 (1-3); C Reactive Protein 1.65 mg/L (<8.01); Calcium 9.8 mg/dL (8.6-10.3); Creatinine, Serum 0.73 mg/dL (0.51-0.95); Globulin 2.4 g/dL (2-4); Potassium 4.2 mmol/L (3.5-5.0); Total Bilirubin 0.6 mg/dL (0.2-1.0); Total Protein 6.7 g/dL (6.4-8.9); eGFR CKD-EPI 87.3 (>60)
[2024-03-15] MEDS ORDERED: Iodixanol 320 (CONTRAST) 100 ML SDV ONE ×2 (12:08→13:11)
[2024-03-15] MEDS ORDERED: Heparin 2 UNITS/ML IVPREMIX 3,000 UNIT/1,500 ML BAG IV ONE (12:09)
[2024-03-15] MEDS ORDERED: Heparin 1,000 UNIT/ML 10 ml (10,000 UNITS) CATHLAB/DIALYSIS ONE (12:49)
[2024-03-15] MEDS ORDERED: hydrALAZINE 20 mg/ml 1 ML Vial IV ONE (14:41)
[2024-03-15] MEDS ORDERED: fentaNYL 100 mcg/2 ml 50 MCG/ML VIAL ONE (16:13)
[2024-03-15] MEDS: fentaNYL 100 mcg/2 ml 50 MCG/ML VIAL IV ONE (16:15)
[2024-03-15] MEDS: NS 0.9% 1000 ml BAG 1,000 ML IV ONE (18:09)
[2024-03-15] MEDS: cefTRIAXone 1 gm/50 mL D5W 1 GM/50 ML BAG IV SCH (19:40)
[2024-03-15] MEDS: Morphine 2 MG/ML SYRINGE IV PRN (20:38)
[2024-03-15] MEDS ORDERED: Zosyn per Pharmacy NOTE FOLLOW UP SCH (21:00)
[2024-03-15] MEDS: Zosyn 3.375 GM IV - ED ONCE IV ONE (21:16)
[2024-03-16] MEDS: ZOSYN 3.375 GM Q8H per EXTENDED INFUSION IV SCH (01:16)
[2024-03-16 05:23] LABS: ABS Basophils 0.1 10^3/uL (0.0-0.1); ABS Eosinophils 0.1 10^3/uL (0.0-0.5); ABS Lymphocytes 1.1 10^3/uL (1.0-4.8); ABS Monocytes 0.6 10^3/uL (0.0-0.9); ABS Neutrophils 7.1 10^3/uL (1.5-7.6); ABS Nucleated RBC 0.01 10^3/ul; Eosinophil % 0.9 %; Hematocrit 38.4 % (35-45); Hemoglobin 12.7 g/dL (11.5-14.3); Lymphocyte % 12.2 %; Mean Corpuscular Hemoglobin 27.7 pg (27-33); Mean Corpuscular Hgb Conc 33.1 g/dL (31-36); Mean Corpuscular Volume 83.8 fL (80-97); Mean Platelet Volume 8.6 fL (7.5-11.2); Nucleated Red Blood Cells % 0.1 %/100WBC (0.0-0.8); Platelet Count 247 10^3/uL (150-450); Red Blood Count 4.59 10^6/uL (3.63-4.92)
[2024-03-16 05:58] LABS: Calcium 8.6 mg/dL (8.6-10.3); Creatinine, Serum 0.7 mg/dL (0.51-0.95); Magnesium 1.6 mg/dL (1.9-2.7); Phosphorus 4.4 mg/dL (2.5-5.0); Potassium 3.7 mmol/L (3.5-5.0); eGFR CKD-EPI 91.8 (>60)
[2024-03-16] MEDS: DULoxetine DR 20 mg CAP PO SCH (08:02)
[2024-03-16] MEDS: Magnesium Sulfate 2 gm BAG 2 GM/50 ML BAG IVPB ONE (08:05)
[2024-03-16] MEDS: Insulin GLARGINE 100 un/ml 10 ml VIAL SUBCUT SCH (09:22)
[2024-03-16] MEDS: Enoxaparin 40 MG/0.4 ML SYR SUBCUT SCH (20:50)
[2024-03-16] MEDS: Amoxicillin/Clavul 875/125 TAB (Augmentin 875 tab) PO SCH (20:50)
[2024-03-17 06:05] LABS: Hematocrit 36.5 % (35-45); Hemoglobin 11.9 g/dL (11.5-14.3); Mean Corpuscular Hemoglobin 27.4 pg (27-33); Mean Corpuscular Hgb Conc 32.6 g/dL (31-36); Mean Platelet Volume 8.7 fL (7.5-11.2); Platelet Count 239 10^3/uL (150-450); Red Blood Count 4.35 10^6/uL (3.63-4.92)
[2024-03-17 07:01] LABS: Calcium 8.4 mg/dL (8.6-10.3); Creatinine, Serum 0.66 mg/dL (0.51-0.95); Magnesium 1.9 mg/dL (1.9-2.7); Potassium 3.8 mmol/L (3.5-5.0); eGFR CKD-EPI 93.1 (>60)
[2024-03-17] MEDS ORDERED: Estradiol VAG CM (NF) 1 APPLIC TUBE VAGINAL SCH (08:00)
[2024-03-17] MEDS: VITAMIN B COMPLEX PO SCH (08:33)
[2024-03-17] MEDS: VITAMIN K2 100 MCG PO SCH (08:33)
[2024-03-17] MEDS: Cholecalciferol (VIT D3) 1,000 unit TAB PO SCH (12:24)
[2024-03-17 13:22] VITALS: BP 131/73
== END 2024-03-17 15:05 | disposition home health service (06) ==
LOC: EDHOLD 07:06 → ED 07:06 → SUATTDRO 18:24 → MED 21:22
PROVIDERS: ADMIT Internal Medicine; ATTEND Student in an Organized Health Care Education/Training Program

== ENCOUNTER 2024-05-17 17:22 | Inpatient (IN) ==
[2024-05-17 18:16] LABS: ABS Basophils 0.1 10^3/uL (0.0-0.1); ABS Eosinophils 0.1 10^3/uL (0.0-0.5); ABS Lymphocytes 1.5 10^3/uL (1.0-4.8); ABS Monocytes 0.8 10^3/uL (0.0-0.9); ABS Neutrophils 8.7 10^3/uL (1.5-7.6); Hematocrit 40.3 % (35-45); Hemoglobin 12.9 g/dL (11.5-14.3); Lymphocyte % 13.5 %; Mean Corpuscular Hemoglobin 27.1 pg (27-33); Mean Corpuscular Volume 84.9 fL (80-97); Platelet Count 301 10^3/uL (150-450); Red Blood Count 4.75 10^6/uL (3.63-4.92); White Blood Count 11.3 10^3/uL (3.8-11.8)
[2024-05-17 18:54] LABS: Albumin 4.1 g/dL (3.2-5.2); Albumin/Globulin Ratio 1.7 (1-3); Calcium 9.8 mg/dL (8.6-10.3); Creatinine, Serum 1.01 mg/dL (0.51-0.95); Globulin 2.4 g/dL (2-4); Potassium 4.2 mmol/L (3.5-5.0); Total Bilirubin 0.3 mg/dL (0.2-1.0); Total Protein 6.5 g/dL (6.4-8.9); eGFR CKD-EPI 58.8 (>60)
[2024-05-17 18:59] LABS: TSH Ultra Thyroid Stim Horm 1.5 mcIU/mL (0.34-5.60)
[2024-05-17 20:37] LABS: High Sensitivity Troponin 1 Hr 13 pg/mL (<15)
[2024-05-17 22:13] LABS: Urine Appearance Turbid; Urine Bacteria Absent /HPF (Absent); Urine Bilirubin Negative (Negative); Urine Blood Trace (Negative); Urine Color Yellow; Urine Glucose 4+ (>=1000 mg/dL) (Negative); Urine Ketones Negative (Negative); Urine Nitrite Negative (Negative); Urine Protein 1+ (>=30 mg/dL) (Negative); Urine Red Blood Cell 2+(6-10/hpf) /HPF (0-Trace); Urine Specific Gravity 1.031 (1.002-1.030); Urine Squamous Epithelial Cell Present /HPF (Absent); Urine Urobilinogen Negative (Negative); Urine White Blood Cell 2+(11-20/hpf) /HPF (0-Trace); Urine pH 5.5 (5.0-8.0)
[2024-05-17] MEDS: NS 0.9% 1000 ml BAG 1,000 ML IV ONE (23:24)
[2024-05-17] MEDS: GENTAMICIN ADULT IVPB ONE (23:38)
[2024-05-17] MEDS: NS 0.9% IVPB ONE (23:38)
[2024-05-18] MEDS ORDERED: Dextrose 50% Syringe 50 ml 25 GM/50 ML SYRINGE IV PUSH PRN (03:22)
[2024-05-18] MEDS: Piperacillin/Tazobac 3.375 BAG 3.375 GM/100 ML BAG IV ONE (03:30)
[2024-05-18] MEDS ORDERED: Zosyn per Pharmacy NOTE FOLLOW UP SCH (04:00)
[2024-05-18 05:43] LABS: Erythrocyte Sed Rate 15 mm/Hr (0-30)
[2024-05-18] MEDS ORDERED: Vancomycin per Pharmacy 1 EA NOTE FOLLOW UP SCH (06:00)
[2024-05-18] MEDS ORDERED: Enoxaparin 40 MG/0.4 ML SYR SUBCUT SCH (06:00)
[2024-05-18 06:21] LABS: C Reactive Protein 1.33 mg/L (<8.01); HDL Cholesterol 40.2 mg/dL
[2024-05-18] MEDS: ZOSYN 3.375 GM Q8H per EXTENDED INFUSION IV SCH (07:53)
[2024-05-18] MEDS: Vancomycin 1,500 MG in NS 0.9% 250 ml 250 ML IVPB ONE (07:53)
[2024-05-18] MEDS: Enoxaparin 40 MG/0.4 ML SYR SUBCUT SCH (07:54)
[2024-05-18] MEDS: DULoxetine DR 20 mg CAP PO SCH (09:34)
[2024-05-18] MEDS: Lactated Ringers 1000 ml BAG 1,000 ML IV SCH (10:29)
[2024-05-18 11:02] LABS: ABS Basophils 0.1 10^3/uL (0.0-0.1); ABS Eosinophils 0.1 10^3/uL (0.0-0.5); ABS Lymphocytes 1.4 10^3/uL (1.0-4.8); ABS Monocytes 0.8 10^3/uL (0.0-0.9); Eosinophil % 0.7 %; Hematocrit 39.5 % (35-45); Hemoglobin 12.8 g/dL (11.5-14.3); Lymphocyte % 11.4 %; Mean Corpuscular Hemoglobin 27.4 pg (27-33); Mean Corpuscular Hgb Conc 32.3 g/dL (31-36); Mean Corpuscular Volume 84.8 fL (80-97); Mean Platelet Volume 8.9 fL (7.5-11.2); Platelet Count 272 10^3/uL (150-450); Red Blood Count 4.66 10^6/uL (3.63-4.92); Red Cell Distribution Width 13.8 % (12-17); White Blood Count 12.4 10^3/uL (3.8-11.8)
[2024-05-18] MEDS ORDERED: ceFAZolin 2 GM PREMIX 2 GM/50 ML BAG IV SCH (14:00)
[2024-05-18] MEDS ORDERED: ceFAZolin 1 GM ADVAN 1 GM in NS 0.9% 50 ML 50 ML IVPB SCH (14:00)
[2024-05-18 14:03] LABS: Magnesium 1.4 mg/dL (1.9-2.7)
[2024-05-18 15:10] LABS: Calcium 8.7 mg/dL (8.6-10.3); Creatinine, Serum 0.67 mg/dL (0.51-0.95); eGFR CKD-EPI 92.2 (>60)
[2024-05-18] MEDS: ceFAZolin 2 GM PREMIX 2 GM/50 ML BAG IV SCH ×3 (15:35→22:32)
[2024-05-18] MEDS ORDERED: Vancomycin 750 MG in NS 0.9% 250 ML IVPB SCH (20:00)
[2024-05-19 08:30] LABS: ABS Basophils 0.1 10^3/uL (0.0-0.1); ABS Eosinophils 0.1 10^3/uL (0.0-0.5); ABS Monocytes 0.8 10^3/uL (0.0-0.9); ABS Neutrophils 9.5 10^3/uL (1.5-7.6); Eosinophil % 1.1 %; Hematocrit 37.1 % (35-45); Hemoglobin 12.2 g/dL (11.5-14.3); Mean Corpuscular Hemoglobin 27.8 pg (27-33); Mean Corpuscular Hgb Conc 32.9 g/dL (31-36); Mean Corpuscular Volume 84.6 fL (80-97); Mean Platelet Volume 9.3 fL (7.5-11.2); Platelet Count 240 10^3/uL (150-450); Red Blood Count 4.39 10^6/uL (3.63-4.92); Red Cell Distribution Width 13.7 % (12-17); White Blood Count 11.6 10^3/uL (3.8-11.8)
[2024-05-19 08:56] LABS: Calcium 8.9 mg/dL (8.6-10.3); Creatinine, Serum 0.71 mg/dL (0.51-0.95); Magnesium 1.4 mg/dL (1.9-2.7); Potassium 4.3 mmol/L (3.5-5.0); eGFR CKD-EPI 89.7 (>60)
[2024-05-19] MEDS: Enoxaparin 40 MG/0.4 ML SYR SUBCUT SCH (09:59)
[2024-05-19] MEDS: Nystatin TOP POWDER 15 GM BTL TOPICAL SCH (18:07)
[2024-05-20] MEDS ORDERED: Vancomycin Trough Check NOTE FOLLOW UP ONE (07:30)
[2024-05-20 08:54] LABS: Creatinine, Serum 0.62 mg/dL (0.51-0.95)
[2024-05-20] MEDS: Insulin GLARGINE 100 un/ml 10 ml VIAL SUBCUT SCH (09:41)
[2024-05-21 06:05] LABS: ABS Basophils 0.1 10^3/uL (0.0-0.1); ABS Eosinophils 0.1 10^3/uL (0.0-0.5); ABS Monocytes 0.8 10^3/uL (0.0-0.9); ABS Neutrophils 6.6 10^3/uL (1.5-7.6); Hematocrit 34.2 % (35-45); Hemoglobin 11.3 g/dL (11.5-14.3); Lymphocyte % 12.2 %; Mean Corpuscular Hgb Conc 33.1 g/dL (31-36); Mean Corpuscular Volume 84.4 fL (80-97); Mean Platelet Volume 9.1 fL (7.5-11.2); Platelet Count 231 10^3/uL (150-450); Red Blood Count 4.06 10^6/uL (3.63-4.92); Red Cell Distribution Width 13.8 % (12-17); White Blood Count 8.6 10^3/uL (3.8-11.8)
[2024-05-21 06:49] LABS: Calcium 8.9 mg/dL (8.6-10.3); Creatinine, Serum 0.66 mg/dL (0.51-0.95); Magnesium 1.8 mg/dL (1.9-2.7); Potassium 4.2 mmol/L (3.5-5.0); eGFR CKD-EPI 92.6 (>60)
[2024-05-21] MEDS: hydrALAZINE 20 mg/ml 1 ML Vial IV IV SLOW PU ONE (07:57)
[2024-05-21] MEDS: Insulin GLARGINE 100 un/ml 10 ml VIAL SUBCUT SCH (09:06)
[2024-05-21] MEDS: Magnesium Sulfate IV 1GM/100ML 1 GM/100 ML BAG IV ONE (12:15)
[2024-05-21] MEDS: Insulin GLARGINE 100 un/ml 10 ml VIAL SUBCUT ONE (21:22)
[2024-05-22] MEDS: Insulin GLARGINE 100 un/ml 10 ml VIAL SUBCUT SCH (08:44)
[2024-05-22 12:59] LABS: Glucose Confirmatory 404 mg/dL (70-100)
[2024-05-23] MEDS: Insulin GLARGINE 100 un/ml 10 ml VIAL SUBCUT SCH (08:05)
[2024-05-24 05:32] VITALS: BP 151/79
[2024-05-24 08:59] LABS: Glucose Confirmatory 429 mg/dL (70-100)
[2024-05-24] MEDS ORDERED: Dextrose 50% Syringe 50 ml 25 GM/50 ML SYRINGE IV PUSH PRN (09:01)
[2024-05-24 09:05] LABS: Rapid COVID-19 Molecular Undetected (Undetected)
[2024-05-24] MEDS: Insulin GLARGINE 100 un/ml 10 ml VIAL SUBCUT SCH (09:18)
== END 2024-05-24 10:30 | DRG 71 ==
LOC: ED 17:22 → EDHOLD 17:22 → SUATTDRO 05-18 01:18 → MED 05-18 15:25
PROVIDERS: ADMIT Student in an Organized Health Care Education/Training Program; ATTEND Hospitalist